=== PATIENT | male | born 1940 | race Caucasian/White ===

== ENCOUNTER 2019-04-14 08:44 | Outpatient (RCR) | payer MEDICARE, SELFPAY | END 2019-05-07 23:59 | disposition home or self-care (01) | LOC: SPT 08:44 | PROVIDERS: Family Provider Family Medicine; PCP Family Medicine; Referring Provider Neurological Surgery; Visit Provider Neurological Surgery | DX: M43.22 Fusion of spine, cervical region (principal) | CPT/HCPCS: 97110; 97161 ==

== ENCOUNTER 2019-05-08 06:00 | Outpatient (RCR) | payer MEDICARE, SELFPAY | END 2019-06-05 23:59 | disposition home or self-care (01) | LOC: SPT 06:00 | PROVIDERS: Family Provider Family Medicine; PCP Family Medicine; Referring Provider Neurological Surgery; Visit Provider Neurological Surgery | DX: Z47.89 Encounter for other orthopedic aftercare (principal); M43.22 Fusion of spine, cervical region; Z98.1 Arthrodesis status | CPT/HCPCS: 97110; 97140; 97164 ==

== ENCOUNTER 2019-06-06 06:00 | Outpatient (RCR) | payer MEDICARE, SELFPAY | END 2019-07-06 23:59 | disposition home or self-care (01) | LOC: SPT 06:00 | PROVIDERS: Family Provider Family Medicine; PCP Family Medicine; Referring Provider Neurological Surgery; Visit Provider Neurological Surgery | DX: M43.22 Fusion of spine, cervical region (principal) | CPT/HCPCS: 97110; 97140 ==

== ENCOUNTER 2020-10-18 07:05 | Outpatient (CLI) | payer MEDICARE, SELFPAY ==
--- NOTE | 2020-10-18 07:15 | USCV_ITS ---
Magen Boo Age: 80 Gender: M : 1940 Exam Date: 10/18/2020 07:32 Ordering Phys: Arturo Tabares M.D ([email or web address]) Technologist: [place] [facility] [place]: AO BIO PROS BP: 124 / 75 HR: 62 Rhythm: Sinus Technical Quality: Adequate MEASUREMENTS (Male / Female) Normal Values 2D ECHO LV Diastolic Diameter PLAX 3.6 cm 4.2 - 5.9 / 3.9 - 5.3 cm LV Systolic Diameter PLAX 2.5 cm IVS Diastolic Thickness 1.2 cm 0.6 - 1.0 / 0.6 - 0.9 cm IVS Systolic Thickness 1.2 cm LVPW Diastolic Thickness 1.0 cm 0.6 - 1.0 / 0.6 - 0.9 cm LVPW Systolic Thickness 1.3 cm LVOT Diameter 2.0 cm LV Ejection Fraction 2D Teich 62.0 % LV Ejection Fraction MOD 2C 55.6 % LV Ejection Fraction 2C AL 54.5 % LA Diameter 4.0 cm LA Width 4.0 cm LA Height 5.0 cm RA Width 3.5 cm RA Height 4.2 cm Aorta at Sinotubular Diameter 2.3 cm DOPPLER AV Peak Velocity 233.7 cm/s LVOT Peak Velocity 94.0 cm/s AV Area Cont Eq vti 1.4 cm squared AV Area Cont Eq pk 1.3 cm squared MV Area PHT 5.0 cm squared Mitral E to A Ratio 1.0 MV E' Velocity 66.0 cm/s Mitral E to MV E' Ratio 19.9 Mitral E to LV E' Lateral Ratio 15.9 Mitral E to LV E' Septal Ratio 26.7 TR Peak Velocity 173.7 cm/s TR Peak Gradient 12.1 mmHg TV Peak E Velocity 120.0 cm/s Right Atrial Pressure 3.0 mmHg Pulmonary Artery Systolic Pressu 15.1 mmHg FINDINGS Left Ventricle Normal left ventricular size. LV systolic function is normal with EF of 50-55%. No regional wall motion abnormalities. Grade 1 diastolic dysfunction Right Ventricle The right ventricle is normal in size and function. Right Atrium The right atrium is normal in size. Left Atrium The left atrium is normal in size. Mitral Valve Moderate mitral annular calcification. There is mild mitral stenosis. There is trace mitral regurgitation. Aortic Valve Bioprosthetic aortic valve is noted.Mild aortic stenosis noted. There is no aortic regurgitation. Tricuspid Valve Structurally normal tricuspid valve without significant stenosis or regurgitation. Insufficient TR jet to calculate RVSP Pulmonic Valve Structurally normal pulmonic valve without significant stenosis. There is no pulmonic regurgitation. Pericardium Normal pericardium without effusion. Aorta Normal ascending aorta dimension. CONCLUSIONS LV systolic function is nromal with EF of 50-55% Grade 1 diastolic dysfunction Trace mitral regurgitation. Mild mitral stenosis Mild aortic stenosis Compared to prior echocardiogram from 08/22/2017, no signficant changes are noted Arturo Tabares MD (Electronically Signed) Final Date: 22 October 2020 18:39 S
== END 2020-10-18 07:06 | disposition home or self-care (01) ==
LOC: US 07:06
PROVIDERS: PCP Family Medicine; Visit Provider Internal Medicine
DX: R06.02 Shortness of breath (principal); I25.10 Atherosclerotic heart disease of native coronary artery without angina pectoris; I34.0 Nonrheumatic mitral (valve) insufficiency; I35.0 Nonrheumatic aortic (valve) stenosis; Z95.2 Presence of prosthetic heart valve
CPT/HCPCS: 93306

== ENCOUNTER 2021-01-24 15:35 | Inpatient (IN) | payer MEDICARE, SELFPAY ==
[2021-01-24 15:58] VITALS: BMI 27.5
--- NOTE | 2021-01-24 16:40 | XRR_ITS ---
PROCEDURE INFORMATION: Exam: XR Chest Exam date and time: 01/24/2021 4:40 PM Age: 80 years old Clinical indication: Cough and shortness of breath; Prior surgery; Surgery type: Heart; Additional info: Pna TECHNIQUE: Imaging protocol: XR of the chest. Views: 1 view. COMPARISON: CR XR chest 2V* [id number] 01/22/2021 3:25 PM FINDINGS: Lungs: Patchy left lower lobe airspace disease slightly less prominent than prior. Mild reticular changes of pulmonary interstitium stable from prior. Pleural spaces: Unremarkable. No pleural effusion. No pneumothorax. Heart/Mediastinum: Previous CABG. Mild cardiac enlargement. Bones/joints: Unremarkable. XR/XR chest 1V portable [id number] IMPRESSION: Left lower lobe pneumonia is suspected although mild improvement from prior is noted. Radiation Dose CTDIVOL = (mGy): DLP = (mGy-cm)
--- NOTE | 2021-01-24 16:45 | PM.HP ---
Providers/Chief Complaint Admitting Physician: Jose Weinberg MD Primary Care Provider: Kyle Mendoza MD Chief Complaint: pneumonia History of Present Illness Magen Boo is a 80 year old male with past medical history of CAD, CABG, aortic stenosis s/p bioprosthetic aortic valve, dyslipidemia who was sent in to the hospital as direct admit from [facility]. Patient gives history of having difficulty in breathing, cough for last 3 weeks. He states symptoms started after having nausea, vomiting for few days during which he had multiple episodes of aggressive vomiting. He states 2 days after vomiting subsided he started having difficulty in breathing with cough and expectoration. Symptoms are associated with high-grade fever going up to 102 Fahrenheit. He was started on oral Levaquin by his primary care physician with last dose taken on January 21. He started having fevers again going up to 101 Fahrenheit last night so he went to his primary care's office and was sent in for further management. Patient is vaccinated for COVID-19 with last shot in June. He states at baseline he does have difficulty in breathing on walking up to 2 blocks. Denies any PND, orthopnea. Review of Systems General: Reports: 10 or more systems reviewed and unremarkable except in HPI and below Const: Denies: fever(s), chills, body aches, change in appetite, change in weight, malaise, night sweats, diaphoresis, change in sleep pattern, daytime sleepiness or snoring Eyes: Denies: change in vision, blurry vision, photophobia, eye discomfort or eye discharge ENMT: Denies: throat pain, enlarged tonsils, hoarseness, mouth pain, oral sores, dry mouth, tinnitus, nasal congestion or post nasal drip Card: Denies: chest pain, palpitations, irregular heart rhythm, edema, swelling of feet/ankles, lightheadedness, syncope, pre-syncope, dyspnea on exertion, orthopnea, leg pain with exertion or acrocyanosis Resp: Denies: dyspnea, productive cough, non-productive cough, wheezing, stridor, pain on inspiration, change in phlegm color, hemoptysis or chest congestion GI: Denies: abdominal pain, nausea, vomiting, hematemesis, coffee ground emesis, dysphagia, heartburn, diarrhea, constipation, bloating, GI cramping, change in bowel habits, pain on defecation, hematochezia or melena : Denies: flank pain, difficulty urinating, dysuria, urinary frequency, urinary urgency, urinary hesitancy, urinary dribbling, difficulty starting urination, change in urine stream, nocturia or hematuria Musc: Denies: neck pain, back pain, extremity pain, joint pain, joint swelling, joint redness, joint stiffness or limited range of motion Neuro: Denies: headache(s), numbness in extremities, weakness in extremities, sensory changes, lack of coordination, difficulty walking, frequent falls, dizziness, vertigo, confusion, Slurred speech present, difficulty communicating thoughts or seizure-like activity Psych: Denies: anxiety, depression, mood swings, panic attacks, hopelessness or irritability Endo: Denies: polyuria, polydipsia, tired all the time, cold intolerance, excessive sweating, flushing or heat intolerance Favian/Lymph: Denies: easy bruising or easy bleeding All/Imm: Denies: tongue swelling, facial swelling or acute wheezing Medications/Allergies Home Medications Medication Instructions Recorded Confirmed Last Taken Type nitroglycerin 0.4 mg sublingual 0.4 mg SUBLINGUAL Q5M PRN 09/06/19 09/06/20 Unknown History tablet fluoxetine 10 mg tablet 10 mg PO DAILY #90 tab 09/06/20 09/06/20 Unknown Rx ibuprofen 800 mg tablet 800 mg PO TID PRN #60 tab 09/06/20 09/06/20 Unknown Rx simvastatin 40 mg tablet 40 mg PO DAILY #90 tab 09/06/20 09/06/20 Unknown Rx pindolol 5 mg tablet 2.5 mg PO BID 90 Days #90 tab 10/13/20 Unknown Rx Allergies Allergy/AdvReac Type Severity Reaction Status Date / Time No Known Allergies Allergy Verified 09/06/20 14:14 PFSH Acute PFSH: Medical History (Updated 01/24/21 @ 17:35 by Matias Knox MD) ASHD (arteriosclerotic heart disease) Chronic neck pain Chronic shortness of breath Dyslipidemia H/O Caro's palsy Myocardial infarction Surgical History (Updated 01/24/21 @ 17:35 by Matias Knox MD) S/P appendectomy S/P AVR (aortic valve replacement) Bioprosthetic open aortic valve replacement S/P CABG (coronary artery bypass graft) S/P hernia repair S/P PTCA (percutaneous transluminal coronary angioplasty) Family History Father CAD (coronary artery disease) Brother CAD (coronary artery disease) Social History Smoking and tobacco status: never smoked Alcohol intake: never Household members: spouse Marital status: Vitals/I&O/Wt Weight last 48 hrs Weight 97.341 kg Physical Exam Narrative: EXAM NARRATIVE: General: No acute distress, AO x3 HEENT: PERRLA, pupils bilaterally equal and reactive Chest: Normal vesicular breath sounds bilaterally other than left lower zone where he has rhonchi and coarse crackles, soft bilateral fine crackles present, no added sounds, equal good air entry bilaterally CVS: S1-S2 regular, no murmurs, no tachycardia, no gallops, no rubs Abdomen: Soft, nontender, no organomegaly, bowel sounds present Neuro: No focal deficits, no facial deformity, AO x3, power 5/5 in all limbs A&P Assessment and plan (1) Left lower lobe pneumonia: Status: Acute (2) Failure of outpatient treatment: Status: Acute (3) S/P CABG (coronary artery bypass graft): Status: Acute (4) S/P AVR (aortic valve replacement): Status: Acute (5) Dyslipidemia: Status: Acute Additional A&P Information Left lower lobe pneumonia: Failure of outpatient treatment. Check blood culture, CMP, CBC, CPK, D-dimer, lactate with reflex, urine Legionella, bacterial antigen, flu swab, MRSA swab, COVID-19 antigen and PCR, procalcitonin, proBNP. Stat chest x-ray. Oxygen supplementation keeping saturation over 90%. Currently on room air. For now start patient on treatment for community-acquired pneumonia with oral azithromycin and IV ceftriaxone. DuoNeb every 6 hourly, budesonide twice daily. Depending on value of D-dimer and BNP will decide about CTA versus CT chest without contrast. Continue other chronic medication including statin, fluoxetine. Start on Flomax 0.4 mg daily. History of CABG: History of bioprosthetic aortic valve: Start patient on aspirin 81 mg daily, continue with statin. Check HbA1c, lipid panel, TSH, iron panel. We will change treatment as per the results and clinical picture going forward. CODE STATUS: Full code. Cardiac diet. Heparin 5000 every 8 for DVT prophylaxis. Famotidine for PUD prophylaxis Attestations Medical Necessity Statement*: Admission for more than 2 midnights due to left lower lobe pneumonia with failure of outpatient treatment Time Spent in Patient Care: Greater than 35 minutes (>than 50% of time spent in counselling and/or direct pt care on unit). Coding Level of Care Code Acute Core Inspector for Chg Fwd Diagnoses Left lower lobe pneumonia J18.9 Failure of outpatient treatment Z78.9 S/P CABG (coronary artery bypass graft) Z95.1 S/P AVR (aortic valve replacement) Z95.2 Dyslipidemia E78.5
[2021-01-24 17:38] VITALS: BP 132/74; PULSE 76; RESP 17; TEMP 37.3; O2SAT 93
[2021-01-24] MEDS: FUROsemide 10 mg/mL SDV 4mL 40 MG IVP (17:53)
[2021-01-24] MEDS: cefTRIAXone 1,000 MG in sodium chloride 0.9% (plus) 50 ML 100 MG IV (17:53)
[2021-01-24] MEDS: ferrous gluconate 324 mg Tablet PO (17:53)
[2021-01-24] MEDS: azithromycin 250 mg Tablet 500 MG PO (17:53)
[2021-01-24 18:05] LABS: Basophils % 0.3 %; Eosinophils # 0.3 10^3/uL (0.0-0.8); Eosinophils % 2.4 %; Hematocrit 36.2 % (42.0-52.0); Hemoglobin 11.5 g/dL (11.7-16.6); Lymphocytes # 0.8 10^3/uL (0.8-4.8); Lymphocytes % 6.7 %; Mean Corpuscular HGB Conc 31.8 g/dL (30.0-36.0); Mean Corpuscular Hemoglobin 29.4 pg (28.0-34.0); Mean Corpuscular Volume 92.6 fl (80-94); Mean Platelet Volume 10.9 fL (7.4-10.4); Monocytes # 1.2 10^3/uL (0.2-0.9); Monocytes % 10.1 %; Neutrophils # 9.36 10^3/uL (1.8-7.7); Neutrophils % 79.8 %; Nucleated Red Blood Cells % 0 %; Platelet Count 319 10^3/cmm (130-400); Red Blood Count 3.91 10^6/uL (4.1-5.3); Red Cell Distribution Width 13.3 % (12.1-15.1); White Blood Count 11.7 10^3/uL (4.0-10.0)
[2021-01-24 18:12] VITALS: O2SAT 92
[2021-01-24 18:16] LABS: D Dimer 2.44 ug/mIFEU (0-0.59)
[2021-01-24 18:18] LABS: Lactic Sepsis W/Reflex 1.2 mmol/L (0.5-2.2)
[2021-01-24 18:44] LABS: NT Pro B Type Natriuretic Pept 613 pg/mL (0-450); Procalcitonin 0.09 ng/mL (0-0.5); Thyroid Stimulating Hormone 2.24 uIU/mL (0.27-4.20)
[2021-01-24 18:56] LABS: Alanine Aminotransferase 26 U/L (0-41); Alkaline Phosphatase 100 IU/L (40-130); Anion Gap 14.8 (5-19); Aspartate Amino Transferase 14 U/L (0-40); Blood Urea Nitrogen 14 mg/dL (8-23); Calcium 8.2 mg/dL (8.5-10.5); Carbon Dioxide 22 mmol/L (22-29); Chloride 99 mmol/L (98-107); Creatine Phosphokinase 23 U/L (39-308); Globulin 3.1 g/dL (1.3-4.6); Glucose 146 mg/dL (65-115); Iron 22 ug/dL (59-158); Magnesium 2.1 mg/dL (1.7-2.3); Osmolality Calculated 277 mOsm/kg (285-295); Percent Saturation 11.1 % (20-50); Phosphorus 2.9 mg/dL (2.5-4.5); Potassium 3.8 mmol/L (3.5-5.1); Sodium 132 mmol/L (136-145); Total Bilirubin 0.4 mg/dL (0.15-1.2); Total Iron Binding Capacity 198 mcg/dl; Total Protein 6.1 g/dL (6.6-8.7); Unsaturated Iron Binding 176 ug/dL (112-347)
[2021-01-24 19:23] LABS: Influenza A by IFA Negative (Negative); Influenza B by IFA Negative (Negative)
[2021-01-24] MEDS: heparin 5,000 unit/mL INJ 1 mL 5000 UNIT SUBCUT (19:37)
[2021-01-24 19:56] LABS: Potassium, Radom Urine 37 mmol/L; Urine Random Chloride 100 mmol/L; Urine Random Sodium 98 mmol/L
[2021-01-24 20:00] VITALS: BP 134/72; PULSE 79; RESP 14; TEMP 36.8; O2SAT 92
[2021-01-24] MEDS: ipratropium-albuterol 3 mL Neb INHALATION (20:20)
[2021-01-24] MEDS: budesonide 0.5 mg/2 mL Neb INHALATION (20:20)
[2021-01-24 20:23] VITALS: PULSE 73; O2SAT 94
[2021-01-24] MEDS: famotidine 20 mg/2 mL INJ IVP (21:12)
[2021-01-24] MEDS: benzonatate 100 mg Capsule PO (21:12)
[2021-01-24] MEDS: atorvastatin 40 mg Tablet 20 MG PO (21:12)
[2021-01-25] VITALS (12 sets, daily range): BP systolic 124–154; BP diastolic 51–73; PULSE 68–87; RESP 14–18; TEMP 36.8–37.4; O2SAT 92–94
--- NOTE | 2021-01-25 01:56 | PC.NURSE ---
This nurse went into pt's room at appro
--- NOTE | 2021-01-25 01:57 | PC.NURSE ---
This nurse went into pt's room at approx 2115 to give his HS medication, the pt asked if there was anything to help him sleep in that cup, this nurse told him there was not, and he did not have an order for anything to help him sleep, this nurse then asked what he took at home and he stated tylenol PM . this nurse offered to contact the systems consultant and see if we could get him something but I didn't think it would be tylenol PM, pt stated don't worry about it, I don't want you contacting anyone , this nurse told pt we would see how he does tonight and I would let day shift know and if he needs it we can maybe get an order for something starting tomorrow night. pt voiced an understanding.
[2021-01-25] MEDS: heparin 5,000 unit/mL INJ 1 mL 5000 UNIT SUBCUT ×3 (02:11→18:33)
[2021-01-25 05:52] LABS: Basophils # 0.1 10^3/uL (0.0-0.1); Basophils % 0.5 %; Eosinophils # 0.2 10^3/uL (0.0-0.8); Eosinophils % 2.1 %; Hematocrit 36.8 % (42.0-52.0); Hemoglobin 11.7 g/dL (11.7-16.6); Lymphocytes # 0.9 10^3/uL (0.8-4.8); Mean Corpuscular HGB Conc 31.8 g/dL (30.0-36.0); Mean Corpuscular Hemoglobin 29.3 pg (28.0-34.0); Mean Platelet Volume 10.6 fL (7.4-10.4); Monocytes # 1.1 10^3/uL (0.2-0.9); Monocytes % 10.5 %; Neutrophils # 8.33 10^3/uL (1.8-7.7); Neutrophils % 78.1 %; Nucleated Red Blood Cells % 0 %; Platelet Count 366 10^3/cmm (130-400); Red Cell Distribution Width 13.2 % (12.1-15.1); White Blood Count 10.7 10^3/uL (4.0-10.0)
[2021-01-25 06:28] LABS: Alanine Aminotransferase 24 U/L (0-41); Alkaline Phosphatase 105 IU/L (40-130); Anion Gap 11.9 (5-19); Aspartate Amino Transferase 16 U/L (0-40); Blood Urea Nitrogen 13 mg/dL (8-23); Calcium 8.3 mg/dL (8.5-10.5); Carbon Dioxide 26 mmol/L (22-29); Chloride 99 mmol/L (98-107); Globulin 3.3 g/dL (1.3-4.6); Glucose 109 mg/dL (65-115); Magnesium 1.9 mg/dL (1.7-2.3); Osmolality Calculated 277 mOsm/kg (285-295); Phosphorus 3.1 mg/dL (2.5-4.5); Potassium 3.9 mmol/L (3.5-5.1); Sodium 133 mmol/L (136-145); Total Bilirubin 0.4 mg/dL (0.15-1.2); Total Protein 6.3 g/dL (6.6-8.7)
[2021-01-25 06:36] LABS: Estmated Average Glucose 126
[2021-01-25] MEDS: budesonide 0.5 mg/2 mL Neb INHALATION ×2 (07:58→20:37)
[2021-01-25] MEDS: ipratropium-albuterol 3 mL Neb INHALATION ×3 (08:02→20:37)
--- NOTE | 2021-01-25 08:38 | PC.PHAR ---
Pt unable to verify medications-called and left message with french [phone]-MEDICATIONS ENTERED ARE WHAT THE PHARMACY HAS FILLED RECENTLY-NOTES ARE MADE IN THE PHARMACY COMMENTS-EXT MED HISTORY SHOWS PREDNISONE 20MG BID FILLED ON 01/15/21 5D/S AND LEVAQUIN 750MG DAILY FILLED ON 01/15/21 7D/S
[2021-01-25] MEDS: benzonatate 100 mg Capsule PO ×3 (08:44→19:59)
[2021-01-25] MEDS: azithromycin 250 mg Tablet 500 MG PO (08:44)
[2021-01-25] MEDS: famotidine 20 mg/2 mL INJ IVP ×2 (08:44→19:59)
[2021-01-25] MEDS: ferrous gluconate 324 mg Tablet PO ×2 (08:45→18:33)
[2021-01-25] MEDS: fluoxetine 10 mg Capsule PO (08:45)
[2021-01-25] MEDS: aspirin 81 mg EC Tablet PO (08:45)
[2021-01-25] MEDS: iohexol 350 mg/mL 100 mL Btl IV (10:53)
--- NOTE | 2021-01-25 12:07 | PC.CHAP ---
Pastoral Care Encounter/Spiritual Assessment Type of Contact [] Declined instructor warper visit [] Patient/Family/Request visit [] Outpatient visit [] Follow-up visit [] Physician referral [] Code/Alert [] Routine visit [] Staff referral [] Actively dying [] Patient sleeping [] Family support [] [] Out of room [] Palliative care [] [] Receiving care in room [] Pre-surgical visit [] Trauma [] Long length of stay [] ICU visit [x] Other: Isolation Relational/Emotional Strength [] Patient feels connected with others/family/visitors/staff [] Distress [] Loneliness/isolation [] Abandonment Spirituality of Patient [] Person of Luz [] Attends Jewish of their Luz [] Believes in Prayer [] Reads Bible or Holiness materials [] There are Spiritual issues to be addressed Mine Engineering Supervisor Interventions [] Prayer [] Active listening [] Non-anxious presence [] Spiritual/emotional support [] Crisis/trauma care [] Spiritual counseling [] Bereavement support [] Provided bereavement packet [] Provided Bible/devotional materials [] Provided toy/stuffed animal, coloring book to patient or family member [] Provided Communion [] Anointing/[place] [] Salvation [] Completed spiritual assessment [] Other: Impact on Illness or Injury [] Angry [] Fearful [] Anxious [] Often cries [] Exhaustion [] Unable to work [] Unable to attend adventism [] Unable to walk/stand [] Unable to read [] Unable to drive [] Unable to eat/drink [] Unable to sleep [] Unable to be with family [] Patient intubated [] Other: Summary Isolation Time spent with patient 5 mins
--- NOTE | 2021-01-25 12:44 | P.PN_ITS ---
Subjective Subjective: Interval history: No acute events overnight. Patient has remained hemodynamically stable and afebrile. T-max 99.3 Fahrenheit. States could not sleep last night as he did not get his sleeping pill. States cough is the same and is not able to bring up the phlegm. Vitals/I&O/Wt Last Vital Signs Temp 99.3 F 01/25/21 11:36 Pulse 86 01/25/21 11:36 Resp 17 01/25/21 11:36 BP 133/67 01/25/21 11:36 Pulse Ox 94 01/25/21 11:36 01/24/21 01/25/21 01/25/21 22:59 06:59 14:59 Intake Total 330 / 330 240 / 570 360 / 360 Output Total 200 / 200 Balance 130 / 130 240 / 370 360 / 360 Weight last 48 hrs Weight 94.376 kg Weight 97.341 kg Physical Exam Narrative: EXAM NARRATIVE: General: No acute distress, AO x3 HEENT: PERRLA, pupils bilaterally equal and reactive Chest: Normal vesicular breath sounds bilaterally other than left lower zone where he has rhonchi and coarse crackles, soft bilateral fine crackles present, no added sounds, equal good air entry bilaterally CVS: S1-S2 regular, no murmurs, no tachycardia, no gallops, no rubs Abdomen: Soft, nontender, no organomegaly, bowel sounds present Neuro: No focal deficits, no facial deformity, AO x3, power 5/5 in all limbs Data : 01/25/21 05:24 01/25/21 05:24 Micro: Microbiology 01/24/21 17:20 MRSA Culture - Final Nose 01/24/21 18:25 Bacterial Antigens - Final Urine Kidney 01/24/21 18:25 Legionella Urinary Antigen - Final Unknown Source 01/24/21 17:40 Blood Culture - Preliminary Blood SPECIMEN COLLECTED 01/24/21 17:50 Blood Culture - Preliminary Blood SPECIMEN COLLECTED A&P Assessment and plan (1) Left lower lobe pneumonia: Status: Acute (2) Failure of outpatient treatment: Status: Acute (3) S/P CABG (coronary artery bypass graft): Status: Acute (4) S/P AVR (aortic valve replacement): Status: Acute (5) Dyslipidemia: Status: Acute Additional A&P Information Left lower lobe pneumonia: Failure of outpatient treatment. Oxygen supplementation keeping saturation over 90%. Currently on room air. Blood cultures so far negative, urine Legionella, bacterial antigen, MRSA negative. Sputum culture still awaited. CT results appreciated. Concerns of possible aspiration pneumonia from vomiting few weeks ago versus community-acquired pneumonia. Continue with ceftriaxone 1 mg daily. Stop azithromycin. For now start patient on treatment for community-acquired pneumonia with oral azithromycin and IV ceftriaxone. DuoNeb every 6 hourly, budesonide twice daily. Pulmonary toilet with I-S and Acapella. COVID-19 PCR pending. Continue with isolation cautions. Oxygen supplementation keeping saturation over 90%. Continue other chronic medication including statin, fluoxetine. BPH: Flomax 0.4 mg daily. History of CABG: History of bioprosthetic aortic valve: Start patient on aspirin 81 mg daily, continue with statin. Recent echocardiogram done in October shows an EF 55 to 60%, grade 1 diastolic dysfunction, mild aortic stenosis. CODE STATUS: Full code. Cardiac diet. Heparin 5000 every 8 for DVT prophylaxis. Famotidine for PUD prophylaxis Attestations Medical Necessity Statement*: Requires further hospitalization for management of left lower lobe pneumonia, failure of outpatient treatment Time Spent in Patient Care: Greater than 35 minutes (>than 50% of time spent in counselling and/or direct pt care on unit) . Coding Level of Care Code Acute Bow Machine Operator for [facility] Fwd Diagnoses Left lower lobe pneumonia J18.9 Failure of outpatient treatment Z78.9 S/P CABG (coronary artery bypass graft) Z95.1 S/P AVR (aortic valve replacement) Z95.2 Dyslipidemia E78.5
[2021-01-25 13:04] LABS: Add Urine Microscopic? NO; Charge for UA Resulting for Rev
[2021-01-25 13:10] LABS: Bilirubin Urine Neg (Negative); Blood Urine Neg (Negative); Glucose Urine UA Norm (Normal); Ketones Urine Negative (Negative); Leukocyte Esterase Urine Negative (Negative); Nitrate Urine Negative (Negative); Protein Urine Neg (Negative); Urine Appearance Clear (CLEAR); Urine Color Yellow (Yellow); Urobilinogen Urine Norm (Negative); pH Urine 5 (5-7)
[2021-01-25 13:33] LABS: Coronavirus Test Green County Not Detected
[2021-01-25] MEDS: acetaminophen 325 mg Tablet 650 MG PO (14:37)
[2021-01-25 17:29] LABS: Cholesterol 121 mg/dL (0-200); HDL Cholesterol 31 mg/dL (60-100); LDL Cholesterol Calculated 74 mg/dL (50-129); Triglycerides 78 mg/dL (0-150); VLDL Cholestrol Calculation 16 mg/dL (0-30)
[2021-01-25] MEDS: cefTRIAXone 1,000 MG in sodium chloride 0.9% (plus) 50 ML 100 MG IV (18:32)
[2021-01-25] MEDS: atorvastatin 40 mg Tablet 20 MG PO (19:59)
--- NOTE | 2021-01-25 20:15 | CT_ITS ---
WS: [id number] CTA OF THE CHEST WITH PULMONARY EMBOLISM PROTOCOL TECHNIQUE: High-resolution contrast enhanced CTA of the chest with coronal and sagittal reformatted i mages with pulmonary embolism protocol. MIP images are also reviewed. CLINICAL INFORMATION: pna, elevated dimer COMPARISON: CTA 11 13,018 DLP: 576.[address] scans at [facility] use at least one of these dose optimization techniques: automated e xposure control; mA and/or kV adjustment per patient size (includes targeted exams where dose is matc hed to clinical indication); or iterative reconstruction. FINDINGS: Proximal main pulmonary arteries are normal. Segmental and subsegmental pulmonary arteries are normal in appearance. No evidence of pulmonary embolus. Cardiomegaly. Normal caliber thoracic aorta. Aortic calcification. Coronary calcification. Sternotomy with CABG. Moderate chronic emphysematous changes. Left lower lobe infiltrate lobe with pa rtial consolidation and small left pleural effusion consistent with pneumonia. Trace right pleural fluid with subsegmental atelectasis/subpleural opacity right lower lobe medially. This is similar in appearance to 2018. Mild thoracic curve. Hypertrophic changes thoracic spine. Adrenal glands are normal. Small esophageal hiatal hernia. CT/CT angio chest PE protcl [id number] IMPRESSION: 1. Proximal main pulmonary arteries are normal. No evidence of pulmonary embol us. 2. Normal caliber thoracic aorta. 3. Left lower lobe infiltrate with partial consolidation consistent with pneum onia. Small left greater than right pleural effusions. 4. Focal subsegmental atelectasis/opacity right lower lobe medially is stable since 2018. 5. Small esophageal hiatal hernia. 6. Cardiomegaly.
[2021-01-25] MEDS: acetaminophen-codeine 300-30mg Tablet 1 TAB PO (20:18)
[2021-01-26] VITALS (9 sets, daily range): BP systolic 131–155; BP diastolic 60–79; PULSE 66–82; RESP 16–18; TEMP 36.6–36.8; O2SAT 90–96
[2021-01-26] MEDS: heparin 5,000 unit/mL INJ 1 mL 5000 UNIT SUBCUT ×2 (02:40→08:28)
[2021-01-26] MEDS: ipratropium-albuterol 3 mL Neb INHALATION ×2 (03:07→09:05)
[2021-01-26 05:35] LABS: Alanine Aminotransferase 20 U/L (0-41); Albumin Level 2.8 g/dL (3.5-5.2); Alkaline Phosphatase 112 IU/L (40-130); Aspartate Amino Transferase 14 U/L (0-40); Blood Urea Nitrogen 14 mg/dL (8-23); Calcium 8.5 mg/dL (8.5-10.5); Carbon Dioxide 25 mmol/L (22-29); Chloride 101 mmol/L (98-107); Globulin 3.3 g/dL (1.3-4.6); Glucose 112 mg/dL (65-115); Osmolality Calculated 279 mOsm/kg (285-295); Sodium 134 mmol/L (136-145); Total Bilirubin 0.4 mg/dL (0.15-1.2); Total Protein 6.1 g/dL (6.6-8.7)
[2021-01-26 06:03] LABS: Basophils # 0.1 10^3/uL (0.0-0.1); Basophils % 0.8 %; Eosinophils # 0.3 10^3/uL (0.0-0.8); Eosinophils % 3.3 %; Hematocrit 36.5 % (42.0-52.0); Hemoglobin 11.5 g/dL (11.7-16.6); Lymphocytes # 0.8 10^3/uL (0.8-4.8); Lymphocytes % 10.7 %; Mean Corpuscular HGB Conc 31.5 g/dL (30.0-36.0); Mean Corpuscular Hemoglobin 28.9 pg (28.0-34.0); Mean Corpuscular Volume 91.7 fl (80-94); Mean Platelet Volume 10.9 fL (7.4-10.4); Monocytes % 13.3 %; Neutrophils # 5.46 10^3/uL (1.8-7.7); Neutrophils % 71.2 %; Nucleated Red Blood Cells % 0 %; Platelet Count 370 10^3/cmm (130-400); Red Blood Count 3.98 10^6/uL (4.1-5.3); Red Cell Distribution Width 12.9 % (12.1-15.1); White Blood Count 7.7 10^3/uL (4.0-10.0)
[2021-01-26] MEDS: fluoxetine 10 mg Capsule PO (08:27)
[2021-01-26] MEDS: aspirin 81 mg EC Tablet PO (08:27)
[2021-01-26] MEDS: famotidine 20 mg/2 mL INJ IVP (08:28)
[2021-01-26] MEDS: ferrous gluconate 324 mg Tablet PO (08:28)
[2021-01-26] MEDS: azithromycin 250 mg Tablet 500 MG PO (08:28)
[2021-01-26] MEDS: tamsulosin 0.4 mg Capsule PO (08:28)
[2021-01-26] MEDS: benzonatate 100 mg Capsule PO (08:28)
[2021-01-26] MEDS: budesonide 0.5 mg/2 mL Neb INHALATION (09:04)
--- NOTE | 2021-01-26 11:40 | P.DS_ITS ---
Discharge Providers Date of Admission: 01/24/21 15:35 Date of Discharge: January 26, 2021 Attending Provider at Admission: Jose Weinberg MD Attending Provider at Discharge: Matias Knox MD Primary Care Provider: Kyle Mendoza MD Diagnoses at Discharge Discharge Diagnosis (1) Left lower lobe pneumonia: Status: Acute (2) Failure of outpatient treatment: Status: Acute (3) S/P CABG (coronary artery bypass graft): Status: Acute (4) S/P AVR (aortic valve replacement): Status: Acute Permanent problem details: Bioprosthetic open aortic valve replacement (5) Dyslipidemia: Status: Acute (6) BPH (benign prostatic hyperplasia): Status: Acute (7) Mild aortic valve stenosis: Status: Acute Reason for Visit Reason for Visit: pneumonia Hospital Course Hospital Course Magen Boo is a 80 year old male with past medical history of CAD, CABG, aortic stenosis s/p bioprosthetic aortic valve, dyslipidemia who was sent in to the hospital as direct admit from [facility]. Patient gives history of having difficulty in breathing, cough for last 3 weeks. He states symptoms started after having nausea, vomiting for few days during which he had multiple episodes of aggressive vomiting. He states 2 days after vomiting subsided he started having difficulty in breathing with cough and expectoration. Symptoms are associated with high-grade fever going up to 102 Fahrenheit. He was started on oral Levaquin by his primary care physician with last dose taken on Friday, January 21. He started having fevers again going up to 101 Fahrenheit last night so he went to his primary care's office and was sent in for further management. Patient is vaccinated for COVID-19 with last shot in June. He states at baseline he does have difficulty in breathing on walking up to 2 blocks. Denies any PND, orthopnea. Patient was admitted to hospital for further management of left lower lobe pneumonia with outpatient oral antibiotic failure. During hospitalization COVID-19 was ruled out. Patient was started on broad-spectrum antibiotics. His blood cultures, MRSA swab remain negative. He remained afebrile. CTA was done which ruled out pulmonary embolism but was consistent with early COPD. On review of recent echocardiogram showed mild aortic stenosis. It is believed patient's pneumonia is most likely secondary to aspiration of vomitus which happened 4 to 5 days prior to his symptoms starting 2 weeks ago. He has been discharged in hemodynamically stable condition on oral antibiotics for next 1 week. He has been advised to continue doing incentive spirometry and flutter valve for next 1 month. He is also advised to continue taking inhalers going forward for next 10 days and after that on as-needed basis. Physical Exam Narrative: EXAM NARRATIVE: General: No acute distress, AO x3 HEENT: PERRLA, pupils bilaterally equal and reactive Chest: Normal vesicular breath sounds, rhonchi, occasional coarse crackles present in left lower zone, equal good air entry bilaterally CVS: S1-S2 regular, soft ejection systolic murmur present at aortic area, no tachycardia, no gallops, no rubs Abdomen: Soft, nontender, no organomegaly, bowel sounds present Neuro: No focal deficits, no facial deformity, AO x3, power 5/5 in all limbs Discharge Data Data Completed and Pending: Completed Studies During Hospitalization Category Date Time Status CT angio chest PE protcl 59911 Rout ine Cat Scan 01/25/21 20:15 Completed XR chest 1V rajeev ble 40033 Stat Exams 01/24/21 16:40 Completed Pending at discharge Category Date Time Status Blood Culture Sta t Lab 01/24/21 17:40 Results Sputum Culture an d Gram Stain Stat Lab 01/24/21 16:40 Uncollected Microbiology 01/24/21 17:50 Blood Blood Culture - Preliminary NEGATIVE TO DATE 01/24/21 17:40 Blood Blood Culture - Preliminary NEGATIVE TO DATE 01/24/21 17:20 Nose MRSA Culture - Final 01/24/21 18:25 Urine Kidney Bacterial Antigens - Final 01/24/21 18:25 Unknown Source Legionella Urinary Antigen - Final Addt'l Data from Hospital Stay: Laboratory Results WBC 7.7 10^3/uL (4.0- 10.0) 01/26/21 04:33 RBC 3.98 10^6/uL (4.1 -5.3) L 01/26/21 04:33 Hgb 11.5 g/dL (11.7-1 6.6) L 01/26/21 04:33 Hct 36.5 % (42.0-52.0 ) L 01/26/21 04:33 MCV 91.7 fl (80-94) 01/26/21 04:33 MCH 28.9 pg (28.0-34. 0) 01/26/21 04:33 MCHC 31.5 g/dL (30.0-3 6.0) 01/26/21 04:33 RDW 12.9 % (12.1-15.1 ) 01/26/21 04:33 Plt Count 370 10^3/cmm (130 -400) 01/26/21 04:33 MPV 10.9 fL (7.4-10.4 ) H 01/26/21 04:33 Neut % (Auto) 71.2 % 01/26/21 04:33 Lymph % (Auto) 10.7 % 01/26/21 04:33 [place]ley % (Auto) 13.3 % 01/26/21 04:33 Eos % (Auto) 3.3 % 01/26/21 04:33 Baso % (Auto) 0.8 % 01/26/21 04:33 Neut # (Auto) 5.46 10^3/uL (1.8 -7.7) 01/26/21 04:33 Lymph # (Auto) 0.8 10^3/uL (0.8- 4.8) 01/26/21 04:33 Greeley # (Auto) 1.0 10^3/uL (0.2- 0.9) H 01/26/21 04:33 Eos # (Auto) 0.3 10^3/uL (0.0- 0.8) 01/26/21 04:33 Baso # (Auto) 0.1 10^3/uL (0.0- 0.1) 01/26/21 04:33 Nucleated RBC % (a uto) 0 % 01/26/21 04:33 Nucleated RBCs # 0.0 /100WBC 01/26/21 04:33 D-Dimer 2.44 ug/mIFEU (0- 0.59) H 01/24/21 17:40 Sodium 134 mmol/L (136-1 45) L 01/26/21 04:33 Potassium 4.0 mmol/L (3.5-5 .1) 01/26/21 04:33 Chloride 101 mmol/L (98-10 7) 01/26/21 04:33 Carbon Dioxide 25 mmol/L (22-29) 01/26/21 04:33 Anion Gap 12.0 (5-19) 01/26/21 04:33 BUN 14 mg/dL (8-23) 01/26/21 04:33 Creatinine 0.6 mg/dL (0.7-1. 2) L 01/26/21 04:33 GFR Calculation Not Reportable 01/26/21 04:33 Glucose 112 mg/dL (65-115 ) 01/26/21 04:33 Estimat Average Gl ucose 126 01/25/21 05:24 Hemoglobin A1c 6.0 % (4.0-6.0) 01/25/21 05:24 Calculated Osmolal ity 279 mOsm/kg (285- 295) L 01/26/21 04:33 Lactic Acid 1.2 mmol/L (0.5-2 .2) 01/24/21 17:40 Calcium 8.5 mg/dL (8.5-10 .5) 01/26/21 04:33 Phosphorus 3.1 mg/dL (2.5-4. 5) 01/25/21 05:24 Magnesium 1.9 mg/dL (1.7-2. 3) 01/25/21 05:24 Iron 22 ug/dL (59-158) L 01/24/21 17:40 TIBC 198 mcg/dl 01/24/21 17:40 % Saturation 11.1 % (20-50) L 01/24/21 17:40 Unsat Iron Binding 176 ug/dL (112-34 7) 01/24/21 17:40 Total Bilirubin 0.4 mg/dL (0.15-1 .2) 01/26/21 04:33 AST 14 U/L (0-40) 01/26/21 04:33 ALT 20 U/L (0-41) 01/26/21 04:33 Alkaline Phosphata se 112 IU/L (40-130) 01/26/21 04:33 Creatine Kinase 23 U/L (39-308) L 01/24/21 17:40 Creatine Kinase Cancelled 01/24/21 17:40 NT-Pro-B Natriuret Pep 613 pg/mL (0-450) H 01/24/21 17:40 Total Protein 6.1 g/dL (6.6-8.7 ) L 01/26/21 04:33 Albumin 2.8 g/dL (3.5-5.2 ) L 01/26/21 04:33 Globulin 3.3 g/dL (1.3-4.6 ) 01/26/21 04:33 Triglycerides 78 mg/dL (0-150) 01/25/21 05:24 Cholesterol 121 mg/dL (0-200) 01/25/21 05:24 LDL Cholesterol, C alc 74 mg/dL (50-129) 01/25/21 05:24 Total VLDL Cholest medardo 16 mg/dL (0-30) 01/25/21 05:24 HDL Cholesterol 31 mg/dL (60-100) L 01/25/21 05:24 Cholesterol/HDL Ra kwabena 3.90 mg/dL (1.0-5 .00) 01/25/21 05:24 Procalcitonin 0.09 ng/mL (0-0.5 ) 01/24/21 17:40 TSH 2.24 uIU/mL (0.27 -4.20) 01/24/21 17:40 TSH Cancelled 01/24/21 17:40 Urine Color Yellow (Yellow) 01/24/21 18:25 Urine Appearance Clear (CLEAR) 01/24/21 18:25 Urine pH 5 (5-7) 01/24/21 18:25 Ur Specific Gravit y 1.020 (1.005-1.0 30) 01/24/21 18:25 Urine Protein Neg (Negative) 01/24/21 18:25 Urine Glucose (UA) Norm (Normal) 01/24/21 18:25 Urine Ketones Negative (Negati ve) 01/24/21 18:25 Urine Blood Neg (Negative) 01/24/21 18:25 Urine Nitrate Negative (Negati ve) 01/24/21 18:25 Urine Bilirubin Neg (Negative) 01/24/21 18:25 Urine Urobilinogen Norm mg/dL (Negat tim) 01/24/21 18:25 Ur Leukocyte Maryjane ase Negative (Negati ve) 01/24/21 18:25 Ur Random Sodium 98 mmol/L 01/24/21 18:25 Ur Random Potassiu m 37 mmol/L 01/24/21 18:25 Ur Random Chloride 100 mmol/L 01/24/21 18:25 Nasal/Oral COVID-1 9 PCR Not detected 01/24/21 17:29 Influenza Type A A g Negative (Negati ve) 01/24/21 17:20 Influenza Type B A g Negative (Negati ve) 01/24/21 17:20 Impressions Chest X-Ray 01/24/21 16:40 IMPRESSION: Left lower lobe pneumonia is suspected although mild improvement from prior is noted. Radiation Dose CTDIVOL = (mGy): DLP = (mGy-cm) Chest CTA 01/25/21 20:15 IMPRESSION: 1. Proximal main pulmonary arteries are normal. No evidence of pulmonary embolus. 2. Normal caliber thoracic aorta. 3. Left lower lobe infiltrate with partial consolidation consistent with pneumonia. Small left greater than right pleural effusions. 4. Focal subsegmental atelectasis/opacity right lower lobe medially is stable since 2018. 5. Small esophageal hiatal hernia. 6. Cardiomegaly. Vitals: Last Vital Signs Temp 98.3 F 01/26/21 08:00 Pulse 67 01/26/21 09:11 Resp 16 01/26/21 09:11 BP 131/60 01/26/21 08:00 Pulse Ox 94 01/26/21 09:11 Discharge Plan Discharge Patient Disposition: Home Condition: Stable Prescriptions: New aspirin 81 mg Tablet,Delayed Release (Dr/Ec) 81 mg PO DAILY Qty: 30 RF: 0 ferrous gluconate 324 mg (37.5 mg iron) Tablet 324 mg PO BIDWM Qty: 60 RF: 0 tamsulosin 0.4 mg Capsule 0.4 mg PO DAILY 30 Days Qty: 30 RF: 0 Augmentin 500-125 mg tablet 1 tab PO Q12H 7 Days Qty: 14 RF: 0 levofloxacin 500 mg tablet 500 mg PO Q24H 5 Days Qty: 5 RF: 0 Advair Diskus 100-50 mcg/dose blister with device 1 inh inhalation DAILY Qty: 60 RF: 0 Spiriva with HandiHaler 18 mcg capsule, w/inhalation device 1 cap inhalation DAILY Qty: 30 RF: 0 Continued nitroglycerin [Nitrostat] 0.4 mg tablet, sublingual 0.4 mg SUBLINGUAL Q5M PRN (Reason: Chest Pain) RF: 0 fluoxetine 10 mg tablet 10 mg PO DAILY Qty: 90 RF: 1 ibuprofen 800 mg tablet 800 mg PO TID PRN (Reason: pain) Qty: 60 RF: 1 simvastatin 40 mg tablet 40 mg PO DAILY Qty: 90 RF: 3 ondansetron 4 mg tablet,disintegrating 4 mg PO TID PRN (Reason: Nausea And Vomiting) RF: 0 pindolol 5 mg tablet 2.5 mg PO BID RF: 0 Discharge Orders: Discharge Order (Routine); Ordered 01/26/21 Ordered By: Matias Knox Referrals: Kyle Mendoza MD [Primary Care Provider] - 2 weeks Discharge Diet: Cardiac and Low Salt Discharge Activity: Resume usual activity Patient Instructions: Opioid Safety Activity Restrictions/Additional Instructions: Augmentin and Levaquin in the antibiotics which he supposed to take as directed. Take Flomax once daily for BPH. You should continue taking aspirin once daily for history of aortic valve replacement. Please take inhalation treatment with Advair and Spiriva for next 10 days as directed and after that on as-needed basis. Please follow-up with your primary care provider within next 2 weeks. Discharge Attestations Time Spent in Discharge Care*: greater than 30 min Specific Discharge Activities: educating patient, educating and/or supporting family/caregiver, discussing with pcp/other providers, discussing with case resolution specialist/social workers/dc planners, documenting/other paperwork and evaluating patient/reviewing data Status at Discharge: Cognitive status at discharge: cognitively intact , Behavioral status at discharge: cooperative , Functional status at discharge: independent ambulation Overall status at discharge: patient is back to baseline Quality Metrics Clinical Quality Measures During this hospital stay, did patient experience: None Coding Level of Care Code Acute g FW DC note Diagnoses Left lower lobe pneumonia J18.9 Failure of outpatient treatment Z78.9 S/P CABG (coronary artery bypass graft) Z95.1 S/P AVR (aortic valve replacement) Z95.2 Dyslipidemia E78.5 BPH (benign prostatic hyperplasia) N40.0 Mild aortic valve stenosis I35.0
[2021-01-26] MEDS: acetaminophen 325 mg Tablet 650 MG PO (12:23)
--- NOTE | 2021-01-26 13:03 | PC.NURSE ---
Discharge instructions provided to patient and spouse at bedside, denies further questions or concerns, belongings sent with patient on discharge.
== END 2021-01-26 12:50 | disposition home or self-care (01) | DRG 179 ==
PROVIDERS: Admitting Provider Internal Medicine; PCP Family Medicine; Visit Provider Student in an Organized Health Care Education/Training Program
DX: J69.0 Pneumonitis due to inhalation of food and vomit (principal); J44.9 Chronic obstructive pulmonary disease, unspecified; I25.10 Atherosclerotic heart disease of native coronary artery without angina pectoris; Z95.1 Presence of aortocoronary bypass graft; Z95.5 Presence of coronary angioplasty implant and graft; I35.0 Nonrheumatic aortic (valve) stenosis; Z95.3 Presence of xenogenic heart valve; E78.5 Hyperlipidemia, unspecified; G89.29 Other chronic pain; M54.2 Cervicalgia; I25.2 Old myocardial infarction; N40.0 Benign prostatic hyperplasia without lower urinary tract symptoms
CPT/HCPCS: 36415; 71045; 71275; 80053; 80061; 81003; 82436; 82550; 83036; 83540; 83550; 83605; 83735; 83880; 84100; 84133; 84145; 84300; 84443; 85025; 85378; 86403; 87040; 87449; 87635; 87641; 87804; 94640; 94664; 96372; J0696; J1644; J1940; J3490; J7626; Q0144; Q9967

== ENCOUNTER 2021-09-04 10:17 | Outpatient (CLI) | payer MEDICARE, SELFPAY ==
--- NOTE | 2021-09-04 | US_ITS ---
WS: [id number] Bladder ultrasound, 09/04/2021 Clinical Data: URINARY HESITANCY Comparison: None. Findings: The bladder filled to 80.9 mL. The post void residual was 2.7 mL. US/US pelvic limited [id number] Impression: Post void residual 2.7 mL.
== END 2021-09-04 10:18 | disposition home or self-care (01) ==
LOC: RADOUTREAD 09-05 10:19
PROVIDERS: PCP Family Medicine; Visit Provider Family Medicine
DX: R39.11 Hesitancy of micturition (principal)
CPT/HCPCS: 76857

== ENCOUNTER → 2021-09-06 13:56 | Outpatient (BNVA) | payer MEDICARE, SELFPAY | PROVIDERS: PCP Family Medicine; Visit Provider Internal Medicine | DX: I25.10 Atherosclerotic heart disease of native coronary artery without angina pectoris (principal); R06.02 Shortness of breath; Z95.1 Presence of aortocoronary bypass graft; Z95.2 Presence of prosthetic heart valve; E78.5 Hyperlipidemia, unspecified; Z98.61 Coronary angioplasty status; Z87.891 Personal history of nicotine dependence; I25.2 Old myocardial infarction | CPT/HCPCS: 99213 ==

== ENCOUNTER → 2021-11-02 10:54 | Outpatient (BNVA) | payer MEDICARE, SELFPAY | PROVIDERS: PCP Family Medicine; Visit Provider Internal Medicine Cardiovascular Disease | DX: Z53.9 Procedure and treatment not carried out, unspecified reason (principal) ==

== ENCOUNTER 2021-11-14 08:56 | Outpatient (CLI) | payer MEDICARE, SELFPAY ==
--- NOTE | 2021-11-14 | ECG_ITS ---
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 Interpretive Statements NAME OF STUDY: LEXISCAN SESTAMIBI STRESS TEST INDICATION: Congestive heart failure PROCEDURE: At the baseline, the blood pressure was 160/100 mmHg, oxygen saturation 90% with a heart rate of 103 bpm. The electrocardiogram showed sinus rhythm with frequent PACs, normal axis. Nonspecific ST with T wave changes in inferolateral leads. The Lexiscan was infused over a period of 20 seconds. A total of 0.4 milligrams of Lexiscan was infused. The stress phase was continued for a total of 5 minutes. Heart rate at the end of the stress phase was 100 bpm, oxygen saturation 94% with a blood pressure of 147/86 mmHg. The EKG at the peak infusion revealed sinus rhythm with no significant ST-T wave changes. The study was terminated due to protocol completion. Sestamibi was injected 20 seconds after the Lexiscan infusion. Blood pressure at the end of the recovery phase was 145/91 mmHg, oxygen saturation 91% with a heart rate of 102 beats per minute. CONCLUSION: 1. No significant EKG changes with the LexiScan infusion. 2. No LexiScan induced chest pain or cardiac arrhythmia. 3. Normal blood pressure and heart rate response. 4. Sestamibi/sestamibi perfusion scan pending; see separate report. Electronically Signed On 11-21-2021 17:09:01 CDT by Krystin Herrera M.D. [id number]
[2021-11-14 09:47] VITALS: BMI 25.7
--- NOTE | 2021-11-14 09:48 | NMCV_ITS ---
NM fausto perf SPECT r/s* [id number] Magen Boo Age: 81 Gender: M : 1940 Exam Date: 11/14/2021 10:45 Ordering Phys: Kyle Mendoza MD Technologist: MUNDO Cross Exam Location: [facility] Indications: CHF STRESS TEST [facility] IMAGE PROTOCOL Rest/Stress 1 Lexiscan Day Radiopharmaceutical Dose (mCi) Administration Site Administered by Rest: Tc-99m 10.7 IV MUNDO Ash Sestamibi Stress:Tc-99m 32.2 IV MUNDO Ash Sestamibi Rest: 14-Nov-2021 60 Discovery 630 Stress: 14-Nov-2021 30 Discovery 630 0.4mg Lexiscan. Supine position only as patient was unable to lay prone. SPECT RESULTS Technical Quality: Excellent Raw Data Analysis: Normal Image Corrections: No attenuation or motion correction applied Summed Stress Score: 0 Summed Rest Score: 0 Summed Difference Score: 0 PERFUSION FINDINGS Very small sized perfusion abnormality of mild severity of mid anteroseptal wall on supine stress images. In absence of regional wall motion abnormality in prone imaging, this likely represents attenuation artifact. FUNCTIONAL RESULTS (calculated via Gated SPECT) Stress Image LV EF (%): 60 Stress EDV (mL):121 TID: 1.15 Stress ESV (mL):49 FUNCTIONAL FINDINGS: The left ventricle is normal in size. Transient Ischemia Dilatation of 1.1. There is normal left ventricular systolic function. The left ventricular ejection fraction is normal with a value of 60%. There is normal left ventricular wall thickening. IMPRESSIONS 1. Myocardial perfusion imaging is normal. Attenuation artifact in mid anteroseptal wall. 2. Overall left ventricular systolic function is normal without regional wall motion abnormalities, LVEF=60%. 3. No EKG changes with Lexiscan infusion. Refer to separate report for details. Krystin Herrera MD (Electronically Signed) Final Date: 21 November 2021 17:13 S
[2021-11-14] MEDS: regadenoson 0.4 Mg/5 ml Syringe IVP (11:39)
[2021-11-14 12:03] VITALS: BP 145/91; PULSE 98
== END 2021-11-14 08:57 | disposition home or self-care (01) ==
LOC: CDL 09:01
PROVIDERS: PCP Family Medicine; Visit Provider Family Medicine
DX: I50.9 Heart failure, unspecified (principal)
CPT/HCPCS: 78452; 93017; A9500; J2785

== ENCOUNTER 2021-11-15 13:29 | Outpatient (CLI) | payer MEDICARE, SELFPAY ==
--- NOTE | 2021-11-15 13:41 | USCV_ITS ---
Ema Flagler Age: 81 Gender: M : 1940 Exam Date: 11/15/2021 13:59 Ordering Phys: Kyle Mendoza MD Technologist: DAY Exam Location: [facility] [place] Indication: ACUTE HEART FAILURE BP: 138 / 72 HR: 102 Rhythm: Atrial fibrillation Technical Quality: Adequate MEASUREMENTS (Male / Female) Normal Values 2D ECHO LV Diastolic Diameter PLAX 3.9 cm 4.2 - 5.9 / 3.9 - 5.3 cm LV Systolic Diameter PLAX 2.9 cm IVS Diastolic Thickness 1.7 cm 0.6 - 1.0 / 0.6 - 0.9 cm IVS Systolic Thickness 1.9 cm LVPW Diastolic Thickness 1.3 cm 0.6 - 1.0 / 0.6 - 0.9 cm LVPW Systolic Thickness 1.4 cm LVOT Diameter 2.0 cm LV Ejection Fraction 2D Teich 49.0 % LV Ejection Fraction MOD 2C 48.7 % LV Ejection Fraction 2C AL 48.0 % LA Diameter 4.5 cm RA Width 4.6 cm RA Height 5.7 cm Aorta at Sinotubular Diameter 2.4 cm M-MODE MV E Point Septal Separation 0.6 cm DOPPLER AV Peak Velocity 214.0 cm/s LVOT Peak Velocity 71.0 cm/s AV Area Cont Eq vti 1.1 cm squared AV Area Cont Eq pk 1.1 cm squared MV Peak Velocity 183.0 cm/s MV Area PHT 5.0 cm squared MV E' Velocity 97.4 cm/s Mitral E to MV E' Ratio 14.2 Mitral E to LV E' Lateral Ratio 15.8 Mitral E to LV E' Septal Ratio 12.9 TR Peak Velocity 263.7 cm/s TR Peak Gradient 27.8 mmHg Right Atrial Pressure 15.0 mmHg Pulmonary Artery Systolic Pressu 42.8 mmHg PV Peak Velocity 89.0 cm/s FINDINGS Left Ventricle Normal LV size with diminished ejection fraction of 49%. Mild diffuse hypokinesia of the left ventricle Right Ventricle Normal RV size and ejection fraction Right Atrium Moderately increased right atrial size. Left Atrium Moderately increased left atrial size. Mitral Valve Thickened mitral valve. Moderate mitral annular calcification. The peak velocity across the mitral valve was 1.83 m/s. The valve appears to be mildly stenotic Aortic Valve Thickened aortic valve. Appears to have restricted mobility Tricuspid Valve Moderate tricuspid valve regurgitation. Estimated pulmonary artery peak systolic pressure of 43 mmHg Pulmonic Valve Pulmonic valve not well visualized. Pericardium No pericardial effusion. Aorta Normal aortic annulus size. IVC Dilated IVC with decreased respiratory variation. CONCLUSIONS Normal LV size with diminished ejection fraction of 49%. Mild diffuse hypokinesia of the left ventricle. Moderate biatrial enlargement Features of aortic valve sclerosis Thickened and somewhat stenotic mitral valve with moderate mitral annular calcification Moderate tricuspid valve regurgitation. Estimated pulmonary artery peak systolic pressure of 43 mmHg. The mitral valve Doppler studies need to be repeated Comparison with the previous study is difficult because of the difference in the technical quality. Dr Israel King MD [facility] (Electronically Signed) Final Date: 07 December 2021 18:16 S
== END 2021-11-15 13:30 | disposition home or self-care (01) ==
PROVIDERS: PCP Family Medicine; Visit Provider Family Medicine
DX: I50.9 Heart failure, unspecified (principal); I48.91 Unspecified atrial fibrillation; I08.3 Combined rheumatic disorders of mitral, aortic and tricuspid valves
CPT/HCPCS: 93306

== ENCOUNTER → 2021-11-28 11:06 | Outpatient (BNVA) | payer MEDICARE, SELFPAY | PROVIDERS: PCP Family Medicine; Visit Provider Internal Medicine Cardiovascular Disease | DX: R00.2 Palpitations (principal); I35.0 Nonrheumatic aortic (valve) stenosis; R06.02 Shortness of breath; Z95.2 Presence of prosthetic heart valve; Z95.1 Presence of aortocoronary bypass graft; Z98.61 Coronary angioplasty status; I25.10 Atherosclerotic heart disease of native coronary artery without angina pectoris; I48.91 Unspecified atrial fibrillation; Z79.01 Long term (current) use of anticoagulants | CPT/HCPCS: 99214 ==

== ENCOUNTER → 2022-03-13 11:15 | Outpatient (BNVA) | payer MEDICARE, SELFPAY | PROVIDERS: PCP Family Medicine; Visit Provider Internal Medicine Cardiovascular Disease | DX: I48.91 Unspecified atrial fibrillation (principal); Z79.01 Long term (current) use of anticoagulants; I25.10 Atherosclerotic heart disease of native coronary artery without angina pectoris; Z98.61 Coronary angioplasty status; Z95.1 Presence of aortocoronary bypass graft; Z95.2 Presence of prosthetic heart valve; R06.02 Shortness of breath | CPT/HCPCS: 99213 ==

== ENCOUNTER → 2022-09-12 13:44 | Outpatient (BNVA) | payer MEDICARE, SELFPAY | PROVIDERS: PCP Family Medicine; Visit Provider Internal Medicine | DX: I25.10 Atherosclerotic heart disease of native coronary artery without angina pectoris (principal); R06.02 Shortness of breath; Z95.1 Presence of aortocoronary bypass graft; E78.5 Hyperlipidemia, unspecified; Z98.61 Coronary angioplasty status; Z95.2 Presence of prosthetic heart valve; I25.2 Old myocardial infarction | CPT/HCPCS: 99213 ==

== ENCOUNTER → 2023-03-20 14:59 | Outpatient (BNVA) | payer MEDICARE, SELFPAY | PROVIDERS: PCP Family Medicine; Visit Provider Internal Medicine | DX: I25.10 Atherosclerotic heart disease of native coronary artery without angina pectoris (principal); R06.02 Shortness of breath; Z95.1 Presence of aortocoronary bypass graft; E78.5 Hyperlipidemia, unspecified; Z98.61 Coronary angioplasty status; Z95.2 Presence of prosthetic heart valve; Z79.01 Long term (current) use of anticoagulants | CPT/HCPCS: 99214 ==

== ENCOUNTER → 2023-05-22 12:18 | Outpatient (BNVA) | payer MEDICARE, SELFPAY | PROVIDERS: PCP Family Medicine; Visit Provider Internal Medicine | DX: I25.10 Atherosclerotic heart disease of native coronary artery without angina pectoris (principal); R06.02 Shortness of breath; Z95.1 Presence of aortocoronary bypass graft; E78.5 Hyperlipidemia, unspecified; Z98.61 Coronary angioplasty status; Z95.2 Presence of prosthetic heart valve; Z79.01 Long term (current) use of anticoagulants | CPT/HCPCS: 99214 ==

== ENCOUNTER → 2023-06-27 08:49 | Outpatient (BNVA) | payer MEDICARE, SELFPAY | PROVIDERS: PCP Family Medicine; Visit Provider Podiatrist Foot & Ankle Surgery | DX: L60.3 Nail dystrophy (principal); I73.9 Peripheral vascular disease, unspecified; M20.41 Other hammer toe(s) (acquired), right foot; M20.42 Other hammer toe(s) (acquired), left foot | CPT/HCPCS: 11721; 99203 ==

== ENCOUNTER → 2023-07-17 13:53 | Outpatient (BNVA) | payer MEDICARE, SELFPAY | PROVIDERS: PCP Family Medicine; Visit Provider Podiatrist Foot & Ankle Surgery | DX: Z51.89 Encounter for other specified aftercare (principal); L60.3 Nail dystrophy; I73.9 Peripheral vascular disease, unspecified; M20.41 Other hammer toe(s) (acquired), right foot; M20.42 Other hammer toe(s) (acquired), left foot; L84 Corns and callosities | CPT/HCPCS: 11055; 99213 ==

== ENCOUNTER → 2023-08-20 15:28 | Outpatient (BNVA) | payer MEDICARE, SELFPAY | PROVIDERS: PCP Family Medicine; Visit Provider Podiatrist Foot & Ankle Surgery | DX: L84 Corns and callosities (principal); Z51.89 Encounter for other specified aftercare; L60.3 Nail dystrophy; I73.9 Peripheral vascular disease, unspecified; M20.41 Other hammer toe(s) (acquired), right foot; M20.42 Other hammer toe(s) (acquired), left foot | CPT/HCPCS: 99213 ==

== ENCOUNTER → 2023-09-02 08:56 | Outpatient (BNVA) | payer MEDICARE, SELFPAY | PROVIDERS: PCP Family Medicine; Visit Provider Podiatrist Foot & Ankle Surgery | DX: L84 Corns and callosities (principal); Z51.89 Encounter for other specified aftercare; L60.3 Nail dystrophy; I73.9 Peripheral vascular disease, unspecified; M20.41 Other hammer toe(s) (acquired), right foot; M20.42 Other hammer toe(s) (acquired), left foot | CPT/HCPCS: 99213 ==

== ENCOUNTER → 2023-10-07 09:00 | Outpatient (BNVA) | payer MEDICARE, SELFPAY | PROVIDERS: PCP Family Medicine; Visit Provider Podiatrist Foot & Ankle Surgery | DX: L84 Corns and callosities (principal); Z51.89 Encounter for other specified aftercare; L60.3 Nail dystrophy; I73.9 Peripheral vascular disease, unspecified; M20.41 Other hammer toe(s) (acquired), right foot; M20.42 Other hammer toe(s) (acquired), left foot | CPT/HCPCS: 11055; 99213 ==

== ENCOUNTER → 2023-10-28 09:50 | Outpatient (BNVA) | payer MEDICARE, SELFPAY | PROVIDERS: PCP Family Medicine; Visit Provider Podiatrist Foot & Ankle Surgery | DX: L84 Corns and callosities (principal); Z51.89 Encounter for other specified aftercare; L60.3 Nail dystrophy; I73.9 Peripheral vascular disease, unspecified; M20.41 Other hammer toe(s) (acquired), right foot; M20.42 Other hammer toe(s) (acquired), left foot | CPT/HCPCS: 99213 ==

== ENCOUNTER → 2023-11-20 11:47 | Outpatient (BNVA) | payer MEDICARE, SELFPAY | PROVIDERS: PCP Family Medicine; Visit Provider Internal Medicine | DX: I25.10 Atherosclerotic heart disease of native coronary artery without angina pectoris (principal); R06.02 Shortness of breath; I48.91 Unspecified atrial fibrillation; Z95.1 Presence of aortocoronary bypass graft; E78.5 Hyperlipidemia, unspecified; Z98.61 Coronary angioplasty status; Z95.2 Presence of prosthetic heart valve; Z72.0 Tobacco use; R19.7 Diarrhea, unspecified; I25.2 Old myocardial infarction | CPT/HCPCS: 36415; 80053; 85025; 99214 ==

== ENCOUNTER 2023-12-18 08:32 | Outpatient (CLI) | payer MEDICARE, SELFPAY ==
--- NOTE | 2023-12-18 08:45 | USCV_ITS ---
Magen Boo Age: 83 Gender: M : 1940 Exam Date: 12/18/2023 09:16 Ordering Phys: Arturo Tabares M.D ([email or web address]) Technologist: BRAYAN [place] [facility] [place]: SOB BP: / HR: 69 Rhythm: Atrial fibrillation Technical Quality: Adequate MEASUREMENTS (Male / Female) Normal Values 2D ECHO LV Diastolic Diameter PLAX 4.6 cm 4.2 - 5.9 / 3.9 - 5.3 cm IVS Diastolic Thickness 1.0 cm 0.6 - 1.0 / 0.6 - 0.9 cm IVS Systolic Thickness 1.3 cm LVPW Diastolic Thickness 1.4 cm 0.6 - 1.0 / 0.6 - 0.9 cm LVPW Systolic Thickness 1.5 cm LVOT Diameter 2.1 cm LV Ejection Fraction 2D Teich 72.0 % LV Ejection Fraction MOD 4C 61.6 % LV Ejection Fraction MOD 2C 51.8 % LV Ejection Fraction 2C AL 48.0 % LA Diameter 4.9 cm RA Systolic Volume 4C AL 50.3 ml RA Systolic Volume 4C MOD 48.7 ml Aorta at Sinotubular Diameter 2.8 cm IVC Diameter 1.9 cm M-MODE LA Ao Ratio MM 1.8 AV Cusp Separation MM 1.7 cm DOPPLER AV Peak Velocity 186.0 cm/s LVOT Peak Velocity 66.0 cm/s AV Area Cont Eq vti 1.2 cm squared AV Area Cont Eq pk 1.3 cm squared MV Area PHT 1.7 cm squared Mitral E to A Ratio 87.0 TV Peak Velocity 102.0 cm/s TR Peak Velocity 52.5 cm/s TR Peak Gradient 1.1 mmHg TR Mean Velocity 72.0 cm/s TR Mean Gradient 2.4 mmHg TR Velocity Time Integral 31.4 cm TV Peak E Velocity 69.0 cm/s Right Atrial Pressure 3.0 mmHg Pulmonary Artery Systolic Pressu 4.1 mmHg FINDINGS Left Ventricle Moderately increased left ventricular cavity size. Severely decreased left ventricular systolic function. Left ventricular ejection fraction is estimated at 35 %. Severely decreased left ventricular systolic function. Global left ventricular hypokinesis. Grade II/IV diastolic dysfunction, moderately elevated filling pressures. Right Ventricle The right ventricle is normal in size and function. Right Atrium Moderately increased right atrial size. Left Atrium Severely increased left atrial size. Mitral Valve Severely thickened mitral valve. Moderate mitral annular calcification. Moderate mitral valve regurgitation. Aortic Valve Mild aortic valve calcification. No aortic valve stenosis. Trace aortic valve regurgitation. Possible bioprosthetic aortic valve. Tricuspid Valve Structurally normal tricuspid valve without significant stenosis or regurgitation. Pulmonary artery systolic pressure is normal. Pulmonic Valve Mild pulmonary valve regurgitation. Pericardium Normal pericardium without effusion. Aorta Normal ascending aorta dimension. IVC The inferior vena cava appears normal. CONCLUSIONS Moderately increased left ventricular cavity size. Severely decreased left ventricular systolic function. Left ventricular ejection fraction is estimated at 35 %. Severely decreased left ventricular systolic function. Global left ventricular hypokinesis. Grade II/IV diastolic dysfunction, moderately elevated filling pressures. Severely increased left atrial size. Severely thickened mitral valve. Moderate mitral annular calcification. Moderate mitral valve regurgitation. Mild aortic valve calcification. No aortic valve stenosis. Trace aortic valve regurgitation. Possible bioprosthetic aortic valve. There is no pericardial effusion. Right atrial pressure is around 15 mm of mercury. Zhen Irving MD (Electronically Signed) Final Date: 18 December 2023 11:05 S
== END 2023-12-18 08:33 | disposition home or self-care (01) ==
LOC: RAD 08:33
PROVIDERS: PCP Family Medicine; Visit Provider Internal Medicine
DX: I50.20 Unspecified systolic (congestive) heart failure (principal); I50.30 Unspecified diastolic (congestive) heart failure; I34.81 Nonrheumatic mitral (valve) annulus calcification; I34.0 Nonrheumatic mitral (valve) insufficiency; I50.1 Left ventricular failure, unspecified
CPT/HCPCS: 93306

== ENCOUNTER → 2023-12-30 12:31 | Outpatient (BNVA) | payer MEDICARE, SELFPAY | PROVIDERS: PCP Family Medicine; Visit Provider Internal Medicine | DX: I25.10 Atherosclerotic heart disease of native coronary artery without angina pectoris (principal); R06.02 Shortness of breath; Z95.1 Presence of aortocoronary bypass graft; E78.5 Hyperlipidemia, unspecified; Z98.61 Coronary angioplasty status; Z95.2 Presence of prosthetic heart valve | CPT/HCPCS: 99214 ==

== ENCOUNTER → 2024-01-06 10:15 | Outpatient (BNVA) | payer MEDICARE, SELFPAY | PROVIDERS: PCP Family Medicine; Visit Provider Podiatrist Foot & Ankle Surgery | DX: L60.3 Nail dystrophy (principal); L84 Corns and callosities; I73.9 Peripheral vascular disease, unspecified; M20.41 Other hammer toe(s) (acquired), right foot; M20.42 Other hammer toe(s) (acquired), left foot | CPT/HCPCS: 11721 ==

== ENCOUNTER 2024-01-26 07:23 | Outpatient (CLI) | payer MEDICARE, SELFPAY ==
--- NOTE | 2024-01-26 | ECG_ITS ---
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 The perfusion scan will be documented separately. DATA: Baseline heart rate was 74 beats per minute. Baseline blood pressure was 131/85 millimeters of mercury. Target heart rate was 135. Maximum heart rate achieved was 102. which was 75% of the predicted target heart rate. Maximum blood pressure was 155/85 millimeters of mercury. The reason for ending the test was completion of the protocol. The patient did not experience any symptoms. ELECTROCARDIOGRAM: BASELINE: Atrial fibrillation. Normal axis. Nonspecific inferolateral ST-T changes, interventricular conduction delay, possible left ventricular hypertrophy, no arrhythmia noted. EXERCISE: After Lexiscan injection, no ST-T changes suggestive of ischemic noted. No arrhythmia noted. CONCLUSION: Please note due to baseline abnormality of the EKG specificity and sensitivity of the EKG portion of LexiScan MIBI stress test will be low 1. EKG not suggestive of ischemia 2. Lexiscan injection unremarkable. 3. Perfusion scan will be documented separately. Electronically Signed On 02-01-2024 15:01:23 CDT by JON SALGUERO [id number]
[2024-01-26 08:14] VITALS: BMI 25.1
--- NOTE | 2024-01-26 08:15 | NMCV_ITS ---
NM fausto perf SPECT r/s* [id number] Magen Boo Age: 83 Gender: M : 1940 Exam Date: 01/26/2024 08:30 Ordering Phys: Arturo Tabares M.D ([email or web address]) Technologist: MUNDO Cardoso Exam Location: [facility] Indications: cp STRESS TEST Please see separate stress test report in [facility] for full findings IMAGE PROTOCOL Rest/Stress 1 Lexiscan Day Radiopharmaceutical Dose (mCi) Administration Site Administered by Rest: Tc-99m 8.1 IV MUNDO Cardoso Sestamibi Stress:Tc-99m 28 IV Shayna Ramos, [employer] SUPERVISOR Sestamibi Rest: 26-Jan-2024 60 Discovery 630 Stress: 26-Jan-2024 30 Discovery 630 0.4mg Lexiscan. Images obtained in supine and prone position. SPECT RESULTS Technical Quality: Good Raw Data Analysis: Normal Image Corrections: No attenuation or motion correction applied Summed Stress Score: 0 Summed Rest Score: 0 Summed Difference Score: 0 PERFUSION FINDINGS Medium sized area of persistently decreased tracer uptake was noted in the mid anterior anteroseptal wall of the left ventricle which on stress images showed moderate reversibility suggestive of old myocardial infarction surrounded by medium sized area of moderate rebecca-infarct ischemia. FUNCTIONAL RESULTS (calculated via Gated SPECT) Stress Image LV EF (%): 61 Stress EDV (mL):115 TID: 0.95 Stress ESV (mL):45 FUNCTIONAL FINDINGS: Moderately depressed left ventricular ejection fraction and global hypokinesis 45% IMPRESSIONS Medium sized area of old myocardial infarction surrounded by medium sized area of moderate rebecca-infarct ischemia noted in mid anterior and anteroseptal wall, it is suspicious for stenosis in LAD area. There is a global hypokinesis of the left ventricle with moderately depressed ejection fraction 45%. EKG segment will be documented separately Zhen Irving MD (Electronically Signed) Final Date: 26 January 2024 14:52 S
[2024-01-26] MEDS: regadenoson 0.4 Mg/5 ml Syringe IVP (09:14)
[2024-01-26 09:20] VITALS: BP 108/79; PULSE 92
== END 2024-01-26 07:24 | disposition home or self-care (01) ==
PROVIDERS: PCP Family Medicine; Visit Provider Internal Medicine
DX: R07.9 Chest pain, unspecified (principal); R94.39 Abnormal result of other cardiovascular function study; R06.02 Shortness of breath
CPT/HCPCS: 36415; 78452; 93017; 96374; A9500; J2785

== ENCOUNTER → 2024-03-15 12:10 | Outpatient (BNVA) | payer MEDICARE, SELFPAY | PROVIDERS: PCP Family Medicine; Visit Provider Internal Medicine | DX: I25.10 Atherosclerotic heart disease of native coronary artery without angina pectoris (principal); R06.02 Shortness of breath; Z95.1 Presence of aortocoronary bypass graft; E78.5 Hyperlipidemia, unspecified; Z98.61 Coronary angioplasty status; Z95.2 Presence of prosthetic heart valve; Z79.01 Long term (current) use of anticoagulants | CPT/HCPCS: 99214 ==

== ENCOUNTER 2024-06-02 11:08 | Outpatient (CLI) | payer MEDICARE, SELFPAY ==
--- NOTE | 2024-06-02 11:15 | USCV_ITS ---
Magen Boo Age: 83 Gender: M : 1940 Exam Date: 06/02/2024 11:40 Ordering Phys: Arturo Tabares M.D ([email or web address]) Technologist: [place] [facility] [place]: chf BP: 120 / 70 HR: Rhythm: Sinus Technical Quality: Adequate MEASUREMENTS (Male / Female) Normal Values 2D ECHO LV Diastolic Diameter PLAX 3.9 cm 4.2 - 5.9 / 3.9 - 5.3 cm IVS Diastolic Thickness 2.0 cm 0.6 - 1.0 / 0.6 - 0.9 cm IVS Systolic Thickness 1.9 cm LVPW Diastolic Thickness 1.4 cm 0.6 - 1.0 / 0.6 - 0.9 cm LVPW Systolic Thickness 1.8 cm LVOT Diameter 2.0 cm LV Ejection Fraction 2D Teich 54.8 % LV Ejection Fraction MOD 4C 64.6 % LV Ejection Fraction MOD 2C 61.4 % LV Ejection Fraction 2C AL 59.3 % LA Diameter 4.2 cm RA Systolic Volume 4C AL 55.2 ml RA Systolic Volume 4C MOD 53.0 ml Aorta at Sinotubular Diameter 2.6 cm IVC Diameter 1.8 cm FINDINGS Left Ventricle Right Ventricle Right Atrium Left Atrium Mitral Valve Aortic Valve Tricuspid Valve Pulmonic Valve Pericardium Aorta IVC CONCLUSIONS Limited echocardiogram performed to assess LV systolic function. LV systolic function is mildly reduced with EF of 45 to 50%. Mild global hypokinesis. Arturo Tabares MD (Electronically Signed) Final Date: 12 June 2024 13:00 S
== END 2024-06-02 11:09 | disposition home or self-care (01) ==
PROVIDERS: PCP Family Medicine; Visit Provider Internal Medicine
DX: I50.9 Heart failure, unspecified (principal); R93.1 Abnormal findings on diagnostic imaging of heart and coronary circulation; I51.89 Other ill-defined heart diseases
CPT/HCPCS: 93308

== ENCOUNTER → 2024-07-29 10:02 | Outpatient (BNVA) | payer MEDICARE, SELFPAY | PROVIDERS: PCP Family Medicine; Visit Provider Internal Medicine | DX: I25.10 Atherosclerotic heart disease of native coronary artery without angina pectoris (principal); R06.02 Shortness of breath; Z95.1 Presence of aortocoronary bypass graft; E78.5 Hyperlipidemia, unspecified; Z98.61 Coronary angioplasty status; Z95.2 Presence of prosthetic heart valve | CPT/HCPCS: 99214 ==

== ENCOUNTER → 2024-10-28 13:52 | Outpatient (BNVA) | payer MEDICARE, SELFPAY | PROVIDERS: PCP Family Medicine; Visit Provider Podiatrist Foot & Ankle Surgery | DX: I73.9 Peripheral vascular disease, unspecified (principal); L60.3 Nail dystrophy; L84 Corns and callosities; M20.41 Other hammer toe(s) (acquired), right foot; M20.42 Other hammer toe(s) (acquired), left foot; L60.1 Onycholysis; L97.512 Non-pressure chronic ulcer of other part of right foot with fat layer exposed; L03.90 Cellulitis, unspecified | CPT/HCPCS: 11721; 11730; 99214 ==

== ENCOUNTER → 2024-11-04 14:29 | Outpatient (BNVA) | payer MEDICARE, SELFPAY | PROVIDERS: PCP Family Medicine; Visit Provider Podiatrist Foot & Ankle Surgery | DX: L60.3 Nail dystrophy (principal); L84 Corns and callosities; I73.9 Peripheral vascular disease, unspecified; M20.41 Other hammer toe(s) (acquired), right foot; M20.42 Other hammer toe(s) (acquired), left foot; L60.1 Onycholysis; L97.512 Non-pressure chronic ulcer of other part of right foot with fat layer exposed; L03.90 Cellulitis, unspecified | CPT/HCPCS: 99213 ==

== ENCOUNTER → 2024-12-02 10:36 | Outpatient (BNVA) | payer MEDICARE, SELFPAY | PROVIDERS: PCP Family Medicine; Visit Provider Podiatrist Foot & Ankle Surgery | DX: I73.9 Peripheral vascular disease, unspecified (principal); L97.512 Non-pressure chronic ulcer of other part of right foot with fat layer exposed; L60.3 Nail dystrophy; L84 Corns and callosities; M20.41 Other hammer toe(s) (acquired), right foot; M20.42 Other hammer toe(s) (acquired), left foot; L60.1 Onycholysis; L03.90 Cellulitis, unspecified | CPT/HCPCS: 99214 ==

== ENCOUNTER 2024-12-17 16:02 | Outpatient (CLI) | payer MEDICARE, SELFPAY ==
--- NOTE | 2024-12-17 16:15 | USR_ITS ---
PROCEDURE INFORMATION: Exam: US Duplex Right Lower Extremity Arteries Or Arterial Bypass Grafts Exam date and time: 12/17/2024 4:30 PM Age: 84 years old Clinical indication: Other: RT foot ulcer; Additional info: Ulcer of right foot TECHNIQUE: Imaging protocol: Right Real-time duplex scan of the arteries or arterial bypass grafts of the right lower extremity with 2-D khan scale, color Doppler flow and spectral waveform analysis. Images documented and saved. COMPARISON: US pelvic limited [id number] 09/04/2021 4:20 PM FINDINGS: The ankle-brachial indices could not be calculated due to reduced pedal pulses. Right common iliac: 55 cm/s, triphasic waveform. Right common femoral artery: 74 cm/s, triphasic waveform. Superficial femoral artery: 72 cm/s, triphasic waveform. Diffuse mural calcification without stenosis. Popliteal artery: 46 cm/s, triphasic waveform. Diffuse mural calcification without stenosis. Posterior tibial artery: 5 cm/s, monophasic waveform. Dorsalis pedis artery: 39 cm/s, monophasic waveform . Soft tissues: No hematoma or collection. US/[place] [id number] IMPRESSION: Marked reduction in calf artery velocity with limited pulsatility. 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 No stenosis identified proximal to the popliteal artery.
== END 2024-12-17 16:03 | disposition home or self-care (01) ==
LOC: RAD 16:06
PROVIDERS: PCP Family Medicine; Visit Provider Podiatrist Foot & Ankle Surgery
DX: I73.9 Peripheral vascular disease, unspecified (principal); L97.512 Non-pressure chronic ulcer of other part of right foot with fat layer exposed
CPT/HCPCS: 93926

== ENCOUNTER 2025-01-04 13:46 | Outpatient (CLI) | payer MEDICARE, SELFPAY ==
--- NOTE | 2025-01-04 14:11 | USR_ITS ---
PROCEDURE INFORMATION: Exam: US Abdomen, Limited; Right Upper Quadrant Exam date and time: 01/04/2025 9:03 AM Age: 84 years old Clinical indication: Other: Decreased appetitie TECHNIQUE: Imaging protocol: Real time ultrasound of the abdomen with image documentation. Limited exam focused on the right upper quadrant. COMPARISON: US pelvic limited [id number] 09/04/2021 4:20 PM FINDINGS: Liver: Liver echotexture and size appear within normal limits. No focal hepatic lesions identified sonographically. Gallbladder: Probable small dependent gallstones. Additional non dependent 4 mm echogenic focus along the gallbladder wall, which may reflect an adherent stone or small polyp. No gallbladder wall thickening or pericholecystic fluid demonstrated. Biliary ducts: No dilation. No visualized stones. Pancreas: Visualized portions of the pancreas appear unremarkable. Portions of the pancreas not well seen due to bowel gas. Right kidney: No contour deforming masses, visible stones, or hydronephrosis Aorta: Visualized abdominal aorta is nonaneurysmal, measuring up to 2.2 cm. Inferior vena cava: Visualized IVC appears unremarkable. US/US abdomen limited [id number] IMPRESSION: 1. Cholelithiasis with additional 4 mm adherent stone versus small polyp. If this does represent a polyp, no further imaging follow up is recommended by consensus guidelines. No biliary ductal dilatation or specific sonographic findings to suggest acute cholecystitis at this time. 2. Remainder of the exam appears unremarkable.
== END 2025-01-04 13:47 | disposition home or self-care (01) ==
LOC: RADOUTREAD 01-06 13:50
PROVIDERS: PCP Family Medicine; Visit Provider Family Medicine
DX: I73.9 Peripheral vascular disease, unspecified (principal); L97.512 Non-pressure chronic ulcer of other part of right foot with fat layer exposed; L84 Corns and callosities
CPT/HCPCS: 99213

== ENCOUNTER 2025-02-15 07:07 | Outpatient (CLI) | payer MEDICARE, SELFPAY ==
--- NOTE | 2025-02-15 07:14 | US_ITS ---
WS: [id number] RIGHT UPPER QUADRANT ULTRASOUND HISTORY: ELEVATED ALKALINE PHOSPHATASE LEVEL COMPARISON: 01/04/2025 Liver: 17.7 cm in length. Liver slightly enlarged. Changes of mild hepatic steatosis. Surface of the liver is also very slightly nodular suggesting changes of cirrhosis. No mass. Portal Vein: Normal hepatopetal flow with monophasic waveform. Gallbladder: Normally distended gallbladder. No areas of shadowing or evidence for cholelithiasis. There is focal area of bowel wall thickening which may be a polyp. This was also noted on the prior study. This could be tumefactive sludge adherent to the wall. CBD: 0.4 cm Pancreas: Normal size and echogenicity. Right kidney: 12.5 cm in length. Normal size and echogenicity. No hydronephrosis or mass. Aorta and IVC: Unremarkable abdominal aorta and IVC. No ascites. US/US liver [id number] IMPRESSION: 1. Normal common bile duct. 2. No cholelithiasis identified. There is a small area of wall thickening whic h may be a polyp or adherent sludge. Similar to the study of 01/04/2025. 3. Mildly enlarged liver with changes of suspected cirrhosis.
== END 2025-02-15 07:08 | disposition home or self-care (01) ==
PROVIDERS: PCP Family Medicine; Visit Provider Family Medicine
DX: R74.8 Abnormal levels of other serum enzymes (principal); K76.0 Fatty (change of) liver, not elsewhere classified; K80.20 Calculus of gallbladder without cholecystitis without obstruction; R16.0 Hepatomegaly, not elsewhere classified
CPT/HCPCS: 76705

== ENCOUNTER → 2025-03-08 14:09 | Outpatient (BNVA) | payer MEDICARE, SELFPAY | PROVIDERS: PCP Family Medicine; Visit Provider Podiatrist Foot & Ankle Surgery | DX: L97.512 Non-pressure chronic ulcer of other part of right foot with fat layer exposed (principal); L84 Corns and callosities; I73.9 Peripheral vascular disease, unspecified | CPT/HCPCS: 99214 ==

== ENCOUNTER → 2025-03-09 09:37 | Outpatient (BNVA) | payer MEDICARE, SELFPAY | PROVIDERS: PCP Family Medicine; Visit Provider Nurse Practitioner Family | DX: I25.10 Atherosclerotic heart disease of native coronary artery without angina pectoris (principal); Z95.2 Presence of prosthetic heart valve; I48.91 Unspecified atrial fibrillation; Z79.01 Long term (current) use of anticoagulants; I73.9 Peripheral vascular disease, unspecified; R79.89 Other specified abnormal findings of blood chemistry; D69.6 Thrombocytopenia, unspecified; R74.8 Abnormal levels of other serum enzymes; Z95.1 Presence of aortocoronary bypass graft; I50.9 Heart failure, unspecified; S91.109A Unspecified open wound of unspecified toe(s) without damage to nail, initial encounter; X58.XXXA Exposure to other specified factors, initial encounter | CPT/HCPCS: 36415; 80053; 80503; 82306; 82728; 82977; 83540; 83550; 84260; 85025; 99214 ==

== ENCOUNTER 2025-03-12 19:39 | Inpatient (IN) | payer MEDICARE, SELFPAY ==
[2025-03-12] VITALS (17 sets, daily range): BP systolic 120–162; BP diastolic 59–95; PULSE 82–156; RESP 18–35; TEMP 37.2; O2SAT 86–96
--- OUTSIDE RECORDS SUMMARY | 2025-03-12 19:45 | XMS_ITS | Continuity of Care Document ---
Author Organization NOEL Garcia [facility] Abran Barker, [facility] ([facility]) Address [address] [place] [address] Assessment No assessment recorded. Plan of Treatment Reminders Order Date Submit Date Provider Last Modified By Organization Details Last Modified Time Details Appointments LAB 2024 07:00A M LAB Not available Not available Not available RECHECK 15 2025 08:30A M Kyle Mendoza MD Not available Not available Not available Lab None recorded . Referral None recorded . Procedures None recorded . Surgeries None recorded . Imaging None recorded . Medication Orders None recorded . Patient TargetsNo targets recorded. Patient InstructionsNo instructions recorded. Reason for Referral None Reported. Results Created Date Observation Date Name Description Value Unit Range Abnormal Flag Note LastModifiedBy Organization Detail LastModifiedTime 01/07/20 25 01/04/2025 US, abdom en, limit ed No observ ation record ed. [facility] [address] [place], [address], 01/07/2025 09:27:39 02/11/20 25 02/10/2025 XR, chest , 2 view No observ ation record ed. [facility] ([facility]) [address] [place], [address], 02/10/2025 14:04:54 02/13/20 25 02/10/2025 XR, chest , 2 view No observ ation record ed. [facility] ([facility]) [address] [place], [address], 02/14/2025 08:15:52 02/16/20 25 02/15/2025 US, abdom en, limit ed No observ ation record ed. [facility] [address] [place], [address], 02/15/2025 09:43:49 Result Notes None recorded. 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 It is almost impercept ible. I will send over some erythromy ezekiel ointment and have him follow up with Dr Mendoza as needed for persisten t pain or irritatio n. He verbalize s understan ding.; Recorded 3 8:19AM by Erin Sanabria LPN, Office Visit; Promoted; acuity set as *; Not Available [facility] 3 03:07:56 Anxiety disorder 731989239 Active 2022 ERIN garcia, [facility] 4 09:21:19 Depressiv e disorder 71681468 Active 2022 ERIN garcia, [facility] 5 09:02:08 Diverticu litis of colon 706209365 Active 2022 Diverticu litis Of Colon; 3 8:19AM by Erin Sanabria LPN, Office Visit; Promoted; acuity set as *; Not Available [facility] 3 03:07:57 Conductio n disorder of the heart 41546265 Active 2022 Cardiac Dysrhythm ia ERIN garcia, [facility] 4 09:23:30 Cervical radiculop athy 80649337 Active 2022 CERVICAL RADICULOP ATHY; Recorded 3 8:19AM by Erin Sanabria LPN, Office Visit; Promoted; acuity set as *; Not Available [facility] 3 03:07:57 Private referral to cardiolog ist Active [address] Louisa SANABRIA null, [facility] 4 09:22:13 Coronary atheroscl erosis 388586614 Active 2023 ERIN SANABRIA null, [facility] 4 09:22:43 Myocardia l infarctio n 50318948 Active 2023 non-ST elevation CA ERIN garcia, [facility] 4 09:23:12 Atrial fibrillat ion 16613535 Active 2023 JULIANNE TALAMANTES null, [facility] 4 14:10:30 Thrombocy topenic disorder 359550456 Active 2023 Kyle Mendoza MD [address] [place] [address], [address] , [facility] 5 10:15:01 Hyperlipi demia 63220421 Active 2023 Carol Davis [facility], [facility] 4 13:51:27 Muscle weakness 67582835 Active 2024 Carol Davis null, [facility] 5 11:54:44 Loss of appetite 39723100 Active 2024 Carol garcia, [facility] 5 15:58:15 Alkaline phosphata se above reference range 457819759 Active 2024 ERIN garcia, [facility] 5 16:04:03 Decrease in appetite 85179640 Active 2024 Carol Susan garcia, [facility] 5 10:47:27 Nicotine dependenc e 17156345 Active 2024 ERIN garcia, [facility] 5 09:01:55 Platelet morpholog y - finding 036208997 Active 2024 Kyle Mendoza MD [address] [place] [address], [address] [place] [address] , [facility] 5 10:15:11 Chronic neck pain 68834949333 07 Active 2024 Kyle Mendoza MD [address] [place] [address], [address] [place] [address] , [facility] 5 10:23:31 Right pleural effusion Active 2024 Kyle Mendoza MD [address] [place] [address], [address] [place] [address] , [facility] 5 13:53:32 Liver function test above reference range 104856526 Active 2024 Carol garcia, [facility] 5 08:39:42 D-dimer above reference range 478755633 Active 2024 ERIN garcia, [facility] 5 10:01:09 Acute on chronic systolic heart failure 619232306 Active 2024 Kyle Mendoza MD [address] [place] [address], [address] [place] [address] , [facility] 5 12:47:16 Acute right-masha ed heart failure 524178616 Active 2024 Kyle Mendoza MD [address] [place] [address], [address] , [facility], [facility]an 5 12:47:17 Problem Notes None recorded. Procedures Surgical History Date Name Laterality Status Provider Name and Address Organization Details Recorded Time 10/22/19 17 replacement of aortic valve completed ERIN SANABRIA [facility], [place] 03/11/2024 09:28:37 Cabg vein five completed [facility], Abr[place] 03/11/2024 09:27:35 cardiovascular stress testing completed JULIANNE TALAMANTES [facility] 03/11/2024 14:11:05 Imaging Results None recorded. Procedure Notes None recorded. Medical Equipment None Reported. Allergies Allergen ID Allergen Name Allergen Category Reaction Reaction Severity Criticality Documentation Date Start Date Code Code System Note Provider Name and Address Organization Details Recorded Time 46699 Cymbalta medicatio n other Not available Not available 11/02/2022 42214 4 RxNorm React ion: time corre latio n to onset and disco ntinu ation of lymph ocyti c colit is.; Comme nt: Recor ded 06/06 8:19A M by Yadira Mendoza on, [employer] SPECIALIST, 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 ; Promo alex; Signi fican ce: *; ; Not Available [facility] 3 02:28:27 17376 Lexapro medicatio n other Not available Not available 11/02/2022 02160 1 RxNorm React ion: has been assoc iated with lymph ocyti c colit is; Comme nt: Recor ded 06/06 8:19A M by Yadira Mendoza on, WE[employer] ANALYT[employer] SPECIALIST, 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 ; Promo alex; Signi fican ce: *; ; Not Available [facility] 3 02:28:27 Medications Name Sig Start Date Stop Date Status Note LastModified by Organization Details LastModified Time pindolol 10 mg tablet TAKE 2 TABLETS BY MOUTH EVERY MORNING and ONE EVERY EVENING 03/11 completed Not Available Not Available Not Available furosemid e 40 mg tablet TAKE 1 TABLET BY MOUTH EVERY DAY active Not Available Not Available No t Available carvedilo l 6.25 mg tablet TAKE 1 TABLET BY MOUTH TWICE DAILY MUST ADMINIST ER WITH A MEAL/AVELINO D active Not Available Not Available No t Available doxycycli ne hyclate 100 mg capsule take 1 capsule BY MOUTH TWICE DAILY for 7 days 12/01 completed Not Available Not Available Not Available atorvasta tin 20 mg tablet TAKE 1 TABLET BY MOUTH EVERY DAY 12/01 completed Not Available Not Available Not Available tizanidin e 2 mg tablet TAKE 1 TO 2 TABLETS BY MOUTH EVERY 8 HOURS NEEDED FOR neck SPASMS. watch FOR sedation and increase d risk of falling/ accident s 02/10 completed Not Available Not Available Not Available fluoroura cil 5 % topical cream apply thin layer TO bilatera l ears and behind ears, cheeks and nose TWICE DAILY FOR TWO weeks active Not Available Not Available No t Available fluoxetin e 10 mg tablet TAKE 1 TABLET BY MOUTH EVERY DAY 2024 active Not Available Not Available Not Avai lable tramadol 50 mg tablet every 4 hours as needed for moderate to severe pain 03/11 completed Recorded 06/07/19 23 8:19AM by Erin Sanabria LPN, Office Visit; Refill Quantity : 0; Not Available Not Available Not Available spironola ctone 25 mg tablet TAKE 1 TABLET BY MOUTH EVERY DAY active Not Available Not Available No t Available carvedilo l 3.125 mg tablet TAKE 1 TABLET BY MOUTH TWICE DAILY with meal/avelino d 04/22 completed Not Available Not Available Not Available tamsulosi n 0.4 mg capsule at bedtime 03/11 completed Recorded 09/27/19 22 8:55AM by Erin Sanabria LPN, Office Visit; Refill Quantity : 30; Capsule; Not Available Not Available Not Available pantopraz ole 40 mg tablet,de layed release TAKE 1 TABLET BY MOUTH EVERY DAY active Not Available Not Available No t Available lidocaine 5 % topical patch APPLY ONE PATCH TO SKIN ONCE DAILY. MAY WEAR UP TO 12 HOURS THEN REMOVE FOR 12 HOURS BEFORE APPLYING NEW PATCH 02/10 completed Not Available Not Available Not Available Tylenol 325 mg tablet Take 2 tablets every 6 hours by oral route. active Not Available Not Available No t Available lisinopri l 5 mg tablet TAKE 1 TABLET BY MOUTH EVERY DAY active Not Available Not Available No t Available mupirocin 2 % topical ointment three times daily 03/11 completed Recorded 06/07/19 8:38AM by Kyle Mendoza MD, Office Visit; Refill Quantity : 0; Not Available Not Available Not Available furosemid e 20 mg tablet TAKE 1 TABLET BY MOUTH EVERY DAY active Not Available Not Available No t Available pindolol 5 mg tablet TAKE 3 TABLETS BY MOUTH TWICE DAILY need TO see doctor 03/11 completed Not Available Not Available Not Available fluoxetin e daily 03/11 completed 0; Recorded 06/07/19 8:19AM by Erin Sanabria LPN, Office Visit; Not Available Not Available Not Available furosemid e daily 03/11 completed 436; Recorded 04/08/19 1:26PM by Erin Sanabria LPN (Authori zed through Kyle Mendoza MD), Refill Request; Refill Quantity : 30; Tablet; Not Available Not Available Not Available pindolol two times daily 07/13 completed 436; Recorded 04/29/19 23 10:57AM by Erin Sanabria LPN (Authori zed through Kyle Mendoza MD), Refill Request; Refill Quantity : 540; Tablet; Not Available Not Available Not Available Eliquis 5 mg tablet TAKE 1 TABLET BY MOUTH TWICE DAILY active Not Available Not Available No t Available Eliquis two times daily 03/11 completed 436; Recorded 11/06/19 9:35AM by Carol Glez RN (Authori zed through Kyle Mendoza MD), Office Visit; Refill Quantity : 0; Not Available Not Available Not Available Entresto 24 mg-26 mg tablet TAKE 1 TABLET BY MOUTH TWICE DAILY 03/11 completed Not Available Not Available Not Available Vitals None Recorded Social History Question Answer Notes LastModified by Organizat ion Details LastModified Time Tobacco Smoking Status Never Smoker Chews JULIANNE TALAMANTES [facility] 03/11/2024 14:09:15 What Is Your Level Of Caffeine Consumption? Moderate [email or web address] Information not available 12/01/2024 What Was The Date Of Your Most Recent Tobacco Screening? 12/20/2024 [email or web address] Information not available 12/20/2024 Sex: Unknown Functional Status Question Answer Note LastModified by Organizat ion Details LastModified Time Do you use any illicit or recreational drugs? No [email or web address] Information not available 12/01/2024 Do you or have you ever used any other forms of tobacco or nicotine? Yes [email or web address] Information not available 12/20/2024 What is your level of alcohol consumption? None [email or web address] Information not available 12/01/2024 Do you or have you ever used smokeless tobacco? Currently chews tobacco [email or web address] Information not available 12/20/2024 Mental Status None recorded. Family History Relationship Description Onset Age of this Age Resolved Age Notes LastModified by Organization Details LastModified Time Brother Coronary atherosclero sis [email or web address] Not available 03/11 09:25:54 Daughter Coronary atherosclero sis Not available 03/11 09:25:54 Daughter Diabetes mellitus [email or web address] Not available 03/11 09:26:17 Sister Coronary atherosclero sis [email or web address] Not available 03/11 09:25:54 Paternal Grandmother Diabetes mellitus [email or web address] Not available 03/11 09:26:29 Medical History No medical history recorded. Immunizations Vaccine Type Date Status Note Provider Nam e and Address Organization Details Recorded Time Influenza, split virus, trivalent, preservative 0 completed Not Available [facility] 11/02/2022 02:51:54 pneumococcal polysaccharide PPV23 0 completed Not Available [facility] 11/02/2022 02:51:54 COVID-19, mRNA, LNP-S, PF, 100 mcg/0.5mL dose or 50 mcg/0.25mL dose 1 completed ERIN garcia [facility] 02/10/2025 12:39:38 COVID-19, mRNA, LNP-S, PF, 100 mcg/0.5mL dose or 50 mcg/0.25mL dose 1 completed ERIN SANABRIA [facility] [place] [facility] 02/10/2025 12:39:39 pneumococcal, unspecified formulation 0 completed Not Available [facility] 02/17/2025 11:20:55 Past Encounters Encounter ID Performer Location Encounter Start Date Encounter Closed Date Diagnosis/Indication Diagnosis SNOMED-CT Code Diagnosis ICD10 Code Diagnosis IMO Codes Diagnosis Note [id number] Kyle Mendoza MD [facility] ([facility]) [address] [place] [phone] 12/20/2024 09:46:38 12/20/2024 13:39:21 Nicotine dependence 67418816 F17.953 9841409 Depressive disorder 3548 9007 F32.A 06797 Thrombocyt openic disorder 068777277 D69.6 47078 peripheral smear showed large and/or giant cells. this is mild and will need to be followed. it is in the setting of recent poor nutrition. electropho resis is neg. cbc is otherwise normal as are b-12 and folic acid. normal globulin. normal alk phos isoenzymes . Platelet m orphology - finding 446693759 D69.1 57734950 Gamma-glut amyl transferase above reference range 774371030 R74.8 03792650 Chronic neck pain 830496 3589 107 M54.2 G89.29 411313 [id number] Kyle Mendoza MD [facility] ([facility]) [address] [place] [phone] 01/04/2025 09:33:34 01/05/2025 16:41:22 Health Concerns Section Related Observation LastModified by Organization Detai ls LastModified Time None Recorded Concern Status LastModified by Organization Details LastModified Time None Recorded Payers Encounter Date Sequence Insurance Name Policy Number Policy Montes De Oca Covered Member ID Montes De Oca Member ID Guarantor Name 01/04/2025 1 [place]IC[place] Magen W Ema [id number] Magen Ema
--- OUTSIDE RECORDS SUMMARY | 2025-03-12 19:45 | XMS_ITS | Encounter Summary ---
Author Organization [facility] Address [address] [place] [address] Care Team Providers Care Contact Lens Edge Buffer Name Role Phone Fernando Gaines MD Primary Care Provider [phone] Encounter Details Date Type Department Care Team (Latest Contact Info) Description 09/20/2004 Outpatient Historical [facility] Cardiology- [place] [address] [place] [address] Codey Jasso MD NO ADDRESS ON FILE CORON ATHEROSCL TANANA CORON VESSEL (Primary Dx); Pure hypercholesterolem Social History Tobacco Use Types Packs/Day Years Used Date Smoking Tobacco: Never Assessed Sex and Gender Information Value Date Recorded Sex Assigned at Not on file Legal Sex Male 6:37 AM FIRE E[employer] Gender Identity Not on file Sexual Orientation Not on file documented as of this encounter Plan of Treatment Not on file documented as of this encounter Visit Diagnoses Diagnosis Coronary atherosclerosis of [place] coronary artery- Primary Pure hypercholesterolem Pure hypercholesterolemia documented in this encounter Care Teams Contact Lens Edge Buffer Relationship Specialty Start Date End Date Fernando Gaines MD [address] [place] [id number] PCP - General Family Practice 08/02/13 09/16/19 documented as of this encounter
--- OUTSIDE RECORDS SUMMARY | 2025-03-12 19:45 | XMS_ITS | Encounter Summary ---
Author Organization [facility] Address [address] [place] [address] Care Team Providers Care Environmental Services Supervisor Name Role Phone Fernando Gaines MD Primary Care Provider [phone] Encounter Details Date Type Department Care Team (Latest Contact Info) Description 07/04/2004 Outpatient [facility] Cardio Pulmonary Rehab [address] [place] [address] Codey Jasso MD NO ADDRESS ON FILE CORON ATHEROSCL [place] CORON VESSEL (Primary Dx) Social History Tobacco Use Types Packs/Day Years Used Date Smoking Tobacco: Never Assessed Sex and Gender Information Value Date Recorded Sex Assigned at Not on file Legal Sex Male 6:37 AM CLINICAL PHARMACY COORDINATOR Gender Identity Not on file Sexual Orientation Not on file documented as of this encounter Plan of Treatment Not on file documented as of this encounter Procedures Procedure Name Priority Date/Time Associated Diagnosis Comments CBC WITHOUT DIFFERENTIAL Routine 07/04/2004 9:44 AM CLINICAL PHARMACY COORDINATOR BASIC METABOLIC PANEL Routine 07/04/2004 9:44 AM CLINICAL PHARMACY COORDINATOR PT AND APTT Routine 07/04/2004 9:43 AM CLINICAL PHARMACY COORDINATOR documented in this encounter Results * (ABNORMAL) CBC WITHOUT DIFFERENTIAL (07/04/2004 9:44 AM CLINICAL PHARMACY COORDINATOR) WBC 6.4 4.8 - 10.8 K/ul INTERFACE SYSTEM RBC 5.54 4.60 - 6.20 Mil/ul INTERFACE SYSTEM HEMOGLOBIN 16.1 14.0 - 18.0 g/dL INTERFACE SYSTEM HEMATOCRIT 48.1 41.0 - 53.0 % INTERFACE SYSTEM MCV 86.8 84.0 - 103.0 Fl INTERFACE SYSTEM MCH 29.1 27.0 - 34.0 pg INTERFACE SYSTEM MCHC 33.5 30.0 - 35.0 g/dL INTERFACE SYSTEM RDW 13.0 11.0 - 14.5 percent(in active) INTERFACE SYSTEM PLATELETS 204 140 - 440 K/ul INTERFACE SYSTEM MPV 10.4 8.9 - 12.8 Fl INTERFACE SYSTEM NEUTROPHILS 55.9 42.2 - 75.2 percent(in active) INTERFACE SYSTEM LYMPHOCYTES 29.0 24.0 - 44.0 percent(in active) INTERFACE SYSTEM MONOCYTES 10.1(H) 2.0 - 10.0 percent(in active) INTERFACE SYSTEM EOSINOPHILS 4.5 0.0 - 7.0 % INTERFACE SYSTEM BASOPHILS 0.5 0.0 - 1.0 percent(in active) INTERFACE SYSTEM NEUTROPHIL ABSOLUTE 3.6 2.0 - 8.0 K/uL INTERFACE SYSTEM LYMPHOCYTE ABSOLUTE 1.9 1.2 - 4.0 K/ul INTERFACE SYSTEM MONOCYTE ABSOLUTE 0.7(H) 0.1 - 0.6 K/ul INTERFACE SYSTEM EOSINOPHIL ABSOLUTE 0.3 0.0 - 0.7 K/ul INTERFACE SYSTEM BASOPHILS ABSOLUTE 0.0 0.0 - 0.2 K/ul INTERFACE SYSTEM 07/04/2004 9:44 AM CLINICAL PHARMACY COORDINATOR us Codey Jasso MD HEMATOLOGY ORDERABLES Final Re sult INTERFACE SYSTEM Refer to clinic/hospital department * BASIC METABOLIC PANEL (07/04/2004 9:44 AM CLINICAL PHARMACY COORDINATOR) GLUCOSE 100 70 - 110 mg/dL INTERFACE SYSTEM BUN 14 9 - 20 mg/dL INTERFACE SYSTEM CREATININE 1.2 0.7 - 1.5 mg/dL (inactive) INTERFACE SYSTEM SODIUM 138 136 - 145 mEq/L INTERFACE SYSTEM POTASSIUM 4.1 3.5 - 5.0 mEq/L INTERFACE SYSTEM CHLORIDE 105 95 - 110 mEq/L INTERFACE SYSTEM CO2 27 22 - 32 mmol/l INTERFACE SYSTEM ANION GAP 10 9 - 20 mEq/L INTERFACE SYSTEM OSMOLALITY, CALCULATED 285 275 - 295 mOsm/Kg INTERFACE SYSTEM CALCIUM 9.3 8.4 - 10.5 mg/dL INTERFACE SYSTEM 07/04/2004 9:44 AM CLINICAL PHARMACY COORDINATOR Codey Jasso MD CHEMISTRY ORDERABLES Final Res ult Performing Organization Address [facility] Phone Number INTERFACE SYSTEM Refer to clinic/hospital department * PT AND APTT (07/04/2004 9:43 AM CLINICAL PHARMACY COORDINATOR) PROTIME 14.2 12.4 - 14.9 Secs INTERFACE SYSTEM Comment: As of 03 note change in normal range. INR 1.0 INTERFACE SYSTEM Comment: Expected Values for INR: DVT/PE Goal INR 2.5; range 2.0 - 3.0 Valve Replacement Tissue Goal INR 2.5; range 2.0 - 3.0 Mechanical Goal INR 3.0; range 2.5 - 3.5 POST-IL Goal INR 2.5; range 2.0 - 3.0 or Goal 3.0; range 2.5 - 3.5 Atrial Fibrillation Goal INR 2.5; range 2.0 - 3.0 Ischemic Stroke Goal INR 2.5; range 2.0 - 3.0 For additional information see Guidelines for Anticoagulation available from the pharmacy [facility] PTT 31.0 24.3 - 37.5 Secs INTERFACE SYSTEM Comment:Therapeutic Range: 07/04/2004 9:43 AM CLINICAL PHARMACY COORDINATOR Codey Jasso MD HEMATOLOGY ORDERABLES Final Re sult Performing Organization Address [facility] Phone Number INTERFACE SYSTEM Refer to clinic/hospital department documented in this encounter Visit Diagnoses Diagnosis Coronary atherosclerosis of [place] coronary artery- Primary documented in this encounter Care Teams Environmental Services Supervisor Relationship Specialty Start Date End Date Fernando Gaines MD [address] [address] PCP - General Family Practice 08/02/13 09/16/19 documented as of this encounter
--- OUTSIDE RECORDS SUMMARY | 2025-03-12 19:45 | XMS_ITS | Encounter Summary ---
Author Organization [facility] Address [address] [place] [address] Care Team Providers Care Rn Psych Name Role Phone Fernando Gaines MD Primary Care Provider [phone] Encounter Details Date Type Department Care Team (Latest Contact Info) Description 05/28/2000 Outpatient [facility] [address] [place] [address] Estrada Mas MD NO ADDRESS ON FILE Routine medical exam (Primary Dx) Social History Tobacco Use Types Packs/Day Years Used Date Smoking Tobacco: Never Assessed Sex and Gender Information Value Date Recorded Sex Assigned at Not on file Legal Sex Male 6:37 AM 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
--- OUTSIDE RECORDS SUMMARY | 2025-03-12 19:45 | XMS_ITS | Encounter Summary ---
Author Organization [facility] Address [address] [place] [address] Care Team Providers Care Geopolitics Teacher Name Role Phone Fernando Gaines MD Primary Care Provider [phone] Encounter Details Date Type Department Care Team (Latest Contact Info) Description 02/08/2002 Outpatient Historical [facility] [address] [place] [address] Estrada Mas MD NO ADDRESS ON FILE COUGH (Primary Dx) Social History Tobacco Use Types Packs/Day Years Used Date Smoking Tobacco: Never Assessed Sex and Gender Information Value Date Recorded Sex Assigned at Not on file Legal Sex Male 6:37 AM FOUNTAIN SERVER Gender Identity Not on file Sexual Orientation Not on file documented as of this encounter Plan of Treatment Not on file documented as of this encounter Visit Diagnoses Diagnosis Cough- Primary documented in this encounter Care Teams Geopolitics Teacher Relationship Specialty Start Date End Date Fernando Gaines MD [address] [place] [address] PCP - General Family Practice 08/02/13 09/16/19 documented as of this encounter
--- OUTSIDE RECORDS SUMMARY | 2025-03-12 19:45 | XMS_ITS | Encounter Summary ---
Author Organization [facility] Address [address] [place] [address] Care Team Providers Care Quotation Clerk Name Role Phone Fernando Gaines MD Primary Care Provider [phone] Encounter Details Date Type Department Care Team (Latest Contact Info) Description 08/23/2004 Outpatient Historical [facility] Cardiac Thoracic Vascular Surg [place] [address] [place] [address] Codey Britt MD NO ADDRESS ON FILE CORON ATHEROSCL [place] CORON VESSEL (Primary Dx) Social History Tobacco Use Types Packs/Day Years Used Date Smoking Tobacco: Never Assessed Sex and Gender Information Value Date Recorded Sex Assigned at Not on file 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
--- OUTSIDE RECORDS SUMMARY | 2025-03-12 19:45 | XMS_ITS | Encounter Summary ---
Author Organization [facility] Address [address] [place] [address] Care Team Providers Care Platen Grinder Name Role Phone Fernando Gaines MD Primary Care Provider [phone] Encounter Details Date Type Department Care Team (Latest Contact Info) Description 02/08/2002 Outpatient [facility] [address] [place] [address] Estrada Mas MD NO ADDRESS ON FILE COUGH (Primary Dx) Social History Tobacco Use Types Packs/Day Years Used Date Smoking Tobacco: Never Assessed Sex and Gender Information Value Date Recorded Sex Assigned at Not on file Legal Sex Male 6:37 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
--- OUTSIDE RECORDS SUMMARY | 2025-03-12 19:45 | XMS_ITS | Encounter Summary ---
Author Organization [facility] Address [address] [place] [address] Care Team Providers Care Labor Utilization Superintendent Name Role Phone Fernando Gaines MD Primary Care Provider Encounter Details Date Type Department Care Team (Latest Contact Info) Description 02/08/2004 Outpatient [facility] [address] [place] [address] Estrada Mas MD NO ADDRESS ON FILE HYPERLIPIDEMIA NEC/NOS (Primary Dx); Vaccine for influenza Social History Tobacco Use Types Packs/Day Years Used Date Smoking Tobacco: Never Assessed Sex and Gender Information Value Date Recorded Sex Assigned at Not on file Legal Sex Male 6:37 AM ASIAN STUDIES PROGRAM CHAIR Gender Identity Not on file Sexual Orientation Not on file documented as of this encounter Plan of Treatment Not on file documented as of this encounter Visit Diagnoses Diagnosis Other and unspecified hyperlipidemia- Primary Vaccine for influenza Need for prophylactic vaccination and inoculation against influenza documented in this encounter Care Teams Labor Utilization Superintendent Relationship Specialty Start Date End Date Fernando Gaines MD [address] [place] [address] PCP - General Family Practice 08/02/13 09/16/19 documented as of this encounter
--- OUTSIDE RECORDS SUMMARY | 2025-03-12 19:45 | XMS_ITS | Encounter Summary ---
Author Organization [facility] Address [address] [place] [address] Care Team Providers Care Rubber Turner Name Role Phone Fernando Gaines MD Primary Care Provider [phone] Encounter Details Date Type Department Care Team (Latest Contact Info) Description 06/22/2003 Outpatient [facility] [address] [place] [id number] Estrada Mas MD NO ADDRESS ON FILE Lateral epicondylitis (Primary Dx) Social History Tobacco Use Types Packs/Day Years Used Date Smoking Tobacco: Never Assessed Sex and Gender Information Value Date Recorded Sex Assigned at Not on file Legal Sex Male 6:37 AM CHEMICALS DISTILLER Gender Identity Not on file Sexual Orientation Not on file documented as of this encounter Plan of Treatment Not on file documented as of this encounter Visit Diagnoses Diagnosis Lateral epicondylitis- Primary Lateral epicondylitis of elbow documented in this encounter Care Teams Rubber Turner Relationship Specialty Start Date End Date Fernando Gaines MD [address] [place] [address] PCP - General Family Practice 08/02/13 09/16/19 documented as of this encounter
--- OUTSIDE RECORDS SUMMARY | 2025-03-12 19:45 | XMS_ITS | Encounter Summary ---
Author Organization [facility] Address [address] [place] [address] Care Team Providers Care Reading Recovery Teacher Name Role Phone Fernando Gaines MD Primary Care Provider [phone] Encounter Details Date Type Department Care Team (Latest Contact Info) Description 08/09/2005 Outpatient [facility] [address] [place] [address] Estrada Mas MD NO ADDRESS ON FILE Cor Athrscl-Uns Vessel (Primary Dx); Other and Unspecified Hyperlipidemia; Unspecified Disorders of Bursae and Tendons in Shoulder Region; Unspecified Disorder of Skin and Subcutaneous Tissue Social History Tobacco Use Types Packs/Day Years Used Date Smoking Tobacco: Never Assessed Sex and Gender Information Value Date Recorded Sex Assigned at Not on file Legal Sex Male 6:37 AM CLOTH COVERER Gender Identity Not on file Sexual Orientation Not on file documented as of this encounter Plan of Treatment Not on file documented as of this encounter Visit Diagnoses Diagnosis Coronary atherosclerosis of unspecified type of vessel, fond du lac or graft- Primary Other and unspecified hyperlipidemia Disorders of bursae and tendons in shoulder region, unspecified Unspecified disorder of skin and subcutaneous tissue documented in this encounter Care Teams Reading Recovery Teacher Relationship Specialty Start Date End Date Fernando Gaines MD [address] [place] [address] PCP - General Family Practice 08/02/13 09/16/19 documented as of this encounter
--- OUTSIDE RECORDS SUMMARY | 2025-03-12 19:45 | XMS_ITS | Encounter Summary ---
Author Organization [facility] Address [address] [place] [address] Care Team Providers Care Head Gauge Unit Operator Name Role Phone Fernando Gaines MD Primary Care Provider [phone] Encounter Details Date Type Department Care Team (Latest Contact Info) Description 11/16/2001 Outpatient [facility] [place] [address] [facility] [address] [place] [address] Aureliano Petesr, DPM NO ADDRESS ON FILE DERMATOPHYTOSIS OF FOOT (Primary Dx); ACHILLES TENDINITIS; OTHER HAMMER TOE; Pain in limb Social History Tobacco Use Types Packs/Day Years Used Date Smoking Tobacco: Never Assessed Sex and Gender Information Value Date Recorded Sex Assigned at Not on file Legal Sex Male 6:37 AM CAR SCRUBBER Gender Identity Not on file Sexual Orientation Not on file documented as of this encounter Plan of Treatment Not on file documented as of this encounter Visit Diagnoses Diagnosis Dermatophytosis of foot- Primary Achilles bursitis or tendinitis Other hammer toe (acquired) Pain in limb Pain in soft tissues of limb documented in this encounter Care Teams Head Gauge Unit Operator Relationship Specialty Start Date End Date Fernando Gaines MD [address] [place] [address] PCP - General Family Practice 08/02/13 09/16/19 documented as of this encounter
--- OUTSIDE RECORDS SUMMARY | 2025-03-12 19:45 | XMS_ITS | Encounter Summary ---
Author Organization [facility] Address [address] [place] [address] Care Team Providers Care Manager Medicaid Name Role Phone Fernando Gaines MD Primary Care Provider [phone] Encounter Details Date Type Department Care Team (Latest Contact Info) Description 08/07/1999 Outpatient [facility] [address] [place] [address] Estrada Mas MD NO ADDRESS ON FILE Other specified diseases due to viruses (Primary Dx) Social History Tobacco Use Types Packs/Day Years Used Date Smoking Tobacco: Never Assessed Sex and Gender Information Value Date Recorded Sex Assigned at Not on file Legal Sex Male 6:37 AM 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
--- OUTSIDE RECORDS SUMMARY | 2025-03-12 19:45 | XMS_ITS | Encounter Summary ---
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
--- OUTSIDE RECORDS SUMMARY | 2025-03-12 19:45 | XMS_ITS | Encounter Summary ---
Author Organization [facility] Address [address] [place] [address] Care Team Providers Care Child Daycare Worker Name Role Phone Fernando Gaines MD Primary Care Provider [phone] Encounter Details Date Type Department Care Team (Latest Contact Info) Description 01/28/2006 Outpatient [facility] [address] [place] [address] Estrada Mas MD NO ADDRESS ON FILE Dysthymic Disorder (Primary Dx) Social History Tobacco Use Types Packs/Day Years Used Date Smoking Tobacco: Never Assessed Sex and Gender Information Value Date Recorded Sex Assigned at Not on file Legal Sex Male 6:37 AM STORAGE 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
--- OUTSIDE RECORDS SUMMARY | 2025-03-12 19:45 | XMS_ITS | Encounter Summary ---
Author Organization [facility] Address [address] [place] [address] Care Team Providers Care Husbandry Technician Name Role Phone Fernando Gaines MD Primary Care Provider [phone] Encounter Details Date Type Department Care Team (Latest Contact Info) Description 06/20/2004 Outpatient Historical [facility] Cardiology- [place] [address] [place] [address] Codey Jasso MD NO ADDRESS ON FILE Aortic valve disorder (Primary Dx); RESPIRATORY ABNORM NEC; UNDIAGNOSED CARDIAC MURMURS Social History Tobacco Use Types Packs/Day Years Used Date Smoking Tobacco: Never Assessed Sex and Gender Information Value Date Recorded Sex Assigned at Not on file Legal Sex Male 6:37 AM 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
--- OUTSIDE RECORDS SUMMARY | 2025-03-12 19:45 | XMS_ITS | Encounter Summary ---
Author Organization [facility] Address [address] [place] [address] Care Team Providers Care School Business Manager Name Role Phone Fernando Gaines MD Primary Care Provider [phone] Encounter Details Date Type Department Care Team (Latest Contact Info) Description 07/18/2004 Outpatient Historical [facility] PreAdmission [address] [place] [address] Codey Britt MD NO ADDRESS ON FILE PREOP CARDIOVASC EXAM (Primary Dx) Social History Tobacco Use Types Packs/Day Years Used Date Smoking Tobacco: Never Assessed Sex and Gender Information Value Date Recorded Sex Assigned at Not on file Legal Sex Male 6:37 AM DONOR SUPPORT TECHNICIAN Gender Identity Not on file Sexual Orientation Not on file documented as of this encounter Plan of Treatment Not on file documented as of this encounter Procedures Procedure Name Priority Date/Time Associated Diagnosis Comments CBC WITHOUT DIFFERENTIAL Routine 07/18/2004 4:05 PM CDT BASIC METABOLIC PANEL Routine 07/18/2004 4:05 PM CDT documented in this encounter Results * CBC WITHOUT DIFFERENTIAL (07/18/2004 4:05 PM CDT) WBC 6.0 4.8 - 10.8 K/ul INTERFACE SYSTEM RBC 5.11 4.60 - 6.20 Mil/ul INTERFACE SYSTEM HEMOGLOBIN 14.6 14.0 - 18.0 g/dL INTERFACE SYSTEM HEMATOCRIT 43.7 41.0 - 53.0 % INTERFACE SYSTEM MCV 85.5 84.0 - 103.0 Fl INTERFACE SYSTEM MCH 28.6 27.0 - 34.0 pg INTERFACE SYSTEM MCHC 33.4 30.0 - 35.0 g/dL INTERFACE SYSTEM RDW 13.0 11.0 - 14.5 percent(in active) INTERFACE SYSTEM PLATELETS 218 140 - 440 K/ul INTERFACE SYSTEM MPV 10.3 8.9 - 12.8 Fl INTERFACE SYSTEM NEUTROPHILS 50.3 42.2 - 75.2 percent(in active) INTERFACE SYSTEM LYMPHOCYTES 33.5 24.0 - 44.0 percent(in active) INTERFACE SYSTEM MONOCYTES 8.5 2.0 - 10.0 percent(in active) INTERFACE SYSTEM EOSINOPHILS 7.0 0.0 - 7.0 % INTERFACE SYSTEM BASOPHILS 0.7 0.0 - 1.0 percent(in active) INTERFACE SYSTEM NEUTROPHIL ABSOLUTE 3.0 2.0 - 8.0 K/uL INTERFACE SYSTEM LYMPHOCYTE ABSOLUTE 2.0 1.2 - 4.0 K/ul INTERFACE SYSTEM MONOCYTE ABSOLUTE 0.5 0.1 - 0.6 K/ul INTERFACE SYSTEM EOSINOPHIL ABSOLUTE 0.4 0.0 - 0.7 K/ul INTERFACE SYSTEM BASOPHILS ABSOLUTE 0.0 0.0 - 0.2 K/ul INTERFACE SYSTEM 07/18/2004 4:05 PM CDT Codey Britt MD HEMATOLOGY ORDERABLES Final Resu lt INTERFACE SYSTEM Refer to clinic/hospital department * (ABNORMAL) BASIC METABOLIC PANEL (07/18/2004 4:05 PM CDT) GLUCOSE 116(H) 70 - 110 mg/dL INTERFACE SYSTEM BUN 14 9 - 20 mg/dL INTERFACE SYSTEM CREATININE 1.1 0.7 - 1.5 mg/dL (inactive) INTERFACE SYSTEM SODIUM 138 136 - 145 mEq/L INTERFACE SYSTEM POTASSIUM 4.0 3.5 - 5.0 mEq/L INTERFACE SYSTEM CHLORIDE 108 95 - 110 mEq/L INTERFACE SYSTEM CO2 23 22 - 32 mmol/l INTERFACE SYSTEM ANION GAP 11 9 - 20 mEq/L INTERFACE SYSTEM OSMOLALITY, CALCULATED 286 275 - 295 mOsm/Kg INTERFACE SYSTEM CALCIUM 9.0 8.4 - 10.5 mg/dL INTERFACE SYSTEM 07/18/2004 4:05 PM CDT us Codey Britt MD CHEMISTRY ORDERABLES Final Resul t INTERFACE SYSTEM Refer to clinic/hospital department documented in this encounter Visit Diagnoses Diagnosis Pre-operative cardiovascular examination- Primary documented in this encounter Care Teams School Business Manager Relationship Specialty Start Date End Date Fernando Gaines MD [address] [phone] PCP - General Family Practice 08/02/13 09/16/19 documented as of this encounter
--- OUTSIDE RECORDS SUMMARY | 2025-03-12 19:45 | XMS_ITS | Continuity of Care Document ---
Author Organization NOEL Garcia [facility], L.LDuran, [facility] ([facility]) Address [address] [facility] [place] [address] Assessment Encounter Date Assessment Date Assessment LastModified by Organization Details LastModified Time 02/17/2025 02/17/2025 f/u with cardiology as scheduled we discussed risk of not doing CTA chest low sodium diet monitor bp weight and HR daily call if any variations as discussed. they continue to decline the cta knowing risks of not doing the cta. they ask for a repeat d-dimer on 03/21 Not available 02/17/2025 12:50:58 Plan of Treatment Reminders Order Date Submit Date Provider Last Modified By Organization Details Last Modified Time Details Appointments LAB 2024 07:00A M LAB Not available Not available Not available RECHECK 15 2025 08:30A M Kyle Mendoza MD Not available Not available Not available Lab None recorded. Referral None recorded. Procedures None recorded. Surgeries None recorded. Imaging None recorded. Medication Orders spironola ctone 25 mg tablet 2024 025 [facility], [place], operated by [facility] [place], [address] [place] [address], [address], 02/17/2025 14:44:59 furosemid e 20 mg tablet 2024 025 [facility], [facility], [address], 02/17/2025 14:44:58 Patient TargetsNo targets recorded. Patient InstructionsNo instructions recorded. Reason for Referral None Reported. Results Created Date Observation Date Name Description Value Unit Range Abnormal Flag Note LastModifiedBy Organization Detail LastModifiedTime 02/11/2002/10/2025 CBC WBC 3.8 x10 4.5-10 .5 low Not Available [facility] [address], [place], [address], 02/10/2025 14:12:53 02/11/2002/10/2025 CBC RBC 4.74 x10 4.30-5 .90 Not Available [facility] [address], [place], [address], 02/10/2025 14:12:53 02/11/2002/10/2025 CBC HGB 13.3 g/dL 13.5-1 8.0 low Not Available [facility] [address] [facility] [facility], [place], [address], 02/10/2025 14:12:53 02/11/20 25 02/10/2025 CBC HCT 42.0 % 35.0-6 0.0 Not Available [facility] [address] [facility] 1, [place], [address], 02/10/2025 14:12:53 02/11/20 25 02/10/2025 CBC MCV 88.6 fL 80.0-9 9.9 Not Available [facility] [address] [facility], [place], [address], 02/10/2025 14:12:53 02/11/2002/10/2025 CBC MCH 28.0 pg 27.0-3 2.0 Not Available [facility] [address], [place], [address], 02/10/2025 14:12:53 02/11/20 25 02/10/2025 CBC MCHC 31.6 g/dL 32.0-3 6.0 low Not Available [facility] [address] [facility], [place], [address], 02/10/2025 14:12:53 02/11/2002/10/2025 CBC RDW 14.9 % 11.5-1 4.5 high Not Available [facility] [address] [place] [address] [facility] 1, [place], [address], 02/10/2025 14:12:53 02/11/2002/10/2025 CBC plt 92.5 x10 150.0- 451.0 low Not Available [facility] [address] [place] [address] [facility] 1, [place], [address], 02/10/2025 14:12:53 02/11/2002/10/2025 CBC lymphocytes % 27.6 % 20.0-5 0.0 Not Available [facility] [address] [place] [address] [facility] 1, [place], [address], 02/10/2025 14:12:53 02/11/20 25 02/10/2025 CBC granulcytes % 51.6 % 30.0-7 0.0 Not Available [facility] [address] [place] [address] [facility] 1, [place], [address], 02/10/2025 14:12:53 02/11/2002/10/2025 CBC monocytes % 17.4 % 2.0-16 .0 high Not Available [facility] [address] [place] [address] [facility] 1, [place], [address], 02/10/2025 14:12:53 02/11/2002/10/2025 CBC granulcytes# 1.9 x10 Not Radha ilable [facility] [address] [facility], [place], [address], 02/10/2025 14:12:53 02/11/20 25 02/10/2025 CBC lymphocytes # 1.0 x10 Not Available [facility] [address] [facility], [place], [address], 02/10/2025 14:12:53 02/11/20 25 02/10/2025 CBC monocytes # 0.7 x10 Not Avai lable [facility] [address] [place] [address] [facility] 1, [place], [address], 02/10/2025 14:12:53 02/11/20 25 02/10/2025 TSH TSH 2.56 uIU/m L 0.49-3 .82 Not Available [facility] [address] [facility], [place], [address], 02/10/2025 14:48:01 02/11/20 25 02/10/2025 URINA LYSIS WITH MICRO color YELLOW Not Available [facility] [address] [place] [address] [facility] 1, [place], [address], 02/10/2025 14:50:23 02/11/20 25 02/10/2025 URINA LYSIS WITH MICRO clarity CLEAR Not Available [facility] [address] [place] [address] [facility] 1, [place], [address], 02/10/2025 14:50:23 02/11/20 25 02/10/2025 URINA LYSIS WITH MICRO glu NEGATI VE Not Available [facility] [address] [facility], [place], [address], 02/10/2025 14:50:23 02/11/20 25 02/10/2025 URINA LYSIS WITH MICRO bili 1+ high Not Available [facility] [address] [facility], [place], [address], 02/10/2025 14:50:23 02/11/20 25 02/10/2025 URINA LYSIS WITH MICRO ket NEGATI VE Not Available [facility] [address] [facility], [place], [address], 02/10/2025 14:50:23 02/11/20 25 02/10/2025 URINA LYSIS WITH MICRO S.g 1.020 1.005- 1.025 Not Available [facility] [address] [facility], [place], [address], 02/10/2025 14:50:23 02/11/20 25 02/10/2025 URINA LYSIS WITH MICRO pH 6.0 5.0-7. 0 Not Available [facility] [address] [facility], [place], [address], 02/10/2025 14:50:23 02/11/20 25 02/10/2025 URINA LYSIS WITH MICRO pro 1+ high Not Available [facility] [address] [facility] [address], [place], [address], 02/10/2025 14:50:23 02/11/20 25 02/10/2025 URINA LYSIS WITH MICRO uro 1.0 E.U./D L Not Available [facility] [address] [facility] [address], [place], [address], 02/10/2025 14:50:23 02/11/20 25 02/10/2025 URINA LYSIS WITH MICRO nit NEGATI VE Not Available [facility] [address] [facility] [address], [place], [address], 02/10/2025 14:50:23 02/11/20 25 02/10/2025 URINA LYSIS WITH MICRO blo NEGATI VE Not Available [facility] [address] [facility] [address], [place], [address], 02/10/2025 14:50:23 02/11/20 25 02/10/2025 URINA LYSIS WITH MICRO rodolfo NEGATI VE Not Available [facility] [address] [facility], [place], [address], 02/10/2025 14:50:23 02/11/20 25 02/10/2025 URINA LYSIS WITH MICRO WBC 2-3 Not Available [facility] [address] [place] [address] [facility] 1, [place], [address], 02/10/2025 14:50:23 02/11/20 25 02/10/2025 URINA LYSIS WITH MICRO RBC NEGATI VE Not Available [facility] [address] [place] [address] [facility] 1, [place], [address], 02/10/2025 14:50:23 02/11/20 25 02/10/2025 URINA LYSIS WITH MICRO epi cells 1-2 Not Available [facility]ana [facility] [address] [place] [facility], [place], [address], 02/10/2025 14:50:23 02/11/20 25 02/10/2025 URINA LYSIS WITH MICRO bacteria NEGATI VE Not Available [facility] [address] [place] [address] [facility] 1, [place], [address], 02/10/2025 14:50:23 02/11/20 25 02/10/2025 URINA LYSIS WITH MICRO other NG Not Available [facility] [address] [place] [address] [facility] 1, [place], [address], 02/10/2025 14:50:23 02/11/20 25 02/10/2025 CMP (MALE ) glucose 108.0 mg/dL 60.0-9 9.0 high Not Available [facility] [address] [place] [address] [facility] 1, [place], [address], 02/10/2025 15:08:59 02/11/20 25 02/10/2025 CMP (MALE ) BUN (blood urea nitrogen) 19.0 mg/dL 10.0-2 6.0 Not Available [facility] [address] [facility] 1, [place], [address], 02/10/2025 15:08:59 02/11/20 25 02/10/2025 CMP (MALE ) creatinine (serum) 0.8 mg/dL 0.4-1. 5 Not Available [facility] [address] [facility], [place], [address], 02/10/2025 15:08:59 02/11/20 25 02/10/2025 CMP (MALE ) BUN/creatini ne ratio 23.75 ratio Not Available [facility] [address] [facility], [place], [address], 02/10/2025 15:08:59 02/11/20 25 02/10/2025 CMP (MALE ) eGFR calculated 97.4 Not Available [facility] [address] [facility], [place], [address], 02/10/2025 15:08:59 02/11/20 25 02/10/2025 CMP (MALE ) total protein 7.5 g/dL 6.0-8. 5 Not Available [facility] [address] [facility], [place], [address], 02/10/2025 15:08:59 02/11/20 25 02/10/2025 CMP (MALE ) total bilirubin 1.2 mg/dL 0.2-1. 3 Not Available [facility] [address] [facility], [place], [address], 02/10/2025 15:08:59 02/11/20 25 02/10/2025 CMP (MALE ) albumin 3.5 g/dL 3.5-5. 5 Not Available [facility] [address] [facility], [place], [address], 02/10/2025 15:08:59 02/11/20 25 02/10/2025 CMP (MALE ) globulin 4.0 calc Not Available [facility] [address] [address], [place], [address], 02/10/2025 15:08:59 02/11/20 25 02/10/2025 CMP (MALE ) AST (SGOT) 64.0 U/L 0.0-46 .0 high Not Available [facility] [address] [address], [place], [address], 02/10/2025 15:08:59 02/11/20 25 02/10/2025 CMP (MALE ) altv (SGPT) 48.0 U/L 13.0-6 9.0 normal Not Available [facility] [address] [address], [place], [address], 02/10/2025 15:08:59 02/11/20 25 02/10/2025 CMP (MALE ) A/G ratio 0.9 ratio Not Available [facility] C [facility]ek [facility] [address] [address], [place], [address], 02/10/2025 15:08:59 02/11/20 25 02/10/2025 CMP (MALE ) ALP phos 316.0 U/L 30.0-1 40.0 abnormal Not Available [facility] [address] [address], [place], [address], 02/10/2025 15:08:59 02/11/20 25 02/10/2025 CMP (MALE ) calcium 9.0 mg/dL 8.4-10 .5 Not Available [facility] [address] [address], [place], [address], 02/10/2025 15:08:59 02/11/20 25 02/10/2025 CMP (MALE ) sodium 137.0 mmol/ L 136.0- 145.0 Not Available [facility] [address] [place] [facility], [place], [address], 02/10/2025 15:08:59 02/11/20 25 02/10/2025 CMP (MALE ) potassium 4.3 mmol/ L 3.5-5. 1 Not Available [facility] [address] [facility] 1, [place], [address], 02/10/2025 15:08:59 02/11/20 25 02/10/2025 CMP (MALE ) chloride 103.0 mmol/ L 98.0-1 10.0 normal Not Available [facility] [address] [facility], [place], [address], 02/10/2025 15:08:59 02/11/20 25 02/10/2025 CMP (MALE ) C02 26.0 mmol/ L 22.0-3 1.0 Not Available [facility] [address] [facility], [place], [address], 02/10/2025 15:08:59 02/11/20 25 02/10/2025 CMP (MALE ) anion gap 8.0 calc Not Available [facility] mathews [facility] [address] [facility], [place], [address], 02/10/2025 15:08:59 02/11/20 25 02/10/2025 CMP (MALE ) osmolality 285.7 calc Not Available [facility] [address] [facility], [place], [address], 02/10/2025 15:08:59 02/11/20 25 02/11/2025 MAGNE SIUM magnesium 2.0 mg/dL 1.5-2. 5 normal Not Available [facility] [address], [place], [address], 02/11/2025 21:08:48 02/11/20 25 02/11/2025 D-DIM ER, QUANT ITATI VE D-dimer, quantitative 1.20 mcg/m L_feu <0.50 high Estelline alex D-dim er level s are assoc iated with DIC, malig moises es, infla mmati on, sepsi s, surge ry, traum a, and pregn ayaan. A D-dim er resul t less than 0.5 mcg/m L FEU, in conju nctio n with a non-h igh clini geoffrey pre-t est proba bilit y asses sment model , exclu theron deep vein throm bosis and pulmo nary embol ism. Howev er, since D-dim er value s incre ase with age, the [employer] ge of Physi cians recom mends an age-a djust ed cut-o ff value in patie nts older than 50. The calcu latio n for an age adjus alex cut-o ff value is age (year s) x 0.01 mcg/m L FEU. For examp le, the cut-o ff for a 70-ye ar-ol d patie nt would be 68 x 0.01 mcg/m L FEU. For addit ional infor onesimo clements e refer to http: //[facility] jian suarez.Andres stDia gnost ics.c om/fa q/FAQ 149 (This link is being provi ded for infor parvez nal/e ducat ional purpo ses only. ) Not Available [facility] [address] [place], [address], 02/11/2025 21:08:48 02/11/20 25 02/11/2025 B TYPE NATRI URETI C PEPTI DE (BNP) B type natriuretic peptide (BNP) 311 pg/mL <100 high BNP level s incre ase with age in the gener al popul ation with the highe st value s seen in indiv idual s great er than 75 years of age. Refer ence: J. Am. Richy. Cardi ol. 2002; 40:97 6-982 . Not Available [facility] [address] [place], [address], 02/11/2025 21:08:48 02/11/20 25 02/11/2025 CULTU RE, URINE , ROUTI NE culture, urine, routine SEE NOTE CULTU RE, URINE , ROUTI NE Micro Numbe r: [id number] Test Statu s: Final Speci men Sourc e: Urine Speci men Quali ty: Adequ ate Resul t: Less than 10,00 0 CFU/m L of singl e Gram negat tim organ ism isola alex. No furth er testi ng will be perfo rmed. If clini doc indic ated, recol lecti on using a metho d to minim ize conta minat ion, with promp t trans kevin to Urine Cultu re Trans port Tube, is recom loan d. Not Available [facility] [address] [place], [address], 02/11/2025 21:08:49 02/11/20 25 02/16/2025 GGT GGT 238 U/L 3-70 high Not Available [facility] [address] [place], [address], 02/16/2025 02:20:34 02/11/20 25 02/10/2025 XR, chest , 2 view No observ ation record ed. [facility] ([facility]) [address] [place], [address], 02/10/2025 14:04:54 02/13/20 25 02/10/2025 XR, chest , 2 view No observ ation record ed. [facility] ([facility]) [address] [place], [address], 02/14/2025 08:15:52 02/16/20 25 02/15/2025 US, abdom en, limit ed No observ ation record ed. [facility], [place], operated [facility] [address] [place], [address], 02/15/2025 09:43:49 Result Notes None recorded. 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 It is almost impercept ible. I will send over some erythromy ezekiel ointment and have him follow up with Dr Mendoza as needed for persisten t pain or irritatio n. He verbalize s sanjuana logan.; Recorded 3 8:19AM by Erin Sanabria LPN, Office Visit; Promoted; acuity set as *; Not Available [facility] 3 03:07:56 Anxiety disorder 006971217 Active 2022 ERIN garcia, [facility] 4 09:21:19 Depressiv e disorder 79563716 Active 2022 ERIN garcia, [facility] 5 09:02:08 Diverticu litis of colon 847343441 Active 2022 Diverticu litis Of Colon; 3 8:19AM by Erin Sanabria LPN, Office Visit; Promoted; acuity set as *; Not Available [facility] 3 03:07:57 Conductio n disorder of the heart 67302080 Active 2022 Cardiac Dysrhythm ia ERIN garcia, [facility] 4 09:23:30 Cervical radiculop athy 48426905 Active 2022 CERVICAL RADICULOP ATHY; Recorded 3 8:19AM by Erin Sanabria LPN, Office Visit; Promoted; acuity set as *; Not Available [facility] 3 03:07:57 Private referral to cardiolog ist Active [address] Louisa garcia, [facility] 4 09:22:13 Coronary atheroscl erosis 497340128 Active 2023 ERIN SANABRIA null, [facility] 4 09:22:43 Myocardia l infarctio n 53857613 Active 2023 non-ST elevation HI ERIN SANABRIA null, [facility] 4 09:23:12 Atrial fibrillat ion 57335810 Active 2023 JULIANNE AISSATOU TALAMANTES null, [facility] 4 14:10:30 Thrombocy topenic disorder 416227226 Active 2023 Kyle Mendoza MD [address] [place] [address], [phone] , [facility] 5 10:15:01 Hyperlipi demia 52159235 Active 2023 Carol Davis null, [facility] 4 13:51:27 Muscle weakness 85811225 Active 2024 Carol Davis null, [facility] 5 11:54:44 Loss of appetite 44955305 Active 2024 Carol Davis [facility], [facility] 5 15:58:15 Alkaline phosphata se above reference range 159458070 Active 2024 ERIN SANABRIA null, [facility] 5 16:04:03 Decrease in appetite 94428257 Active 2024 Carol Davis null, [facility] 5 10:47:27 Nicotine dependenc e 28437042 Active 2024 ERIN SANABRIA null, [facility] 5 09:01:55 Platelet morpholog y - finding 464245105 Active 2024 Kyle Mendoza MD [address] [place] [address], [phone] , [facility] 5 10:15:11 Chronic neck pain 95516508061 07 Active 2024 Kyle Mendoza MD [address] [place] [address], [phone] , [facility] 5 10:23:31 Right pleural effusion Active 2024 Kyle Mendoza MD [address] [place] [address], [phone] , [facility] 5 13:53:32 Liver function test above reference range 104716012 Active 2024 Carol garcia [facility] 5 08:39:42 D-dimer above reference range 655809510 Active 2024 ERIN garcia [facility] 5 10:01:09 Acute on chronic systolic heart failure 152459393 Active 2024 Kyle Mendoza MD [address] [place] [address], [phone] , [facility] 5 12:47:16 Acute right-masha ed heart failure 774641172 Active 2024 Kyle Mendoza MD [address] [place] [address], [phone] , [facility] 5 12:47:17 Problem Notes None recorded. Procedures Surgical History Date Name Laterality Status Provider Name and Address Organization Details Recorded Time 10/22/19 17 replacement of aortic valve completed ERIN SANABRIA [facility] 03/11/2024 09:28:37 Cabg vein five completed ERIN SANABRIA [facility] [place] 03/11/2024 09:27:35 cardiovascular stress testing completed JULIANNE MOOREH ALBIN [facility] [place] 03/11/2024 14:11:05 Imaging Results None recorded. Procedure Notes None recorded. Medical Equipment None Reported. 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, 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 ; Promo alex; Signi fican ce: *; ; Not Available [facility] 3 02:28:27 45227 Lexapro medicatio n other Not available Not available 11/02/2022 75047 1 RxNorm React ion: has been assoc iated with lymph ocyti c colit is; Comme nt: Recor ded 06/06 8:19A M 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, 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, 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 ; Promo alex; Signi fican ce: *; ; Not Available [facility] 3 02:28:27 Medications Name Sig Start Date [...] three times daily 03/11 completed Recorded 06/07/19 23 8:38AM by Kyle Mendoza MD, Office Visit; [...] times daily 07/13 completed 436; Recorded 04/29/19 10:57AM by Erin Sanabria LPN (Authori zed through Kyle Mendoza MD), Refill Request; Refill Quantity : 540; Tablet; Not Available Not Available Not Available Eliquis 5 mg tablet TAKE 1 TABLET BY MOUTH TWICE DAILY active Not Available Not Available No t Available Eliquis two times daily 03/11 completed 436; Recorded 11/06/19 9:35AM by Carol Glez RN (Authori pedrod through Kyle Mendoza MD), Office Visit; Refill Quantity : 0; Not Available Not Available Not Available Entresto 24 mg-26 mg tablet TAKE 1 TABLET BY MOUTH TWICE DAILY 03/11 completed Not Available Not Available Not Available Vitals Date Recorded Body height Body mass index (BMI) Body weight Body temperature Oxygen saturation Heart rate Systolic And Diastolic Provider Name and Address Organization Details Last Updated DateTime 5 180.34 cm 24.1 kg/m2 51584.4 8 g 97.6 [degF] 96 % 89 /min 124/62 mm[Hg] ERIN SANABRIA [facility] 5 12:00:48 Social History Question Answer Notes LastModified by Organizat ion Details LastModified Time Tobacco Smoking Status Never Smoker Chews JULIANNE garcia [facility] 03/11/2024 14:09:15 What Is Your Level Of Caffeine Consumption? Moderate [email or web address] Information not available 12/01/2024 What Was The Date Of Your Most Recent Tobacco Screening? 12/20/2024 [email or web address] Information not available 12/20/2024 Sex: Unknown Functional Status Question Answer Note LastModified by Organizat ion Details LastModified Time Do you use any illicit or recreational drugs? No [email or web address] Information not available 12/01/2024 Do you or have you ever used any other forms of tobacco or nicotine? Yes [email or web address] Information not available 12/20/2024 What is your level of alcohol consumption? None [email or web address] Information not available 12/01/2024 Do you or have you ever used smokeless tobacco? Currently chews tobacco [email or web address] Information not available 12/20/2024 Mental Status None recorded. Family History Relationship Description Onset Age of this Age Resolved Age Notes LastModified by Organization Details LastModified Time Brother Coronary atherosclero sis [email or web address] Not available 03/11 09:25:54 Daughter Coronary atherosclero sis [email or web address] Not available 03/11 09:25:54 Daughter Diabetes mellitus [email or web address] Not available 03/11 09:26:17 Sister Coronary atherosclero sis [email or web address] Not available 03/11 09:25:54 Paternal Grandmother Diabetes mellitus [email or web address] Not available 03/11 09:26:29 Medical History No medical history recorded. Immunizations Vaccine Type Date Status Note Provider Nam e and Address Organization Details Recorded Time Influenza, split virus, trivalent, preservative 0 completed Not Available [facility] 11/02/2022 02:51:54 pneumococcal polysaccharide PPV23 0 completed Not Available [facility] 11/02/2022 02:51:54 COVID-19, mRNA, LNP-S, PF, 100 mcg/0.5mL dose or 50 mcg/0.25mL dose 1 completed NOEL Jang [facility] 02/10/2025 12:39:38 COVID-19, mRNA, LNP-S, PF, 100 mcg/0.5mL dose or 50 mcg/0.25mL dose 1 completed ERIN SANABRIA [facility], [place] 02/10/2025 12:39:39 pneumococcal, unspecified formulation 0 completed Not Available [facility] 02/17/2025 11:20:55 Past Encounters Encounter ID Performer Location Encounter Start Date Encounter Closed Date Diagnosis/Indication Diagnosis SNOMED-CT Code Diagnosis ICD10 Code Diagnosis IMO Codes Diagnosis Note [id number] Kyle Mendoza MD [facility] ([facility]) [address] [place] [phone] 02/10/2025 12:29:45 02/11/2025 10:34:27 Dyspnea on exertion 34402525 R06.09 062761 Fever 735245217 R50.9 [id number] Chronic at rial fibrillation [id number] I48.20 [id number] Atrial fib rillation with rapid ventricular response [id number] I48.91 [id number] please go directly to the ER if chest pain, breathing worsens, heart rate increases at all or feeling worse in any way. the wish to not right now and we will try a diuiretec but if worwening they agree to go. Right pleu ral effusion [id number] J90 [id number] Acute on c hronic systolic heart failure [id number] I50.23 [id number] Kyle Mendoza MD [facility] ([facility]) [address] [place] [phone] 02/17/2025 11:20:33 02/21/2025 14:52:20 Acute right-sided heart failure [id number] I50.813 [id number] 6 lb diuresis. his daughter would very much like him to be on 20 mg of lasix will attempt hat dose and ask them to monitor closely for increased water weight. Acute on c hronic systolic heart failure [id number] I50.23 [id number] Right pleu ral effusion [id number] J90 [id number] Health Concerns Section Related Observation LastModified by Organization Detai ls LastModified Time None Recorded Concern Status LastModified by Organization Details LastModified Time None Recorded Payers Encounter Date Sequence Insurance Name Policy Number Policy Montes De Oca Covered Member ID Montes De Oca Member ID Guarantor Name 02/17/2025 1 [place] W Ema [id number] [place] E[place] Notes Date Note Type Note Provider Name and Address Organization Details Recorded Time 02/17/2025 text/html Care Management - Congestive Heart Failure (CHF)Reported by PatientHPIFor self care, patient reportsusing a diuretic. For severity, patient reportssymptoms are improving. For associated symptoms, patient reportsno chest pain,no chest tightness, andno limb swelling.ROS as noted in the HPI appetite loss: Pt reports that he just doesn't have an appetite. He will at times get nauseated. Pt denies any diarrhea. Recent lab work indicated elevated liver enzymes. He has completed his u/s of the liver and is here to discuss results. Kyle Mendoza MD [address] [place] [address], [phone], [facility] 02/17/2025 12:54:13
--- OUTSIDE RECORDS SUMMARY | 2025-03-12 19:45 | XMS_ITS | Encounter Summary ---
Author Organization [facility] Address [address] [place] [address] Care Team Providers Care Lye Boiler Name Role Phone Fernando Gaines MD Primary Care Provider [phone] Encounter Details Date Type Department Care Team (Latest Contact Info) Description 12/12/2005 Outpatient Historical [facility] Cardiology- [place] [address] [place] [phone] Codey Jasso MD NO ADDRESS ON FILE Paroxysmal Supraventricular Tachycardia (Primary Dx) Social History Tobacco Use Types Packs/Day Years Used Date Smoking Tobacco: Never Assessed Sex and Gender Information Value Date Recorded Sex Assigned at Not on file 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
--- OUTSIDE RECORDS SUMMARY | 2025-03-12 19:45 | XMS_ITS | Encounter Summary ---
Author Organization [facility] Address [address] [place] [address] Care Team Providers Care Lead Principal Technical Architect Name Role Phone Fernando Gaines MD Primary Care Provider [phone] Reason for Referral * Radiology Services (Routine) - Closed Specialty Diagnoses / Procedures Referred By Contac t Referred To Contact Diagnoses Pleural effusion, right Procedures US CHEST US ASPIRATION PLEURA RIGHT Chuy Ron MD Referral ID Status Reason Start Date Expiration Date Visits Re quested Visits Authorized [id number] Closed 04/02/2018 05/03/2019 1 1 ANALYST Encounter Details Date Type Department Care Team (Latest Contact Info) Description 04/02/2018 Ancillary Orders [facility] Pulmonology [address] [address] [place] [address] Chuy Ron MD NO ADDRESS ON FILE Pleural effusion, right Social History Tobacco Use Types Packs/Day Years Used Date Smoking Tobacco: Former Cigarettes 7 0 04/07/1962 - 04/07/1969 Cigars Smokeless Tobacco: Current Chew Alcohol Use Standard Drinks/Week Comments No 0 (1 standard drink = 0.6 oz pur e alcohol) Sex and Gender Information Value Date Recorded Sex Assigned at Not on file Legal Sex Male 6:37 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 Narrative 04/02/2018 2:57 PM QC ANALYST US CHEST Reason For Exam: See Diagnosis. Diagnosis: Pleural effusion, right. COMPARISON: None FINDINGS: due to lack of pl fluid us rt thora changed to us chest Procedure Note Jesús Jensen MD - 04/02/2018 US CHEST Reason For Exam: See Diagnosis. Diagnosis: Pleural effusion, right. COMPARISON: None FINDINGS: due to lack of pl fluid us rt thora changed to us chest IMPRESSION: No significant pleural fluid. us Chuy Ron MD US ORDERABLES Final Result documented in this encounter Visit Diagnoses Diagnosis Pleural effusion, right Unspecified pleural effusion Pleural effusion, right Unspecified pleural effusion documented in this encounter Care Teams Lead Principal Technical Architect Relationship Specialty Start Date End Date Fernando Gaines MD [address] [phone] PCP - General Family Practice 08/02/13 09/16/19 documented as of this encounter
--- OUTSIDE RECORDS SUMMARY | 2025-03-12 19:45 | XMS_ITS | Encounter Summary ---
Author Organization [facility] Address [address] [place] [address] Care Team Providers Care Technical Aide Name Role Phone Fernando Gaines MD Primary Care Provider [phone] Encounter Details Date Type Department Care Team (Latest Contact Info) Description 10/19/1997 Outpatient [facility] [place] [address] [place] [address] Estrada Mas MD NO ADDRESS ON FILE Synovitis and tenosynovitis, unspecified (Primary Dx) Social History Tobacco Use Types Packs/Day Years Used Date Smoking Tobacco: Never Assessed Sex and Gender Information Value Date Recorded Sex Assigned at Not on file 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
--- OUTSIDE RECORDS SUMMARY | 2025-03-12 19:45 | XMS_ITS | Encounter Summary ---
Author Organization [facility] Address [address] [place] [address] Care Team Providers Care Channel Layer Name Role Phone Fernando Gaines MD Primary Care Provider [phone] Encounter Details Date Type Department Care Team (Latest Contact Info) Description 07/12/2004 Outpatient Historical [facility] Cardiac Thoracic Vascular [place] [address] [place] [address] Deshawn Head MD NO ADDRESS ON FILE CORON ATHEROSCL ANGOON CORON VESSEL (Primary Dx) Social History Tobacco Use Types Packs/Day Years Used Date Smoking Tobacco: Never Assessed Sex and Gender Information Value Date Recorded Sex Assigned at Not on file 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
--- OUTSIDE RECORDS SUMMARY | 2025-03-12 19:45 | XMS_ITS | Encounter Summary ---
Author Organization [facility] Address [address] [place] [address] Care Team Providers Care Brand Mgr Name Role Phone Fernando Gaines MD Primary Care Provider [phone] Encounter Details Date Type Department Care Team (Latest Contact Info) Description 12/28/2001 Outpatient Historical [facility] Podiat[facility] [address] [place] [address] Aureliano Peters, DPM NO ADDRESS ON FILE OTHER HAMMER TOE (Primary Dx); ENTHESOPATHY, SITE NOS Social History Tobacco Use Types Packs/Day Years Used Date Smoking Tobacco: Never Assessed Sex and Gender Information Value Date Recorded Sex Assigned at Not on file 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
--- OUTSIDE RECORDS SUMMARY | 2025-03-12 19:45 | XMS_ITS | Encounter Summary ---
Author Organization [facility] Address [address] [place] [address] Care Team Providers Care Spindle Carver Name Role Phone Fernando Gaines MD Primary Care Provider [phone] Encounter Details Date Type Department Care Team (Late st Contact Info) Description 07/19/2004 Inpatient Historical HIS IN BED Codey Britt MD NO ADDRESS ON FILE CORON ATHEROSCL [place] CORON VESSEL (Primary Dx) Social History Tobacco Use Types Packs/Day Years Used Date Smoking Tobacco: Never Assessed Sex and Gender Information Value Date Recorded Sex Assigned at Not on file Legal Sex Male 6:37 AM [employer]AND [employer]NA[employer] Gender Identity Not on file Sexual Orientation Not on file documented as of this encounter Plan of Treatment Not on file documented as of this encounter Procedures Procedure Name Priority Date/Time Associated Diagnosis Comments POC GLUCOSE Routine 07/24/2004 10:38 AM CDT BASIC METABOLIC PANEL Routine 07/24/2004 5:21 AM CDT HEMOGLOBIN A1C Routine 07/23/2004 4:39 PM CDT POC GLUCOSE Routine 07/23/2004 5:37 AM CDT BASIC METABOLIC PANEL Routine 07/23/2004 5:07 AM CDT POC GLUCOSE Routine 07/22/2004 8:45 PM CDT POC GLUCOSE Routine 07/22/2004 5:30 PM CDT POC GLUCOSE Routine 07/22/2004 12:43 PM CDT POC GLUCOSE Routine 07/22/2004 5:41 AM CDT POC GLUCOSE Routine 07/22/2004 5:34 AM CDT BASIC METABOLIC PANEL Routine 07/22/2004 5:30 AM CDT POC GLUCOSE Routine 07/21/2004 9:04 PM CDT POC GLUCOSE Routine 07/21/2004 4:41 PM CDT POC GLUCOSE Routine 07/21/2004 12:30 PM CDT POC GLUCOSE Routine 07/21/2004 5:43 AM CDT CBC WITH DIFFERENTIAL Routine 07/21/2004 5:13 AM CDT BASIC METABOLIC PANEL Routine 07/21/2004 5:13 AM CDT POC GLUCOSE Routine 07/20/2004 9:46 PM CDT POC GLUCOSE Routine 07/20/2004 6:11 PM CDT POC GLUCOSE Routine 07/20/2004 12:13 PM CDT POC GLUCOSE Routine 07/20/2004 6:26 AM CDT POC GLUCOSE Routine 07/20/2004 4:10 AM CDT CBC WITHOUT DIFFERENTIAL Routine 07/20/2004 3:13 AM CDT BASIC METABOLIC PANEL Routine 07/20/2004 3:13 AM CDT POC GLUCOSE Routine 07/20/2004 3:05 AM CDT POC GLUCOSE Routine 07/20/2004 2:02 AM CDT POC GLUCOSE Routine 07/20/2004 12:58 AM CDT POC GLUCOSE Routine 07/20/2004 12:13 AM CDT POC GLUCOSE Routine 07/19/2004 11:03 PM CDT POC GLUCOSE Routine 07/19/2004 10:11 PM CDT POC GLUCOSE Routine 07/19/2004 9:17 PM CDT POC GLUCOSE Routine 07/19/2004 7:58 PM CDT POC GLUCOSE Routine 07/19/2004 6:50 PM CDT POC GLUCOSE Routine 07/19/2004 6:35 PM CDT POC GLUCOSE Routine 07/19/2004 4:58 PM CDT POC GLUCOSE Routine 07/19/2004 4:05 PM CDT POC GLUCOSE Routine 07/19/2004 2:53 PM CDT POC BLOOD GAS, LYTES AND H+H Routine 07/19/2004 2:40 PM CDT PT AND APTT Routine 07/19/2004 1:47 PM CDT CBC WITH DIFFERENTIAL Routine 07/19/2004 1:47 PM CDT POC BLOOD GAS, LYTES AND H+H Routine 07/19/2004 1:04 PM CDT POC GLUCOSE Routine 07/19/2004 1:03 PM CDT documented in this encounter Results * (ABNORMAL) POC GLUCOSE (07/24/2004 10:38 AM CDT) [facility] Signature GLUCOSE POC 183(H) 60 - 100 mg/dL INTERFACE SYSTEM 07/24/2004 10:3 8 AM CDT us Codey Britt MD POINT OF CARE TESTING Final Resu lt Performing Organization Address [facility] de Phone Number INTERFACE SYSTEM Refer to clinic/hospital department * (ABNORMAL) BASIC METABOLIC PANEL (07/24/2004 5:21 AM CDT) GLUCOSE 115(H) 70 - 110 mg/dL INTERFACE SYSTEM BUN 19 9 - 20 mg/dL INTERFACE SYSTEM CREATININE 1.0 0.7 - 1.5 mg/dL (inactive) INTERFACE SYSTEM SODIUM 137 136 - 145 mEq/L INTERFACE SYSTEM POTASSIUM 3.4(L) 3.5 - 5.0 mEq/L INTERFACE SYSTEM CHLORIDE 99 95 - 110 mEq/L INTERFACE SYSTEM CO2 30 22 - 32 mmol/l INTERFACE SYSTEM ANION GAP 11 9 - 20 mEq/L INTERFACE SYSTEM OSMOLALITY, CALCULATED 284 275 - 295 mOsm/Kg INTERFACE SYSTEM CALCIUM 8.8 8.4 - 10.5 mg/dL INTERFACE SYSTEM 07/24/2004 5:21 AM CDT us Codey Britt MD CHEMISTRY ORDERABLES Final Resul t Performing Organization Address [facility] Phone Number INTERFACE SYSTEM Refer to clinic/hospital department * HEMOGLOBIN A1C (07/23/2004 4:39 PM CDT) HEMOGLOBIN A1C 5.8 4.0 - 6.0 %A1C INTERFACE SYSTEM 07/23/2004 4:39 PM CDT us Codey Britt MD CHEMISTRY ORDERABLES Final Resul t Performing Organization Address [facility] de Phone Number INTERFACE SYSTEM Refer to clinic/hospital department * (ABNORMAL) POC GLUCOSE (07/23/2004 5:37 AM CDT) GLUCOSE POC 119(H) 60 - 100 mg/dL INTERFACE SYSTEM 07/23/2004 5:37 AM CDT us Codey Britt MD POINT OF CARE TESTING Final Resu lt Performing Organization Address [facility]/ZIP Co de Phone Number INTERFACE SYSTEM Refer to clinic/hospital department * (ABNORMAL) BASIC METABOLIC PANEL (07/23/2004 5:07 AM CDT) GLUCOSE 112(H) 70 - 110 mg/dL INTERFACE SYSTEM BUN 19 9 - 20 mg/dL INTERFACE SYSTEM CREATININE 1.0 0.7 - 1.5 mg/dL (inactive) INTERFACE SYSTEM SODIUM 137 136 - 145 mEq/L INTERFACE SYSTEM POTASSIUM 3.5 3.5 - 5.0 mEq/L INTERFACE SYSTEM CHLORIDE 97 95 - 110 mEq/L INTERFACE SYSTEM CO2 32 22 - 32 mmol/l INTERFACE SYSTEM ANION GAP 12 9 - 20 mEq/L INTERFACE SYSTEM OSMOLALITY, CALCULATED 284 275 - 295 mOsm/Kg INTERFACE SYSTEM CALCIUM 8.7 8.4 - 10.5 mg/dL INTERFACE SYSTEM 07/23/2004 5:07 AM CDT us Codey Britt MD CHEMISTRY ORDERABLES Final Resul t Performing Organization Address [facility] Phone Number INTERFACE SYSTEM Refer to clinic/hospital department * (ABNORMAL) POC GLUCOSE (07/22/2004 8:45 PM CDT) GLUCOSE POC 183(H) 60 - 100 mg/dL INTERFACE SYSTEM 07/22/2004 8:45 PM CDT us Codey Britt MD POINT OF CARE TESTING Final Resu lt Performing Organization Address [facility] Phone Number INTERFACE SYSTEM Refer to clinic/hospital department * (ABNORMAL) POC GLUCOSE (07/22/2004 5:30 PM CDT) GLUCOSE POC 170(H) 60 - 100 mg/dL INTERFACE SYSTEM 07/22/2004 5:30 PM CDT us Codey Britt MD POINT OF CARE TESTING Final Resu lt Performing Organization Address [facility] Phone Number INTERFACE SYSTEM Refer to clinic/hospital department * (ABNORMAL) POC GLUCOSE (07/22/2004 12:43 PM CDT) GLUCOSE POC 143(H) 60 - 100 mg/dL INTERFACE SYSTEM 07/22/2004 12:4 3 PM CDT us Codey Britt MD POINT OF CARE TESTING Final Resu Performing Organization Address [facility] Phone Number INTERFACE SYSTEM Refer to clinic/hospital department * (ABNORMAL) POC GLUCOSE (07/22/2004 5:41 AM CDT) GLUCOSE POC 259(H) 60 - 100 mg/dL INTERFACE SYSTEM 07/22/2004 5:41 AM CDT us Codey Britt MD POINT OF CARE TESTING Final Resu Performing Organization Address [facility] Phone Number INTERFACE SYSTEM Refer to clinic/hospital department * (ABNORMAL) POC GLUCOSE (07/22/2004 5:34 AM CDT) GLUCOSE POC 123(H) 60 - 100 mg/dL INTERFACE SYSTEM 07/22/2004 5:34 AM CDT us Codey Britt MD POINT OF CARE TESTING Final Resu Performing Organization Address [facility] Phone Number INTERFACE SYSTEM Refer to clinic/hospital department * (ABNORMAL) BASIC METABOLIC PANEL (07/22/2004 5:30 AM CDT) GLUCOSE 120(H) 70 - 110 mg/dL INTERFACE SYSTEM BUN 24(H) 9 - 20 mg/dL INTERFACE SYSTEM CREATININE 0.9 0.7 - 1.5 mg/dL (inactive) INTERFACE SYSTEM SODIUM 138 136 - 145 mEq/L INTERFACE SYSTEM POTASSIUM 4.2 3.5 - 5.0 mEq/L INTERFACE SYSTEM CHLORIDE 104 95 - 110 mEq/L INTERFACE SYSTEM CO2 31 22 - 32 mmol/l INTERFACE SYSTEM ANION GAP 7(L) 9 - 20 mEq/L INTERFACE SYSTEM OSMOLALITY, CALCULATED 290 275 - 295 mOsm/Kg INTERFACE SYSTEM CALCIUM 8.5 8.4 - 10.5 mg/dL INTERFACE SYSTEM 07/22/2004 5:30 AM CDT us Codey Britt MD CHEMISTRY ORDERABLES Final Resul t Performing Organization Address [facility] de Phone Number INTERFACE SYSTEM Refer to clinic/hospital department * (ABNORMAL) POC GLUCOSE (07/21/2004 9:04 PM CDT) GLUCOSE POC 181(H) 60 - 100 mg/dL INTERFACE SYSTEM 07/21/2004 9:04 PM CDT us Codey Britt MD POINT OF CARE TESTING Final Resu lt Performing Organization Address [facility] de Phone Number INTERFACE SYSTEM Refer to clinic/hospital department * (ABNORMAL) POC GLUCOSE (07/21/2004 4:41 PM CDT) GLUCOSE POC 158(H) 60 - 100 mg/dL INTERFACE SYSTEM 07/21/2004 4:41 PM CDT us Codey Britt MD POINT OF CARE TESTING Final Resu lt Performing Organization Address [facility] Phone Number INTERFACE SYSTEM Refer to clinic/hospital department * (ABNORMAL) POC GLUCOSE (07/21/2004 12:30 PM CDT) GLUCOSE POC 184(H) 60 - 100 mg/dL INTERFACE SYSTEM 07/21/2004 12:3 0 PM CDT us Codey Britt MD POINT OF CARE TESTING Final Resu lt Performing Organization Address [facility] de Phone Number INTERFACE SYSTEM Refer to clinic/hospital department * (ABNORMAL) POC GLUCOSE (07/21/2004 5:43 AM CDT) GLUCOSE POC 184(H) 60 - 100 mg/dL INTERFACE SYSTEM 07/21/2004 5:43 AM CDT us Codey Britt MD POINT OF CARE TESTING Final Resu lt Performing Organization Address [facility] de Phone Number INTERFACE SYSTEM Refer to clinic/hospital department * (ABNORMAL) CBC WITH DIFFERENTIAL (07/21/2004 5:13 AM CDT) WBC 11.3(H) 4.8 - 10.8 K/ul INTERFACE SYSTEM RBC 3.06(L) 4.60 - 6.20 Mil/ul INTERFACE SYSTEM HEMOGLOBIN 8.7(L) 14.0 - 18.0 g/dL INTERFACE SYSTEM HEMATOCRIT 27.3(L) 41.0 - 53.0 % INTERFACE SYSTEM MCV 89.2 84.0 - 103.0 Fl INTERFACE SYSTEM MCH 28.4 27.0 - 34.0 pg INTERFACE SYSTEM MCHC 31.9 30.0 - 35.0 g/dL INTERFACE SYSTEM RDW 13.6 11.0 - 14.5 percent(i nactive) INTERFACE SYSTEM PLATELETS 136(L) 140 - 440 K/ul INTERFACE SYSTEM MPV 10.2 8.9 - 12.8 Fl INTERFACE SYSTEM NEUTROPHILS 79.7(H) 42.2 - 75.2 percent(i nactive) INTERFACE SYSTEM LYMPHOCYTES 9.0(L) 24.0 - 44.0 percent(i nactive) INTERFACE SYSTEM MONOCYTES 10.1(H) 2.0 - 10.0 percent(i nactive) INTERFACE SYSTEM EOSINOPHILS 1.1 0.0 - 7.0 % INTERFACE SYSTEM BASOPHILS 0.1 0.0 - 1.0 percent(i nactive) INTERFACE SYSTEM NEUTROPHIL ABSOLUTE 9.0(H) 2.0 - 8.0 K/uL INTERFACE SYSTEM LYMPHOCYTE ABSOLUTE 1.0(L) 1.2 - 4.0 K/ul INTERFACE SYSTEM MONOCYTE ABSOLUTE 1.1(H) 0.1 - 0.6 K/ul INTERFACE SYSTEM EOSINOPHIL ABSOLUTE 0.1 0.0 - 0.7 K/ul INTERFACE SYSTEM BASOPHILS ABSOLUTE 0.0 0.0 - 0.2 K/ul INTERFACE SYSTEM PERIPHERAL BLOOD SMEAR REVIEW Automated Diff INTERFACE SYSTEM 07/21/2004 5:13 AM CDT us Codey Britt MD HEMATOLOGY ORDERABLES Final Resu lt INTERFACE SYSTEM Refer to clinic/hospital department * (ABNORMAL) BASIC METABOLIC PANEL (07/21/2004 5:13 AM CDT) GLUCOSE 170(H) 70 - 110 mg/dL INTERFACE SYSTEM BUN 18 9 - 20 mg/dL INTERFACE SYSTEM CREATININE 1.0 0.7 - 1.5 mg/dL (inactive) INTERFACE SYSTEM SODIUM 136 136 - 145 mEq/L INTERFACE SYSTEM POTASSIUM 4.4 3.5 - 5.0 mEq/L INTERFACE SYSTEM CHLORIDE 104 95 - 110 mEq/L INTERFACE SYSTEM CO2 24 22 - 32 mmol/l INTERFACE SYSTEM ANION GAP 12 9 - 20 mEq/L INTERFACE SYSTEM OSMOLALITY, CALCULATED 287 275 - 295 mOsm/Kg INTERFACE SYSTEM CALCIUM 8.4 8.4 - 10.5 mg/dL INTERFACE SYSTEM 07/21/2004 5:13 AM CDT us Codey Britt MD CHEMISTRY ORDERABLES Final Resul t Performing Organization Address [facility] Phone Number INTERFACE SYSTEM Refer to clinic/hospital department * (ABNORMAL) POC GLUCOSE (07/20/2004 9:46 PM CDT) GLUCOSE POC 206(H) 60 - 100 mg/dL INTERFACE SYSTEM 07/20/2004 9:46 PM CDT us Codey Britt MD POINT OF CARE TESTING Final Resu lt Performing Organization Address [facility] Phone Number INTERFACE SYSTEM Refer to clinic/hospital department * (ABNORMAL) POC GLUCOSE (07/20/2004 6:11 PM CDT) GLUCOSE POC 182(H) 60 - 100 mg/dL INTERFACE SYSTEM 07/20/2004 6:11 PM CDT us Codey Britt MD POINT OF CARE TESTING Final Resu lt Performing Organization Address [facility] Phone Number INTERFACE SYSTEM Refer to clinic/hospital department * (ABNORMAL) POC GLUCOSE (07/20/2004 12:13 PM CDT) GLUCOSE POC 160(H) 60 - 100 mg/dL INTERFACE SYSTEM 07/20/2004 12:1 3 PM CDT us Codey Britt MD POINT OF CARE TESTING Final Resu lt Performing Organization Address [facility] de Phone Number INTERFACE SYSTEM Refer to clinic/hospital department * (ABNORMAL) POC GLUCOSE (07/20/2004 6:26 AM CDT) GLUCOSE POC 114(H) 60 - 100 mg/dL INTERFACE SYSTEM 07/20/2004 6:26 AM CDT us Codey Britt MD POINT OF CARE TESTING Final Resu lt Performing Organization Address [facility] Phone Number INTERFACE SYSTEM Refer to clinic/hospital department * POC GLUCOSE (07/20/2004 4:10 AM CDT) GLUCOSE POC 98 60 - 100 mg/dL INTERFACE SYSTEM 07/20/2004 4:10 AM CDT us Codey Britt MD POINT OF CARE TESTING Final Resu lt Performing Organization Address [facility] Phone Number INTERFACE SYSTEM Refer to clinic/hospital department * (ABNORMAL) CBC WITHOUT DIFFERENTIAL (07/20/2004 3:13 AM CDT) WBC 9.3 4.8 - 10.8 K/ul INTERFACE SYSTEM RBC 3.33(L) 4.60 - 6.20 Mil/ul INTERFACE SYSTEM HEMOGLOBIN 9.6(L) 14.0 - 18.0 g/dL INTERFACE SYSTEM HEMATOCRIT 29.1(L) 41.0 - 53.0 % INTERFACE SYSTEM MCV 87.4 84.0 - 103.0 Fl INTERFACE SYSTEM MCH 28.8 27.0 - 34.0 pg INTERFACE SYSTEM MCHC 33.0 30.0 - 35.0 g/dL INTERFACE SYSTEM RDW 13.5 11.0 - 14.5 percent(in active) INTERFACE SYSTEM PLATELETS 156 140 - 440 K/ul INTERFACE SYSTEM MPV 10.3 8.9 - 12.8 Fl INTERFACE SYSTEM NEUTROPHILS 61.5 42.2 - 75.2 percent(in active) INTERFACE SYSTEM LYMPHOCYTES 25.5 24.0 - 44.0 percent(in active) INTERFACE SYSTEM MONOCYTES 11.3(H) 2.0 - 10.0 percent(in active) INTERFACE SYSTEM EOSINOPHILS 1.4 0.0 - 7.0 % INTERFACE SYSTEM BASOPHILS 0.3 0.0 - 1.0 percent(in active) INTERFACE SYSTEM NEUTROPHIL ABSOLUTE 5.7 2.0 - 8.0 K/uL INTERFACE SYSTEM LYMPHOCYTE ABSOLUTE 2.4 1.2 - 4.0 K/ul INTERFACE SYSTEM MONOCYTE ABSOLUTE 1.1(H) 0.1 - 0.6 K/ul INTERFACE SYSTEM EOSINOPHIL ABSOLUTE 0.1 0.0 - 0.7 K/ul INTERFACE SYSTEM BASOPHILS ABSOLUTE 0.0 0.0 - 0.2 K/ul INTERFACE SYSTEM 07/20/2004 3:13 AM CDT us Codey Britt MD HEMATOLOGY ORDERABLES Final Resu lt Performing Organization Address [facility] Phone Number INTERFACE SYSTEM Refer to clinic/hospital department * (ABNORMAL) BASIC METABOLIC PANEL (07/20/2004 3:13 AM CDT) GLUCOSE 82 70 - 110 mg/dL INTERFACE SYSTEM BUN 16 9 - 20 mg/dL INTERFACE SYSTEM CREATININE 0.9 0.7 - 1.5 mg/dL (inactive) INTERFACE SYSTEM SODIUM 139 136 - 145 mEq/L INTERFACE SYSTEM POTASSIUM 3.9 3.5 - 5.0 mEq/L INTERFACE SYSTEM CHLORIDE 109 95 - 110 mEq/L INTERFACE SYSTEM CO2 26 22 - 32 mmol/l INTERFACE SYSTEM ANION GAP 8(L) 9 - 20 mEq/L INTERFACE SYSTEM OSMOLALITY, CALCULATED 286 275 - 295 mOsm/Kg INTERFACE SYSTEM CALCIUM 7.9(L) 8.4 - 10.5 mg/dL INTERFACE SYSTEM 07/20/2004 3:13 AM CDT us Codey Britt MD CHEMISTRY ORDERABLES Final Resul t Performing Organization Address [facility] Phone Number INTERFACE SYSTEM Refer to clinic/hospital department * POC GLUCOSE (07/20/2004 3:05 AM CDT) GLUCOSE POC 91 60 - 100 mg/dL INTERFACE SYSTEM 07/20/2004 3:05 AM CDT us Codey Britt MD POINT OF CARE TESTING Final Resu lt Performing Organization Address [facility]/ZIP Co de Phone Number INTERFACE SYSTEM Refer to clinic/hospital department * POC GLUCOSE (07/20/2004 2:02 AM CDT) GLUCOSE POC 93 60 - 100 mg/dL INTERFACE SYSTEM 07/20/2004 2:02 AM CDT Result Rene Britt MD POINT OF CARE TESTING Final Resu lt Performing Organization Address [facility] Phone Number INTERFACE SYSTEM Refer to clinic/hospital department * POC GLUCOSE (07/20/2004 12:58 AM CDT) GLUCOSE POC 95 60 - 100 mg/dL INTERFACE SYSTEM 07/20/2004 12:5 8 AM CDT Result Rene Britt MD POINT OF CARE TESTING Final Resu lt Performing Organization Address [facility] Phone Number INTERFACE SYSTEM Refer to clinic/hospital department * (ABNORMAL) POC GLUCOSE (07/20/2004 12:13 AM CDT) GLUCOSE POC 103(H) 60 - 100 mg/dL INTERFACE SYSTEM 07/20/2004 12:1 3 AM CDT Result Rene Britt MD POINT OF CARE TESTING Final Resu lt Performing Organization Address [facility] Phone Number INTERFACE SYSTEM Refer to clinic/hospital department * (ABNORMAL) POC GLUCOSE (07/19/2004 11:03 PM CDT) GLUCOSE POC 122(H) 60 - 100 mg/dL INTERFACE SYSTEM 07/19/2004 11:0 3 PM CDT Result Rene Britt MD POINT OF CARE TESTING Final Resu lt Performing Organization Address [facility] Phone Number INTERFACE SYSTEM Refer to clinic/hospital department * (ABNORMAL) POC GLUCOSE (07/19/2004 10:11 PM CDT) GLUCOSE POC 140(H) 60 - 100 mg/dL INTERFACE SYSTEM 07/19/2004 10:1 1 PM CDT us Codey Britt MD POINT OF CARE TESTING Final Resu lt Performing Organization Address [facility] de Phone Number INTERFACE SYSTEM Refer to clinic/hospital department * (ABNORMAL) POC GLUCOSE (07/19/2004 9:17 PM CDT) GLUCOSE POC 160(H) 60 - 100 mg/dL INTERFACE SYSTEM 07/19/2004 9:17 PM CDT us Codey Britt MD POINT OF CARE TESTING Final Resu lt Performing Organization Address [facility] de Phone Number INTERFACE SYSTEM Refer to clinic/hospital department * (ABNORMAL) POC GLUCOSE (07/19/2004 7:58 PM CDT) GLUCOSE POC 128(H) 60 - 100 mg/dL INTERFACE SYSTEM 07/19/2004 7:58 PM CDT us Codey Britt MD POINT OF CARE TESTING Final Resu lt Performing Organization Address [facility] de Phone Number INTERFACE SYSTEM Refer to clinic/hospital department * POC GLUCOSE (07/19/2004 6:50 PM CDT) GLUCOSE POC 91 60 - 100 mg/dL INTERFACE SYSTEM 07/19/2004 6:50 PM CDT us Codey Britt MD POINT OF CARE TESTING Final Resu lt Performing Organization Address [facility] Co de Phone Number INTERFACE SYSTEM Refer to clinic/hospital department * POC GLUCOSE (07/19/2004 6:35 PM CDT) GLUCOSE POC 62 60 - 100 mg/dL INTERFACE SYSTEM 07/19/2004 6:35 PM CDT us Codey Britt MD POINT OF CARE TESTING Final Resu lt Performing Organization Address [facility] Co de Phone Number INTERFACE SYSTEM Refer to clinic/hospital department * (ABNORMAL) POC GLUCOSE (07/19/2004 4:58 PM CDT) GLUCOSE POC 131(H) 60 - 100 mg/dL INTERFACE SYSTEM 07/19/2004 4:58 PM CDT us Codey Britt MD POINT OF CARE TESTING Final Resu lt Performing Organization Address [facility] de Phone Number INTERFACE SYSTEM Refer to clinic/hospital department * (ABNORMAL) POC GLUCOSE (07/19/2004 4:05 PM CDT) GLUCOSE POC 143(H) 60 - 100 mg/dL INTERFACE SYSTEM 07/19/2004 4:05 PM CDT us Codey Britt MD POINT OF CARE TESTING Final Resu lt Performing Organization Address [facility] Phone Number INTERFACE SYSTEM Refer to clinic/hospital department * (ABNORMAL) POC GLUCOSE (07/19/2004 2:53 PM CDT) GLUCOSE POC 160(H) 60 - 100 mg/dL INTERFACE SYSTEM 07/19/2004 2:53 PM CDT us Codey Britt MD POINT OF CARE TESTING Final Resu lt Performing Organization Address [facility] de Phone Number INTERFACE SYSTEM Refer to clinic/hospital department * (ABNORMAL) POC ISTAT EG 7+ (07/19/2004 2:40 PM CDT) SPECIMEN TYPE Arterial INTERF ASHER SYSTEM Comment: PEEP: 04 Rate: 12 Pressure Support: 06 Pulse OX: 100 FIO2 40 INTERFACE SYSTEM TEMPERATURE 100.7 DegC INTERFAC E SYSTEM PH 7.34(L) 7.35 - 7.45 Unit INTERFACE SYSTEM PH TEMP CORRECT 7.33(L) 7.35 - 7.45 Unit INTERFACE SYSTEM PCO2 POC 43 35 - 45 mmHg INTERFACE SYSTEM PCO2 TEMP CORRECT 45 35 - 45 mmHg INTERFACE SYSTEM PO2 111(H) 80 - 105 mmHg INTERFACE SYSTEM PO2 TEMP CORRECT 118(H) 80 - 105 mmHg INTERFACE SYSTEM HCO3 (CALC) POC 23.1 22.0 - 26.0 mmol/l INTERFACE SYSTEM BASE EXCESS -3(L) -2 - 3 mmol/l INTERFACE SYSTEM HEMOGLOBIN POC 10.5(L) 13.5 - 18.0 g/dL INTERFACE SYSTEM HEMATOCRIT ABG 31(L) 38 - 51 % INTER FACE SYSTEM O2 SATURATION 98 95 - 98 % INTERF ASHER SYSTEM TCO2 (CALC) POC 24 23 - 27 mmol/l INTERFACE SYSTEM SODIUM 139 138 - 146 mEq/L INTERFACE SYSTEM POTASSIUM 4.0 3.5 - 4.9 mEq/L INTERFACE SYSTEM CALCIUM IONIZED 1.17 1.12 - 1.32 mmol/l INTERFACE SYSTEM 07/19/2004 2:40 PM CDT us Codey Britt MD POINT OF CARE TESTING COM Final Result Performing Organization Address [facility] de Phone Number INTERFACE SYSTEM Refer to clinic/hospital department * (ABNORMAL) PT AND APTT (07/19/2004 1:47 PM CDT) PROTIME 17.3(H) 12.4 - 14.9 Secs INTERFACE SYSTEM Comment: As of 03 note change in normal range. INR 1.4 INTERFACE SYSTEM Comment: Expected Values for INR: DVT/PE Goal INR 2.5; range 2.0 - 3.0 Valve Replacement Tissue Goal INR 2.5; range 2.0 - 3.0 Mechanical Goal INR 3.0; range 2.5 - 3.5 POST-MN Goal INR 2.5; range 2.0 - 3.0 or Goal 3.0; range 2.5 - 3.5 Atrial Fibrillation Goal INR 2.5; range 2.0 - 3.0 Ischemic Stroke Goal INR 2.5; range 2.0 - 3.0 For additional information see Guidelines for Anticoagulation available from the pharmacy [facility]. PTT 31.5 24.3 - 37.5 Secs INTERFACE SYSTEM Comment:Therapeutic Range: 07/19/2004 1:47 PM CDT us Codey Britt MD HEMATOLOGY ORDERABLES Final Resu lt Performing Organization Address [facility]/State/ZIP Co de Phone Number INTERFACE SYSTEM Refer to clinic/hospital department * (ABNORMAL) CBC WITH DIFFERENTIAL (07/19/2004 1:47 PM CDT) WBC 10.5 4.8 - 10.8 K/ul INTERFACE SYSTEM RBC 3.82(L) 4.60 - 6.20 Mil/ul INTERFACE SYSTEM HEMOGLOBIN 10.8(L) 14.0 - 18.0 g/dL INTERFACE SYSTEM HEMATOCRIT 33.0(L) 41.0 - 53.0 % INTERFACE SYSTEM MCV 86.4 84.0 - 103.0 Fl INTERFACE SYSTEM MCH 28.3 27.0 - 34.0 pg INTERFACE SYSTEM MCHC 32.7 30.0 - 35.0 g/dL INTERFACE SYSTEM RDW 13.3 11.0 - 14.5 percent(i nactive) INTERFACE SYSTEM PLATELETS 153 140 - 440 K/ul INTERFACE SYSTEM MPV 10.2 8.9 - 12.8 Fl INTERFACE SYSTEM NEUTROPHILS 75.2 42.2 - 75.2 percent(i nactive) INTERFACE SYSTEM LYMPHOCYTES 16.9(L) 24.0 - 44.0 percent(i nactive) INTERFACE SYSTEM MONOCYTES 5.7 2.0 - 10.0 percent(i nactive) INTERFACE SYSTEM EOSINOPHILS 2.0 0.0 - 7.0 % INTERFACE SYSTEM BASOPHILS 0.2 0.0 - 1.0 percent(i nactive) INTERFACE SYSTEM NEUTROPHIL ABSOLUTE 7.9 2.0 - 8.0 K/uL INTERFACE SYSTEM LYMPHOCYTE ABSOLUTE 1.8 1.2 - 4.0 K/ul INTERFACE SYSTEM MONOCYTE ABSOLUTE 0.6 0.1 - 0.6 K/ul INTERFACE SYSTEM EOSINOPHIL ABSOLUTE 0.2 0.0 - 0.7 K/ul INTERFACE SYSTEM BASOPHILS ABSOLUTE 0.0 0.0 - 0.2 K/ul INTERFACE SYSTEM PERIPHERAL BLOOD SMEAR REVIEW Automated Diff INTERFACE SYSTEM 07/19/2004 1:47 PM CDT us Codey Britt MD HEMATOLOGY ORDERABLES Final Resu lt INTERFACE SYSTEM Refer to clinic/hospital department * (ABNORMAL) POC ISTAT EG 7+ (07/19/2004 1:04 PM CDT) SPECIMEN TYPE Arterial INTERF ASHER SYSTEM Comment: Tidal volume: 700 PEEP: 08 Rate: 12 FIO2 50 INTERFACE SYSTEM TEMPERATURE 97.8 DegC INTERFAC E SYSTEM PH 7.41 7.35 - 7.45 Unit INTERFACE SYSTEM PH TEMP CORRECT 7.41 7.35 - 7.45 Unit INTERFACE SYSTEM PCO2 POC 36 35 - 45 mmHg INTERFACE SYSTEM PCO2 TEMP CORRECT 35 35 - 45 mmHg INTERFACE SYSTEM PO2 177(H) 80 - 105 mmHg INTERFACE SYSTEM PO2 TEMP CORRECT 174(H) 80 - 105 mmHg INTERFACE SYSTEM HCO3 (CALC) POC 22.7 22.0 - 26.0 mmol/l INTERFACE SYSTEM BASE EXCESS -2 -2 - 3 mmol/l INTERFACE SYSTEM HEMOGLOBIN POC 10.5(L) 13.5 - 18.0 g/dL INTERFACE SYSTEM HEMATOCRIT ABG 31(L) 38 - 51 % INTER FACE SYSTEM O2 SATURATION 100(H) 95 - 98 % INTERF ASHER SYSTEM TCO2 (CALC) POC 24 23 - 27 mmol/l INTERFACE SYSTEM SODIUM 139 138 - 146 mEq/L INTERFACE SYSTEM POTASSIUM 4.0 3.5 - 4.9 mEq/L INTERFACE SYSTEM CALCIUM IONIZED 1.17 1.12 - 1.32 mmol/l INTERFACE SYSTEM 07/19/2004 1:04 PM CDT Codey Britt MD POINT OF CARE TESTING COM Final Result Performing Organization Address [facility] Co de Phone Number INTERFACE SYSTEM Refer to clinic/hospital department * (ABNORMAL) POC GLUCOSE (07/19/2004 1:03 PM CDT) GLUCOSE POC 127(H) 60 - 100 mg/dL INTERFACE SYSTEM 07/19/2004 1:03 PM CDT us Codey Britt MD POINT OF CARE TESTING Final Resu lt INTERFACE SYSTEM Refer to clinic/hospital department documented in this encounter Visit Diagnoses Diagnosis 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
--- OUTSIDE RECORDS SUMMARY | 2025-03-12 19:45 | XMS_ITS | Data Portability ---
Author Organization NOEL Garcia [facility], Zachariah.LDuran, [facility] Address [address] [address] Assessment Encounter Date Assessment Date Assessment LastModified by Organization Details LastModified Time 12/01/2024 12/01/2024 they will go to 2 protein milkshakes per day [email or web address] Not available 12/01/2024 10:13:23 12/20/2024 12/20/2024 we discussed all normal and abnormal blood tests and what they do and don't mean. please d/c ibuprofen as it will increase your risk of bleeding very much as well as risk of causing kidney failure. he is willing to accept the risk of falling of a muscle relaxer in order. he and his daughter are well aware of the risk of falls lethargy etc with muscle relaxers but insist that he needs to try it in order to help alleviate his chronic neck pain. [email or web address] Not available 12/20/2024 10:27:10 02/17/2025 02/17/2025 f/u with cardiology as scheduled we discussed risk of not doing CTA chest low sodium diet monitor bp weight and HR daily call if any variations as discussed. they continue to decline the cta knowing risks of not doing the cta. they ask for a repeat d-dimer on 03/21 [email or web address] Not available 02/17/2025 12:50:58 Plan of Treatment Reminders Order Date Submit Date Provider Last Modified By Organization Details Last Modified Time Details Appointments LAB 2024 07:00A M LAB Not available Not available Not available RECHECK 15 2025 08:30A M Kyle Mendoza MD Not available Not available Not available Lab thyrotr opin, QN, serum or plasma 2024 025 [facility], [address], [address], [place], [address], 02/10/2025 14:48:02 urinaly sis, complet e 2024 025 [facility], [address], [place], [address], 02/10/2025 14:50:23 culture , urine 2024 025 [facility][1], [address] [place] [address], [facility] [address], [place], [address], 02/11/2025 21:08:49 magnesi um, serum or plasma 2024 025 [facility][1], [address] [place], [address], 02/11/2025 21:08:48 pro BNP (pro B-type natriur etic peptide ), serum or plasma 2024 025 [facility][1], [address] [place] [address], [address], [place], [address], 02/11/2025 21:08:48 D-dimer , quant, plasma 2024 025 [facility][1], [address] [place] [address], [address], [place], [address], 02/11/2025 21:08:48 CBC 2024 025 [facility], [address], [place], [address], 02/10/2025 14:12:53 CMP, serum or plasma 2024 025 [facility], [address], [place], [address], 02/10/2025 15:08:59 vitamin B12, serum 2024 025 [facility][1], [address] [facility], [place], [address], 12/09/2024 13:35:43 folate, serum 2024 025 [facility] [facility][1], [address] [place] [address], [address], [place], [address], 12/09/2024 13:35:42 mma (methyl malonic acid), serum 2024 025 [facility][1], [address] [place] [address], [address], [place], [address], 12/09/2024 13:35:42 CBC 2024 025 [facility] [facility] [facility], [address], [address], [place], [address], 12/01/2024 11:10:42 CMP, serum or plasma 2024 025 [facility] [facility][1], [address] [place] [address], [address], [place], [address], 12/01/2024 11:49:23 protein electro phoresi s panel, serum or plasma 2024 025 [facility], [address] [place] [address], [address], [place], [address], 12/09/2024 13:35:40 MISSY + rf (antinu clear antibod ies + rheumat oid factor) , quantit ative, serum [address], [address] [place] [address], [address], [place], [address], 12/15/2024 08:08:14 C-react jennifer protein , quantit ative, serum or plasma 2024 [facility] [facility][1], [address] [place] [address], [address], [place], [address], 12/09/2024 13:35:42 ESR (erythr ocyte sedimen tation rate), blood 2024 [facility] ([facility]), [address] [place], [address], 12/01/2024 12:10:47 unliste d lab - periphe ral blood smear review 2024 [facility] [facility] [facility][1], [address] [place] [address], [address], [place], [address], 12/02/2024 16:38:26 TSH + free T4, serum 2024 [facility] [facility][1], [address] [place] [address], [address], [place], [address], 12/09/2024 13:35:43 Referral None recorde d. Procedures None recorde d. Surgeries None recorde d. Imaging XR, chest, 2 view [address] ([facility]), [address] [place], [address], 02/11/2025 10:34:27 Medication Orders spirono lactone 25 mg tablet 2024 [facility] [place], [address] [place] [address], [address], 02/17/2025 14:44:59 furosem paul 20 mg tablet 2024 [facility] [place], [address] [place] [address], [address], 02/17/2025 14:44:58 furosem paul 40 mg tablet 2024 025 [facility], [address] [place] [address], [address], 02/10/2025 14:22:23 tizanid ine 2 mg tablet 2024 025 [facility], [address] [place] [address], [address], 02/10/2025 13:17:02 Patient TargetsNo targets recorded. Patient InstructionsNo instructions recorded. Reason for Referral None Reported. Results Created Date Observation Date Name Description Value Unit Range Abnormal Flag Note LastModifiedBy Organization Detail LastModifiedTime 12/02/1912/01/2024 CBC WBC 4.7 x10 4.5-10 .5 Not Available [facility] [address], [address], 12/01/2024 11:10:42 12/02/1912/01/2024 CBC RBC 4.86 x10 4.30-5 .90 Not Available [facility] [address], [address], 12/01/2024 11:10:42 12/02/1912/01/2024 CBC HGB 14.1 g/dL 13.5-1 8.0 Not Available [facility] [address], [address], 12/01/2024 11:10:42 12/02/1912/01/2024 CBC HCT 44.4 % 35.0-6 0.0 Not Available [facility] [address]05 [facility] 1, [place], [address], 12/01/2024 11:10:42 12/02/19 25 12/01/2024 CBC MCV 91.3 fL 80.0-9 9.9 Not Available [facility] [address] [facility] 1, [place], [address], 12/01/2024 11:10:42 12/02/19 25 12/01/2024 CBC MCH 29.1 pg 27.0-3 2.0 Not Available [facility] [address] [facility] 1, [place], [address], 12/01/2024 11:10:42 12/02/19 25 12/01/2024 CBC MCHC 31.8 g/dL 32.0-3 6.0 low Not Available [facility] [address] [facility] 1, [place], [address], 12/01/2024 11:10:42 12/02/19 25 12/01/2024 CBC RDW 14.9 % 11.5-1 4.5 high Not Available [facility] [address] [place] [facility], [place], [address], 12/01/2024 11:10:42 12/02/19 25 12/01/2024 CBC plt 127.2 x10 150.0- 451.0 low Not Available [facility] [address] [place] [facility], [place], [address], 12/01/2024 11:10:42 12/02/1912/01/2024 CBC lymphocytes % 18.8 % 20.0-5 0.0 low Not Available [facility] [address] [place] [facility] 1, [place], [address], 12/01/2024 11:10:42 12/02/19 25 12/01/2024 CBC granulcytes % 60.3 % 30.0-7 0.0 Not Available [facility] [address] [facility] Ana [facility] 1, [place], [address], 12/01/2024 11:10:42 12/02/19 25 12/01/2024 CBC monocytes % 14.2 % 2.0-16 .0 Not Available [facility] [address] [address], [place], [address], 12/01/2024 11:10:42 12/02/19 25 12/01/2024 CBC granulcytes# 2.8 x10 Not Rad[facility] [address] [address], [place], [address], 12/01/2024 11:10:42 12/02/1912/01/2024 CBC lymphocytes # 0.9 x10 Not Available [facility] [address] [address], [place], [address], 12/01/2024 11:10:42 12/02/19 25 12/01/2024 CBC monocytes # 0.7 x10 Not Avai lable [facility] [address] [address], [place], [address], 12/01/2024 11:10:42 12/02/1912/01/2024 CMP (MALE ) glucose 125.0 mg/dL 60.0-9 9.0 high Not Available [facility] [address] [address], [place], [address], 12/01/2024 11:49:23 12/02/19 25 12/01/2024 CMP (MALE ) BUN (blood urea nitrogen) 22.0 mg/dL 10.0-2 6.0 Not Available [facility] [address] [address], [place], [address], 12/01/2024 11:49:23 12/02/19 25 12/01/2024 CMP (MALE ) creatinine (serum) 0.8 mg/dL 0.4-1. 5 Not Available [facility] [address] [address], [place], [address], 12/01/2024 11:49:23 12/02/19 25 12/01/2024 CMP (MALE ) BUN/creatini ne ratio 27.50 ratio Not Available [facility] [address] [facility], [place], [address], 12/01/2024 11:49:23 12/02/19 25 12/01/2024 CMP (MALE ) eGFR calculated 97.4 Not Available [facility] [address] [place] [facility], [place], [address], 12/01/2024 11:49:23 12/02/19 25 12/01/2024 CMP (MALE ) total protein 7.5 g/dL 6.0-8. 5 Not Available [facility] [address] [address], [place], [address], 12/01/2024 11:49:23 12/02/19 25 12/01/2024 CMP (MALE ) total bilirubin 0.8 mg/dL 0.2-1. 3 Not Available [facility] [address] [facility], [place], [address], 12/01/2024 11:49:23 12/02/19 25 12/01/2024 CMP (MALE ) albumin 4.0 g/dL 3.5-5. 5 Not Available [facility] [address] [facility], [place], [address], 12/01/2024 11:49:23 12/02/19 25 12/01/2024 CMP (MALE ) globulin 3.5 calc Not Available [facility] [address] [facility], [place], [address], 12/01/2024 11:49:23 12/02/19 25 12/01/2024 CMP (MALE ) AST (SGOT) 35.0 U/L 0.0-46 .0 Not Available [facility] [address] [facility] 1, [place], [address], 12/01/2024 11:49:23 12/02/19 25 12/01/2024 CMP (MALE ) altv (SGPT) 22.0 U/L 13.0-6 9.0 normal Not Available [facility] [address] [facility] 1, [place], [address], 12/01/2024 11:49:23 12/02/19 25 12/01/2024 CMP (MALE ) A/G ratio 1.1 ratio Not Available [facility] [address] [place] [facility], [place], [address], 12/01/2024 11:49:23 12/02/19 25 12/01/2024 CMP (MALE ) ALP phos 151.0 U/L 30.0-1 40.0 abnormal Not Available [facility] [address] [place] [facility] 1, [place], [address], 12/01/2024 11:49:23 12/02/19 25 12/01/2024 CMP (MALE ) calcium 9.2 mg/dL 8.4-10 .5 Not Available [facility] [address] [place] [facility], [place], [address], 12/01/2024 11:49:23 12/02/19 25 12/01/2024 CMP (MALE ) sodium 139.0 mmol/ L 136.0- 145.0 Not Available [facility] [address] [place] [address] [facility] 1, [place], [address], 12/01/2024 11:49:23 12/02/19 25 12/01/2024 CMP (MALE ) potassium 4.2 mmol/ L 3.5-5. 1 Not Available [facility] [address] [place] [address] [facility] 1, [place], [address], 12/01/2024 11:49:23 12/02/19 25 12/01/2024 CMP (MALE ) chloride 106.0 mmol/ L 98.0-1 10.0 normal Not Available [facility] [address] [facility] [address], [place], [address], 12/01/2024 11:49:23 12/02/19 25 12/01/2024 CMP (MALE ) C02 26.0 mmol/ L 22.0-3 1.0 Not Available [facility] [address] [facility] 1, [place], [address], 12/01/2024 11:49:23 12/02/19 25 12/01/2024 CMP (MALE ) anion gap 7.0 calc Not Available [facility] [address] [facility] 1, [place], [address], 12/01/2024 11:49:23 12/02/19 25 12/01/2024 CMP (MALE ) osmolality 291.6 calc Not Available [facility] [address] [facility] 1, [place], [address], 12/01/2024 11:49:23 12/02/19 25 12/02/2024 PERIP HERAL BLOOD SMEAR REVIE W peripheral blood smear review Revie w of perip heral smear confi jeane autom ated resul ts. Revie w of the perip heral smear revea ls decre ased numbe rs of plate lets. LARGE AND/O R GIANT PLATE LETS Ovalo cytes 1 + Not Available [facility] [address], [place], [address], 12/02/2024 16:38:26 12/02/19 25 12/09/2024 MISSY,I FA, [place] AND RHEUM ATOID ARTHR ITIS PANEL 2, WITH REFLE XES MISSY screen, ifa POSITI VE negati ve abnormal MISSY IFA is a first line scree n for detec ting the prese nce of up to appro ximat aroldo 150 autoa ntibo dies in vario us autoi mmune disea ses. A posit jennifer MISSY IFA resul t is sugge stive of autoi mmune disea se and refle xes to rebecca , bertha aviles and the 3 tiere d Multi plex 11 Antib roberta [place]. Testi ng in the [place] stops at the first posit jennifer resul t, and does not precl ude addit ional posit jennifer resul ts. Fur er labor atory testi ng may be consi dered if clini doc indic ated. For addit ional infor onesimo clements e refer to http: //[facility] jian [employer] gnost ics.c om/fa q/FAQ 177 (This link is being provi ded for infor parvez oneill/ educa clemente l purpo ses only. ) Not Available [facility] [address] [address] [place], [address], 12/09/2024 13:35:38 12/02/19 25 12/09/2024 MISSY,I FA, CASCA DE AND RHEUM ATOID ARTHR ITIS PANEL 2, WITH REFLE XES rheumatoid factor <10 IU/mL <14 normal Not Available [facility] [address] [address] [place], [address], 12/09/2024 13:35:38 12/02/1912/09/2024 MISSY,I FA, CASCA DE AND RHEUM ATOID ARTHR ITIS PANEL 2, WITH REFLE XES cyclic citrullinate d peptide (ccp) Ab (IgG) <16 units normal Refer ence Range Negat jennifer: <20 Weak Posit jennifer: 20-39 Moder ate Posit jennifer: 40-59 Stron g Posit jennifer: >59 Not Available [facility] [address] [address] [place], [address], 12/09/2024 13:35:38 12/02/19 25 12/09/2024 MISSY,I FA, CASCA DE AND RHEUM ATOID ARTHR ITIS PANEL 2, WITH REFLE XES mutated citrullinate d vimentin (MCV) Ab <20 U/mL <20 Anti- mutat ed citru llina alex vimen tin antib roberta may be used as a secon d-aristides e marke r of rheum atoid arthr itis, in addit ion to rheum atoid facto r and anti- cycli c citru llina alex pepti de (CCP) . Not Available [address] [address] [place], [address], 12/09/2024 13:35:38 12/02/19 25 12/09/2024 ANTIN UCLEA R ANTIB ODIES TITER AND PATTE RN MISSY titer 1:320 titer high Refer ence Range <1:40 Negat jennifer 1:40- 1:80 Low Antib roberta Level >1:80 [place] alex Antib roberta Level Not Available [address] [address] [place], [address], 12/09/2024 13:35:39 12/02/19 25 12/09/2024 ANTIN UCLEA R ANTIB ODIES TITER AND PATTE RN MISSY pattern NUCLEA R, HOMOGE NEOUS abnormal Homog eneou s patte rn is assoc iated with syste theo lupus eryth emato zoraida (SLE) , drug- induc ed lupus and carlos ile idiop athic arthr itis. AC-1: Homog eneou s Inter natio nal Conse nsus on MISSY Patte rns (http s://d oi.or g/10. 1515/ [facility]- 2017- 0052) Not Available [address] [address] [place], [address], 12/09/2024 13:35:39 12/02/19 25 12/09/2024 TIER 1 DNA (ds) antibody 1 IU/mL normal IU/mL Inter preta tion < or = 4 Negat jennifer 5-9 Indet ermin ate > or = 10 Posit jennifer Not Available [address] [address] [place], [address], 12/09/2024 13:35:39 12/02/1912/09/2024 TIER 1 sm antibody <1.0 NEG ai <1.0 neg normal Not Available [address], [address], 12/09/2024 13:35:39 12/02/1912/09/2024 TIER 1 sm/patient support tech antibody <1.0 NEG ai <1.0 neg normal Not Available [address], [address], 12/09/2024 13:35:39 12/02/1912/09/2024 TIER 1 patient support tech antibody <1.0 NEG ai <1.0 neg normal Not Available [address], [address], 12/09/2024 13:35:39 12/02/1912/09/2024 TIER 1 chromatin (nucleosomal ) antibody <1.0 NEG ai <1.0 neg normal Not Available [address], [address], 12/09/2024 13:35:39 12/02/1912/09/2024 TIER 2 sjogren's antibody (ss-A) <1.0 NEG ai <1.0 neg normal Not Available [address], [address], 12/09/2024 13:35:39 12/02/1912/09/2024 TIER 2 sjogren's antibody (ss-B) <1.0 NEG ai <1.0 neg normal Not Available [address], [address], 12/09/2024 13:35:39 12/02/1912/09/2024 TIER 2 scl-70 antibody <1.0 NEG ai <1.0 neg normal Not Available [address], [address], 12/09/2024 13:35:39 12/02/19 25 12/09/2024 TIER 2 chinyere-1 antibody <1.0 NEG ai <1.0 neg normal Not Available [facility] [address] [address] [place], [address], 12/09/2024 13:35:39 12/02/19 25 12/09/2024 TIER 3 centromere B antibody <1.0 NEG ai <1.0 neg normal Not Available [facility] [address], [address], 12/09/2024 13:35:40 12/02/19 25 12/09/2024 TIER 3 ribosomal P antibody <1.0 NEG ai <1.0 neg normal The [place] does not rule out autoi mmune disea se usman cteri zed by other autoa ntibo dy speci ficit ies such as rheum atoid arthr itis, autoi mmune hepat itis, prima ry bilia ry cirrh osis, autoi mmune thyro iditi s, Margret on's disea se, perni cious anemi a, autoi mmune neuro pathi es, vascu litis , akua c disea se and bullo us disea se. Pleas e conta ct your local [facility] at[facility] if you are inter ested in addit ional testi ng. Not Available [address], [address], 12/09/2024 13:35:40 12/02/19 25 12/09/2024 INTER PRETA TION interpretati on All three negat jennifer tiers indic ate the absen ce of detec table antib odies to compo nent kumar tony consi sting of doubl e stran ded DNA (dsDN A), chrom atin, ribon ucleo prote in (FEATHER EDGER) , Zacarias /FEATHER EDGER (Sm/R SAMPLE CARD MAKER), Zacarias (Sm), SS-A, SS-B, Chinyere-1, Scl-7 0, centr omere B and ribos omal P. A negat jennifer resul t shoul d be inter prete d in the [place] xt of the clini geoffrey and labor atory findi ngs. Not Available [address], [address], 12/09/2024 13:35:40 12/02/1912/09/2024 PROTE IN, TOTAL AND PROTE IN ELECT ROPHO RESIS W/ REFL SHAUNA protein, total 7.1 g/dL 6.1-8. 1 normal Not Available [address], [address], 12/09/2024 13:35:40 12/02/1912/09/2024 PROTE IN, TOTAL AND PROTE IN ELECT ROPHO RESIS W/ REFL SHAUNA albumin 3.8 g/dL 3.8-4. 8 normal Not Available [address], [address], 12/09/2024 13:35:40 12/02/1912/09/2024 PROTE IN, TOTAL AND PROTE IN ELECT ROPHO RESIS W/ REFL SHAUNA alpha 1 globulin 0.3 g/dL 0.2-0. 3 normal Not Available [address], [address], 12/09/2024 13:35:40 12/02/1912/09/2024 PROTE IN, TOTAL AND PROTE IN ELECT ROPHO RESIS W/ REFL SHAUNA alpha 2 globulin 0.7 g/dL 0.5-0. 9 normal Not Available [facility] [address] [address] [place], [address], 12/09/2024 13:35:40 12/02/1912/09/2024 PROTE IN, TOTAL AND PROTE IN ELECT ROPHO RESIS W/ REFL SHAUNA beta 1 globulin 0.4 g/dL 0.4-0. 6 normal Not Available [facility] [address], [address], 12/09/2024 13:35:40 12/02/19 25 12/09/2024 PROTE IN, TOTAL AND PROTE IN ELECT ROPHO RESIS W/ REFL SHAUNA beta 2 globulin 0.4 g/dL 0.2-0. 5 normal Not Available [address], [address], 12/09/2024 13:35:40 12/02/1912/09/2024 PROTE IN, TOTAL AND PROTE IN ELECT ROPHO RESIS W/ REFL SHAUNA gamma globulin 1.5 g/dL 0.8-1. 7 normal Not Available [address], [address], 12/09/2024 13:35:40 12/02/19 25 12/09/2024 PROTE IN, TOTAL AND PROTE IN ELECT ROPHO RESIS W/ REFL SHAUNA interpretati on No restr icted band (M-sp lynn) seen. Not Available [address], [place], [address], 12/09/2024 13:35:40 12/02/1912/09/2024 ALKAL INE PHOSP HATAS E ISOEN ZYMES alkaline phosphatase 143 U/L 35-144 Not Available [address] [address] [place], [address], 12/09/2024 13:35:41 12/02/1912/09/2024 ALKAL INE PHOSP HATAS E ISOEN ZYMES intestinal isoenzymes 11 % 1-24 Not Available [address], [address], 12/09/2024 13:35:41 12/02/1912/09/2024 ALKAL INE PHOSP HATAS E ISOEN ZYMES bone isoenzymes 32 % 28-66 Not Available [address] [address] [place], [address], 12/09/2024 13:35:41 12/02/19 25 12/09/2024 ALKAL INE PHOSP HATAS E ISOEN ZYMES liver isoenzymes 57 % 25-69 Incre ased intes tinal alkal ine phosp hatas e can be seen in blood group O and B secre tors and after fatty meals . Not Available [address], [address], 12/09/2024 13:35:41 12/02/1912/09/2024 ALKAL INE PHOSP HATAS E ISOEN ZYMES placental isoenzymes 0 % 0 Not Available [address], [address], 12/09/2024 13:35:41 12/02/1912/09/2024 GGT GGT 205 U/L 3-70 high Not Available [address], [address], 12/09/2024 13:35:41 12/02/1912/09/2024 COMPR EHENS JENNIFER METAB OLIC PANEL glucose 116 mg/dL 65-99 high Fasti ng refer ence inter forrest For someo ne witho ut known diabe tony, a gluco se value betwe en 100 and 125 mg/dL is consi stent with predi abete s and shoul d be confi rmed with a follo w-up test. Not Available [address], [address], 12/09/2024 13:35:41 12/02/1912/09/2024 COMPR EHENS JENNIFER METAB OLIC PANEL urea nitrogen (BUN) 21 mg/dL 7-25 normal Not Available [address], [address], 12/09/2024 13:35:41 12/02/1912/09/2024 COMPR EHENS JENNIFER METAB OLIC PANEL creatinine 0.93 mg/dL 0.70-1 .22 normal Not Available [address], [address], 12/09/2024 13:35:41 12/02/19 25 12/09/2024 COMPR EHENS JENNIFER METAB OLIC PANEL eGFR 80 mL/mi n/1.7 3m2 > or = 60 normal Not Available [address], [address], 12/09/2024 13:35:41 12/02/1912/09/2024 COMPR EHENS JENNIFER METAB OLIC PANEL BUN/creatini ne ratio SEE NOTE: (calc ) 6-22 Not Repor alex: BUN and Creat inine are withi n refer ence range . Not Available [address], [address], 12/09/2024 13:35:41 12/02/19 25 12/09/2024 COMPR EHENS JENNIFER METAB OLIC PANEL sodium 136 mmol/ L 135-14 6 normal Not Available [address], [address], 12/09/2024 13:35:41 12/02/19 25 12/09/2024 COMPR EHENS JENNIFER METAB OLIC PANEL potassium 4.2 mmol/ L 3.5-5. 3 normal Not Available [address], [address], 12/09/2024 13:35:41 12/02/19 25 12/09/2024 COMPR EHENS JENNIFER METAB OLIC PANEL chloride 103 mmol/ L 98-110 normal Not Available [address], [address], 12/09/2024 13:35:41 12/02/19 25 12/09/2024 COMPR EHENS JENNIFER METAB OLIC PANEL carbon dioxide 27 mmol/ L 20-32 normal Not Available [address], [address], 12/09/2024 13:35:41 12/02/19 25 12/09/2024 COMPR EHENS JENNIFER METAB OLIC PANEL calcium 9.2 mg/dL 8.6-10 .3 normal Not Available [address], [address], 12/09/2024 13:35:41 12/02/19 25 12/09/2024 COMPR EHENS JENNIFER METAB OLIC PANEL protein, total 7.1 g/dL 6.1-8. 1 normal Not Available [address], [address], 12/09/2024 13:35:41 12/02/1912/09/2024 COMPR EHENS JENNIFER METAB OLIC PANEL albumin 3.9 g/dL 3.6-5. 1 normal Not Available [address], [address], 12/09/2024 13:35:41 12/02/19 25 12/09/2024 COMPR EHENS JENNIFER METAB OLIC PANEL globulin 3.2 g/dL_ (calc ) 1.9-3. 7 normal Not Available [address], [address], 12/09/2024 13:35:41 12/02/19 25 12/09/2024 COMPR EHENS JENNIFER METAB OLIC PANEL albumin/glob ulin ratio 1.2 (calc ) 1.0-2. 5 normal Not Available [address], [address], 12/09/2024 13:35:41 12/02/19 25 12/09/2024 COMPR EHENS JENNIFER METAB OLIC PANEL bilirubin, total 0.6 mg/dL 0.2-1. 2 normal Not Available [address], [address], 12/09/2024 13:35:41 12/02/19 25 12/09/2024 COMPR EHENS JENNIFER METAB OLIC PANEL alkaline phosphatase 140 U/L 35-144 normal Not Available [facility] [employer] [facility] [id number] Administratio n, [place], [address], 12/09/2024 13:35:41 12/02/19 25 12/09/2024 COMPR EHENS JENNIFER METAB OLIC PANEL AST 20 U/L 10-35 normal Not Available [facility] [address] [address], [place], [address], 12/09/2024 13:35:41 12/02/19 25 12/09/2024 COMPR EHENS JENNIFER METAB OLIC PANEL ALT 17 U/L 9-46 normal Not Available [facility] [address] [address], [place], [address], 12/09/2024 13:35:41 12/02/19 25 12/09/2024 METHY LMALO EVENS ACID AND HOMOC YSTEI NE methylmaloni c acid 207 nmol/ L 85-423 Serum methy lmalo evens acid (MMA) level s are used to diagn ose and monit or sever al rare inbor n error s of metab olism , inclu ding methy lmalo evens acidu gregg. The enzym atic conve rsion of MMA to succi evens acid requi res vitam in B12 (rebeka osyl- cobal sarmiento) as a cofac tor. Serum MMA level s are also used for asses sing funct ional vitam in B12 defic iency . Vitam in B12 is essen tial for neuro devel opmen t, parti cular ly early in pregn ayaan. Undia gnose d mater nal vitam in B12 defic iency may be assoc iated with adver se /neon atal outco mes, such as neura l tube defec ts and intra uteri ne growt h restr ictio n. [facility] ut[facility] Multi -Moda l Decom posit ion (MMD) kumar sis to estab maurizio first and secon d trime ster- speci fic MMA refer ence inter vals in pregn ayaan, as given below : MMA, First trime ster (<13 wks gesta tion) : 58-16 7 nmol/ L MMA, Secon d trime ster (13-2 3 wks gesta tion) : 63-24 1 nmol/ L This test was devel oped and its kumar tical perfo rmanc e usman cteri stics have been deter mined by [facility]. It has not been clear ed or appro sharee by the FDA. This assay has been valid ated pursu ant to the CLIA regul ation s and is used for clini geoffrey purpo ses. Not Available [facility] [address] [place], [address], 12/09/2024 13:35:42 12/02/1912/09/2024 METHY LMALO EVENS ACID AND HOMOC YSTEI NE homocysteine 11.4 umol/ L <=15.2 Homoc ystei ne is incre ased by funct ional defic iency of folat e or vitam in B12. Testi ng for methy lmalo evens acid diffe renti ates betwe en these defic ienci es. Other cause s of incre ased homoc ystei ne inclu de renal failu re, folat e antag onist s such as metho trexa te and pheny toin, and expos ure to nitro us oxide . Aurelio pérez J, et al. Thao Inter n Med. 1999; 131(5 ):331 -9. Not Available [facility] [address] [address] [place], [address], 12/09/2024 13:35:42 12/02/1912/09/2024 C-GRIFFIN CTIVE PROTE IN C-reactive protein 6.4 mg/L <8.0 normal Not Available [facility] [address] [address] [place], [address], 12/09/2024 13:35:42 12/02/1912/09/2024 FOLAT E, SERUM folate, serum 13.6 NG/mL normal Refer ence Range Low: <3.4 Borde rline : 3.4-5 .4 Apurva l: >5.4 Not Available [facility] [address] [address] [place], [address], 12/09/2024 13:35:42 12/02/19 25 12/09/2024 VITAM IN B12 vitamin B12 1123 pg/mL 200-11 00 high Not Available [facility] [address] [place] [address], [address], 12/09/2024 13:35:43 12/02/19 25 12/09/2024 TSH+F REE T4 TSH 2.99 mIU/L 0.40-4 .50 normal Not Available [facility] [address] [place], [address], 12/09/2024 13:35:43 12/02/19 25 12/09/2024 TSH+F REE T4 T4, free 1.0 NG/dL 0.8-1. 8 normal Not Available [address], [address], 12/09/2024 13:35:43 12/02/19 25 12/01/2024 ESR (eryt hrocy te sedim entat ion rate) , blood ESR 20 Not Available [facility] [address] [place] [address], [address], 12/01/2024 12:10:26 02/11/20 25 02/10/2025 CBC WBC 3.8 x10 4.5-10 .5 low Not Available [facility] [address] [place] [address], [address], 02/10/2025 14:12:53 02/11/20 25 02/10/2025 CBC RBC 4.74 x10 4.30-5 .90 Not Available [facility] [address], [address], 02/10/2025 14:12:53 02/11/20 25 02/10/2025 CBC HGB 13.3 g/dL 13.5-1 8.0 low Not Available [facility] [address] [facility], [place], [address], 02/10/2025 14:12:53 02/11/2002/10/2025 CBC HCT 42.0 % 35.0-6 0.0 Not Available [facility] [address] [facility], [place], [address], 02/10/2025 14:12:53 02/11/2002/10/2025 CBC MCV 88.6 fL 80.0-9 9.9 Not Available [facility] [address] [facility] 1, [place], [address], 02/10/2025 14:12:53 02/11/2002/10/2025 CBC MCH 28.0 pg 27.0-3 2.0 Not Available [facility] [address] [facility] 1, [place], [address], 02/10/2025 14:12:53 02/11/20 25 02/10/2025 CBC MCHC 31.6 g/dL 32.0-3 6.0 low Not Available [facility] [address] [facility] 1, [place], [address], 02/10/2025 14:12:53 02/11/2002/10/2025 CBC RDW 14.9 % 11.5-1 4.5 high Not Available [facility] [address] [facility] 1, [place], [address], 02/10/2025 14:12:53 02/11/2002/10/2025 CBC plt 92.5 x10 150.0- 451.0 low Not Available [facility] [address] [facility] 1, [place], [address], 02/10/2025 14:12:53 02/11/20 25 02/10/2025 CBC lymphocytes % 27.6 % 20.0-5 0.0 Not Available [facility] [address] [facility], [place], [address], 02/10/2025 14:12:53 02/11/20 25 02/10/2025 CBC granulcytes % 51.6 % 30.0-7 0.0 Not Available [facility] [address] [address], [place], [address], 02/10/2025 14:12:53 02/11/20 25 02/10/2025 CBC monocytes % 17.4 % 2.0-16 .0 high Not Available [facility] [address] [facility], [place], [address], 02/10/2025 14:12:53 02/11/20 25 02/10/2025 CBC granulcytes# 1.9 x10 Not Radha ilable [facility] [address] [address], [place], [address], 02/10/2025 14:12:53 02/11/20 25 02/10/2025 CBC lymphocytes # 1.0 x10 Not Available [facility] [address] [address], [place], [address], 02/10/2025 14:12:53 02/11/20 25 02/10/2025 CBC monocytes # 0.7 x10 Not Avai lable [facility] [address] [address], [place], [address], 02/10/2025 14:12:53 02/11/20 25 02/10/2025 TSH TSH 2.56 uIU/m L 0.49-3 .82 Not Available [facility] [address] [address], [place], [address], 02/10/2025 14:48:01 02/11/20 25 02/10/2025 URINA LYSIS WITH MICRO color YELLOW Not Available [facility] [address], [place], [address], 02/10/2025 14:50:23 02/11/20 25 02/10/2025 URINA LYSIS WITH MICRO clarity CLEAR Not Available [facility] [address], [place], [address], 02/10/2025 14:50:23 02/11/20 25 02/10/2025 URINA LYSIS WITH MICRO glu NEGATI VE Not Available [facility] [address], [place], [address], 02/10/2025 14:50:23 02/11/20 25 02/10/2025 URINA LYSIS WITH MICRO bili 1+ high Not Available [facility] [address], [place], [address], 02/10/2025 14:50:23 02/11/20 25 02/10/2025 URINA LYSIS WITH MICRO ket NEGATI VE Not Available [facility] [address], [place], [address], 02/10/2025 14:50:23 02/11/20 25 02/10/2025 URINA LYSIS WITH MICRO S.g 1.020 1.005- 1.025 Not Available [facility] [address], [place], [address], 02/10/2025 14:50:23 02/11/20 25 02/10/2025 URINA LYSIS WITH MICRO pH 6.0 5.0-7. 0 Not Available [facility] [address], [place], [address], 02/10/2025 14:50:23 02/11/20 25 02/10/2025 URINA LYSIS WITH MICRO pro 1+ high Not Available [facility] [address], [place], [address], 02/10/2025 14:50:23 02/11/20 25 02/10/2025 URINA LYSIS WITH MICRO uro 1.0 E.U./D L Not Available [facility] [address] [facility] 1, [place], [address], 02/10/2025 14:50:23 02/11/20 25 02/10/2025 URINA LYSIS WITH MICRO nit NEGATI VE Not Available [facility] [address] [facility] 1, [place], [address], 02/10/2025 14:50:23 02/11/20 25 02/10/2025 URINA LYSIS WITH MICRO blo NEGATI VE Not Available [facility] [address] [facility], [place], [address], 02/10/2025 14:50:23 02/11/20 25 02/10/2025 URINA LYSIS WITH MICRO rodolfo NEGATI VE Not Available [facility] [address] [facility] [address] [facility], [place], [address], 02/10/2025 14:50:23 02/11/20 25 02/10/2025 URINA LYSIS WITH MICRO WBC 2-3 Not Available [facility] [address] [facility] 1, [place], [address], 02/10/2025 14:50:23 02/11/20 25 02/10/2025 URINA LYSIS WITH MICRO RBC NEGATI VE Not Available [facility] [address], [place], [address], 02/10/2025 14:50:23 02/11/20 25 02/10/2025 URINA LYSIS WITH MICRO epi cells 1-2 Not Available [facility] [address] [facility], [place], [address], 02/10/2025 14:50:23 02/11/20 25 02/10/2025 URINA LYSIS WITH MICRO bacteria NEGATI VE Not Available [facility] [address] [facility] 1, [place], [address], 02/10/2025 14:50:23 02/11/20 25 02/10/2025 URINA LYSIS WITH MICRO other NG Not Available [facility] [address] [facility], [place], [address], 02/10/2025 14:50:23 02/11/20 25 02/10/2025 CMP (MALE ) glucose 108.0 mg/dL 60.0-9 9.0 high Not Available [facility] [address] [facility], [place], [address], 02/10/2025 15:08:59 02/11/20 25 02/10/2025 CMP (MALE ) BUN (blood urea nitrogen) 19.0 mg/dL 10.0-2 6.0 Not Available [facility] [address] [facility], [place], [address], 02/10/2025 15:08:59 02/11/20 25 02/10/2025 CMP (MALE ) creatinine (serum) 0.8 mg/dL 0.4-1. 5 Not Available [facility] [address] [facility] 1, [place], [address], 02/10/2025 15:08:59 02/11/20 25 02/10/2025 CMP (MALE ) BUN/creatini ne ratio 23.75 ratio Not Available [facility] [address] [facility] 1, [place], [address], 02/10/2025 15:08:59 02/11/20 25 02/10/2025 CMP (MALE ) eGFR calculated 97.4 Not Available [facility] [address] [facility], [place], [address], 02/10/2025 15:08:59 02/11/20 25 02/10/2025 CMP (MALE ) total protein 7.5 g/dL 6.0-8. 5 Not Available [facility] [address] [facility], [place], [address], 02/10/2025 15:08:59 02/11/20 25 02/10/2025 CMP (MALE ) total bilirubin 1.2 mg/dL 0.2-1. 3 Not Available [facility] [address] [facility], [place], [address], 02/10/2025 15:08:59 02/11/20 25 02/10/2025 CMP (MALE ) albumin 3.5 g/dL 3.5-5. 5 Not Available [facility] [address] [facility], [place], [address], 02/10/2025 15:08:59 02/11/20 25 02/10/2025 CMP (MALE ) globulin 4.0 calc Not Available [facility] [address] [address], [place], [address], 02/10/2025 15:08:59 02/11/20 25 02/10/2025 CMP (MALE ) AST (SGOT) 64.0 U/L 0.0-46 .0 high Not Available [facility] [address] [facility], [place], [address], 02/10/2025 15:08:59 02/11/20 25 02/10/2025 CMP (MALE ) altv (SGPT) 48.0 U/L 13.0-6 9.0 normal Not Available [facility] [address], [place], [address], 02/10/2025 15:08:59 02/11/20 25 02/10/2025 CMP (MALE ) A/G ratio 0.9 ratio Not Available [facility] [address] [facility], [place], [address], 02/10/2025 15:08:59 02/11/20 25 02/10/2025 CMP (MALE ) ALP phos 316.0 U/L 30.0-1 40.0 abnormal Not Available [facility] [address] [facility] 1, [place], [address], 02/10/2025 15:08:59 02/11/20 25 02/10/2025 CMP (MALE ) calcium 9.0 mg/dL 8.4-10 .5 Not Available [facility] [address] [facility] 1, [place], [address], 02/10/2025 15:08:59 02/11/20 25 02/10/2025 CMP (MALE ) sodium 137.0 mmol/ L 136.0- 145.0 Not Available [facility] [address] [facility] 1, [place], [address], 02/10/2025 15:08:59 02/11/20 25 02/10/2025 CMP (MALE ) potassium 4.3 mmol/ L 3.5-5. 1 Not Available [facility] [address] [facility] 1, [place], [address], 02/10/2025 15:08:59 02/11/20 25 02/10/2025 CMP (MALE ) chloride 103.0 mmol/ L 98.0-1 10.0 normal Not Available [facility] [address] [facility] 1, [place], [address], 02/10/2025 15:08:59 02/11/20 25 02/10/2025 CMP (MALE ) C02 26.0 mmol/ L 22.0-3 1.0 Not Available [facility] [address] [facility] 1, [place], [address], 02/10/2025 15:08:59 02/11/20 25 02/10/2025 CMP (MALE ) anion gap 8.0 calc Not Available [facility] [address] [facility] 1, [place], [address], 02/10/2025 15:08:59 02/11/20 25 02/10/2025 CMP (MALE ) osmolality 285.7 calc Not Available [facility] [address] [facility] 1, [place], [address], 02/10/2025 15:08:59 02/11/20 25 02/11/2025 MAGNE SIUM magnesium 2.0 mg/dL 1.5-2. 5 normal Not Available [facility] [address] [place], [address], 02/11/2025 21:08:48 02/11/2002/11/2025 D-DIM ER, QUANT ITATI VE D-dimer, quantitative 1.20 mcg/m L_feu <0.50 high [place] alex D-dim er level s are assoc [...] value s incre ase with age, the Endereri can Colle ge [employer] Physi cians recom mends an [...] infor onesimo clements e refer to http: //[facility] jian suarez.Que stDia gnost ics.c om/fa q/FAQ 149 (This link is being provi ded for infor parvez nal/e ducat ional purpo ses only. ) Not Available [facility] [address] [address] [address], [place], [address], 02/11/2025 21:08:48 02/11/20 25 02/11/2025 B TYPE [...] ol. 2002; 40:97 6-982 . Not Available [facility] [address] [address] [address], [place], [address], 02/11/2025 21:08:48 02/11/2002/11/2025 CULTU RE, URINE , ROUTI NE culture, urine, routine SEE NOTE CULTU RE, URINE , ROUTI NE Micro Numbe r: [id number] Test Statu s: Final Speci men Sourc e: Urine Speci men Quali ty: Adequ ate Resul t: Less than 10,00 0 CFU/m L of singl e Gram negat jennifer organ ism isola alex. No furth er testi ng will be perfo rmed. If clini doc indic ated, recol lecti on using a metho d to minim ize conta minat ion, with promp t trans kevin to Urine Cultu re Trans port Tube, is recom loan d. Not Available [facility] [address] [place], [address], 02/11/2025 21:08:49 02/11/20 25 02/16/2025 GGT GGT 238 U/L 3-70 high Not Available [facility] [address] [place], [address], 02/16/2025 02:20:34 01/07/20 25 01/04/2025 US, abdom en, limit ed No observ ation record ed. [facility] [address] [place], [address], 01/07/2025 09:27:39 02/11/20 25 02/10/2025 XR, chest , 2 view No observ ation record ed. [facility] ([facility]) [address] [place] [address], [address], 02/10/2025 14:04:54 02/13/20 25 02/10/2025 XR, chest , 2 view No observ ation record ed. [facility] ([facility]) [address] [place], [address], 02/14/2025 08:15:52 02/16/2002/15/2025 US, abdom en, limit ed No observ ation record ed. [facility] [address] [place], [address], 02/15/2025 09:43:49 Result Notes None recorded. Problems Name Problem SNOMED Code Status Onset Date Resolution Date Notes Provider Name and Address Organization Details Recorded Time Disorder of cornea 11771271 Active 2022 CORNEAL IRRITATIO N, LEFT; Impressio [...] Promoted; acuity set as *; Not Available [facility] 3 03:07:56 Anxiety disorder 305086271 Active 2022 ERIN SANABRIA null, [facility] 4 09:21:19 Depressiv e disorder 74295617 Active 2022 ERIN SANABRIA null, [facility] 5 09:02:08 Diverticu litis of colon 885791164 Active 2022 Diverticu litis Of Colon; 3 8:19AM by Erin Sanabria LPN, Office Visit; Promoted; acuity set as *; Not Available [facility] 3 03:07:57 Conductio n disorder of the heart 29156527 Active 2022 Cardiac Dysrhythm ia ERIN garcia, [facility] 4 09:23:30 Cervical radiculop athy 32036294 Active 2022 CERVICAL RADICULOP ATHY; Recorded 3 8:19AM by Erin Sanabria LPN, Office Visit; Promoted; acuity set as *; Not Available [facility] 3 03:07:57 Private referral to cardiolog ist Active [address] Louisa SANARBIA null, [facility] 4 09:22:13 Coronary atheroscl erosis 579311532 Active 2023 ERIN garcia, [facility] 4 09:22:43 Myocardia l infarctio n 42238870 Active 2023 non-ST elevation SD ERIN SANABRIA null, [facility] 4 09:23:12 Atrial fibrillat ion 99467334 Active 2023 CHINYERE TALAMANTES null, [facility] 4 14:10:30 Thrombocy topenic disorder 737091313 Active 2023 Kyle Mendoza MD [address] [place], [address] , [facility] 5 10:15:01 Hyperlipi demia 33436974 Active 2023 Carol Davis null, [facility] 4 13:51:27 Muscle weakness 09778546 Active 2024 Carol Davis null, [facility] 5 11:54:44 Loss of appetite 62992184 Active 2024 Carol Davis [facility], [facility] 5 15:58:15 Alkaline phosphata se above reference range 118554615 Active 2024 ERIN SANABRIA [facility], [facility] 5 16:04:03 Decrease in appetite 27905571 Active 2024 Carol Davis [facility], [facility] 5 10:47:27 Nicotine dependenc e 18402348 Active 2024 ERIN SANABRIA [facility], [facility] 5 09:01:55 Platelet morpholog y - finding 992237756 Active 2024 Kyle Mendoza MD [address] [place], [address] , [facility] 5 10:15:11 Chronic neck pain 86113139268 07 Active 2024 Kyle Mendoza MD [address] [place] [address], [address] , [facility] 10:23:31 Right pleural effusion Active 2024 Kyle Mendoza MD [address] [place] [address], [address] , [facility] 13:53:32 Liver function test above reference range 309105899 Active 2024 Carol Susan garcia [facility] 5 08:39:42 D-dimer above reference range 160836584 Active 2024 ERIN garcia [facility] 5 10:01:09 Acute on chronic systolic heart failure 682078323 Active 2024 Kyle Mendoza MD [address] [place] [address], [phone] , [facility] 12:47:16 Acute right-masha ed heart failure 128650537 Active 2024 Kyle Mendoza MD [address] [place] [address], [phone] , [facility] 12:47:17 Problem Notes None recorded. Procedures Surgical History Date Name Laterality Status Provider Name and Address Organization Details Recorded Time 10/22/19 17 replacement of aortic valve completed ERIN SANABRIA [facility] 03/11/2024 09:28:37 Cabg vein five completed ERIN SANABRIA [facility] 03/11/2024 09:27:35 cardiovascular stress testing completed CHINYERE TALAMANTES [facility] 03/11/2024 14:11:05 Imaging Results None recorded. Procedure Notes None recorded. Medical Equipment None Reported. Allergies Allergen ID Allergen Name Allergen Category Reaction Reaction Severity Criticality Documentation Date Start Date Code Code System Note Provider Name and Address Organization Details Recorded Time 31419 Cymbalta medicatio n other Not available Not available 11/02/2022 57165 4 RxNorm React ion: time corre latio n to onset and disco ntinu ation of lymph ocyti c colit is.; Comme nt: Recor ded 06/06 8:19A M by Yadira Mendoza on, [employer], 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 ; Promo alex; Signi fican ce: *; ; Not Available [facility] 3 02:28:27 62092 Lexapro medicatio n other Not available Not available 11/02/2022 32736 1 RxNorm React ion: has been assoc iated with lymph ocyti c colit is; Comme nt: Recor ded 06/06 8:19A M by Yadira Mendoza on, [employer], 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 ; Promo alex; Signi ficmiky ce: *; ; Not Available [facility] 3 02:28:27 Medications Name Sig Start Date [...] to severe pain 03/11 completed Recorded 06/07/19 8:19AM by Erin Sanabria LPN, [...] capsule at bedtime 03/11 completed Recorded 09/27/19 8:55AM by Erin Sanabria LPN, Office Visit; [...] 04/29/19 10:57AM by Erin Sanabria LPN (Authori juan through Kyle Mendoza MD), Refill Request; Refill Quantity : 540; Tablet; Not Available Not Available Not Available Eliquis 5 mg tablet TAKE 1 TABLET BY MOUTH TWICE DAILY active Not Available Not Available No t Available Eliquis two times daily 03/11 completed 436; Recorded 11/06/19 9:35AM by Carol Glez RN (Authori juan through Kyel Mendoza MD), Office Visit; Refill Quantity : 0; Not Available Not Available Not Available Entresto 24 mg-26 mg tablet TAKE 1 TABLET BY MOUTH TWICE DAILY 03/11 completed Not Available Not Available Not Available Vitals Date Recorded Body height Body mass index (BMI) Body weight Oxygen saturation Heart rate Respiratory rate Body temperature Systolic And Diastolic Provider Name and Address Organization Details Last Updated DateTime 5 180.34 cm 24.7 kg/m2 30334.8 5 g 97 % 84 /min 16 /min 97.3 [degF] 94/64 mm[Hg] Mikala Hernandez [facility] 5 09:32:38 Date Recorded Body height Body mass index (BMI) Body weight Body temperature Heart rate Oxygen saturation Systolic And Diastolic Provider Name and Address Organization Details Last Updated DateTime 5 180.34 cm 25.1 kg/m2 23235.6 3 g 97.6 [degF] 60 /min 96 % 116/68 mm[Hg] Carol Davis [facility] 5 10:01:25 Date Recorded Body height Body mass index (BMI) Body weight Body temperature Heart rate Oxygen saturation Systolic And Diastolic Provider Name and Address Organization Details Last Updated DateTime 5 180.34 cm 25 kg/m2 50618.0 3 g 97.6 [degF] 122 /min 98 % 152/68 mm[Hg] ERIN ELLY [facility] 5 12:39:26 Date Recorded Body height Body mass index (BMI) Body weight Body temperature Oxygen saturation Heart rate Systolic And Diastolic Provider Name and Address Organization Details Last Updated DateTime 5 180.34 cm 24.1 kg/m2 75780.4 8 g 97.6 [degF] 96 % 89 /min 124/62 mm[Hg] ERIN ELLY [facility] 5 12:00:48 Social History Question Answer Notes LastModified by Donutsizat ion Details LastModified Time Tobacco Smoking Status Never Smoker Chews CHINYERE AISSATOU garcia [facility] 03/11/2024 14:09:15 What Is Your Level Of Caffeine Consumption? Moderate [email or web address] Information not available 12/01/2024 What Was The Date Of Your Most Recent Tobacco Screening? 12/20/2024 [email or web address] Information not available 12/20/2024 Sex: Unknown Functional Status Question Answer Note LastModified by Organizat ion Details LastModified Time Do you use any illicit or recreational drugs? No [email or web address] Information not available 12/01/2024 Do you or have you ever used any other forms of tobacco or nicotine? Yes [email or web address] Information not available 12/20/2024 What is your level of alcohol consumption? None [email or web address] Information not available 12/01/2024 Do you or have you ever used smokeless tobacco? Currently chews tobacco [email or web address] Information not available 12/20/2024 Mental Status None recorded. Family History Relationship Description Onset Age of this Age Resolved Age Notes LastModified by Organization Details LastModified Time Brother Coronary atherosclero sis [email or web address] Not available 03/11 09:25:54 Daughter Coronary atherosclero sis [email or web address] Not available 03/11 09:25:54 Daughter Diabetes mellitus [email or web address] Not available 03/11 09:26:17 Sister Coronary atherosclero sis [email or web address] Not available 03/11 09:25:54 Paternal Grandmother Diabetes mellitus [email or web address] Not available 03/11 09:26:29 Medical History No medical history recorded. Immunizations Vaccine Type Date Status Note Provider Nam e and Address Organization Details Recorded Time Influenza, split virus, trivalent, preservative 0 completed Not Available [facility] 11/02/2022 02:51:54 pneumococcal polysaccharide PPV23 0 completed Not Available [facility] 11/02/2022 02:51:54 COVID-19, mRNA, LNP-S, PF, 100 mcg/0.5mL dose or 50 mcg/0.25mL dose 1 completed ERIN garcia [facility] 02/10/2025 12:39:38 COVID-19, mRNA, LNP-S, PF, 100 mcg/0.5mL dose or 50 mcg/0.25mL dose 1 completed ERIN garcia [facility] 02/10/2025 12:39:39 pneumococcal, unspecified formulation 0 completed Not Available [facility] 02/17/2025 11:20:55 Past Encounters Encounter ID Performer Location Encounter Start Date Encounter Closed Date Diagnosis/Indication Diagnosis SNOMED-CT Code Diagnosis ICD10 Code Diagnosis IMO Codes Diagnosis Note [id number] Kyle Mendoza MD [facility] ([facility]) [address] [place] [address] [id number] 5 03/11/2024 13:57:10 03/12/2024 10:06:10 Active or passive immunization 195163157 Z23 Adult [facility] th examination 672811683 Z00.00 Depressive disorder 3548 9007 F32.A Nicotine dependence 5629 4008 F17.200 Atrial fibrillation 4943 6004 I48.91 Cardiovasc ular stress test abnormal 744210132 R94.39 i will call his cardiologi st and discuss the findings. he was waiting to see his cardiologi st and is not scheduled for 3 more weeks. Coronary atherosclerosis 868860602 I25.119 Abnormal weight loss 267 355289 R63.4 [id number] Kyle Mendoza MD [facility] ([facility]) [address] [place] [address] [id number] 5 04/22/2024 11:10:28 04/22/2024 13:24:48 Chronic neck pain 0722345734 107 M54.2 Muscle weakness 88089515 M62.81 COVID-19 953555853 U07.1 [id number] Kyle Mendoza MD [facility] ([facility]) [address] [place] [address] [id number] 5 12/01/2024 09:23:42 12/01/2024 11:21:11 Coronary atherosclerosis 392528617 I25.119 Atrial fibrillation 4943 6004 I48.91 Thrombocyt openic disorder 931764006 D69.6 Polyneuropathy 96992640 G62.89 73111836 Abnormal weight loss 267 888785 R63.4 943483 check bp at home if staying under 100 hold lisinopril Decrease in appetite 643 51275 R63.0 681658 [id number] Kyle Mendoza MD [facility] ([facility]) [address] [place] [address] [phone] 5 12/20/2024 09:46:38 12/20/2024 13:39:21 Nicotine dependence 37099395 F17.098 6677096 Depressive disorder 3548 9007 F32.A 99674 Thrombocyt openic disorder 456311435 D69.6 30717 peripheral smear showed large and/or giant cells. this is mild and will need to be followed. it is in the setting of recent poor nutrition. electropho resis is neg. cbc is otherwise normal as are b-12 and folic acid. normal globulin. normal alk phos isoenzymes . Platelet m orphology - finding 658418561 D69.1 31919150 Gamma-glut amyl transferase above reference range 745205139 R74.8 98159555 Chronic neck pain 664232 5957 107 M54.2 G89.29 275849 [id number] Kyle Mendoza MD [facility] ([facility]) [address] [place] [address] [phone] 5 01/04/2025 09:33:34 01/05/2025 16:41:22 [id number] Kyle Mendoza MD [facility] ([facility]) [address] [place] [address] [id number] 5 02/10/2025 12:29:45 02/11/2025 10:34:27 Dyspnea on exertion 77997499 R06.09 316940 Fever 050829925 R50.9 619691 Chronic at rial fibrillation 337840601 I48.20 310239 Atrial fib rillation with rapid ventricular response 6752089781 57738 I48.91 [id number] please go directly to the ER if chest pain, breathing worsens, heart rate increases at all or feeling worse in any way. the wish to not right now and we will try a diuiretec but if worwening they agree to go. Right pleu ral effusion 7741944768 J90 692601 Acute on c hronic systolic heart failure 232035719 I50.23 530435 [id number] Kyle Mendoza MD [facility] ([facility]) [address] [place] [address] [id number] 5 02/17/2025 11:20:33 02/21/2025 14:52:20 Acute right-sided heart failure 229519653 I50.813 7746708194 6 lb diuresis. his daughter would very much like him to be on 20 mg of lasix will attempt hat dose and ask them to monitor closely for increased water weight. Acute on c hronic systolic heart failure 958586475 I50.23 695223 Right pleu ral effusion 5022704201 J90 9953864 Health Concerns Section Related Observation LastModified by Organization Detai ls LastModified Time None Recorded Concern Status LastModified by Organization Details LastModified Time None Recorded Advance Directives Directive None Recorded Payers Insurance Date Sequence Insurance Name Policy Number Policy Montes De Oca Covered Member ID Montes De Oca Member ID Guarantor Name 01/07/2025 2 [employer] (MEDICARE SUPPLEMENT) Magen Ema [id number] [place] E[place] 02/10/2025 1 [place] Magen W Ema [id number] Magen Ema 02/10/2025 [place] - [facility] (MEDICARE) Magen Ema [id number] [place] E[place] 03/03/2025 2 [employer] (MEDICARE SUPPLEMENT) Magen Ema [id number] Magen Ema Notes Date Note Type Note Provider Name and Address Organization Details Recorded Time 5 text/html Fall UCReported by PatientHPIFor location of injury, patient reportsback(hit back on toilet last night). For context, patient reportsfell from standing position. For aggravating factors, patient reportsmovement. For associated symptoms, patient reportsno loss of consciousness.he was lifting his tshirt over his head and fell backwardshe did not hit his head. he has no injuries from the fall. patient not eating very well and has been fallinghis statin has been discontinuedI dont eat or drink enough.breakfast is boost milkshake with ice cream and banana but sometimes 2 eggs and toast. non it is 1/2 to 1 sandwich. evening another 1/2 to 1 sandwich. He drinks milk regularly (whole) 32 ounce/day; sometimes some gatorade but often just the milk. He had a few vitamin infusions at the chiropractor. Moderately depressed left ventricular ejection fraction and global wjcsiikvexh24%IMPRESSIONSMe dium sized area of old myocardial infarction surrounded by medium sized areaof moderate rebecca-infarct ischemia noted in mid anterior and anteroseptal wall,it is suspicious for stenosis in LAD area. There is a global hypokinesis ofthe left ventricle with moderately depressed ejection fraction 45%. EKGsegment will be documented separatelyZhen Irving MD(Electronically Signed)Final Date: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
--- OUTSIDE RECORDS SUMMARY | 2025-03-12 19:46 | XMS_ITS | Clinical Summary ---
Author Organization [facility] Address [address] [place] [address] Care Team Providers Care Coil Maker Name Role Phone Unavailable Primary Care Provider Unavailabl e Allergies No known active allergies Medications gabapentin (NEURONTIN) 100 mg capsule TAKE ONE CAPSULE BY MOUTH TWICE DAILY 60 Capsule 5 12/09/2017 Active simvastatin (ZOCOR) 40 mg tablet Take 40 mg by mouth every other day. 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 Active FLUoxetine (PROzac) 10 mg capsuleIndicati ons:Recurrent major depressive disorder, in full remission TAKE 1 CAPSULE BY MOUTH ONCE DAILY * NEEDS APPT FOR MORE REFILLS* 15 Capsule 06/04/2018 Active ondansetron (ZOFRAN ODT) 4 mg Tablet, Rapid Dissolve Dissolve 1 tablet every 6 hours as needed for nausea 20 Tablet 01/12/2019 10:38 AM CDT 01/12/2019 Active traMADol (ULTRAM) 50 mg tabletIndicatio ns:Cervical stenosis of spinal canal Take 2 Tablets (100 mg) by mouth every 6 hours as needed for Pain. 30 Tablet 01/22/2019 Active HYDROcodone-rob taminophen (NORCO) 10-325 mg TabletIndicatio ns:Cervical stenosis of spinal canal Take 1 Tablet by mouth every 4 hours as needed for Pain, Moderate. Max Daily Amount: 6 Tablets 42 Tablet 01/27/2019 Active ibuprofen (MOTRIN) 800 mg tablet Take 1 Tablet (800 mg) by mouth every 6 hours as needed for Pain, Mild. 30 Tablet 02/26/2019 Active Active Problems Problem Noted Date Diagnosed Date DAWSON (dyspnea on exertion) 04/02/2018 Restrictive lung disease 04/02/2018 Pleural effusion, right 04/02/2018 Fusion of spine, cervical region 02/17/2017 Anemia 01/21/2017 Major depression 01/02/2017 Preoperative general physical examination 2016 Dyslipidemia 07/29/2016 Cervical stenosis of spinal canal 08/27/2013 Facet arthropathy, cervical 08/10/2013 Foraminal stenosis of cervical region 08/10/2013 Hx of [place] spotted fever 12/14/2010 Arthritis of right knee 12/14/2010 Depression 12/14/2010 Anxiety 12/14/2010 Ulcerative colitis 10/08/2010 Arteriosclerotic heart disease (ASHD) 08/30/2008 SVT (supraventricular tachycardia) 08/30/2008 Immunizations Immunization Administration Dates Next Due (PNEUMOVAX 23)(50 YRS UP) PN EUMOCOCCAL POLYSACCHARIDE (PPV23) 0.5 ML, IM 03/04/2006 Influenza Seasonal Unspecified Formulation IM ,02/08/2004 Family History Medical History Relation Name Comments Heart Disease Brother 1 Cali Hypertension Brother 1 Cali Heart Disease Brother 2 Amado Unknown Brother 3 Patrick Thyroid Disease Daughter 1 Adelina Unknown Daughter 1 Adelina Diabetes Daughter 2 Jaimie Heart Disease Daughter 2 Jaimie Heart Disease Father Hypertension Father Heart Disease Mother Diabetes Paternal Grandmother Hypertension Paternal Grandmother Unknown Sister 1 Connie Liver Disease Sister 2 Soraya alcoholic Heart Disease Sister 3 Erinn Heart Disease Sister 4 Moni Colon Cancer Neg Hx Stroke Neg Hx Relation Name Status Comments Brother 1 Cali (Age 46) Brother 2 Amado (Age 46) Brother 3 Patrick Alive Daughter 1 Adelina Alive Daughter 2 Jaimie (Age 50) Father (Age 63) Mother (Age 89) Paternal Grandmother Sister 1 Connie (Age 82) Sister 2 Soraya (Age 55) Sister 3 Erinn (Age 70) Sister 4 Moni (Age 74) Social History Tobacco Use Types Packs/Day Years Used Date Smoking Tobacco: Former Cigarettes 0 Q uit: 04/07/1962 Cigars Smokeless Tobacco: Current Chew Comments:Smoked 3 or 4 cigar s daily Alcohol Use Standard Drinks/Week Comments No 0 (1 standard drink = 0.6 oz pur e alcohol) Sex and Gender Information Value Date Recorded Sex Assigned at Not on file 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 Not on file Not on file Not on file Last Filed Vital Signs Vital Sign Reading Time Taken Comments Blood Pressure 148/74 02/26/2019 10:27 AM BLENDER HELPER Pulse 59 02/26/2019 10:27 AM BLENDER HELPER Temperature 36.9 C (98.5 F) 01/12/2019 8:01 AM CDT Respiratory Rate 16 01/12/2019 8:01 AM CDT Oxygen Saturation 95% 01/12/2019 8:01 AM CDT Inhaled Oxygen Concentration - - Weight 86.2 kg (190 lb) 02/26/2019 10:27 AM BLENDER HELPER Height 188 cm (6' 2 ) 02/26/2019 10:27 AM BLENDER HELPER Body Mass Index 24.39 02/26/2019 10:27 AM BLENDER HELPER Plan of Treatment Health Maintenance Due Date Last Done Comments DTAP/TDAP/TD VACCINES (1 - Tdap) 1957 ZOSTER VACCINE (1 of 2) 1988 PNEUMOCOCCAL VACCINE 50+ YEA RS (2 of 2 - PCV) 03/04/2007 03/04/2006 RSV VACCINE (60+ or ) (1 - 1-dose 75+ series) 2013 INFLUENZA VACCINE (#1) 2024 03/04/2006, 2003 Medical Devices Implanted Type Area Terrazzo Supervisor Device Identifier Shelf Expiration Date Model / Serial / Lot Cage [place]-C [id number] - [id number] Implanted:Qty: 1 on 02/03/2017 by Jagdeep Peña MD at [facility] Cage N/A: Neck ARNOL- SPINE 02/03/2018 [id number] / / LOAD # [id number] Description:PER INVOICE Hemostatic Surgifoam 1gm 1977 [id number] Implanted:10/2018 by Jagdeep Peña MD at [facility] (Quantity not on file) Hemostatic N/A: Neck J&J- ETHICON INC 10/01/20201977 / / [id number] Hemostatic Surgifoam Sz12-7 1971 [id number] Implanted:10/2018 by Jagdeep Peña MD at [facility] (Quantity not on file) Hemostatic N/A: Neck J&J- ETHICON ENDO-SURGERY INC 11/17/20221971 / / [id number] Putty Bio Dbm 1ml [id number] - [id number] Implanted:Qty: 1 on 02/03/2017 by Jagdeep Peña MD at [facility] Putty N/A: Neck ARNOL- HOWMEDICA INT INC 05/29/2017 [id number] / / [id number] Screw Avs Sd 3.5x10mm [id number] - [id number] Implanted:Qty: 1 on 02/03/2017 by Jagdeep Peña MD at [facility] Screw N/A: Neck ARNOL- SPINE [id number] / / LOAD # [id number] Description:PER INVOICE Screw Avs Sd 3.5x10mm [id number] - [id number] Implanted:Qty: 1 on 02/03/2017 by Jagdeep Peña MD at [facility] Screw N/A: Neck ARNOL- SPINE [id number] / / LOAD # [id number] Description:PER INVOICE Screw Spn Multi Fernando 3.5x14mm [id number] - [id number] Implanted:Qty: 1 on 01/11/2019 by Jagdeep Peña MD at [facility] Screw N/A: Neck MEDTRONIC- SOFAMOR DANEK 02/05/2020 [id number] / / LOAD [id number] Screw Spn Multi Fernando 3.5x14mm [id number] - [id number] Implanted:Qty: 1 on 01/11/2019 by Jagdeep Peña MD at [facility] Screw N/A: Neck [employer]- SOFAMOR DANEK 02/05/2020 [id number] / / LOAD [id number] Screw Set Std Psn [id number] - [id number] Implanted:Qty: 1 on 01/11/2019 by Jagdeep Peña MD at [facility] Screw N/A: Neck [employer]- SOFAMOR DANEK 02/05/2020 [id number] / / LOAD [id number] Screw Set Std Psn [id number] - [id number] Implanted:Qty: 1 on 01/11/2019 by Jagdeep Peña MD at [facility] Screw N/A: Neck [employer]- SOFAMOR DANEK 02/05/2020 [id number] / / LOAD [id number] Screw Set Std Psn 1171612 - [id number] Implanted:Qty: 1 on 01/11/2019 by Jagdeep Peña MD at [facility] Screw N/A: Neck [employer]- SOFAMOR DANEK 02/05/2020 [id number] / / LOAD [id number] Screw Set Std Psn 6391599 - [id number] Implanted:Qty: 1 on 01/11/2019 by Jagdeep Peña MD at [facility] Screw N/A: Neck [employer]- SOFAMOR DANEK 02/05/2020 [id number] / / LOAD [id number] Screw Spn Multi Fernando 3.5x14mm [id number] - [id number] Implanted:Qty: 1 on 01/11/2019 by Jagdeep Peña MD at [facility] Screw N/A: Neck [employer]- SOFAMOR DANEK 02/05/2020 [id number] / / LOAD [id number] Screw Spn Multi Fernando 3.5x14mm [id number] - [id number] Implanted:Qty: 1 on 01/11/2019 by Jagdeep Peña MD at [facility] Screw N/A: Neck [employer]- SOFAMOR DANEK 02/05/2020 [id number] / / LOAD [id number] Screw Spn Multi Fernando 3.5x14mm [id number] - [id number] Implanted:Qty: 1 on 01/11/2019 by Jagdeep Peña MD at [facility] Screw N/A: Neck [employer]- SOFAMOR DANEK 02/05/2020 [id number] / / LOAD [id number] Screw Spn Multi Fernando 3.5x14mm [id number] - [id number] Implanted:Qty: 1 on 01/11/2019 by Jagdeep Peña MD at [facility] Screw N/A: Neck [employer]- SOFAMOR DANEK 02/05/2020 [id number] / / LOAD [id number] Screw Spn Multi Fernando 3.5x14mm [id number] - [id number] Implanted:Qty: 1 on 01/11/2019 by Jagdeep Peña MD at [facility] Screw N/A: Neck [employer]- SOFAMOR DANEK 02/05/2020 [id number] / / LOAD [id number] Screw Spn Multi Fernando 3.5x14mm [id number] - [id number] Implanted:Qty: 1 on 01/11/2019 by Jagdeep Peña MD at [facility] Screw N/A: Neck [employer]- SOFAMOR DANEK 02/05/2020 [id number] / / LOAD [id number] Derrek Spn Precut 3.5x25mm Implanted:Qty: 1 on 01/11/2019 by Jagdeep Peña MD at [facility] N/A: Neck [employer]- SOFAMOR DANEK 02/05/2020 [id number] / / LOAD [id number] Derrek Spn Precut 3.5x25mm Implanted:Qty: 1 on 01/11/2019 by Jagdeep Peña MD at [facility] N/A: Neck [employer]- SOFAMOR DANEK 02/05/2020 [id number] / / LOAD [id number] Grft Bone Paste 5cc Implanted:Qty: 1 on 01/11/2019 by Jagdeep Peña MD at [facility] N/A: Neck [employer]- SOFAMOR DANEK 08/25/2020 [id number] / / [id number] Insurance [address] [place] [id number] MEDICARE PART A AND B [facility] [address] [place] [address] RX [employer] RX Member Subscriber Plan / Payer (Ef fective 2006-Present) Name:Magen Boo Relation to Subscriber:Self Name:Magen Boo Payer ID:Not on file Group ID:[id number] Type:RX Medicare Part D Address: [address] Advance Directives For more information, please contact: [phone] * Full Code (Latest Code Status on File) Date Activated Date Inactivated Comments 01/11/2019 3:31 PM 01/12/2019 5:33 PM * Full Code Date Activated Date Inactivated Comments 01/11/2019 9:54 AM 01/11/2019 3:30 PM * Full Code Date Activated Date Inactivated Comments 02/03/2017 4:02 PM 02/04/2017 12:36 PM
--- OUTSIDE RECORDS SUMMARY | 2025-03-12 19:46 | XMS_ITS | Encounter Summary ---
Author Organization [facility] Address [address] [place] [address] Care Team Providers Care Quality Review Specialist Name Role Phone Fernando Gaines MD Primary Care Provider [phone] Encounter Details Date Type Department Care Team (Latest Contact Info) Description 07/15/2006 Outpatient [facility] [address] [place] [address] Estrada Mas MD NO ADDRESS ON FILE Dysthymic Disorder (Primary Dx); Other and Unspecified Hyperlipidemia; Unspecified Essential Hypertension; Paroxysmal Supraventricular Tachycardia Social History Tobacco Use Types Packs/Day Years Used Date Smoking Tobacco: Never Assessed Sex and Gender Information Value Date Recorded Sex Assigned at Not on file 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
--- OUTSIDE RECORDS SUMMARY | 2025-03-12 19:46 | XMS_ITS | Encounter Summary ---
Author Organization [facility] Address [address] [place] [address] Care Team Providers Care Shot Core Drill Operator Name Role Phone Fernando Gaines MD Primary Care Provider [phone] Encounter Details Date Type Department Care Team (Latest Contact Info) Description 11/18/2006 Outpatient Historical [facility] [place] [address] [facility] [address] [place] [address] Joel Colvin MD NO ADDRESS ON FILE Abdominal Pain, Other Specified Site (Primary Dx) Social History Tobacco Use Types Packs/Day Years Used Date Smoking Tobacco: Never Assessed Sex and Gender Information Value Date Recorded Sex Assigned at Not on file 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
--- OUTSIDE RECORDS SUMMARY | 2025-03-12 19:46 | XMS_ITS | Clinical Summary ---
Author Organization [facility] Address [address] [facility] Attn: [place] [address] Care Team Providers Care Patternmaker Metal Name Role Phone Unavailable Primary Care Provider Unavailabl e Allergies No known active allergies Medications FLUoxetine (PROzac) 10 mg capsuleIndicati ons:Recurrent major depressive disorder, in full remission TAKE 1 CAPSULE BY MOUTH ONCE DAILY * NEEDS APPT FOR MORE REFILLS* 15 Capsule 0 06/04/2018 Active simvastatin (ZOCOR) 40 mg tablet Take 40 mg by mouth every other day. 04/02/2018 Active gabapentin (NEURONTIN) 100 mg capsule TAKE ONE CAPSULE BY MOUTH TWICE DAILY 60 Capsule 5 12/09/2017 Active pindoloL (VISKEN) 5 mg tablet Take 5 mg by mouth daily sk[place] man. 04/02/2018 Active traMADoL (ULTRAM) 50 mg tabletIndicatio ns:Cervical stenosis of spinal canal Take 2 Tablets (100 mg) by mouth every 6 hours as needed for Pain. 30 Tablet 0 01/22/2019 Active ibuprofen (MOTRIN) 800 mg tablet Take 1 Tablet (800 mg) by mouth every 6 hours as needed for Pain, Mild. 30 Tablet 0 02/26/2019 Active HYDROcodone-rob taminophen (NORCO) 10-325 mg TabletIndicatio ns:Cervical stenosis of spinal canal Take 1 Tablet by mouth every 4 hours as needed for Pain, Moderate. Max Daily Amount: 6 Tablets 42 Tablet 0 01/27/2019 Active Active Problems Problem Noted Date Diagnosed Date DAWSON (dyspnea on exertion) 04/02/2018 Restrictive lung disease 04/02/2018 Pleural effusion, right 04/02/2018 Fusion of spine, cervical region 02/17/2017 Anemia 01/21/2017 Major depression 01/02/2017 Dyslipidemia 07/29/2016 Preoperative general physical examination 2016 Cervical stenosis of spinal canal 08/27/2013 Foraminal stenosis of cervical region 08/10/2013 Facet arthropathy, cervical 08/10/2013 Hx of [place] spotted fever 12/14/2010 Anxiety 12/14/2010 Arthritis of right knee 12/14/2010 Depression 12/14/2010 Ulcerative colitis 10/08/2010 Arteriosclerotic heart disease (ASHD) 08/30/2008 SVT (supraventricular tachycardia) 08/30/2008 Immunizations Immunization Administration Dates Next Due (PNEUMOVAX 23)(50 YRS UP) PN EUMOCOCCAL POLYSACCHARIDE (PPV23) 0.5 ML, IM 03/04/2006 Influenza Seasonal Unspecified Formulation IM ,02/08/2004 Family History Medical History Relation Name Comments Unknown Brother 1 Patrick Heart Disease Brother 2 Amado Heart Disease Brother 3 Cali Hypertension Brother 3 Cali Diabetes Daughter 1 Jaimie Heart Disease Daughter 1 Jaimie Thyroid Disease Daughter 2 Adelina Unknown Daughter 2 Adelina Heart Disease Father Hypertension Father Heart Disease Mother Diabetes Paternal Grandmother Hypertension Paternal Grandmother Heart Disease Sister 1 Moni Heart Disease Sister 2 Erinn Liver Disease Sister 3 Soraya alcoholic Unknown Sister 4 Connie Colon Cancer Neg Hx Stroke Neg Hx Relation Name Status Comments Brother 1 Patrick Alive Brother 2 Amado (Age 46) Brother 3 Cali (Age 46) Daughter 1 Jaimie (Age 50) Daughter 2 Adelina Alive Father (Age 63) Mother (Age 89) Paternal Grandmother Sister 1 Moni (Age 74) Sister 2 Erinn (Age 70) Sister 3 Soraya (Age 55) Sister 4 Connie (Age 82) Social History Tobacco Use Types Packs/Day Years Used Date Smoking Tobacco: Former Cigarettes 0 Q uit: 04/07/1969 Smokeless Tobacco: Current Comments:Quit smoking: Smoke d 3 or 4 cigars daily Alcohol Use Standard Drinks/Week Comments No 0 (1 standard drink = 0.6 oz pur e alcohol) Sex and Gender Information Value Date Recorded Sex Assigned at Not on file Legal Sex Male 8:11 AM COMPLIANCE PROJECT MANAGER Gender Identity Not on file Sexual Orientation Not on file Last Filed Vital Signs Vital Sign Reading Time Taken Comments Blood Pressure 148/74 02/26/2019 10:27 AM COMPLIANCE PROJECT MANAGER Pulse 59 02/26/2019 10:27 AM COMPLIANCE PROJECT MANAGER Temperature 36.9 C (98.5 F) 01/12/2019 8:01 AM CDT Respiratory Rate 16 01/12/2019 8:01 AM CDT Oxygen Saturation - - Inhaled Oxygen Concentration - - Weight 86.2 kg (190 lb) 02/26/2019 10:27 AM COMPLIANCE PROJECT MANAGER Height 188 cm (6' 2 ) 02/26/2019 10:27 AM COMPLIANCE PROJECT MANAGER Body Mass Index 24.39 02/26/2019 10:27 AM COMPLIANCE PROJECT MANAGER Plan of Treatment Health Maintenance Due Date Last Done Comments DTAP/TDAP/TD VACCINES (1 - Tdap) 1957 ZOSTER VACCINE (1 of 2) 1988 PNEUMOCOCCAL VACCINE 50+ YEA RS (2 of 2 - PCV) 03/04/2007 03/04/2006 RSV VACCINE (60+ or ) (1 - 1-dose 75+ series) 2013 INFLUENZA VACCINE (#1) 2024 03/04/2006, 2003 Medical Devices Implanted Type Area Forensic Chemist Device Identifier Shelf Expiration Date Model / Serial / Lot Cage Galloway-C [id number] - [id number] Implanted:Qty: 1 on 02/03/2017 by Jagdeep Peña MD Cage N/A: Neck ARNOL- SPINE 02/03/2018 [id number] / / LOAD # [id number] Description:PER INVOICE Hemostatic Surgifoam 1gm [id number] Implanted:10/2018 by Jagdeep ePña MD (Quantity not on file) Hemostatic N/A: Neck J&J- ETHICON INC 10/01/20201977 / [id number] Hemostatic Surgifoam Sz12-7 1971 [id number] Implanted:10/2018 by Jagdeep Peña MD (Quantity not on file) Hemostatic N/A: Neck J&J- ETHICON ENDO-SURGERY INC 11/17/20221971 / [id number] Putty Bio Dbm 1ml [id number] - [id number] Implanted:Qty: 1 on 02/03/2017 by Jagdeep Peña MD Putty N/A: Neck ARNOL- HOWMEDICA INT INC 05/29/2017 [id number] / / [id number] Screw Avs Sd 3.5x10mm [id number] - [id number] Implanted:Qty: 1 on 02/03/2017 by Jagdeep Peña MD Screw N/A: Neck ARNOL- SPINE [id number] / / LOAD # [id number] Description:PER INVOICE Screw Avs Sd 3.5x10mm [id number] - [id number] Implanted:Qty: 1 on 02/03/2017 by Jagdeep Peña MD Screw N/A: Neck ARNOL- SPINE [id number] / / LOAD # [id number] Description:PER INVOICE Screw Spn Multi Fernando 3.5x14mm [id number] - [id number] Implanted:Qty: 1 on 01/11/2019 by Jagdeep Peña MD Screw N/A: Neck MEDTRONIC- SOFAMOR DANEK 02/05/2020 [id number] / / LOAD [id number] Screw Spn Multi Fernando 3.5x14mm [id number] - [id number] Implanted:Qty: 1 on 01/11/2019 by Jagdeep Peña MD Screw N/A: Neck [employer]- SOFAMOR DANEK 02/05/2020 [id number] / / LOAD [id number] Screw Spn Multi Fernando 3.5x14mm [id number] - [id number] Implanted:Qty: 1 on 01/11/2019 by Jagdeep Peña MD Screw N/A: Neck [employer]TR[employer]- SOFAMOR DANEK 02/05/2020 [id number] / / LOAD [id number] Screw Spn Multi Fernando 3.5x14mm [id number] - [id number] Implanted:Qty: 1 on 01/11/2019 by Jagdeep Peña MD Screw N/A: Neck [employer]TR[employer]- SOFAMOR DANEK 02/05/2020 [id number] / / LOAD [id number] Screw Spn Multi Fernando 3.5x14mm [id number] - [id number] Implanted:Qty: 1 on 01/11/2019 by Jagdeep Peña MD Screw N/A: Neck [employer]TR[employer]- SOFAMOR DANEK 02/05/2020 [id number] / / LOAD [id number] Screw Spn Multi Fernando 3.5x14mm [id number] - [id number] Implanted:Qty: 1 on 01/11/2019 by Jagdeep Peña MD Screw N/A: Neck [employer]TR[employer]- SOFAMOR DANEK 02/05/2020 [id number] / / LOAD [id number] Screw Spn Multi Fernando 3.5x14mm [id number] - [id number] Implanted:Qty: 1 on 01/11/2019 by Jagdeep Peña MD Screw N/A: Neck MEDTRON[employer]- SOFAMOR DANEK 02/05/2020 [id number] / / LOAD [id number] Screw Set Std Psn 2478987 - [id number] Implanted:Qty: 1 on 01/11/2019 by Jagdeep Peña MD Screw N/A: Neck MEDTRON[employer]- SOFAMOR DANEK 02/05/2020 [id number] / / LOAD [id number] Screw Set Std Psn 3229025 - [id number] Implanted:Qty: 1 on 01/11/2019 by Jagdeep Peña MD Screw N/A: Neck MEDTRON[employer]- SOFAMOR DANEK 02/05/2020 [id number] / / LOAD [id number] Screw Set Std Psn 3768726 - [id number] Implanted:Qty: 1 on 01/11/2019 by Jagdeep Peña MD Screw N/A: Neck MEDTRONIC- SOFAMOR DANEK 02/05/2020 [id number] / / LOAD [id number] Screw Set Std Psn 6079651 - [id number] Implanted:Qty: 1 on 01/11/2019 by Jagdeep Peña MD Screw N/A: Neck MEDTRONIC- SOFAMOR DANEK 02/05/2020 [id number] / / LOAD [id number] Screw Spn Multi Fernando 3.5x14mm [id number] - [id number] Implanted:Qty: 1 on 01/11/2019 by Jagdeep Peña MD Screw N/A: Neck MEDTRONIC- SOFAMOR DANEK 02/05/2020 [id number] / / LOAD [id number] Grft Bone Paste 5cc Implanted:Qty: 1 on 01/11/2019 by Jagdeep Peña MD N/A: Neck MEDTRONIC- SOFAMOR DANEK 08/25/2020 [id number] / / [id number] Derrek Spn Precut 3.5x25mm Implanted:Qty: 1 on 01/11/2019 by Jagdeep Peña MD N/A: Neck [employer]TR[employer]- SOFAMOR DANEK 02/05/2020 [id number] / / LOAD [id number] Derrek Spn Precut 3.5x25mm Implanted:Qty: 1 on 01/11/2019 by Jagdeep Peña MD N/A: Neck [employer]- SOFAMOR DANEK 02/05/2020 [id number] / / LOAD [id number] Insurance * Guarantor: ANTHONY BOO Account Type Relation to Patient Date of Phone Billing Address Personal/Family [address] [place] [address] RX [employer] RX Member Subscriber Plan / Payer (Ef fective 2006-Present) Name:Anthony Boo Relation to Subscriber:Self Name:Anthony Boo Payer ID:Not on file Group ID:[id number] Type:RX Medicare Part D Address: [place]
--- OUTSIDE RECORDS SUMMARY | 2025-03-12 19:46 | XMS_ITS | Encounter Summary ---
Author Organization [facility] Address [address] [place] [address] Care Team Providers Care Rider Ticket Worker Name Role Phone Fernando Gaines MD Primary Care Provider [phone] Encounter Details Date Type Department Care Team (Latest Contact Info) Description 10/14/2005 Outpatient Historical [facility] [address] [place] [address] Codey Jasso MD NO ADDRESS ON FILE Other Specified Cardiac Dysrhythmias (Primary Dx) Social History Tobacco Use Types Packs/Day Years Used Date Smoking Tobacco: Never Assessed Sex and Gender Information Value Date Recorded Sex Assigned at Not on file Legal Sex Male 6:37 AM AUDIO EXPERIENCE EXPERT Gender Identity Not on file Sexual Orientation Not on file documented as of this encounter Plan of Treatment Not on file documented as of this encounter Visit Diagnoses Diagnosis Other specified cardiac dysrhythmias(427.89)- Primary Other specified cardiac dysrhythmias documented in this encounter Care Teams Rider Ticket Worker Relationship Specialty Start Date End Date Fernando Gaines MD [address] [phone] PCP - General Family Practice 08/02/13 09/16/19 documented as of this encounter
--- OUTSIDE RECORDS SUMMARY | 2025-03-12 19:46 | XMS_ITS | Encounter Summary ---
Author Organization [facility] Address [address] [place] [address] Care Team Providers Care Education Analyst Name Role Phone Fernando Gaines MD Primary Care Provider [phone] Encounter Details Date Type Department Care Team (Latest Contact Info) Description 10/14/2005 Outpatient Historical [facility] [place] [address] [place] [address] Codey Jasso MD NO ADDRESS ON FILE Unspecified Chest Pain (Primary Dx); Palpitations; Cor Athrscl-Uns Vessel; Pure Hypercholesterolem Social History Tobacco Use Types Packs/Day Years Used Date Smoking Tobacco: Never Assessed Sex and Gender Information Value Date Recorded Sex Assigned at Not on file Legal Sex Male 6:37 AM SAP BOBJ DEVELOPER Gender Identity Not on file Sexual Orientation Not on file documented as of this encounter Plan of Treatment Not on file documented as of this encounter Visit Diagnoses Diagnosis Chest pain, unspecified- Primary Palpitations Coronary atherosclerosis of unspecified type of vessel, andreafski or graft Pure hypercholesterolem Pure hypercholesterolemia documented in this encounter Care Teams Education Analyst Relationship Specialty Start Date End Date Fernando Gaines MD [address] [place] [address] PCP - General Family Practice 08/02/13 09/16/19 documented as of this encounter
--- OUTSIDE RECORDS SUMMARY | 2025-03-12 19:46 | XMS_ITS | Encounter Summary ---
Author Organization [facility] Address [address] [place] [address] Care Team Providers Care Skiver Sock Linings Name Role Phone Fernando Gaines MD Primary Care Provider [phone] Encounter Details Date Type Department Care Team (Latest Contact Info) Description 03/04/2006 Outpatient [facility] [address] [place] [address] Estrada Mas MD NO ADDRESS ON FILE Dysthymic Disorder (Primary Dx); Vaccin Strep Pneumoniae; Vaccine for influenza Social History Tobacco Use Types Packs/Day Years Used Date Smoking Tobacco: Never Assessed Sex and Gender Information Value Date Recorded Sex Assigned at Not on file Legal Sex Male 6:37 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 Gender Identity Not on file Sexual Orientation Not on file documented as of this encounter Plan of Treatment Not on file documented as of this encounter Visit Diagnoses Diagnosis Dysthymic disorder- Primary Need for prophylactic vaccination against Streptococcus pneumoniae (pneumococcus) Need for prophylactic vaccination against streptococcus pneumoniae (pneumococcus) Vaccine for influenza Need for prophylactic vaccination and inoculation against influenza documented in this encounter Care Teams Skiver Sock Linings Relationship Specialty Start Date End Date Fenrando Gaines MD [address] [place] [phone] PCP - General Family Practice 08/02/13 09/16/19 documented as of this encounter
--- OUTSIDE RECORDS SUMMARY | 2025-03-12 19:46 | XMS_ITS | Patient Health Record ---
Author Organization [facility] Address [address] [place] [address] Care Team Providers Care Arts And Crafts Teacher Name Role Phone Kyle Mendoza MD Primary Care Provider Jayna Maki [phone] Allergies No Known Allergies Reason For Referral No Information Medications Medication SIG (Take, Route, Frequency, Duration) Notes Start Date End Date Status Furosemide 20 MG Tablet 1 tablet Orally Once a day Active Pindolol 10 MG Tablet 1 tablet in the mo rning Orally Once a day Active Eliquis 5 MG Tablet 1 tablet Orally Twic e a day Active FLUoxetine HCl 10 MG Capsule 1 capsule Orally Once a day Active Social History Tobacco Use: Social History Observation Description Date Details (start date - stop date) Former Smoker NA - NA Social History Tobacco Use: Social Info Question Answer Notes xTobacco Use/Smoking Are you a former smoker How long has it been since you last smoked? > 10 years Additional Findings: Tobacco User Cigar smoker Additional Findings: Tobacco Non-User Ex-cigar s moker Problems Problem Type SNOMED Code ICD Code Onset Dates Problem Status W/U Status Risk Notes Problem COPD - Chronic obstructive pulmonary disease (96279096) COPD (chronic obstructive pulmonary disease) (J44.9) Active confirmed Problem Urinary hesitancy (0590701) Urinary hesitancy (R39.11) Active confirmed Problem Tomography - chest abnormal (192483771) Abnormal CT of the chest (R93.89) Active confirmed Plan Of Treatment Pending Test Test Name Order Date CT Chest w/o Contrast diagnostic-[id number] 1 05/05/2021 Insurance Providers Payer Name Payer Address Payer Phone Subscriber Number Group Number Insured Name Patient Relationship to Insured Coverage Start Date Coverage End Date [place] [address] [place] [phone] [id number] Magen Boo Self - patient is the insured [facility] Medicare Supplement [address] [place] [phone] [id number] Magen Boo Self - patient is the insured Medical (General) History Medical History History ICD Code Pneumonia Heart disease Arthritis Hernia High blood pressure Low blood pressure Anicoagulation therapy A- FIB Surgical History Surgery Date(Month/Year) open heart. aorta replaced open heart 5 way bypass appendectomy Hernia repair Hospitalization History Reason Date(Month/Year) Pneumonia, right lung 2020 denies recent
--- OUTSIDE RECORDS SUMMARY | 2025-03-12 19:46 | XMS_ITS | Continuity of Care Document ---
Author Organization NOEL Patrick [facility], LCoraLDuran, [facility] ([facility]) Address [address] [facility] [place] [address] Assessment No assessment recorded. Plan of Treatment Reminders Order Date Submit Date Provider Last Modified By Organization Details Last Modified Time Details Appointments LAB 2024 07:00A M LAB Not available Not available Not available RECHECK 15 2025 08:30A M Kyle Mendoza MD Not available Not available Not available Lab thyrotr opin, QN, serum or plasma 2024 025 [facility], [address] [facility], [place], [address], 02/10/2025 14:48:02 urinaly sis, complet e 2024 025 [facility], [address] [facility], [address], [place], [address], 02/10/2025 14:50:23 culture , urine 2024 025 [facility], [address] [facility] [address], [address], [place], [address], 02/11/2025 21:08:49 magnesi um, serum or plasma 2024 025 [facility], [address] , [place], [address], 02/11/2025 21:08:48 pro BNP (pro B-type natriur etic peptide ), serum or plasma 2024 025 [facility], [address] [place] [address], [address], [place], [address], 02/11/2025 21:08:48 D-dimer , quant, plasma 2024 025 [facility], [address] [place] [address] 248, [address], [place], [address], 02/11/2025 21:08:48 CBC 2024 025 [facility], [address], [address], 02/10/2025 14:12:53 CMP, serum or plasma 2024 025 [facility], [address], [address], 02/10/2025 15:08:59 Referral None recorde d. Procedures None recorde d. Surgeries None recorde d. Imaging XR, chest, 2 view [address] ([facility]), [address] [place], [address], 02/11/2025 10:34:27 Medication Orders furosem paul 40 mg tablet 2024 025 [facility] [place], [address] [place], [address], 02/10/2025 14:22:23 Patient TargetsNo targets recorded. Patient InstructionsNo instructions recorded. Reason for Referral None Reported. Results Created Date Observation Date Name Description Value Unit Range Abnormal Flag Note LastModifiedBy Organization Detail LastModifiedTime 02/11/20 25 02/10/2025 CBC WBC 3.8 x10 4.5-10 .5 low Not Available [facility] [address] [facility] 1, [place], [address], 02/10/2025 14:12:53 02/11/2002/10/2025 CBC RBC 4.74 x10 4.30-5 .90 Not Available [facility] [address] [facility] 1, [place], [address], 02/10/2025 14:12:53 02/11/2002/10/2025 CBC HGB 13.3 g/dL 13.5-1 8.0 low Not Available [facility] [address] [facility] 1, [place], [address], 02/10/2025 14:12:53 02/11/2002/10/2025 CBC HCT 42.0 % 35.0-6 0.0 Not Available [facility] [address] [facility] 1, [place], [address], 02/10/2025 14:12:53 02/11/2002/10/2025 CBC MCV 88.6 fL 80.0-9 9.9 Not Available [facility] [address] [facility] 1, [place], [address], 02/10/2025 14:12:53 02/11/2002/10/2025 CBC MCH 28.0 pg 27.0-3 2.0 Not Available [facility] [address] [facility] 1, [place], [address], 02/10/2025 14:12:53 02/11/2002/10/2025 CBC MCHC 31.6 g/dL 32.0-3 6.0 low Not Available [facility] [address] [facility] 1, [place], [address], 02/10/2025 14:12:53 02/11/2002/10/2025 CBC RDW 14.9 % 11.5-1 4.5 high Not Available [facility] [address] [facility] 1, [place], [address], 02/10/2025 14:12:53 02/11/20 25 02/10/2025 CBC plt 92.5 x10 150.0- 451.0 low Not Available [facility] [address] [facility] 1, [place], [address], 02/10/2025 14:12:53 02/11/20 25 02/10/2025 CBC lymphocytes % 27.6 % 20.0-5 0.0 Not Available [facility] [address] [place] [facility], [place], [address], 02/10/2025 14:12:53 02/11/20 25 02/10/2025 CBC granulcytes % 51.6 % 30.0-7 0.0 Not Available [facility] [address] [place] [facility], [place], [address], 02/10/2025 14:12:53 02/11/2002/10/2025 CBC monocytes % 17.4 % 2.0-16 .0 high Not Available [facility] [address] [address], [place], [address], 02/10/2025 14:12:53 02/11/20 25 02/10/2025 CBC granulcytes# 1.9 x10 Not Radha ilable [facility] [address] [address], [place], [address], 02/10/2025 14:12:53 02/11/20 25 02/10/2025 CBC lymphocytes # 1.0 x10 Not Available [facility] [address] [place] [address] [address], [place], [address], 02/10/2025 14:12:53 02/11/2002/10/2025 CBC monocytes # 0.7 x10 Not Avai lable [facility] [address] [place] [address] [facility] 1, [place], [address], 02/10/2025 14:12:53 02/11/2002/10/2025 TSH TSH 2.56 uIU/m L 0.49-3 .82 Not Available [facility] [address] [place] [address] [facility] 1, [place], [address], 02/10/2025 14:48:01 02/11/2002/10/2025 URINA LYSIS WITH MICRO color YELLOW Not Available [facility] [address] [place] [address] [facility] 1, [place], [address], 02/10/2025 14:50:23 02/11/20 25 02/10/2025 URINA LYSIS WITH MICRO clarity CLEAR Not Available [facility] [address] [place] [address] [facility] 1, [place], [address], 02/10/2025 14:50:23 02/11/20 25 02/10/2025 URINA LYSIS WITH MICRO glu NEGATI VE Not Available [facility] [address] [place] [address] [facility] 1, [place], [address], 02/10/2025 14:50:23 02/11/20 25 02/10/2025 URINA LYSIS WITH MICRO bili 1+ high Not Available [facility] [address] [place] [address] [facility] 1, [place], [address], 02/10/2025 14:50:23 02/11/20 25 02/10/2025 URINA LYSIS WITH MICRO ket NEGATI VE Not Available [facility] [address] [place] [address] [facility] 1, [place], [address], 02/10/2025 14:50:23 02/11/20 25 02/10/2025 URINA LYSIS WITH MICRO S.g 1.020 1.005- 1.025 Not Available [facility] [address] [place] [address], [place], [address], 02/10/2025 14:50:23 02/11/20 25 02/10/2025 URINA LYSIS WITH MICRO pH 6.0 5.0-7. 0 Not Available [facility] [address] [facility] 1, [place], [address], 02/10/2025 14:50:23 02/11/20 25 02/10/2025 URINA LYSIS WITH MICRO pro 1+ high Not Available [facility] [address] [facility] 1, [place], [address], 02/10/2025 14:50:23 02/11/20 25 02/10/2025 URINA LYSIS WITH MICRO uro 1.0 E.U./D L Not Available [facility] [address] [facility] 1, [place], [address], 02/10/2025 14:50:23 02/11/20 25 02/10/2025 URINA LYSIS WITH MICRO nit NEGATI VE Not Available [facility] [address] [facility] 1, [place], [address], 02/10/2025 14:50:23 02/11/20 25 02/10/2025 URINA LYSIS WITH MICRO blo NEGATI VE Not Available [facility] [address] [place] [address], [place], [address], 02/10/2025 14:50:23 02/11/20 25 02/10/2025 URINA LYSIS WITH MICRO rodolfo NEGATI VE Not Available [facility] [address] [place] [address], [place], [address], 02/10/2025 14:50:23 02/11/20 25 02/10/2025 URINA LYSIS WITH MICRO WBC 2-3 Not Available [facility] [address] [facility] 1, [place], [address], 02/10/2025 14:50:23 02/11/20 25 02/10/2025 URINA LYSIS WITH MICRO RBC NEGATI VE Not Available [facility] [address] [facility] 1, [place], [address], 02/10/2025 14:50:23 02/11/20 25 02/10/2025 URINA LYSIS WITH MICRO epi cells 1-2 Not Available [facility] [address] [place] [facility], [place], [address], 02/10/2025 14:50:23 02/11/20 25 02/10/2025 URINA LYSIS WITH MICRO bacteria NEGATI VE Not Available [facility] [address] [place] [facility], [place], [address], 02/10/2025 14:50:23 02/11/20 25 02/10/2025 URINA LYSIS WITH MICRO other NG Not Available [facility] [address] [place] [facility], [place], [address], 02/10/2025 14:50:23 02/11/20 25 02/10/2025 CMP (MALE ) glucose 108.0 mg/dL 60.0-9 9.0 high Not Available [facility] [address] [place] [facility], [place], [address], 02/10/2025 15:08:59 02/11/20 25 02/10/2025 CMP (MALE ) BUN (blood urea nitrogen) 19.0 mg/dL 10.0-2 6.0 Not Available [facility] [address] [place] [address] [facility] 1, [place], [address], 02/10/2025 15:08:59 02/11/20 25 02/10/2025 CMP (MALE ) creatinine (serum) 0.8 mg/dL 0.4-1. 5 Not Available [facility] [address] [facility] 1, [place], [address], 02/10/2025 15:08:59 02/11/20 25 02/10/2025 CMP (MALE ) BUN/creatini ne ratio 23.75 ratio Not Available [facility] [address] [facility] 1, [place], [address], 02/10/2025 15:08:59 02/11/20 25 02/10/2025 CMP (MALE ) eGFR calculated 97.4 Not Available [facility] [address] [facility] 1, [place], [address], 02/10/2025 15:08:59 02/11/20 25 02/10/2025 CMP (MALE ) total protein 7.5 g/dL 6.0-8. 5 Not Available [facility] [address] [facility] 1, [place], [address], 02/10/2025 15:08:59 02/11/20 25 02/10/2025 CMP (MALE ) total bilirubin 1.2 mg/dL 0.2-1. 3 Not Available [facility] [address] [place] [address] [facility] 1, [place], [address], 02/10/2025 15:08:59 02/11/20 25 02/10/2025 CMP (MALE ) albumin 3.5 g/dL 3.5-5. 5 Not Available [facility] [address] [facility] 1, [place], [address], 02/10/2025 15:08:59 02/11/20 25 02/10/2025 CMP (MALE ) globulin 4.0 calc Not Available [facility] [address] [facility] 1, [place], [address], 02/10/2025 15:08:59 02/11/20 25 02/10/2025 CMP (MALE ) AST (SGOT) 64.0 U/L 0.0-46 .0 high Not Available [facility] [address] [facility] 1, [place], [address], 02/10/2025 15:08:59 02/11/20 25 02/10/2025 CMP (MALE ) altv (SGPT) 48.0 U/L 13.0-6 9.0 normal Not Available [facility] [address] [facility] 1, [place], [address], 02/10/2025 15:08:59 02/11/20 25 02/10/2025 CMP (MALE ) A/G ratio 0.9 ratio Not Available [facility] [address] [address], [place], [address], 02/10/2025 15:08:59 02/11/20 25 02/10/2025 CMP (MALE ) ALP phos 316.0 U/L 30.0-1 40.0 abnormal Not Available [facility] [address] [address], [place], [address], 02/10/2025 15:08:59 02/11/20 25 02/10/2025 CMP (MALE ) calcium 9.0 mg/dL 8.4-10 .5 Not Available [facility] [address] [address], [place], [address], 02/10/2025 15:08:59 02/11/20 25 02/10/2025 CMP (MALE ) sodium 137.0 mmol/ L 136.0- 145.0 Not Available [facility] [address] [address], [place], [address], 02/10/2025 15:08:59 02/11/20 25 02/10/2025 CMP (MALE ) potassium 4.3 mmol/ L 3.5-5. 1 Not Available [facility] [address] [facility] 1, [place], [address], 02/10/2025 15:08:59 02/11/20 25 02/10/2025 CMP (MALE ) chloride 103.0 mmol/ L 98.0-1 10.0 normal Not Available [facility] [address] [facility] 1, [place], [address], 02/10/2025 15:08:59 02/11/20 25 02/10/2025 CMP (MALE ) C02 26.0 mmol/ L 22.0-3 1.0 Not Available [facility] [address] [facility] 1, [place], [address], 02/10/2025 15:08:59 02/11/20 25 02/10/2025 CMP (MALE ) anion gap 8.0 calc Not Available [facility] [address] [facility] 1, [place], [address], 02/10/2025 15:08:59 02/11/20 25 02/10/2025 CMP (MALE ) osmolality 285.7 calc Not Available [facility] [address] [address], [place], [address], 02/10/2025 15:08:59 02/11/20 25 02/11/2025 MAGNE SIUM magnesium 2.0 mg/dL 1.5-2. 5 normal Not Available [facility] [address] [place], [address], 02/11/2025 21:08:48 02/11/2002/11/2025 D-DIM ER, QUANT ITATI VE D-dimer, quantitative 1.20 mcg/m L_feu <0.50 high [place] alex D-dim er level s are assoc [...] infor onesimo clements e refer to http: //[facility] jian suarez.Que stDia gnost ics.c om/fa q/FAQ 149 (This link is being provi ded for infor parvez nal/e ducat ional purpo ses only. ) Not Available [facility] [address] [place], [address], 02/11/2025 21:08:48 02/11/20 25 02/11/2025 B TYPE [...] ol. 2002; 40:97 6-982 . Not Available [facility] [address] [place], [address], 02/11/2025 21:08:48 02/11/20 25 02/11/2025 CULTU RE, URINE , ROUTI NE culture, urine, routine SEE NOTE CULTU RE, URINE , ROUTI NE Micro Numbe r: [id number] Test Statu s: Final Speci men [...] Tube, is recom loan d. Not Available [facility] [address] [place], [address], 02/11/2025 21:08:49 02/11/2002/16/2025 GGT GGT 238 U/L 3-70 high Not Available [facility] [address] [place], [address], 02/16/2025 02:20:34 02/11/20 25 02/10/2025 XR, chest , 2 view No observ ation record ed. [facility] ([facility]) [address] [place], [address], 02/10/2025 14:04:54 02/13/20 25 02/10/2025 XR, chest , 2 view No observ ation record ed. [facility] ([facility]) [address] [place], [address], 02/14/2025 08:15:52 02/16/20 25 02/15/2025 US, abdom en, limit ed No observ ation record ed. [facility] [address] [place], [address], 02/15/2025 09:43:49 Result Notes None recorded. 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 It is almost impercept ible. I will send over some erythromy ezekiel ointment and have him follow up with Dr Mendoza as needed for persisten t pain or irritatio n. He verbalize radha resendizmiky logan.; Recorded 3 8:19AM by Erin Sanabria LPN, Office Visit; Promoted; acuity set as *; Not Available [facility] 3 03:07:56 Anxiety disorder 161988879 Active 2022 ERIN garcia, [facility] 4 09:21:19 Depressiv e disorder 69571938 Active 2022 ERIN garcia, [facility] 5 09:02:08 Diverticu litis of colon 670508299 Active 2022 Diverticu litis Of Colon; 3 8:19AM by Erin Sanabria LPN, Office Visit; Promoted; acuity set as *; Not Available [facility] 3 03:07:57 Conductio n disorder of the heart 53354838 Active 2022 Cardiac Dysrhythm ia ERIN garcia, [facility] 4 09:23:30 Cervical radiculop athy 80133378 Active 2022 CERVICAL RADICULOP ATHY; Recorded 3 8:19AM by Erin Sanabria LPN, Office Visit; Promoted; acuity set as *; Not Available [facility] 3 03:07:57 Private referral to cardiolog ist Active [address] Louisa garcia, [facility] 4 09:22:13 Coronary atheroscl erosis 815673405 Active 2023 ERIN garcia, [facility] 4 09:22:43 Myocardia l infarctio n 28137212 Active 2023 non-ST elevation [place] ERIN SANABRIA null, [facility] 4 09:23:12 Atrial fibrillat ion 37092249 Active 2023 JULIANNE TALAMANTES null, [facility] 4 14:10:30 Thrombocy topenic disorder 067906982 Active 2023 Kyle Mendoza MD [address] [place] [address], [address] , [facility] 5 10:15:01 Hyperlipi demia 43804718 Active 2023 Carol Davis null, [facility] 4 13:51:27 Muscle weakness 79827932 Active 2024 Carol Davis null, [facility] 5 11:54:44 Loss of appetite 85289401 Active 2024 Carol Davis null, [facility] 5 15:58:15 Alkaline phosphata se above reference range 867999081 Active 2024 ERIN garcia, [facility] 5 16:04:03 Decrease in appetite 02261545 Active 2024 Carol Davis null, [facility] 5 10:47:27 Nicotine dependenc e 91526594 Active 2024 ERIN SANABRIA null, [facility] 5 09:01:55 Platelet morpholog y - finding 692155334 Active 2024 Kyle Mendoza MD [address] [place] [address], [phone] , [facility] 10:15:11 Chronic neck pain 34952429397 07 Active 2024 Kyle Mendoza MD [address] [place] [address], [address] , [facility] 10:23:31 Right pleural effusion Active 2024 Kyle Mendoza MD [address] [place] [address], [phone] , [facility] 13:53:32 Liver function test above reference range 820239093 Active [address] [facility] 08:39:42 D-dimer above reference range 076757862 Active [address] [facility] 10:01:09 Acute on chronic systolic heart failure 073558532 Active 2024 Kyle Mendoza MD [address] [place] [address], [address] , [facility] 12:47:16 Acute right-masha ed heart failure 404182296 Active 2024 Kyle Mendoza MD [address] [place] [address], [phone] , [facility] 12:47:17 Problem Notes None recorded. Procedures Surgical History Date Name Laterality Status Provider Name and Address Organization Details Recorded Time 10/22/19 17 replacement of aortic valve completed ERIN SANABRIA [facility] 03/11/2024 09:28:37 Cabg vein five completed ERIN SANABRIA [facility] 03/11/2024 09:27:35 cardiovascular stress testing [facility]2024 14:11:05 Imaging Results None recorded. Procedure Notes None recorded. Medical Equipment None Reported. Allergies Allergen ID Allergen Name Allergen Category Reaction Reaction Severity Criticality Documentation Date Start Date Code Code System Note Provider Name and Address Organization Details Recorded Time 05619 Cymbalta medicatio n other Not available Not available 11/02/2022 86041 4 RxNorm React ion: time corre latio n to onset and disco ntinu ation of lymph ocyti c colit is.; Comme nt: Recor ded 06/06 8:19A M by Yadira Mendoza on, VESSEL SLAGMAN, 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 ; Promo alex; Signi fican ce: *; ; Not Available [facility] 3 02:28:27 06229 Lexapro medicatio n other Not available Not available 11/02/2022 07035 1 RxNorm React ion: has been assoc iated with lymph ocyti c colit is; Comme nt: Recor ded 06/06 8:19A M by Yadira Mendoza on, VESSEL SLAGMAN, 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 ; Promo alex; Signi fican ce: *; ; Not Available [facility] 3 02:28:27 Medications Name Sig Start Date [...] by Carol Glez RN (Authori juan through Kyle Mendoza MD), Office Visit; Refill [...] and Address Organization Details Last Updated DateTime 180.34 cm 25 kg/m2 48986.0 3 g 97.6 [degF] 122 /min 98 % 152/68 mm[Hg] ERIN SANABRIA [facility] 12:39:26 Social History Question Answer Notes LastModified by Organizat ion Details LastModified Time Tobacco Smoking Status Never Smoker Chews JULIANNE garcia [facility] 03/11/2024 14:09:15 What Is Your Level Of Caffeine Consumption? Moderate Information not available 12/01/2024 What Was The Date Of Your Most Recent Tobacco Screening? 12/20/2024 [email or web address] Information not available 12/20/2024 Sex: Unknown Functional Status Question Answer Note LastModified by Organizat ion Details LastModified Time Do you use any illicit or recreational drugs? No [email or web address] Information not available 12/01/2024 Do you or have you ever used any other forms of tobacco or nicotine? Yes [email or web address] Information not available 12/20/2024 What is your level of alcohol consumption? None [email or web address] Information not available 12/01/2024 Do you or have you ever used smokeless tobacco? Currently chews tobacco [email or web address] Information not available 12/20/2024 Mental Status None recorded. Family History Relationship Description Onset Age of this Age Resolved Age Notes LastModified by Organization Details LastModified Time Brother Coronary atherosclero sis [email or web address] Not available 03/11 09:25:54 Daughter Coronary atherosclero sis [email or web address] Not available 03/11 09:25:54 Daughter Diabetes mellitus [email or web address] Not available 03/11 09:26:17 Sister Coronary atherosclero sis [email or web address] Not available 03/11 09:25:54 Paternal Grandmother Diabetes mellitus [email or web address] Not available 03/11 09:26:29 Medical History No medical history recorded. Immunizations Vaccine Type Date Status Note Provider Nam e and Address Organization Details Recorded Time Influenza, split virus, trivalent, preservative 0 completed Not Available [facility] 11/02/2022 02:51:54 pneumococcal polysaccharide PPV23 0 completed Not Available [facility] 11/02/2022 02:51:54 COVID-19, mRNA, LNP-S, PF, 100 mcg/0.5mL dose or 50 mcg/0.25mL dose [address] [facility] 02/10/2025 12:39:38 COVID-19, mRNA, LNP-S, PF, 100 mcg/0.5mL dose or 50 mcg/0.25mL dose [address] [facility] 02/10/2025 12:39:39 pneumococcal, unspecified formulation 10/12/200 0 completed Not Available [facility] 02/17/2025 11:20:55 Past Encounters Encounter ID Performer Location Encounter Start Date Encounter Closed Date Diagnosis/Indication Diagnosis SNOMED-CT Code Diagnosis ICD10 Code Diagnosis IMO Codes Diagnosis Note [id number] Kyle Mendoza MD [facility] ([facility]) [address] [place] [address] 02/10/2025 12:29:45 02/11/2025 10:34:27 Dyspnea on exertion 52258259 R06.09 516102 Fever 104483123 R50.9 143130 Chronic at rial fibrillation 866706152 I48.20 619489 Atrial fib rillation with rapid ventricular response 3422643457 10966 I48.91 [id number] please go directly to the ER if chest pain, breathing worsens, heart rate increases at all or feeling worse in any way. the wish to not right now and we will try a diuiretec but if worwening they agree to go. Right pleu ral effusion 5351345549 J90 223103 Acute on c hronic systolic heart failure 688386305 I50.23 163934 Health Concerns Section Related Observation LastModified by Organization Detai ls LastModified Time None Recorded Concern Status LastModified by Organization Details LastModified Time None Recorded Payers Encounter Date Sequence Insurance Name Policy Number Policy Montes De Oca Covered Member ID Montes De Oca Member ID Guarantor Name 02/10/2025 1 [place] Lamar W Ema [id number] Lamar Ema Notes Date Note Type Note Provider Name and Address Organization Details Recorded Time 5 text/html DyspneaReported by PatientHPIFor quality, patient [...] orthopnea for 2 nights. Kyle Mendoza MD [address] [place] [address], [phone], [facility], [place] 02/10/2025 14:03:20
--- OUTSIDE RECORDS SUMMARY | 2025-03-12 19:46 | XMS_ITS | Encounter Summary ---
Author Organization [facility] Address [address] [place] [address] Care Team Providers Care Chemical Laboratory Tester Name Role Phone Fernando Gaines MD Primary Care Provider [phone] Encounter Details Date Type Department Care Team (Late st Contact Info) Description 04/30/2007 Outpatient [facility] Gastroenterology[address] [place] [address] Joel Colvin MD NO ADDRESS ON FILE Social History Tobacco Use Types Packs/Day Years Used Date Smoking Tobacco: Never Assessed Sex and Gender Information Value Date Recorded Sex Assigned at Not on file 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 Pulse: 76. BP: 116/80. HISTORY OF PRESENT ILLNESS: The patient comes in for follow-up of diarrhea. Previous biopsy showed lymphocytic colitis. The patient has responded well to Lomotil two tablets 2-3x daily, Questran 4 gm b.i.d., and Asacol two b.i.d. The patient denies any new problems. He still has some diarrhea, but it is markedly improved. PHYSICAL EXAMINATION: ABDOMEN: soft, minimally tender, with no mass or hepatosplenomegaly. IMPRESSION: Probable lymphocytic colitis. Will recommend continuing his current medications. The patient will follow-up with me in four months. Joel Colvin M.D. Gastroenterology Electronically Signed by Joel Colvin M.D. 05/08/2007 16:42 , A, 223 Job #: Document #: [id number] cc: Estrada Mas M.D. AL CLERK documented in this encounter Plan of Treatment Not on file documented as of this encounter Visit Diagnoses Not on filedocumented in this encounter Care Teams Chemical Laboratory Tester Relationship Specialty Start Date End Date Fernando Gaines MD [address] [phone] PCP - General Family Practice 08/02/13 09/16/19 documented as of this encounter
--- OUTSIDE RECORDS SUMMARY | 2025-03-12 19:46 | XMS_ITS | Encounter Summary ---
Author Organization [facility] Address [address] [place] [address] Care Team Providers Care [employer] Name Role Phone Fernando Gaines MD Primary Care Provider [phone] Encounter Details Date Type Department Care Team (Latest Contact Info) Description 11/05/[address] 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
--- OUTSIDE RECORDS SUMMARY | 2025-03-12 19:46 | XMS_ITS | Encounter Summary ---
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 Gender Identity Not on file Sexual Orientation Not on file documented as of this encounter Plan of Treatment Not on file documented as of this encounter Procedures Procedure Name Priority Date/Time Associated Diagnosis Comments CBC WITH DIFFERENTIAL Routine 10/28/2005 6:20 AM CDT PROTIME-INR Routine 10/28/2005 6:20 AM CDT BASIC METABOLIC PANEL Routine 10/28/2005 6:20 AM CDT PT AND APTT Routine 10/25/2005 8:01 AM CDT CARDIAC ENZYMES Routine 10/25/2005 12:50 AM CDT CBC WITH DIFFERENTIAL Routine 10/25/2005 12:50 AM CDT TSH Routine 10/25/2005 12:50 AM CDT MAGNESIUM LEVEL Routine 10/25/2005 12:50 AM CDT COMPREHENSIVE METABOLIC PANEL Routine 10/25/2005 12:50 AM CDT documented in this encounter Results * PROTIME-INR (10/28/2005 6:20 AM CDT) PROTIME 14.9 12.6 - 14.9 Secs INTERFACE SYSTEM Comment: As of 04 note change in normal range. INR 1.1 INTERFACE SYSTEM Comment: Expected Values for INR: DVT/PE Goal INR 2.5; range 2.0 - 3.0 Valve Replacement Tissue Goal INR 2.5; range 2.0 - 3.0 Mechanical Goal INR 3.0; range 2.5 - 3.5 POST-WI Goal INR 2.5; range 2.0 - 3.0 or Goal 3.0; range 2.5 - 3.5 Atrial Fibrillation Goal INR 2.5; range 2.0 - 3.0 Ischemic Stroke Goal INR 2.5; range 2.0 - 3.0 For additional information see Guidelines for Anticoagulation available from the pharmacy [facility]. 10/28/2005 6:20 AM CDT us Codey Jasso MD HEMATOLOGY ORDERABLES Final Re sult INTERFACE SYSTEM Refer to clinic/hospital department * BASIC METABOLIC PANEL (10/28/2005 6:20 AM CDT) GLUCOSE 105 70 - 110 mg/dL INTERFACE SYSTEM BUN 14 9 - 20 mg/dL INTERFACE SYSTEM CREATININE 0.8 0.7 - 1.5 mg/dL INTERFACE SYSTEM SODIUM 142 136 - 145 mEq/L INTERFACE SYSTEM POTASSIUM 4.0 3.5 - 5.0 mEq/L INTERFACE SYSTEM CHLORIDE 107 95 - 110 mEq/L INTERFACE SYSTEM CO2 28 22 - 32 mmol/l INTERFACE SYSTEM ANION GAP 11 9 - 20 mEq/L INTERFACE SYSTEM OSMOLALITY, CALCULATED 292 275 - 295 mOsm/Kg INTERFACE SYSTEM CALCIUM 9.0 8.4 - 10.5 mg/dL INTERFACE SYSTEM 10/28/2005 6:20 AM CDT Codey Jasso MD CHEMISTRY ORDERABLES Final Res ult INTERFACE SYSTEM Refer to clinic/hospital department * CBC WITH DIFFERENTIAL (10/28/2005 6:20 AM CDT) WBC 6.3 4.8 - 10.8 K/ul INTERFACE SYSTEM RBC 5.06 4.60 - 6.20 Mil/ul INTERFACE SYSTEM HEMOGLOBIN 14.9 14.0 - 18.0 g/dL INTERFACE SYSTEM HEMATOCRIT 44.9 41.0 - 53.0 % INTERFACE SYSTEM MCV 88.7 84.0 - 103.0 Fl INTERFACE SYSTEM MCH 29.4 27.0 - 34.0 pg INTERFACE SYSTEM MCHC 33.2 30.0 - 35.0 g/dL INTERFACE SYSTEM RDW 13.5 11.0 - 14.5 % INTERFACE SYSTEM PLATELETS 176 140 - 440 K/ul INTERFACE SYSTEM MPV 10.8 8.9 - 12.8 Fl INTERFACE SYSTEM NEUTROPHILS 56.4 42.2 - 75.2 % INTERFACE SYSTEM LYMPHOCYTES 28.7 24.0 - 44.0 % INTERFACE SYSTEM MONOCYTES 9.6 2.0 - 10.0 % INTERFACE SYSTEM EOSINOPHILS 4.8 0.0 - 7.0 % INTERFACE SYSTEM BASOPHILS 0.5 0.0 - 1.0 % INTERFACE SYSTEM NEUTROPHIL ABSOLUTE 3.6 2.0 - 8.0 K/uL INTERFACE SYSTEM LYMPHOCYTE ABSOLUTE 1.8 1.2 - 4.0 K/ul INTERFACE SYSTEM MONOCYTE ABSOLUTE 0.6 0.1 - 0.6 K/ul INTERFACE SYSTEM EOSINOPHIL ABSOLUTE 0.3 0.0 - 0.7 K/ul INTERFACE SYSTEM BASOPHILS ABSOLUTE 0.0 0.0 - 0.2 K/ul INTERFACE SYSTEM 10/28/2005 6:20 AM CDT Codey Jasso MD HEMATOLOGY ORDERABLES Final Re sult INTERFACE SYSTEM Refer to clinic/hospital department * PT AND APTT (10/25/2005 8:01 AM CDT) PROTIME 14.7 12.6 - 14.9 Secs INTERFACE SYSTEM Comment: As of 04 note change in normal range. INR 1.1 INTERFACE SYSTEM Comment: Expected Values for INR: DVT/PE Goal INR 2.5; range 2.0 - 3.0 Valve Replacement Tissue Goal INR 2.5; range 2.0 - 3.0 Mechanical Goal INR 3.0; range 2.5 - 3.5 POST-WI Goal INR 2.5; range 2.0 - 3.0 or Goal 3.0; range 2.5 - 3.5 Atrial Fibrillation Goal INR 2.5; range 2.0 - 3.0 Ischemic Stroke Goal INR 2.5; range 2.0 - 3.0 For additional information see Guidelines for Anticoagulation available from the pharmacy [facility] D. PTT 30.7 21.5 - 34.4 Secs INTERFACE SYSTEM Comment: Therapeutic Range: Hi-level PE/DVT heparin protocol 90.1 -110 sec Lo-level PE/DVT heparin protocol 75.1 - 95 sec Cardiac Heparin Protocol 85.1 - 100 sec Neuro Heparin Protocol 70.1 - 85 sec As of 05/01/05 note change in APTT Normal Range. 10/25/2005 8:01 AM CDT Codey Jasso MD HEMATOLOGY ORDERABLES Final Re sult Performing Organization Address [facility] Phone Number INTERFACE SYSTEM Refer to clinic/hospital department * CARDIAC ENZYMES (10/25/2005 12:50 AM CDT) Pathologist [facility] CKMB 1.7 0.0 - 5.0 ng/mL INTERFACE SYSTEM TROPONIN I <0.1 0.0 - 1.5 ng/mL INTERFACE SYSTEM 10/25/2005 12:5 0 AM CDT Codey Jasso MD CHEMISTRY ORDERABLES Final Res ult Performing Organization Address [facility] de Phone Number INTERFACE SYSTEM Refer to clinic/hospital department * TSH (10/25/2005 12:50 AM CDT) Pathologist [facility] TSH 5.175 0.350 - 5.500 uIU/ml INTERFACE SYSTEM Comment: As of 04 at 3:00 p.m. [facility] has changed the methodology for TSH, and with this change the reference range has changed from 0.49-4.67 to 0.35-5.5 uIU/ml. 10/25/2005 12:5 0 AM CDT Codey Jasso MD CHEMISTRY ORDERABLES Final Res ult Performing Organization Address [facility] de Phone Number INTERFACE SYSTEM Refer to clinic/hospital department * MAGNESIUM LEVEL (10/25/2005 12:50 AM CDT) MAGNESIUM 2.2 1.7 - 2.4 mg/dL INTERFACE SYSTEM Comment: As of 05 the [facility] has changed testing methods. The new reference range is 1.7-2.4 The old referance range was 1.6-2.3 10/25/2005 12:5 0 AM CDT Codey Jasso MD CHEMISTRY ORDERABLES Final Res ult Performing Organization Address [facility] de Phone Number INTERFACE SYSTEM Refer to clinic/hospital department * (ABNORMAL) COMPREHENSIVE METABOLIC PANEL (10/25/2005 12:50 AM CDT) GLUCOSE 112(H) 70 - 110 mg/dL INTERFACE SYSTEM BUN 16 9 - 20 mg/dL INTERFACE SYSTEM CREATININE 0.7 0.7 - 1.5 mg/dL INTERFACE SYSTEM SODIUM 141 136 - 145 mEq/L INTERFACE SYSTEM POTASSIUM 4.4 3.5 - 5.0 mEq/L INTERFACE SYSTEM CHLORIDE 108 95 - 110 mEq/L INTERFACE SYSTEM CO2 31 22 - 32 mmol/l INTERFACE SYSTEM ANION GAP 6(L) 9 - 20 mEq/L INTERFACE SYSTEM OSMOLALITY, CALCULATED 292 275 - 295 mOsm/Kg INTERFACE SYSTEM CALCIUM 9.3 8.4 - 10.5 mg/dL INTERFACE SYSTEM TOTAL PROTEIN 7.2 6.3 - 8.2 g/dL INTERFACE SYSTEM ALBUMIN 4.4 3.5 - 5.0 g/dL INTERFACE SYSTEM GLOBULIN (CALC) 2.8 2.4 - 3.9 g/dL INTERFACE SYSTEM ALBUMIN/GLOBULIN RATIO 1.6 1.0 - 2.3 INTERFACE SYSTEM ALKALINE PHOSPHATASE 94 25 - 100 U/L INTERFACE SYSTEM Comment: As of 05 the [facility] has changed testing methods. The new reference range is 25-100 The old referance range was 38-126 AST 27 8 - 33 U/L INTERFACE SYSTEM Comment: As of 05 the [facility] has changed testing methods. The new reference range is 8-33 The old referance range was Males 17-59 Females 14-36 ALT 30 4 - 36 IU/L INTERFACE SYSTEM Comment: As of 05 the [facility] has changed testing methods. The new reference range is 4-36 The old referance range was Males 21-72 Females 9-52 BILIRUBIN TOTAL 0.4 0.3 - 1.2 mg/dL INTERFACE SYSTEM Comment: As of 05 the [facility] has changed testing methods. The new reference range is 0.3-1.2 The old referance range was 0.2-1.4 10/25/2005 12:5 0 AM CDT us Codey Jasso MD CHEMISTRY ORDERABLES Final Res ult INTERFACE SYSTEM Refer to clinic/hospital department * (ABNORMAL) CBC WITH DIFFERENTIAL (10/25/2005 12:50 AM CDT) WBC 8.1 4.8 - 10.8 K/ul INTERFACE SYSTEM RBC 5.07 4.60 - 6.20 Mil/ul INTERFACE SYSTEM HEMOGLOBIN 15.3 14.0 - 18.0 g/dL INTERFACE SYSTEM HEMATOCRIT 45.2 41.0 - 53.0 % INTERFACE SYSTEM MCV 89.2 84.0 - 103.0 Fl INTERFACE SYSTEM MCH 30.2 27.0 - 34.0 pg INTERFACE SYSTEM MCHC 33.8 30.0 - 35.0 g/dL INTERFACE SYSTEM RDW 13.4 11.0 - 14.5 % INTERFACE SYSTEM PLATELETS 200 140 - 440 K/ul INTERFACE SYSTEM MPV 10.7 8.9 - 12.8 Fl INTERFACE SYSTEM NEUTROPHILS 55.2 42.2 - 75.2 % INTERFACE SYSTEM LYMPHOCYTES 29.3 24.0 - 44.0 % INTERFACE SYSTEM MONOCYTES 11.2(H) 2.0 - 10.0 % INTERFA CE SYSTEM EOSINOPHILS 3.8 0.0 - 7.0 % INTERF ASHER SYSTEM BASOPHILS 0.5 0.0 - 1.0 % INTERFAC E SYSTEM NEUTROPHIL ABSOLUTE 4.5 2.0 - 8.0 K/uL INTERFACE SYSTEM LYMPHOCYTE ABSOLUTE 2.4 1.2 - 4.0 K/ul INTERFACE SYSTEM MONOCYTE ABSOLUTE 0.9(H) 0.1 - 0.6 K/ul INTERFACE SYSTEM EOSINOPHIL ABSOLUTE 0.3 0.0 - 0.7 K/ul INTERFACE SYSTEM BASOPHILS ABSOLUTE 0.0 0.0 - 0.2 K/ul INTERFACE SYSTEM PERIPHERAL BLOOD SMEAR REVIEW Automated Diff Automated Diff INTERFACE SYSTEM 10/25/2005 12:5 0 AM CDT Codey Jasso MD HEMATOLOGY ORDERABLES Final Re sult INTERFACE SYSTEM Refer to clinic/hospital department documented in this encounter Visit Diagnoses Diagnosis Paroxysmal supraventricular tachycardia- Primary documented in this encounter Care Teams Corporate Affairs Manager Relationship Specialty Start Date End Date Fernando Gaines MD [address] [phone] PCP - General Family Practice 08/02/13 09/16/19 documented as of this encounter
--- OUTSIDE RECORDS SUMMARY | 2025-03-12 19:46 | XMS_ITS | Continuity of Care Document ---
Author Organization NOEL - Jona Garcia [facility] Lucero, LAnthony, [facility] ([facility]) Address [address] [place] [address] Assessment Encounter Date Assessment Date Assessment LastModified by Organization Details LastModified Time 12/20/2024 12/20/2024 we discussed all normal and [...] to help alleviate his chronic neck pain. Not available 12/20/2024 10:27:10 Plan of Treatment Reminders Order Date Submit Date Provider Last Modified By Organization Details Last Modified Time Details Appointments LAB 2024 07:00A M LAB Not available Not available Not available RECHECK 15 2025 08:30A M Kyle Mendoza MD Not available Not available Not available Lab None recorded. Referral None recorded. Procedures None recorded. Surgeries None recorded. Imaging None recorded. Medication Orders tizanidin e 2 mg tablet 2024 025 [facility] [place], [facility] [place], [address], 02/10/2025 13:17:02 Patient TargetsNo targets recorded. Patient InstructionsNo instructions recorded. Reason for Referral None Reported. Results Created Date Observation Date Name Description Value Unit Range Abnormal Flag Note LastModifiedBy Organization Detail LastModifiedTime 12/02/1912/01/2024 CBC WBC 4.7 x10 4.5-10 .5 Not Available [facility] [address] [facility] 1, [place], [address], 12/01/2024 11:10:42 12/02/1912/01/2024 CBC RBC 4.86 x10 4.30-5 .90 Not Available [facility] [address], [place], [address], 12/01/2024 11:10:42 12/02/1912/01/2024 CBC HGB 14.1 g/dL 13.5-1 8.0 Not Available [facility] [address] [facility] 1, [place], [address], 12/01/2024 11:10:42 12/02/1912/01/2024 CBC HCT 44.4 % 35.0-6 0.0 Not Available [facility] [address] [facility] 1, [place], [address], 12/01/2024 11:10:42 12/02/19 25 12/01/2024 CBC MCV 91.3 fL 80.0-9 9.9 Not Available [facility] [address] [facility] 1, [place], [address], 12/01/2024 11:10:42 12/02/1912/01/2024 CBC MCH 29.1 pg 27.0-3 2.0 Not Available [facility] [address] [facility], [place], [address], 12/01/2024 11:10:42 12/02/1912/01/2024 CBC MCHC 31.8 g/dL 32.0-3 6.0 low Not Available [facility] [address] [facility] 1, [place], [address], 12/01/2024 11:10:42 12/02/19 25 12/01/2024 CBC RDW 14.9 % 11.5-1 4.5 high Not Available [facility] [address] [facility], [place], [address], 12/01/2024 11:10:42 12/02/19 25 12/01/2024 CBC plt 127.2 x10 150.0- 451.0 low Not Available [facility] [address] [facility], [place], [address], 12/01/2024 11:10:42 12/02/19 25 12/01/2024 CBC lymphocytes % 18.8 % 20.0-5 0.0 low Not Available [facility] [address] [address], [place], [address], 12/01/2024 11:10:42 12/02/19 25 12/01/2024 CBC granulcytes % 60.3 % 30.0-7 0.0 Not Available [facility] [address] [place] [address] [address], [place], [address], 12/01/2024 11:10:42 12/02/19 25 12/01/2024 CBC monocytes % 14.2 % 2.0-16 .0 Not Available [facility] [address] [place] [address] [address], [place], [address], 12/01/2024 11:10:42 12/02/19 25 12/01/2024 CBC granulcytes# 2.8 x10 Not Radha ilable [facility] [address] [place] [address] [facility], [place], [address], 12/01/2024 11:10:42 12/02/19 25 12/01/2024 CBC lymphocytes # 0.9 x10 Not Available [facility] [address] [place] [address], [place], [address], 12/01/2024 11:10:42 12/02/19 25 12/01/2024 CBC monocytes # 0.7 x10 Not [facility] [address] [address], [place], [address], 12/01/2024 11:10:42 12/02/19 25 12/01/2024 CMP (MALE ) glucose 125.0 mg/dL 60.0-9 9.0 high Not Available [facility] [address] [address], [place], [address], 12/01/2024 11:49:23 12/02/19 25 12/01/2024 CMP (MALE ) BUN (blood urea nitrogen) 22.0 mg/dL 10.0-2 6.0 Not Available [facility] [address] [address], [place], [address], 12/01/2024 11:49:23 12/02/19 25 12/01/2024 CMP (MALE ) creatinine (serum) 0.8 mg/dL 0.4-1. 5 Not Available [facility] [address] [address], [place], [address], 12/01/2024 11:49:23 12/02/19 25 12/01/2024 CMP (MALE ) BUN/creatini ne ratio 27.50 ratio Not Available [facility] [address] [address], [place], [address], 12/01/2024 11:49:23 12/02/19 25 12/01/2024 CMP (MALE ) eGFR calculated 97.4 Not Available [facility] [address] [address], [place], [address], 12/01/2024 11:49:23 12/02/19 25 12/01/2024 CMP (MALE ) total protein 7.5 g/dL 6.0-8. 5 Not Available [facility] [address] [facility] 1, [place], [address], 12/01/2024 11:49:23 12/02/19 25 12/01/2024 CMP (MALE ) total bilirubin 0.8 mg/dL 0.2-1. 3 Not Available [facility] [address] [facility] 1, [place], [address], 12/01/2024 11:49:23 12/02/19 25 12/01/2024 CMP (MALE ) albumin 4.0 g/dL 3.5-5. 5 Not Available [facility] [address] [address], [place], [address], 12/01/2024 11:49:23 12/02/19 25 12/01/2024 CMP (MALE ) globulin 3.5 calc Not Available [facility] [address] [address], [place], [address], 12/01/2024 11:49:23 12/02/19 25 12/01/2024 CMP (MALE ) AST (SGOT) 35.0 U/L 0.0-46 .0 Not Available [facility] [address] [address], [place], [address], 12/01/2024 11:49:23 12/02/19 25 12/01/2024 CMP (MALE ) altv (SGPT) 22.0 U/L 13.0-6 9.0 normal Not Available [facility] [address] [address], [place], [address], 12/01/2024 11:49:23 12/02/19 25 12/01/2024 CMP (MALE ) A/G ratio 1.1 ratio Not Available [facility] [address] [address], [place], [address], 12/01/2024 11:49:23 12/02/19 25 12/01/2024 CMP (MALE ) ALP phos 151.0 U/L 30.0-1 40.0 abnormal Not Available [facility] [address] [facility] 1, [place], [address], 12/01/2024 11:49:23 12/02/19 25 12/01/2024 CMP (MALE ) calcium 9.2 mg/dL 8.4-10 .5 Not Available [facility] [address] [facility] 1, [place], [address], 12/01/2024 11:49:23 12/02/19 25 12/01/2024 CMP (MALE ) sodium 139.0 mmol/ L 136.0- 145.0 Not Available [facility] [address] [facility] 1, [place], [address], 12/01/2024 11:49:23 12/02/19 25 12/01/2024 CMP (MALE ) potassium 4.2 mmol/ L 3.5-5. 1 Not Available [facility] [address] [facility] 1, [place], [address], 12/01/2024 11:49:23 12/02/19 25 12/01/2024 CMP (MALE ) chloride 106.0 mmol/ L 98.0-1 10.0 normal Not Available [facility] [address] [facility] 1, [place], [address], 12/01/2024 11:49:23 12/02/1912/01/2024 CMP (MALE ) C02 26.0 mmol/ L 22.0-3 1.0 Not Available [facility] [address] [facility] 1, [place], [address], 12/01/2024 11:49:23 12/02/19 25 12/01/2024 CMP (MALE ) anion gap 7.0 calc Not Available [facility] [address], [place], [address], 12/01/2024 11:49:23 12/02/19 25 12/01/2024 CMP (MALE ) osmolality 291.6 calc Not Available [facility] [address], [place], [address], 12/01/2024 11:49:23 12/02/19 25 12/02/2024 PERIP HERAL BLOOD SMEAR REVIE W peripheral blood smear review Revie w of perip heral smear confi jenae autom ated resul ts. Revie w of the perip heral smear revea ls decre ased numbe rs of plate lets. LARGE AND/O R GIANT PLATE LETS Ovalo cytes 1 + Not Available [facility] [address] [address], [place], [address], 12/02/2024 16:38:26 12/02/19 25 12/09/2024 MISSY,I FA, [place] AND RHEUM ATOID ARTHR ITIS PANEL 2, WITH REFLE XES MISSY screen, ifa POSITI VE negati ve abnormal MISSY IFA is a first line scree n for detec ting the prese nce of up to appro ximat aroldo 150 autoa ntibo dies in vario us autoi mmune disea ses. A posit jennfier MISSY IFA resul t is sugge stive of autoi mmune disea se and refle xes to titer , bertha aviles and the 3 tiere d Multi plex 11 Antib roberta [place]. Testi ng in the [place] stops at the first posit jennifer resul t, and does not precl ude addit ional posit jennifer resul ts. Furth er labor atory testi ng may be consi dered if clini doc indic ated. For addit ional infor parvez n, onesimo e refer to http: //[facility] jian n.Que stDia gnost ics.c om/fa q/FAQ 177 (This link is being provi ded for infor parvez oneill/ rudi payne purpo ses only. ) Not Available [address] [address] [place], [address], 12/09/2024 13:35:38 12/02/1912/09/2024 MISSY,I FA, [place] AND RHEUM ATOID ARTHR ITIS PANEL 2, WITH REFLE XES rheumatoid factor <10 IU/mL <14 normal Not Available [address] [address] [place], [address], 12/09/2024 13:35:38 12/02/1912/09/2024 MISSY,I FA, CAS[place] AND RHEUM ATOID ARTHR ITIS PANEL 2, WITH REFLE XES cyclic citrullinate d peptide (ccp) Ab (IgG) <16 units normal Refer ence Range Negat jennifer: <20 Weak Posit jennifer: 20-39 Moder ate Posit jennifer: 40-59 Stron g Posit jennifer: >59 Not Available [address] [address] [place], [address], 12/09/2024 13:35:38 12/02/1912/09/2024 MISSY,I FA, CASCA DE [...] alex pepti de (CCP) . Not Available [address] [address] [place], [address], 12/09/2024 13:35:38 12/02/1912/09/2024 ANTIN UCLEA R ANTIB ODIES TITER AND PATTE RN MISSY titer 1:320 titer high Refer ence Range <1:40 Negat jennifer 1:40- 1:80 Low Antib roberta Level >1:80 [place] alex Antib roberta Level Not Available [address], [address], 12/09/2024 13:35:39 12/02/19 25 12/09/2024 ANTIN UCLEA [...] Patte rns (http [email or web address] [email or web address] [email or web address] 1515/ [facility]- 2017- 0052) Not Available [address], [address], 12/09/2024 13:35:39 12/02/1912/09/2024 TIER 1 DNA (ds) antibody 1 IU/mL normal IU/mL Inter preta tion < or = 4 Negat jennifer 5-9 Indet ermin ate > or = 10 Posit jennifer Not Available [address], [address], 12/09/2024 13:35:39 12/02/1912/09/2024 TIER 1 sm antibody <1.0 NEG ai <1.0 neg normal Not Available [address], [address], 12/09/2024 13:35:39 12/02/19 25 12/09/2024 TIER 1 sm/county court judge antibody <1.0 NEG ai <1.0 neg normal Not Available [address], [address], 12/09/2024 13:35:39 12/02/19 25 12/09/[address] antibody <1.0 NEG ai <1.0 neg normal Not Available [address] [place], [address], 12/09/2024 13:35:39 12/02/1912/09/2024 TIER 1 chromatin (nucleosomal ) antibody <1.0 NEG ai <1.0 neg normal Not Available [address], [address], 12/09/2024 13:35:39 12/02/1912/09/2024 TIER 2 sjogren's antibody (ss-A) <1.0 NEG ai <1.0 neg normal Not Available [address], [address], 12/09/2024 13:35:39 12/02/1912/09/2024 TIER 2 sjogren's antibody (ss-B) <1.0 NEG ai <1.0 neg normal Not Available [address], [address], 12/09/2024 13:35:39 12/02/19 25 12/09/2024 TIER 2 scl-70 antibody <1.0 NEG ai <1.0 neg normal Not Available [address], [address], 12/09/2024 13:35:39 12/02/1912/09/2024 TIER 2 linda-1 antibody <1.0 NEG ai <1.0 neg normal Not Available [address], [address], 12/09/2024 13:35:39 12/02/1912/09/2024 TIER 3 centromere B antibody <1.0 NEG ai <1.0 neg normal Not Available [address], [address], 12/09/2024 13:35:40 12/02/19 25 12/09/2024 TIER 3 ribosomal P antibody <1.0 NEG ai <1.0 neg normal The [place] does not rule out autoi mmune disea se usman cteri zed by other autoa ntibo dy speci ficit ies such as rheum atoid arthr itis, autoi mmune hepat itis, prima ry bilia ry cirrh osis, autoi mmune thyro iditi s, [place] on's disea se, perni cious anemi a, autoi mmune neuro pathi es, vascu litis , akua c disea se and bullo us disea se. Pleas e conta ct your local [facility] labor atory if you are inter ested in addit ional testi ng. Not Available [facility] [address] [address] [place], [address], 12/09/2024 13:35:40 12/02/1912/09/2024 INTER PRETA TION interpretati on All three negat jennifer tiers indic ate the absen ce of detec table antib odies to compo nent kumar tony consi sting of doubl e stran ded DNA (dsDN A), chrom atin, ribon ucleo prote in (WIRE SPLICER) , Zacarias /WIRE SPLICER (Sm/R REGULATORY AFFAIRS STRATEGY SPECIALIST), Zacarias (Sm), SS-A, SS-B, Linda-1, Scl-7 0, centr omere B and ribos omal P. A negat jennifer resul t shoul d be inter prete d in the [place] xt of the clini geoffrey and labor atory findi ngs. Not Available [facility] [address] [address] [address] , [place], [address], 12/09/2024 13:35:40 12/02/1912/09/2024 PROTE IN, TOTAL AND PROTE IN ELECT ROPHO RESIS W/ REFL SHAUNA protein, total 7.1 g/dL 6.1-8. 1 normal Not Available [facility] [address] [address] [place], [address], 12/09/2024 13:35:40 12/02/1912/09/2024 PROTE IN, TOTAL AND PROTE IN ELECT ROPHO RESIS W/ REFL SHAUNA albumin 3.8 g/dL 3.8-4. 8 normal Not Available [facility] [address], [address], 12/09/2024 13:35:40 12/02/1912/09/2024 PROTE IN, TOTAL AND PROTE IN ELECT ROPHO RESIS W/ REFL SHAUNA alpha 1 globulin 0.3 g/dL 0.2-0. 3 normal Not Available [address], [address], 12/09/2024 13:35:40 12/02/1912/09/2024 PROTE IN, TOTAL AND PROTE IN ELECT ROPHO RESIS W/ REFL SHAUNA alpha 2 globulin 0.7 g/dL 0.5-0. 9 normal Not Available [address], [address], 12/09/2024 13:35:40 12/02/19 25 12/09/2024 PROTE IN, TOTAL AND PROTE IN ELECT ROPHO RESIS W/ REFL SHAUNA beta 1 globulin 0.4 g/dL 0.4-0. 6 normal Not Available [address], [address], 12/09/2024 13:35:40 12/02/1912/09/2024 PROTE IN, TOTAL AND PROTE IN ELECT ROPHO RESIS W/ REFL SHAUNA beta 2 globulin 0.4 g/dL 0.2-0. 5 normal Not Available [facility] [address], [address], 12/09/2024 13:35:40 12/02/1912/09/2024 PROTE IN, TOTAL AND PROTE IN ELECT ROPHO RESIS W/ REFL SHAUNA gamma globulin 1.5 g/dL 0.8-1. 7 normal Not Available [facility] [address], [address], 12/09/2024 13:35:40 12/02/19 25 12/09/2024 PROTE IN, TOTAL AND PROTE IN ELECT ROPHO RESIS W/ REFL SHAUNA interpretati on No restr icted band (M-sp lynn) seen. Not Available [address], [address], 12/09/2024 13:35:40 12/02/1912/09/2024 ALKAL INE PHOSP HATAS E ISOEN ZYMES alkaline phosphatase 143 U/L 35-144 Not Available [facility] [address] [address] [place], [address], 12/09/2024 13:35:41 12/02/1912/09/2024 ALKAL INE PHOSP HATAS E ISOEN ZYMES intestinal isoenzymes 11 % 1-24 Not Available [address], [address], 12/09/2024 13:35:41 12/02/1912/09/2024 ALKAL INE PHOSP HATAS E ISOEN ZYMES bone isoenzymes 32 % 28-66 Not Available [facility] [address], [address], 12/09/2024 13:35:41 12/02/1912/09/2024 ALKAL INE PHOSP HATAS E ISOEN ZYMES liver isoenzymes 57 % 25-69 Incre ased intes tinal alkal ine phosp hatas e can be seen in blood group O and B secre tors and after fatty meals . Not Available [facility] [address] [place], [address], 12/09/2024 13:35:41 12/02/1912/09/2024 ALKAL INE PHOSP HATAS E ISOEN ZYMES placental isoenzymes 0 % 0 Not Available [address], [address], 12/09/2024 13:35:41 12/02/1912/09/2024 GGT GGT 205 U/L 3-70 high Not Available [address], [address], 12/09/2024 13:35:41 12/02/1912/09/2024 COMPR EHENS JENNIFER METAB OLIC PANEL glucose 116 mg/dL 65-99 high Fasti ng refer ence inter forrest For someo ne witho ut known diabe tony, a gluco se value betwe en 100 and 125 mg/dL is consi stent with predi abete s and shoul d be confi rmed with a follo w-up test. Not Available [facility] [address], [address], 12/09/2024 13:35:41 12/02/1912/09/2024 COMPR EHENS JENNIFER METAB OLIC PANEL urea nitrogen (BUN) 21 mg/dL 7-25 normal Not Available [facility] [address], [address], 12/09/2024 13:35:41 12/02/1912/09/2024 COMPR EHENS JENNIFER METAB OLIC PANEL creatinine 0.93 mg/dL 0.70-1 .22 normal Not Available [address], [address], 12/09/2024 13:35:41 12/02/1912/09/2024 COMPR EHENS JENNIFER METAB OLIC PANEL eGFR 80 mL/mi n/1.7 3m2 > or = 60 normal Not Available [facility] [address], [address], 12/09/2024 13:35:41 12/02/1912/09/2024 COMPR EHENS JENNIFER METAB OLIC PANEL BUN/creatini ne ratio SEE NOTE: (calc ) 6-22 Not Repor alex: BUN and Creat inine are withi n refer ence range . Not Available [facility] [address], [address], 12/09/2024 13:35:41 12/02/19 25 12/09/2024 COMPR EHENS JENNIFER METAB OLIC PANEL sodium 136 mmol/ L 135-14 6 normal Not Available [address], [address], 12/09/2024 13:35:41 12/02/19 25 12/09/2024 COMPR EHENS JENNIFER METAB OLIC PANEL potassium 4.2 mmol/ L 3.5-5. 3 normal Not Available [address], [address], 12/09/2024 13:35:41 12/02/1912/09/2024 COMPR EHENS JENNIFER METAB OLIC PANEL chloride 103 mmol/ L 98-110 normal Not Available [address], [address], 12/09/2024 13:35:41 12/02/19 25 12/09/2024 COMPR EHENS JENNIFER METAB OLIC PANEL carbon dioxide 27 mmol/ L 20-32 normal Not Available [address], [address], 12/09/2024 13:35:41 12/02/19 25 12/09/2024 COMPR EHENS JENNIFER METAB OLIC PANEL calcium 9.2 mg/dL 8.6-10 .3 normal Not Available [address], [address], 12/09/2024 13:35:41 12/02/19 25 12/09/2024 COMPR EHENS JENNIFER METAB OLIC PANEL protein, total 7.1 g/dL 6.1-8. 1 normal Not Available [address], [address], 12/09/2024 13:35:41 12/02/19 25 12/09/2024 COMPR EHENS JENNIFER METAB OLIC PANEL albumin 3.9 g/dL 3.6-5. 1 normal Not Available [address], [address], 12/09/2024 13:35:41 12/02/1912/09/2024 COMPR EHENS JENNIFER METAB OLIC PANEL globulin 3.2 g/dL_ (calc ) 1.9-3. 7 normal Not Available [address], [address], 12/09/2024 13:35:41 12/02/19 25 12/09/2024 COMPR EHENS JENNIFER METAB OLIC PANEL albumin/glob ulin ratio 1.2 (calc ) 1.0-2. 5 normal Not Available [address], [address], 12/09/2024 13:35:41 12/02/19 25 12/09/2024 COMPR EHENS JENNIFER METAB OLIC PANEL bilirubin, total 0.6 mg/dL 0.2-1. 2 normal Not Available [address], [address], 12/09/2024 13:35:41 12/02/1912/09/2024 COMPR EHENS JENNIFER METAB OLIC PANEL alkaline phosphatase 140 U/L 35-144 normal Not Available [address], [address], 12/09/2024 13:35:41 12/02/19 25 12/09/2024 COMPR EHENS JENNIFER METAB OLIC PANEL AST 20 U/L 10-35 normal Not Available [address], [address], 12/09/2024 13:35:41 12/02/19 25 12/09/2024 COMPR EHENS JENNIFER METAB OLIC PANEL ALT 17 U/L 9-46 normal Not Available [address], [address], 12/09/2024 13:35:41 12/02/19 25 12/09/2024 METHY LMALO [...] cteri stics have been deter mined by [facility]. It has not been clear ed or appro sharee by the FDA. This assay has been valid ated pursu ant to the CLIA regul ation s and is used for clini geoffrey purpo ses. Not Available [facility] [address] [place], [address], 12/09/2024 13:35:42 12/02/19 25 12/09/2024 METHY LMALO EVENS ACID [...] ure to nitro us oxide . Aurelio Hebert, et al. Thao Inter n Med. 1999; 131(5 ):331 -9. Not Available [address] [place], [address], 12/09/2024 13:35:42 12/02/1912/09/2024 C-GRIFFIN CTIVE PROTE IN C-reactive protein 6.4 mg/L <8.0 normal Not Available [address], [address], 12/09/2024 13:35:42 12/02/1912/09/2024 FOLAT E, SERUM folate, serum 13.6 NG/mL normal Refer ence Range Low: <3.4 Borde rline : 3.4-5 .4 Apurva l: >5.4 Not Available [address], [address], 12/09/2024 13:35:42 12/02/1912/09/2024 VITAM IN B12 vitamin B12 1123 pg/mL 200-11 00 high Not Available [address], [address], 12/09/2024 13:35:43 12/02/1912/09/2024 TSH+F REE T4 TSH 2.99 mIU/L 0.40-4 .50 normal Not Available [address], [address], 12/09/2024 13:35:43 12/02/1912/09/2024 TSH+F REE T4 T4, free 1.0 NG/dL 0.8-1. 8 normal Not Available [facility] [address] [place], [address], 12/09/2024 13:35:43 12/02/19 25 12/01/2024 ESR (eryt hrocy te sedim entat ion rate) , blood ESR 20 Not Available [facility] ([facility]) [address] [place], [address], 12/01/2024 12:10:26 01/07/20 25 01/04/2025 US, abdom en, limit ed No observ ation record ed. [facility] [address] [place], [address], 01/07/2025 09:27:39 02/11/20 25 02/10/2025 XR, chest , 2 view No observ ation record ed. [facility] ([facility]) [address] [place], [address], 02/10/2025 14:04:54 02/13/20 25 02/10/2025 XR, chest , 2 view No observ ation record ed. [facility] ([facility]) [address] [place] [address], [address], 02/14/2025 08:15:52 02/16/20 25 02/15/2025 US, abdom en, limit ed No observ ation record ed. [facility] [address] [place], [address], 02/15/2025 09:43:49 Result Notes None recorded. 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 It is almost impercept ible. I will send over some erythromy ezekiel ointment and have him follow up with Dr Mendoza as needed for persisten t pain or irritatio n. He verbalize s martínmiky logan.; Recorded 3 8:19AM by Erin Sanabria LPN, Office Visit; Promoted; acuity set as *; Not Available [facility] 3 03:07:56 Anxiety disorder 580344380 Active 2022 ERIN garcia, [facility] 4 09:21:19 Depressiv e disorder 88797157 Active 2022 ERIN garcia, [facility] 5 09:02:08 Diverticu litis of colon 011895164 Active 2022 Diverticu litis Of Colon; 3 8:19AM by Erin Sanabria LPN, Office Visit; Promoted; acuity set as *; Not Available [facility] 3 03:07:57 Conductio n disorder of the heart 41976209 Active 2022 Cardiac Dysrhythm ia ERIN garcia, [facility] 4 09:23:30 Cervical radiculop athy 05623499 Active 2022 CERVICAL RADICULOP ATHY; Recorded 3 8:19AM by Erin Sanabria LPN, Office Visit; Promoted; acuity set as *; Not Available [facility] 3 03:07:57 Private referral to cardiolog ist Active [address] Louisa garcia, [facility] 4 09:22:13 Coronary atheroscl erosis 262629354 Active 2023 ERIN garcia, [facility] 4 09:22:43 Myocardia l infarctio n 84128551 Active 2023 non-ST elevation RI ERIN SANABRIA null, [facility] 4 09:23:12 Atrial fibrillat ion 15172263 Active 2023 LINDA AISSATOU TALAMANTES null, [facility] 4 14:10:30 Thrombocy topenic disorder 863985316 Active 2023 Kyle Mendoza MD [address] [place] [address], [phone] , [facility] 5 10:15:01 Hyperlipi demia 65687837 Active 2023 Carol Davis null, [facility] 4 13:51:27 Muscle weakness 42952886 Active 2024 Carol Davis null, [facility] 5 11:54:44 Loss of appetite 58374521 Active 2024 Carol Davis null, [facility] 5 15:58:15 Alkaline phosphata se above reference range 790656549 Active 2024 ERIN SANABRIA null, [facility] 5 16:04:03 Decrease in appetite 85730853 Active 2024 Carol Davis null, [facility] 5 10:47:27 Nicotine dependenc e 09819488 Active 2024 ERIN SANABRIA null, [facility] 5 09:01:55 Platelet morpholog y - finding 834333189 Active 2024 Kyle Mendoza MD [address] [place] [address], [id number] , [facility] 5 10:15:11 Chronic neck pain 40853243514 07 Active 2024 Kyle Mendoza MD [address] [place] [address], [id number] , [facility] 10:23:31 Right pleural effusion Active 2024 Kyle Mendoza MD [address] [place] [address], [phone] , [facility] 13:53:32 Liver function test above reference range 319543965 Active [address] [facility] 08:39:42 D-dimer above reference range 778407066 Active [address] [facility] 5 10:01:09 Acute on chronic systolic heart failure 235388158 Active 2024 Kyle Mendoza MD [address] [place] [address], [phone] , [facility] 12:47:16 Acute right-masha ed heart failure 269837743 Active 2024 Kyle Mendoza MD [address] [place] [address], [phone] , [facility] 12:47:17 Problem Notes None recorded. Procedures Surgical History Date Name Laterality Status Provider Name and Address Organization Details Recorded Time 10/22/19 17 replacement of aortic valve completed ERIN SANABRIA [facility] 03/11/2024 09:28:37 Cabg vein five completed ERIN SANABRIA [facility] 03/11/2024 09:27:35 cardiovascular stress testing completed LINDA TALAMANTES [facility] 03/11/2024 14:11:05 Imaging Results None recorded. Procedure Notes None recorded. Medical Equipment None Reported. 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 INSTRUCTOR, 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 ; Promo alex; Signi fican ce: *; ; Not Available [facility] 3 02:28:27 79576 Lexapro medicatio n other Not available Not available 11/02/2022 88145 1 RxNorm React ion: has been assoc iated with lymph ocyti c colit is; Comme nt: Recor ded 06/06 8:19A M by Yadira Mendoza on, RESEARCH INSTRUCTOR, 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 ; Promo alex; Signi fican ce: *; ; Not Available [facility] 3 02:28:27 Medications Name Sig Start Date [...] e daily 03/11 completed 0; Recorded 06/07/19 23 8:19AM by Erin Sanabria [...] Organization Details Last Updated DateTime 180.34 cm 25.1 kg/m2 70781.6 3 g 97.6 [degF] 60 /min 96 % 116/68 mm[Hg] Carol Davis [facility] 10:01:25 Social History Question Answer Notes LastModified by Organizat ion Details LastModified Time Tobacco Smoking Status Never Smoker Chews LINDA TALAMANTES [facility] 03/11/2024 14:09:15 What Is Your Level Of Caffeine Consumption? Moderate [email or web address] Information not available 12/01/2024 What Was The Date Of Your Most Recent Tobacco Screening? 12/20/2024 [email or web address] Information not available 12/20/2024 Sex: Unknown Functional Status Question Answer Note LastModified by Organizat ion Details LastModified Time Do you use any illicit or recreational drugs? No [email or web address] Information not available 12/01/2024 Do you or have you ever used any other forms of tobacco or nicotine? Yes [email or web address] Information not available 12/20/2024 What is your level of alcohol consumption? None Information not available 12/01/2024 Do you or have you ever used smokeless tobacco? Currently chews tobacco [email or web address] Information not available 12/20/2024 Mental Status None recorded. Family History Relationship Description Onset Age of this Age Resolved Age Notes LastModified by Organization Details LastModified Time Brother Coronary atherosclero sis [email or web address] Not available 03/11 09:25:54 Daughter Coronary atherosclero sis [email or web address] Not available 03/11 09:25:54 Daughter Diabetes mellitus [email or web address] Not available 03/11 09:26:17 Sister Coronary atherosclero sis [email or web address] Not available 03/11 09:25:54 Paternal Grandmother Diabetes mellitus [email or web address] Not available 03/11 09:26:29 Medical History No medical history recorded. Immunizations Vaccine Type Date Status Note Provider Nam e and Address Organization Details Recorded Time Influenza, split virus, trivalent, preservative 0 completed Not Available [facility] 11/02/2022 02:51:54 pneumococcal polysaccharide PPV23 0 completed Not Available [facility] 11/02/2022 02:51:54 COVID-19, mRNA, LNP-S, PF, 100 mcg/0.5mL dose or 50 mcg/0.25mL dose 1 [facility]/10[facility] 12:39:38 COVID-19, mRNA, LNP-S, PF, 100 mcg/0.5mL dose or 50 mcg/0.25mL dose [address] [facility] 02/10/2025 12:39:39 pneumococcal, unspecified formulation 0 completed Not Available [facility] 02/17/2025 11:20:55 Past Encounters Encounter ID Performer Location Encounter Start Date Encounter Closed Date Diagnosis/Indication Diagnosis SNOMED-CT Code Diagnosis ICD10 Code Diagnosis IMO Codes Diagnosis Note [id number] Kyle Mendoza MD [facility] ([facility]) [address] [place] [phone] 12/01/2024 09:23:42 12/01/2024 11:21:11 Coronary atherosclerosis 609742361 I25.119 Atrial fibrillation 4943 6004 I48.91 Thrombocyt openic disorder 360853456 D69.6 Polyneuropathy 42718313 G62.89 89614502 Abnormal weight loss 267 534050 R63.4 202687 check bp at home if staying under 100 hold lisinopril Decrease in appetite 643 08858 R63.0 586891 [id number] Kyle Mendoza MD [facility] ([facility]) [address] [place] [address] 12/20/2024 09:46:38 12/20/2024 13:39:21 Nicotine dependence 79646770 F17.220 3014700 Depressive disorder 3548 9007 F32.A 55216 Thrombocyt openic disorder 461562552 D69.6 53398 peripheral smear showed large and/or giant cells. this is mild and will need to be followed. it is in the setting of recent poor nutrition. electropho resis is neg. cbc is otherwise normal as are b-12 and folic acid. normal globulin. normal alk phos isoenzymes . Platelet m orphology - finding 317210372 D69.1 01052376 Gamma-glut amyl transferase above reference range 381427351 R74.8 32251672 Chronic neck pain 872115 9394 107 M54.2 G89.29 947053 Health Concerns Section Related Observation LastModified by Organization Detai ls LastModified Time None Recorded Concern Status LastModified by Organization Details LastModified Time None Recorded Payers Encounter Date Sequence Insurance Name Policy Number Policy Montes De Oca Covered Member ID Montes De Oca Member ID Guarantor Name 12/20/2024 1 [place]ICARE [place] [employer] [id number] [employer] [place] Ema Notes Date Note Type Note Provider Name and Address Organization Details Recorded Time 12/20/2024 text/html Hypertension IM/FMReported by PatientHPIFor quality, patient reportshere for check-up. For associated symptoms, patient reportsno palpitationsandno chest pain. For severity, ([phone]). Kyle Mendoza MD [address] [place] [address], [phone], [facility] 12/20/2024 10:49:41
--- OUTSIDE RECORDS SUMMARY | 2025-03-12 19:46 | XMS_ITS | Encounter Summary ---
Author Organization [facility] Address [address] [place] [address] Care Team Providers Care Muffle Operator Name Role Phone Fernando Gaines MD Primary Care Provider [phone] Reason for Referral * Outpatient Services (Routine) - Closed Specialty Diagnoses / Procedures Referred By Contac t Referred To Contact Diagnoses Brachial neuritis or radiculitis NOS Procedures XR FLUORO NEEDLE GUIDANCE Rohan Thomson MD Phone: tel: fax: Referral ID Status Reason Start Date Expiration Date Visits Re quested Visits Authorized [id number] Closed 04/27/2014 05/28/2015 1 1 ABLE CANTEEN OPERATOR Encounter Details Date Type Department Care Team (Late st Contact Info) Description 04/27/2014 Ancillary Orders [facility] Pain [facility] Procedures [place] [address] [place] [address] [place] [id number] [address] [address] [place] [address] Brachial neuritis or radiculitis NOS (Primary Dx) Social History Tobacco Use Types Packs/Day Years Used Date Smoking Tobacco: Never Smokeless Tobacco: Current Chew Alcohol Use Standard Drinks/Week Comments No 0 (1 standard drink = 0.6 oz pur e alcohol) Sex and Gender Information Value Date Recorded Sex Assigned at Not on file 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 Not on file Not on file Not on file documented as of this encounter Plan of Treatment Not on file documented as of this encounter Results * XR FLUORO NEEDLE GUIDANCE (04/27/2014 1:26 PM PORTABLE CANTEEN OPERATOR) Narrative James Montaño, RT - 04/27/2014 1:26 PM PORTABLE CANTEEN OPERATOR Order information only. Exam was auto-finalized. Rohan Thomson MD DIAGNOSTIC IMAGING ORDERABLES Final Result documented in this encounter Visit Diagnoses Diagnosis Brachial neuritis or radiculitis NOS- Primary Brachial neuritis or radiculitis nos Brachial neuritis or radiculitis NOS Brachial neuritis or radiculitis nos documented in this encounter Care Teams Muffle Operator Relationship Specialty Start Date End Date Fernando Gaines MD [address] [phone] PCP - General Family Practice 08/02/13 09/16/19 documented as of this encounter
--- OUTSIDE RECORDS SUMMARY | 2025-03-12 19:46 | XMS_ITS | Encounter Summary ---
Author Organization [facility] Address [address] [place] [address] Care Team Providers Care Trencher Driver Name Role Phone Fernando Gaines MD Primary Care Provider [phone] Encounter Details Date Type Department Care Team (Latest Contact Info) Description 11/18/2006 Outpatient [facility] Gastroenterology[address] [place] [address] Joel Colvin MD NO ADDRESS ON FILE Diarrhea (Primary Dx); Other Symptoms Involving Digestive System; Abdominal Pain, Unspecified Site Social History Tobacco Use Types Packs/Day Years Used Date Smoking Tobacco: Never Assessed Sex and Gender Information Value Date Recorded Sex Assigned at Not on file 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
--- OUTSIDE RECORDS SUMMARY | 2025-03-12 19:46 | XMS_ITS | Encounter Summary ---
Author Organization [facility] Address [address] [place] [address] Care Team Providers Care Post Adoption Coordinator Name Role Phone Fernando Gaines MD Primary Care Provider [phone] Encounter Details Date Type Department Care Team (Latest Contact Info) Description 12/31/2006 Outpatient [facility] Gastroenterology[address] [place] [address] Joel Colvin MD NO ADDRESS ON FILE Regional Enteritis of Unspecified Site (CMS/HCC) (Primary Dx) Social History Tobacco Use Types Packs/Day Years Used Date Smoking Tobacco: Never Assessed Sex and Gender Information Value Date Recorded Sex Assigned at Not on file Legal 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
--- OUTSIDE RECORDS SUMMARY | 2025-03-12 19:46 | XMS_ITS | Encounter Summary ---
Author Organization [facility] Address [address] [place] [address] Care Team Providers Care Glass Polisher Name Role Phone Fernando Gaines MD Primary Care Provider [phone] Encounter Details Date Type Department Care Team (Latest Contact Info) Description 07/15/2006 Outpatient Historical [facility] Cardiology- [place] [address] [place] [address] Codey Jasso MD NO ADDRESS ON FILE Paroxysmal Supraventricular Tachycardia (Primary Dx); Cor Athrscl-Uns Vessel Social History Tobacco Use Types Packs/Day Years Used Date Smoking Tobacco: Never Assessed Sex and Gender Information Value Date Recorded Sex Assigned at Not on file Legal Sex Male 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
--- OUTSIDE RECORDS SUMMARY | 2025-03-12 19:46 | XMS_ITS | Encounter Summary ---
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); Unspecified Chest Pain; Coronary Atherosclerosis of [place] Coronary Artery Social History Tobacco Use Types Packs/Day Years Used Date Smoking Tobacco: Never Assessed Sex and Gender Information Value Date Recorded Sex Assigned at Not on file 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 Gender Identity Not on file Sexual Orientation Not on file documented as of this encounter Plan of Treatment Not on file documented as of this encounter Procedures Procedure Name Priority Date/Time Associated Diagnosis Comments NM MYOCARD PERF IMAG SPECT MULT Routine 10/18/2005 8:00 AM CDT NM MYOCARD PERF IMAG SPECT MULT Routine 10/18/2005 8:00 AM CDT documented in this encounter Results * NM MYOCARD PERF IMAG SPECT MULT (10/18/2005 8:00 AM CDT) 10/18/2005 8:00 AM CDT Narrative INTERFACE SYSTEM - 10/18/2005 8:00 AM CDT ADENOSINE MYOVIEW STRESS TEST: PROCEDURE: A resting SPECT imaging study was obtained after the patient was injected with 11 mCi Tc-99m (technetium-99m) tetrofosmin. Following this, the patient received 53.1 mg intravenous adenosine accompanied by low-level treadmill exercise. Approximately two minutes into the infusion, the patient was injected with 33 mCi Tc-99m (technetium-99m) tetrofosmin. Repeat SPECT images were then obtained after a brief recovery period. FINDINGS: Lung uptake was within normal limits. There was no significant motion during acquisition. Splanchnic activity was unremarkable. There was no change in heart size following pharmacologic stress. On the immediate post-stress images, there was a moderate decrease in tracer concentration seen at the cardiac apex and a mild decrease in tracer concentration seen along the inferior wall. Tracer was normally distributed throughout the anterior wall, lateral wall, and interventricular septum. On the resting images, essentially identical findings were noted. There were no new perfusion defects noted on the immediate post-stress images compared to the resting images. The gated portion of the study showed good overall left ventricular systolic function with a calculated left ventricular ejection fraction of 54%. Septal hypokinesis was noted. All other kelly contracted vigorously. IMPRESSION: 1. There is no evidence of reversible myocardial ischemia. 2. There are mild to moderate decreases in tracer concentration seen in the inferior wall and cardiac apex. This may reflect previous myocardial scarring in these segments. 3. Normal global left ventricular systolic function with septal hypokinesis. 4. There is no evidence of left ventricular decompensation following pharmacologic stress. [email or web address] cc: Dr. Estrada Mas Dictated By: Codey Jasso M.D. Electronically Signed By: Codey Jasso M.D. Date Signed: 10/21/05 JAW Procedure Note 02/23/2009 ADENOSINE MYOVIEW STRESS TEST: PROCEDURE: A resting SPECT imaging study was obtained after the patient was injectedwith 11 mCi Tc-99m (technetium-99m) tetrofosmin. Following this, the patient received 53.1mg intravenous adenosine accompanied by low-level treadmill exercise. Approximately two minutesinto the infusion, the patient was injected with 33 mCi Tc-99m (technetium-99m) tetrofosmin. RepeatSPECT images were then obtained after a brief recovery period. FINDINGS: Lung uptake was within normal limits. There was no significant motionduring acquisition. Splanchnic activity was unremarkable. There was no change in heart size followingpharmacologic stress. On the immediate post-stress images, there was a moderate decrease in tracerconcentration seen at the cardiac apex and a mild decrease in tracer concentration seen along the inferiorwall. Tracer was normally distributed throughout the anterior wall, lateral wall, andinterventricular septum. On the resting images, essentially identical findings were noted. There were no newperfusion defects noted on the immediate post-stress images compared to the resting images. The gatedportion of the study showed good overall left ventricular systolic function with a calculated leftventricular ejection fraction of 54%. Septal hypokinesis was noted. All other kelly contracted vigorously. IMPRESSION: 1. There is no evidence of reversible myocardial ischemia. 2. There are mild to moderate decreases in tracer concentration seen in theinferior wall and cardiac apex. This may reflect previous myocardial scarring in these segments. 3. Normal global left ventricular systolic function with septal hypokinesis. 4. There is no evidence of left ventricular decompensation followingpharmacologic stress. [email or web address] cc: Dr. Estrada Mas Dictated By: Codey Jasso M.D. Electronically Signed By: Codey Jasso M.D. 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 MEDICATIONS: Zocor, aspirin, nitroglycerin. Resting blood pressure was 132/74 mmHg with a heart rate of 65 beats per minute. Lowest blood pressure was 110/62 mmHg. Peak heart rate achieved was 97 beats per minute. Resting electrocardiogram showed sinus rhythm, T wave inversion in leads I to aVL, V4 to V6. During stress, no new ST-T changes were seen. No significant arrhythmias were noted. 53.1 mg of adenosine were infused intravenously over four minutes at the rate of 140 mcg/kg per minute, along with low-level treadmill exercise. Alpine during the stress, 33 mCi of Tc-99m (technetium-99m) tetrofosmin were injected. The patient reported headache, fullness in chest, flushing in face, and shortness of breath during stress which resolved spontaneously during recovery. IMPRESSION: 1. Satisfactory adenowalk stress in preparation for myocardial perfusion imaging. 2. The patient reported multiple symptoms including headache, fullness in chest, flushing in face, and shortness of breath without associated electrocardiographic changes. 3. Results of myocardial perfusion imaging will be reported separately. [email or web address] Dictated By: Rock De Luna M.D. Electronically Signed By: Rock De Luna M.D. 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 MEDICATIONS: Zocor, aspirin, nitroglycerin. Resting blood pressure was 132/74 mmHg with a heart rate of 65 beats perminute. Lowest blood pressure was 110/62 mmHg. Peak heart rate achieved was 97 beats per minute. Resting electrocardiogram showed sinus rhythm, T wave inversion in leads Vadim aVL, V4 to V6. During stress, no new ST-T changes were seen. No significant arrhythmias werenoted. 53.1 mg of adenosine were infused intravenously over four minutes at therate of 140 mcg/kg per minute, along with low-level treadmill exercise. [place] during the stress, 33 mCiof Tc- 99m (technetium-99m) tetrofosmin were injected. The patient reported headache, fullness in chest, flushing in face, andshortness of breath during stress which resolved spontaneously during recovery. IMPRESSION: 1. Satisfactory adenowalk stress in preparation for myocardial perfusionimaging. 2. The patient reported multiple symptoms including headache, fullness inchest, flushing in face, and shortness of breath without associated electrocardiographic changes. 3. Results of myocardial perfusion imaging will be reported separately. [email or web address] Dictated By: Rock De Luna M.D. Electronically Signed By: Rock De Luna M.D. 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
--- OUTSIDE RECORDS SUMMARY | 2025-03-12 19:46 | XMS_ITS | Encounter Summary ---
Author Organization [facility] Address [address] [place] [address] Care Team Providers Care Cad Draftsman Name Role Phone Fernando Gaines MD Primary Care Provider [phone] Encounter Details Date Type Department Care Team (Latest Contact Info) Description 10/14/2005 Outpatient [facility] [address] [place] [address] Estrada Mas MD NO ADDRESS ON FILE Unspecified Chest Pain (Primary Dx); Other Malaise and Fatigue; Unspecified Hypothyroidism Social History Tobacco Use Types Packs/Day Years Used Date Smoking Tobacco: Never Assessed Sex and Gender Information Value Date Recorded Sex Assigned at Not on file 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
--- NOTE | 2025-03-12 19:47 | ECG_ITS ---
[facility] Test Date: 2025-03-12 Pat Name: Magen Boo Department: Room: 111 Gender: Male Electronic Organ Technician: : 1940 Requested By: Rohan Goldberg Order Number: [id number] Blanca MD: Giuseppe Amaya M.D. Measurements Intervals [place] Rate: 145 P: 0 CA: 0 QRS: 57 QRSD: 90 T: 163 QT: 276 QTc: 430 Interpretive Statements ATRIAL FIBRILLATION WITH RAPID VENTRICULAR RESPONSE WITH ABERRANT CONDUCTION OR VENTRICULAR PREMATURE COMPLEXES ST DEVIATION AND MODERATE T-WAVE ABNORMALITY, CONSIDER LATERAL ISCHEMIA [-0.1+ mV T-WAVE IN I/aVL/V5/V6] ST DEVIATION AND MODERATE T-WAVE ABNORMALITY, CONSIDER INFERIOR ISCHEMIA [-0.1+ mV T-WAVE IN II/aVF] Compared to ECG 03/21/2015 11:30:06 Ventricular premature complex(es) now present ST depression has increased T wave inversions have decreased atrial fibrillation with RVR has replaced normal sinus rhythm Electronically Signed On 03-16-2025 22:18:11 [employer] by Giuseppe Amaya M.D. [id number]
--- NOTE | 2025-03-12 19:58 | XRR_ITS ---
PROCEDURE INFORMATION: Exam: XR Chest Exam date and time: 03/12/2025 8:18 PM Age: 84 years old Clinical indication: Shortness of breath; Chest pressure; Prior surgery; Surgery date: 6+ months; Surgery type: Cabg. Avr; Chest pain with SOB and tachycardia; Additional info: Cp SOB TECHNIQUE: Imaging protocol: Radiologic exam of the chest. Views: 1 view. COMPARISON: CR XR chest 2V* [id number] 02/10/2025 12:29 PM FINDINGS: Lungs: Hazy/patchy airspace opacity in the right lung base, stable to worsened compared to 02/10/2025. Pleural spaces: Probable right pleural effusion. No evidence of pneumothorax. Heart/Mediastinum: Allowing for projection, cardiomediastinal silhouette is midline and stable in size. Bones/joints: Postsurgical changes of prior median sternotomy. XR/XR chest 1V portable [id number] IMPRESSION: 1. Hazy/patchy airspace opacity in the right lung base, stable to worsened compared to 02/10/2025. This may represent atelectasis or infectious infiltrate. 2. Probable right pleural effusion.
[2025-03-12 20:07] LABS: Hematocrit 43.3 % (37-53); Hemoglobin 13.50 g/dL (11.27-16.99); Mean Corpuscular HGB Conc 31.2 g/dL (30-55); Mean Corpuscular Hemoglobin 26.5 pg (27-33); Mean Corpuscular Volume 85.1 fl (82-101); Nucleated Red Blood Cells % 0 %; Platelet Count 68 10^3/cmm (157-399); Red Blood Count 5.09 10^6/uL (3.85-5.65); White Blood Count 6.63 10^3/uL (3.29-11.43)
[2025-03-12] MEDS: FUROsemide 10 mg/mL SDV 4mL 40 MG IVP (20:08)
[2025-03-12] MEDS: dilTIAZem 5 mg/mL SDV 5 mL 20 MG IVP (20:08)
[2025-03-12 20:14] LABS: ABG PCO2 33.2 mmHg (35-45); ABG PH Result 7.43 (7.35-7.45); Arterial Blood Gas Hematocrit 41.5 % (42-52); Blood Gas Allen Test Pos; Blood Gas LPM 4.0 %; Blood Gas Operator Identificat gerca; Blood Gas Sample Site Radial, left; Blood Gas Sample Type Arterial; HCO3 ABG 22.1 mmol/L (22-26); PO2 ABG 60.8 mmHg (80.0-100.0); PO2 FiO2 Ratio Arterial Blood 168
[2025-03-12] MEDS: DILTIAZEM HCL/D5W 125 MG/125 ML BAG IV (20:16)
[2025-03-12 20:23] LABS: INR 1.11 (0.8-1.2); Prothrombin Time 15.10 SECONDS (12.1-14.9)
[2025-03-12 20:24] LABS: Partial Thromboplastin Time 44.4 SECONDS (23.9-36.7)
[2025-03-12 20:31] LABS: Troponin(5th) Baseline 42 ng/L (0-15)
[2025-03-12 20:33] LABS: Glucose Urine UA Negative (Normal); Nitrate Urine Negative (Negative); Specific Gravity, Urine 1.019 (1.005-1.030)
[2025-03-12 20:40] LABS: Alanine Aminotransferase 25 U/L (0-41); Albumin Level 3.4 g/dL (3.5-5.2); Alkaline Phosphatase 408 U/L (40-130); Anion Gap 14.3 (5-19); Aspartate Amino Transferase 50 U/L (0-40); Blood Urea Nitrogen 19 mg/dL (8-23); Calcium 9.0 mg/dL (8.5-10.5); Carbon Dioxide 24 mmol/L (22-29); Chloride 103 mmol/L (98-107); Globulin 3.7 g/dL (1.3-4.6); Glucose 129 mg/dL (65-115); NT Pro B Type Natriuretic Pept 4471 pg/mL (0-450); Osmolality Calculated 288 mOsm/kg (285-295); Potassium 4.3 mmol/L (3.5-5.1); Sodium 137 mmol/L (136-145); Total Protein 7.1 g/dL (6.6-8.7)
[2025-03-12] MEDS: ondansetron 2 mg/ML SDV 2 mL 4 MG IVP (21:32)
[2025-03-12] MEDS: cefTRIAXone 1,000 mg SDV 1000 MG IVP (21:32)
--- NOTE | 2025-03-12 21:42 | W.ED.ARRPALP ---
HPI - Arrhythmia/Palpitations General: Chief Complaint: Arrhythmia/Palpitations Stated Complaint: High HR N/V Chills Can't Catch breath Time Seen by Provider: 03/12/25 19:50 History of Present Illness: Patient is an 84-year-old male who presented with acute tachycardia and respiratory distress that began around 4:30-5:00 PM today. The patient reports he just can't breathe and has been experiencing coughing episodes that lead to gagging and vomiting. Per family member, the patient has not been good for a while. Patient has vomited multiple times today, including after drinking cranberry tea. The patient denies chest pain and fever, though family notes he feels a little flush. There is mention of wet-sounding respirations. The patient's medication regimen was recently modified, with spironolactone being changed and discontinuation of anticoagulation therapy ( apixaban) on Friday due to thrombocytopenia. Related Data Home Medications ?Medication ?Instructions ?Recorded ?Confirmed acetaminophen 650 mg 650 mg PO Q12H 03/20/23 03/09/25 tablet,extended release (Tylenol 8 Hour) fluoxetine 10 mg tablet 10 mg PO DAILY 07/29/24 03/09/25 lidocaine 5 % topical patch 1 patch topical DAILY 07/29/24 03/09/25 pantoprazole 40 mg tablet,delayed 40 mg PO DAILY 07/29/24 03/09/25 release furosemide 20 mg tablet (Lasix) 20 mg PO DAILY 03/09/25 03/09/25 spironolactone 25 mg tablet 12.5 mg PO DAILY 03/09/25 03/09/25 Previous Rx's ?Medication ?Instructions ?Recorded apixaban 2.5 mg tablet 2.5 mg PO BID #180 tabs 03/09/25 Held on 03/09/25. Instructions: thrombocytopenia carvedilol 3.125 mg tablet 3.125 mg PO BID #60 tabs 03/09/25 lisinopril 2.5 mg tablet 2.5 mg PO DAILY #60 tabs 03/09/25 Allergies Allergy/AdvReac Type Severity Reaction Status Date / Time No Known Allergies Allergy Verified 03/12/25 19:52 PFSH ED PFSH: Medical History Anticoagulation adequate Atrial fibrillation Coronary artery disease Palpitations BPH (benign prostatic hyperplasia) Chronic neck pain Chronic shortness of breath ASHD (arteriosclerotic heart disease) Myocardial infarction Dyslipidemia H/O Caro's palsy Surgical History S/P hernia repair S/P appendectomy S/P CABG (coronary artery bypass graft) S/P PTCA (percutaneous transluminal coronary angioplasty) S/P AVR (aortic valve replacement) Bioprosthetic open aortic valve replacement Family History Father CAD (coronary artery disease) Brother CAD (coronary artery disease) Social History (Updated 03/12/25 @ 23:37 by Cameron Quintanilla MD) Smoking and tobacco/nicotine status: never used tobacco/nicotine Alcohol intake: never Substance/Drug Use: never Additional social history: I discussed CODE STATUS with patient and his daughter Litzy eduardo and he requests DNR on 03/12/2025 with Cameron Quintanilla MD Household members: spouse Marital status: Physical Exam Const: GENERAL APPEARANCE: cooperative, ill appearing and frail appearing (mildly) HENMT: COMMON NORMALS: normocephalic, atraumatic and Normal external nose present HEAD & SCALP: normocephalic and atraumatic FACE & SINUS: normal facial exam and face symmetric NOSE: Normal external nose present Eye: COMMON NORMALS: Equal, round and reactive pupils present and EOMs intact bilaterally PUPIL: Yes Equal, round and reactive pupils present Neck/C-Spine: GENERAL: Yes trachea midline Chest: CHEST: Yes Symmetrical chest wall rise Resp: EFFORT & INSPECTION: Yes symmetric chest movement and Yes tachypneic AUSCULTATION: rales and diminished lung sounds Cardio: RATE: tachycardic RHYTHM: abnormal rhythm irregularly irregular GI: COMMON NORMALS: Normal to inspection, nondistended, normoactive bowel sounds present Extremity: NARRATIVE EXTREMITY EXAM: minimal edema Neuro: JENNIFER COMA SCALE: document GCS findings Jennifer coma scale eye opening: Spontaneous Lincoln coma scale verbal response: Orientated Lincoln coma scale motor response: Obey commands Jennifer coma scale total score: 15 SENSORY EXAM: Yes extremities (intact) Course Vital Signs: Vital signs: Vital Signs Temperature 99.0 F 03/12/25 19:40 Pulse Rate 96 03/12/25 23:22 Respiratory Rate 20 H 03/12/25 23:22 Blood Pressure 123/71 03/12/25 23:22 Pulse Oximetry 95 03/12/25 23:22 Oxygen Delivery Me thod Heated High Flow 03/12/25 22:43 Oxygen Flow Rate 40 03/12/25 22:43 Fraction of Inspir ed Oxygen 50 03/12/25 22:43 MDM - Arrhythmia/Palpitations Medical Decision Making 84-year-old male, who is quite spry and functional evidently. He presents with atrial fibrillation, RVR, and profound shortness of breath. He is normally not on oxygen. He is on 4 L to 5 L currently, with sats in the high 80s. Initially, heart rate was in the 140s to 160s. He was given a bolus of diltiazem which helped significantly. Was started at 5. For a while his heart rate was around 90-100. It has since come up. He is on 10 now. Bolusing 20, as he continues to spike high heart rates. His blood pressure is remained stable. He undergoes coughing fits with a couple of episodes of vomiting. He is gotten some Zofran for this. His CBC shows a platelet count of 68 which is ongoing. BMP is normal. His alk phos is 408 which is significant. AST of 50. Total bilirubin 1.3. Urinalysis is negative. BNP is 4400. First troponin is 42. Chest x-ray reveals a right sided infiltrate in the base. He has a probable right sided pleural effusion as well. He is given IV Lasix. He has a history of EF of 35% recently. He has begun to put out some urine. He is struggling to urinate, so Tellez is placed in the ER. He is given antibiotics for the infiltrate. Obviously has not undergone a sepsis bolus, as his BNP is significantly elevated and clinically he is wet. Spoke with the hospitalist. He will go to the [facility] we may end up having to move to BiPAP if he does not begin to oxygenate better. Placed on heated high flow nasal cannula with much better oxygenation. Patient is much more comfortable at this point. Heart rate has improved. Lab Data 03/12/25 19:57 03/12/25 19:57 Radiology Impressions Chest X-Ray 03/12/25 19:58 IMPRESSION: 1. Hazy/patchy airspace opacity in the right lung base, stable to worsened compared to 02/10/2025. This may represent atelectasis or infectious infiltrate. 2. Probable right pleural effusion. Laboratory Results WBC 6.63 10^3/uL (3.29-11.43) 03/12/25 19:57 RBC 5.09 10^6/uL (3.85-5.65) 03/12/25 19:57 Hgb 13.50 g/dL (11.27-16.99) 03/12/25 19:57 Hct 43.3 % (37-53) 03/12/25 19:57 MCV 85.1 fl (82-101) 03/12/25 19:57 MCH 26.5 pg (27-33) L 03/12/25 19:57 MCHC 31.2 g/dL (30-55) 03/12/25 19:57 RDW 15.9 % (12.1-15.1) H 03/12/25 19:57 Plt Count 68 10^3/cmm (157-399) L 03/12/25 19:57 MPV 12.1 fL (7.4-10.4) H 03/12/25 19:57 Neut % (Auto) 67.8 % 03/12/25 19:57 Lymph % (Auto) 21.4 % 03/12/25 19:57 Rooks % (Auto) 9.2 % 03/12/25 19:57 Eos % (Auto) 0.5 % 03/12/25 19:57 Baso % (Auto) 0.8 % 03/12/25 19:57 Neut # (Auto) 4.50 10^3/uL (1.8-7.7) 03/12/25 19:57 Lymph # (Auto) 1.4 10^3/uL (0.8-4.8) 03/12/25 19:57 Rooks # (Auto) 0.6 10^3/uL (0.2-0.9) 03/12/25 19:57 Eos # (Auto) 0.0 10^3/uL (0.0-0.8) 03/12/25 19:57 Baso # (Auto) 0.1 10^3/uL (0.0-0.1) 03/12/25 19:57 Nucleated RBC % (auto) 0 % 03/12/25 19:57 Nucleated RBCs # 0.0 /100WBC 03/12/25 19:57 PT 15.10 SECONDS (12.1-14.9) H 03/12/25 19:57 INR 1.11 (0.8-1.2) 03/12/25 19:57 APTT 44.4 SECONDS (23.9-36.7) H 03/12/25 19:57 Specimen Type Arterial 03/12/25 20:03 Sample Site Radial, left 03/12/25 20:03 ABG pH 7.43 (7.35-7.45) 03/12/25 20:03 ABG pCO2 33.2 mmHg (35-45) L 03/12/25 20:03 ABG pO2 60.8 mmHg (80.0-100.0) L 03/12/25 20:03 ABG PO2/FiO2 Ratio 168 03/12/25 20:03 ABG HCO3 22.1 mmol/L (22-26) 03/12/25 20:03 ABG Base Excess -1.5 mmol/L (-2.0-2.0) 03/12/25 20:03 Robert Test Pos 03/12/25 20:03 Hematocrit 41.5 % (42-52) L 03/12/25 20:03 O2 Delivery Device Nc 03/12/25 20:03 O2 Liters/Min 4.0 % 03/12/25 20:03 FiO2 36.0 % 03/12/25 20:03 Import Customs Clearing Agent ID sohan 03/12/25 20:03 Sodium 137 mmol/L (136-145) 03/12/25 19:57 Potassium 4.3 mmol/L (3.5-5.1) 03/12/25 19:57 Chloride 103 mmol/L (98-107) 03/12/25 19:57 Carbon Dioxide 24 mmol/L (22-29) 03/12/25 19:57 Anion Gap 14.3 (5-19) 03/12/25 19:57 BUN 19 mg/dL (8-23) 03/12/25 19:57 Creatinine 0.9 mg/dL (0.7-1.2) 03/12/25 19:57 GFR Calculation Not Reportable 03/12/25 19:57 Glucose 129 mg/dL (65-115) H 03/12/25 19:57 Calculated Osmolality 288 mOsm/kg (285-295) 03/12/25 19:57 Calcium 9.0 mg/dL (8.5-10.5) 03/12/25 19:57 Phosphorus 3.6 mg/dL (2.5-4.5) 03/12/25 19:57 Magnesium 2.0 mg/dL (1.7-2.3) 03/12/25 19:57 Total Bilirubin 1.3 mg/dL (0.15-1.2) H 03/12/25 19:57 AST 50 U/L (0-40) H 03/12/25 19:57 ALT 25 U/L (0-41) 03/12/25 19:57 Alkaline Phosphatase 408 U/L (40-130) H 03/12/25 19:57 Troponin T Baseline 42 ng/L (0-15) H 03/12/25 19:57 Troponin T 120 Minute 112.4 ng/L (0-15) H 03/12/25 21:47 Delta Troponin T 70.4 ABS# (0-10) H* 03/12/25 21:47 NT-Pro-B Natriuret Pep 4471 pg/mL (0-450) H 03/12/25 19:57 Total Protein 7.1 g/dL (6.6-8.7) 03/12/25 19:57 Albumin 3.4 g/dL (3.5-5.2) L 03/12/25 19:57 Globulin 3.7 g/dL (1.3-4.6) 03/12/25 19:57 TSH 4.90 uIU/mL (0.27-4.20) H 03/12/25 19:57 Urine Color Dark yellow (Yellow) A 03/12/25 20:15 Urine Appearance Clear (CLEAR) 03/12/25 20:15 Urine pH 5.5 (5-7) 03/12/25 20:15 Ur Specific [place] 1.019 (1.005-1.030) 03/12/25 20:15 Urine Protein 1+ (Negative) A 03/12/25 20:15 Urine Glucose (UA) Negative (Normal) 03/12/25 20:15 Urine Ketones Negative (Negative) 03/12/25 20:15 Urine Blood Negative (Negative) 03/12/25 20:15 Urine Nitrate Negative (Negative) 03/12/25 20:15 Urine Bilirubin Negative (Negative) 03/12/25 20:15 Urine Urobilinogen 1.0 mg/dL (Negative) 03/12/25 20:15 Ur Leukocyte Esterase Negative (Negative) 03/12/25 20:15 Urine RBC 0-2 /hpf (0-2) 03/12/25 20:15 Urine WBC 0-5 /hpf (0-5) 03/12/25 20:15 Ur Squamous Epith Cells 0-5 /hpf (0-5) 03/12/25 20:15 Amorphous Sediment Not Reportable 03/12/25 20:15 Urine Bacteria None seen /hpf (NONE) 03/12/25 20:15 Hyaline Casts 4.95 /lpf 03/12/25 20:15 Adenovirus (PCR) Not detected (NOT DETECT) 03/12/25 20:16 C. pneumoniae DNA (PCR) Not detected (NOT DETECT) 03/12/25 20:16 Coronavirus 229E (PCR) Not detected (NOT DETECT) 03/12/25 20:16 Human Metapneumovir PCR Not detected (NOT DETECT) 03/12/25 20:16 Influenza A (H1) PCR Not detected (NOT DETECT) 03/12/25 20:16 Influ A (H1/09) PCR Not detected (NOT DETECT) 03/12/25 20:16 Influenza A (H3) PCR Not detected (NOT DETECT) 03/12/25 20:16 Influenza Type A (PCR) Not detected (NOT DETECT) 03/12/25 20:16 Influenza Type B (PCR) Not detected (NOT DETECT) 03/12/25 20:16 M. pneumoniae (PCR) Not detected (NOT DETECT) 03/12/25 20:16 Parainfluenza 1 (PCR) Not detected (NOT DETECT) 03/12/25 20:16 Parainfluenza 2 (PCR) Not detected (NOT DETECT) 03/12/25 20:16 Parainfluenza 3 (PCR) Not detected (NOT DETECT) 03/12/25 20:16 Parainfluenza 4 (PCR) Not detected (NOT DETECT) 03/12/25 20:16 RSV Type A (PCR) Not detected (NOT DETECT) 03/12/25 20:16 RSV Type B (PCR) Not detected (NOT DETECT) 03/12/25 20:16 Entero/Rhino (PCR) Not detected (NOT DETECT) 03/12/25 20:16 SARS-CoV-2 (PCR) Not detected (NOT DETECT) 03/12/25 20:16 All radiology interpretation(s) finalized by discharge EKG Data EKG 1: Interpretation: EKG time 194 read 1950. Atrial fibrillation with RVR. Rate is 140. QTc 360. [place] remains normal. Significant lateral ST depression in the precordial leads Other EKG comments: Chest X-Ray 03/12/25 19:58 IMPRESSION: 1. Hazy/patchy airspace opacity in the right lung base, stable to worsened compared to 02/10/2025. This may represent atelectasis or infectious infiltrate. 2. Probable right pleural effusion. Critical Care Time Critical Care Time: Critical Care Time: Yes Total Critical Care Time: 40 Attestation: This case had a high probability of a clinically significant, sudden, or life threatening deterioration of this patient's condition which required my full and direct attention, intervention and personal management. Time is independent of any procedures performed Discharge Plan Discharge Patient Disposition: Admitted As Inpatient Admit Provider: Cameron Quintanilla Clinical Impression: Atrial fibrillation with rapid ventricular response, Pneumonia, Acute hypoxemic respiratory failure Condition: Serious Coding Level of Care Code ED [employer] Lathe Operator for Mariza Amanda
--- NOTE | 2025-03-12 21:58 | ECG_ITS ---
[facility]: [facility]25-03-12 Pat Name: Magen Boo Department: Room: 111 Gender: Male Cloth Printer: : 1940 Requested By: Rohan Goldberg Order Number: [id number] Blanca MD: Israel King M.D. Measurements Intervals [place] Rate: 96 P: 0 VA: 0 QRS: 40 QRSD: 114 T: 47 QT: 379 QTc: 481 Interpretive Statements ATRIAL FIBRILLATION WITH ABERRANT CONDUCTION OR VENTRICULAR PREMATURE COMPLEXES MODERATE INTRAVENTRICULAR CONDUCTION DELAY [110+ ms QRS DURATION] NONSPECIFIC T-WAVE ABNORMALITY ABNORMAL RHYTHM ECG Compared to ECG 03/21/2015 11:30:06 Ventricular premature complex(es) now present Aberrant conduction of supraventricular beat(s) now present Intraventricular conduction delay now present T-wave abnormality now present Sinus rhythm no longer present Left ventricular hypertrophy no longer present ST (T wave) deviation no longer present Electronically Signed On 03-17-2025 18:24:45 [employer] B[employer] MIXER by Israel King M.D. [email or web address]
[2025-03-12 22:39] LABS: Magnesium 2.0 mg/dL (1.7-2.3); Thyroid Stimulating Hormone 4.90 uIU/mL (0.27-4.20)
--- NOTE | 2025-03-12 23:24 | PM.HP ---
Providers/Chief Complaint Admitting Physician: Cameron Quintanilla MD Primary Care Provider: Kyle Mendoza MD Chief Complaint: High HR N/V Chills Can't Catch breath History of Present Illness Magen Boo is a 84 year old male with chronic atrial fibrillation previously on apixaban recently stopped due to low platelet. He is and lives with his Emma. He is accompanied currently by his daughter Litzy. 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 Patient has been increasingly weak and dyspneic on exertion for the last 1 year. Since January he has required a lift chair to get him up on his feet. He still gets in his commode and goes to [employer] in the shop but his ambulation is slowed. Patient complains that his breathing is bad or he cannot breathe. He denies chest pain nausea vomiting. Daughter Litzy states that he vomited earlier. Patient sees Dr. Tabares but also saw Dinah Yepez March 09, 2025. LVEF on December 2023 revealed 35% LVEF and patient underwent Lexiscan stress test which showed moderate ischemia in the LAD territory he was treated with medical management due to lack of chest pain patient was treated with Entresto but had diarrhea so that medication was stopped. Lisinopril was started and carvedilol was uptitrated and echo in 2024 showed EF was up to 45 to 50% patient had four-way bypass and up prosthetic pig valve replacement 2016. Recent chest x-ray shows pulmonary vascular congestion in February and this was seen again today on 03/12/2025 with a right pleural effusion small possibly loculated. Patient has peripheral vascular disease in her right foot ulcer followed with Dr. Briggs. Patient is intended to have an angiogram with Dr. Tabares for possible stent. Patient has had 30 pound weight loss, low platelets and meds changed to include carvedilol down to 3.125 mg twice a day from 6.25 and apixaban decreased to 2.5 mg twice a day lisinopril down to 2.5 mg daily from 5 mg. Spironolactone started at 12.5 mg daily Review of Systems Narrative: General No fevers chills Cardiovascular no chest pain positive for palpitations Respiratory positive for shortness of breath some yellow phlegm positive for dyspnea on exertion GI positive for nausea vomiting this morning no dysuria hematuria Neuro no seizures or strokes he has generalized weakness in the legs Medications/Allergies Home Medications ?Medication ?Instructions ?Recorded ?Confirmed ?Last Taken ?Type acetaminophen 650 mg 650 mg PO Q12H 03/20/23 03/09/25 Unknown History tablet,extended release (Tylenol 8 Hour) fluoxetine 10 mg tablet 10 mg PO DAILY 07/29/24 03/09/25 Unknown History lidocaine 5 % topical patch 1 patch topical DAILY 07/29/24 03/09/25 Unknown History pantoprazole 40 mg tablet,delayed 40 mg PO DAILY 07/29/24 03/09/25 Unknown History release apixaban 2.5 mg tablet 2.5 mg PO BID #180 tabs 03/09/25 03/09/25 Unknown Rx Held on 03/09/25. Instructions: thrombocytopenia carvedilol 3.125 mg tablet 3.125 mg PO BID #60 tabs 03/09/25 03/09/25 Unknown Rx furosemide 20 mg tablet (Lasix) 20 mg PO DAILY 03/09/25 03/09/25 Unknown History lisinopril 2.5 mg tablet 2.5 mg PO DAILY #60 tabs 03/09/25 03/09/25 Unknown Rx spironolactone 25 mg tablet 12.5 mg PO DAILY 03/09/25 03/09/25 Unknown History Allergies Allergy/AdvReac Type Severity Reaction Status Date / Time No Known Allergies Allergy Verified 03/12/25 19:52 PFSH Acute PFSH: Medical History (Updated 03/12/25 @ 22:03 by Rohan Florence DO) Anticoagulation adequate Atrial fibrillation Coronary artery disease Palpitations BPH (benign prostatic hyperplasia) Chronic neck pain Chronic shortness of breath ASHD (arteriosclerotic heart disease) Myocardial infarction Dyslipidemia H/O Caro's palsy Surgical History S/P hernia repair S/P appendectomy S/P CABG (coronary artery bypass graft) S/P PTCA (percutaneous transluminal coronary angioplasty) S/P AVR (aortic valve replacement) Bioprosthetic open aortic valve replacement Family History Father CAD (coronary artery disease) Brother CAD (coronary artery disease) Social History (Updated 03/12/25 @ 23:37 by Cameron Quintanilla MD) Smoking and tobacco/nicotine status: never used tobacco/nicotine Alcohol intake: never Substance/Drug Use: never Additional social history: I discussed CODE STATUS with patient and his daughter Litzy today and he requests DNR on 03/12/2025 with Cameron Quintanilla MD Household members: spouse Marital status: Vitals/I&O/Wt Last Vital Signs Temp 99.0 F 03/12/25 19:40 Pulse 96 03/12/25 23:22 Resp 20 H 03/12/25 23:22 BP 123/71 03/12/25 23:22 Pulse Ox 95 03/12/25 23:22 O2 Del Method Heated High Flow 03/12/25 22:43 O2 Flow Rate 40 03/12/25 22:43 FiO2 50 03/12/25 22:43 03/12/25 03/12/25 03/13/25 14:59 22:59 06:59 Intake Total 6.167 / 6.167 Balance 6.167 / 6.167 Weight last 48 hrs Weight 78.426 kg Physical Exam Narrative: General Well-developed tall man no acute cardiopulmonary distress he is lethargic and on high flow oxygen CV irregular rhythm rate is controlled Lungs clear to auscultation with diminished breath sounds in the bases he was unable to sit up for posterior lung exam despite me trying to assist him. Abdomen positive bowel tones soft nontender nondistended no rebound Calves trace ankle edema feet 1+ edema Radial pulses 2+ Urinary Catheter Management: Tellez: Cath Placed During This Visit: yes Urinary Catheter Date of Insertion: 03/12/25 Urinary Catheter Time of Insertion: 21:40 Data 03/12/25 19:57 03/12/25 19:57 Micro: Microbiology 03/12/25 19:57 Blood Culture - Preliminary Blood SPECIMEN COLLECTED 03/12/25 19:57 Blood Culture - Preliminary Blood SPECIMEN COLLECTED CXR: Radiologist's impression: IMPRESSION 03/12/2025: 1. Hazy/patchy airspace opacity in the right lung base, stable to worsened compared to 02/10/2025. This may represent atelectasis or infectious infiltrate. 2. Probable right pleural effusion. A&P Assessment and plan 1. Atrial fibrillation with rapid ventricular response: Rate is controlled with diltiazem drip patient remains hypoxemic. Repeat BMP in the morning and if creatinine less than 1.3 will proceed with CTA of the chest this will look for undiagnosed PE to explain his significant hypoxemia and also possibly pneumonia. 2. Thrombocytopenia: Platelets at 68. Was normal 01/26/2021 at 370 and then low on 11/20/2023 at 148 also had 30 pound weight loss from baseline 90 kg 2021 3. Acute hypoxemic respiratory failure: Chest x-ray shows fluid in the fissure and small pleural effusions bilaterally increased pulmonary vasculature but hypoxemia potentially outside of what it would be expected nevertheless. 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 S/P AVR (aortic valve replacement): Bioprosthetic valve 5. S/P CABG (coronary artery bypass graft): History of bypass surgery and aortic valve replacement 2016 6. Coronary artery disease: As above 7. BPH (benign prostatic hyperplasia): Tellez has been placed and needs put out light yellow urine. Urine was not infected PDMP PDMP Reviewed: Not Reviewed Attestations Medical Necessity Statement*: Patient admitted to the hospital for diuresis and rate control of A-fib and will require greater than 2 midnights Coding Level of Care Code 21406 Diagnoses Atrial fibrillation with rapid ventricular response I48.91 Thrombocytopenia D69.6 Acute hypoxemic respiratory failure J96.01 S/P AVR (aortic valve replacement) Z95.2 S/P CABG (coronary artery bypass graft) Z95.1 Coronary artery disease I25.10 BPH (benign prostatic hyperplasia) N40.0 Time Spent (min) 75
[2025-03-13] VITALS (95 sets, daily range): BP systolic 82–138; BP diastolic 44–84; PULSE 70–119; RESP 13–41; TEMP 37.1–38.4; O2SAT 87–97
[2025-03-13 00:04] LABS: Coronavirus 229E,HKU1,NL63,OC4 Not Detected (NOT DETECT); Parainfluenza Virus Type 1 Not Detected (NOT DETECT); Parainfluenza Virus Type 2 Not Detected (NOT DETECT); Parainfluenza Virus Type 3 Not Detected (NOT DETECT); Parainfluenza Virus Type 4 Not Detected (NOT DETECT); SARS-COV-2 Not Detected (NOT DETECT)
[2025-03-13] MEDS: FUROsemide 10 mg/mL SDV 2mL 20 MG IVP (00:44)
[2025-03-13] MEDS: piperacillin-tazobactam 3.375 GM in sodium chloride 0.9% (plus) 50 ML IV ×3 (01:29→16:27)
[2025-03-13 02:48] LABS: Hematocrit 41.9 % (37-53); Hemoglobin 13.00 g/dL (11.27-16.99); Mean Corpuscular HGB Conc 31.0 g/dL (30-55); Mean Corpuscular Hemoglobin 26.1 pg (27-33); Mean Corpuscular Volume 84.1 fl (82-101); Nucleated Red Blood Cells % 0 %; Red Blood Count 4.98 10^6/uL (3.85-5.65); White Blood Count 13.05 10^3/uL (3.29-11.43)
[2025-03-13 03:03] LABS: Platelet Count 66 10^3/cmm (157-399)
[2025-03-13 03:08] LABS: Anion Gap 16.1 (5-19); Blood Urea Nitrogen 22 mg/dL (8-23); Calcium 8.8 mg/dL (8.5-10.5); Carbon Dioxide 23 mmol/L (22-29); Chloride 103 mmol/L (98-107); Glucose 109 mg/dL (65-115); Osmolality Calculated 290 mOsm/kg (285-295); Potassium 4.1 mmol/L (3.5-5.1); Sodium 138 mmol/L (136-145)
[2025-03-13 03:10] LABS: Troponin 5 6HR 308.2 ng/L (0-15); Troponin 5 6HR Delta 266.2 ng/L (0-12)
--- NOTE | 2025-03-13 05:42 | USCV_ITS ---
Magen Boo Age: 84 Gender: M : 1940 Exam Date: 03/13/2025 09:56 Ordering Phys: Cameron Quintanilla MD Technologist: Daljit Moe [place]am Location[place] [facility] [place] Indication: hypotension and elevated troponin BP: 91 / 51 HR: 87 Rhythm: Atrial fibrillation Technical Quality: Adequate MEASUREMENTS (Male / Female) Normal Values 2D ECHO LV Diastolic Diameter PLAX 4.7 cm 4.2 - 5.9 / 3.9 - 5.3 cm IVS Diastolic Thickness 0.7 cm 0.6 - 1.0 / 0.6 - 0.9 cm IVS Systolic Thickness 1.3 cm LVPW Diastolic Thickness 0.9 cm 0.6 - 1.0 / 0.6 - 0.9 cm LVPW Systolic Thickness 1.3 cm LVOT Diameter 2.0 cm LV Ejection Fraction 2D Teich 40.7 % LV Ejection Fraction MOD 4C 47.1 % LV Ejection Fraction MOD 2C 50.8 % LV Ejection Fraction 2C AL 51.3 % LA Diameter 5.2 cm RA Systolic Volume 4C AL 90.9 ml RA Systolic Volume 4C MOD 91.8 ml LA Sys Volume AL 128.6 cm cubed LA Sys Volume Index AL 63.9 cm cubed/m squared Aorta at Sinotubular Diameter 2.2 cm IVC Diameter 2.7 cm M-MODE LA Ao Ratio MM 1.7 AV Cusp Separation MM 1.6 cm DOPPLER AV Peak Velocity 322.3 cm/s LVOT Peak Velocity 76.0 cm/s AV Area Cont Eq vti 0.8 cm squared AV Area Cont Eq pk 0.7 cm squared MV Peak Velocity 205.0 cm/s MV Area PHT 2.0 cm squared Mitral E to A Ratio 53.2 TV Peak Velocity 317.0 cm/s TR Peak Velocity 317.0 cm/s TR Peak Gradient 40.2 mmHg TR Mean Velocity 242.0 cm/s TR Mean Gradient 26.0 mmHg TR Velocity Time Integral 74.4 cm PV Peak Velocity 86.0 cm/s RV Ejection Time 0.2 s FINDINGS Left Ventricle Mildly reduced to low Normal left ventricular size, systolic function and wall thickness, with no regional wall motion abnormalities. Left ventricular ejection fraction is estimated at 50 %. In the presence of atrial fibrillation diastolic function cannot be assessed accurately. Right Ventricle Normal right ventricular size and systolic function. Right Atrium Normal right atrial size. Left Atrium Moderately increased left atrial size. IA Septum Normal appearance of the interatrial septum. Mitral Valve Severely thickened mitral valve. Mitral valve mean gradient is 7.6 mmHg at a heart rate of 87 bpm. Suggestive of moderate mitral valve stenosis. Aortic Valve There appeared to be bioprosthetic aortic valve sitting in normal position without any valvular or paravalvular leak. There appeared to be mild aortic valve stenosis with gradient across the aortic valve, mean gradient 29.6 mmHg. Tricuspid Valve Normal tricuspid valve structure. No tricuspid valve stenosis or regurgitation. Normal pulmonary pressure. Pulmonic Valve Trace pulmonary valve regurgitation. Pericardium No pericardial effusion. Aorta Normal diameter of the aortic root and ascending thoracic aorta. IVC Normal IVC diameter. CONCLUSIONS Mildly reduced to low Normal left ventricular size, systolic function and wall thickness, with no regional wall motion abnormalities. Left ventricular ejection fraction is estimated at 50 %. In the presence of atrial fibrillation diastolic function cannot be assessed accurately. There appeared to be bioprosthetic aortic valve sitting in normal position without any valvular or paravalvular leak. There appeared to be mild aortic valve stenosis with gradient across the aortic valve, mean gradient 29.6 mmHg. Severely thickened mitral valve. Mitral valve mean gradient is 7.6 mmHg at a heart rate of 87 bpm. Suggestive of moderate mitral valve stenosis. There is no pericardial effusion. Right atrial pressure is around 15 mm of mercury. Zhen Irving MD (Electronically Signed) Final Date: 13 March 2025 16:53 S
--- NOTE | 2025-03-13 05:42 | USR_ITS ---
PROCEDURE INFORMATION: Exam: US Abdomen Complete Exam date and time: 03/13/2025 7:15 AM Age: 84 years old Clinical indication: Abnormal findings; Abnormal lab test; Elevated liver enzymes; Prior surgery; Surgery date: 6+ months; Surgery type: Unsure of dates- appendectomy; Additional info: Elevated liver function tests and hypotension TECHNIQUE: Imaging protocol: Real-time ultrasound of the abdomen with image documentation. Complete exam. COMPARISON: US abdomen limited [id number] 01/04/2025 9:03 AM FINDINGS: Liver: Normal. No mass. Gallbladder: Small gallbladder polyp. No stones. The wall is borderline at 3 mm. Biliary ducts: Normal. No stones. No dilation. Pancreas: The pancreas is predominantly obscured. Right kidney: Normal. No mass. No hydronephrosis. Left kidney: Left kidney is poorly visualized. A left renal cyst is probably present. Spleen: Normal. No splenomegaly. Aorta: Normal. No aneurysm. Inferior vena cava: Normal. Other findings: Limited study due to patient condition. US/US abdomen complete* [id number] IMPRESSION: 1. No acute findings. 2. Gallbladder polyp. Borderline gallbladder wall thickening.
[2025-03-13 06:05] LABS: Lipase 32 U/L (13-60)
--- NOTE | 2025-03-13 06:52 | P.PN_ITS ---
Subjective 2 Subjective: 84-year-old male with a wet so unding cough has been diuresing well with Tellez in place but complains of feeling like he needs to pee and dry mouth. Patient is on high flow but breathes through his mouth. He is able to speak clearly but nurse noted that he coughs and chokes with p.o. intake. Additionally he vomited and was pocketing vomit in his mouth that she suctioned out earlier. Patient is accompanied by his daughter Talita who is a retired RN though worked, outpatient infusion GI Lab and some in the ER Patient had fluid retention in February 10, 2025 and was increased on his diuretics to 40 mg from 20 mg for a week and diuresed copiously and breathing improved. He presented today with shortness of breath but denies abdominal pain. He has had high gag and nausea vomiting sensitivity lifelong but liver enzymes elevated. He denies abdominal pain. Patient has lost 30 pounds in 2 years was typically a good eater but now states the food does not taste good Vitals/I&O/Wt Last Vital Signs Temp 98.8 F 03/13/25 04:00 Pulse 94 03/13/25 04:51 Resp 24 H 03/13/25 04:51 BP 102/49 03/13/25 04:00 Pulse Ox 92 03/13/25 04:54 O2 Del Method High Flow Nasal Cannula 03/13/25 04:54 O2 Flow Rate 50 03/13/25 04:54 FiO2 50 03/13/25 04:54 03/12/25 03/12/25 03/13/25 14:59 22:59 06:59 Intake Total 6.167 / 6.167 310.333 / 316.500 Balance 6.167 / 6.167 310.333 / 316.500 Weight last 48 hrs Weight 79.6 kg Weight 78.426 kg Physical Exam 2 Narrative: General Well-developed tall male tachypneic. CV irregular tachycardic rhythm Lungs crackles heard both mid to lower lung cantu right worse than left Abdomen positive bowel tones soft nontender no rebound. Calves no tenderness there is 1+ edema Skin warm and dry Urinary Catheter Management: Tellez: Cath Placed During This Visit: yes Urinary Catheter Date of Insertion: 03/12/25 Urinary Catheter Time of Insertion: 21:40 Data 03/13/25 02:04 03/13/25 02:04 Micro: Microbiology 03/12/25 19:57 Blood Culture - Preliminary Blood SPECIMEN COLLECTED 03/12/25 19:57 Blood Culture - Preliminary Blood SPECIMEN COLLECTED A&P Assessment and plan 1. Acute hypoxemic respiratory failure: Chest x-ray shows fluid in the fissure and small pleural effusions, bilaterally increased pulmonary vasculature but hypoxemia potentially outside of what it would be expected nevertheless. 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 Patient is not a good candidate for BiPAP at the moment due to concerns of aspiration. Renal function is okay will proceed with CT scan of the chest with contrast to look for pulmonary embolism and pneumonia. Will have speech therapy see him regarding possible aspiration Viral respiratory panel was negative 2. Atrial fibrillation with rapid ventricular response: Rate is controlled with diltiazem drip. Patient remains hypoxemic. Creatinine is 1.1 3. Thrombocytopenia: Platelets at 68. Was normal 01/26/2021 at 370 and then low on 11/20/2023 at 148 also had 30 pound weight loss from baseline 90 kg 2021 of chest Patient and daughter Talita were counseled and want to hold off on Eliquis at this time. States dose was decreased and subsequently held due to thrombocytopenia 4. S/P AVR (aortic valve replacement): Bioprosthetic valve 5. S/P CABG (coronary artery bypass graft): History of bypass surgery and aortic valve replacement 2016. Talita reports the patient had 2 open heart surgeries 6. Coronary artery disease: As above 7. BPH (benign prostatic hyperplasia): Tellez has been placed and needs put out light yellow urine. Urine was not infected 8. Elevated LFTs: Patient with nausea vomiting and gallbladder intact with elevated LFTs will check lipase and abdominal ultrasound PDMP PDMP Reviewed: Not Reviewed Attestations 2 Medical Necessity Statement*: Patient remains hospitalized for acute hypoxemic respiratory failure requiring high flow oxygen is expected to require greater than 2 midnight Coding Level of Care Code 56579 Diagnoses Acute hypoxemic respiratory failure J96.01 Atrial fibrillation with rapid ventricular response I48.91 Thrombocytopenia D69.6 S/P AVR (aortic valve replacement) Z95.2 S/P CABG (coronary artery bypass graft) Z95.1 Coronary artery disease I25.10 BPH (benign prostatic hyperplasia) N40.0 Elevated LFTs R79.89 Time Spent (min) 35
[2025-03-13] MEDS: metoprolol succinate ER (24 HR) 25 mg Tablet PO (06:55)
--- NOTE | 2025-03-13 07:00 | ECG_ITS ---
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 Measurements Intervals [place] Rate: 108 P: 0 AR: 0 QRS: 9 QRSD: 102 T: 168 QT: 374 QTc: 503 Interpretive Statements ATRIAL FIBRILLATION WITH RAPID VENTRICULAR RESPONSE ST DEVIATION AND MODERATE T-WAVE ABNORMALITY, CONSIDER ANTEROLATERAL ISCHEMIA [-0.1+ mV T-WAVE IN V3-V6] Compared to ECG 03/12/2025 23:33:31 Possible ischemia now present Ventricular premature complex(es) no longer present Aberrant conduction of supraventricular beat(s) no longer present Intraventricular conduction delay no longer present T-wave abnormality still present Electronically Signed On 03-17-2025 18:23:28 [employer] by Israel King M.D. [email or web address]
--- NOTE | 2025-03-13 07:07 | CTR_ITS ---
PROCEDURE INFORMATION: Exam: CTA Chest With Contrast Exam date and time: 03/13/2025 8:49 AM Age: 84 years old Clinical indication: Shortness of breath; Additional info: Hypoxemia, hypotension and crackles at the lungs TECHNIQUE: Imaging protocol: Computed tomographic angiography of the chest with contrast. Exam focused on the arteries. 3D rendering (Not supervised by radiologist): MIP and/or 3D reconstructed images were created by the technologist. Radiation optimization: All CT scans at this facility use at least one of these dose optimization techniques: automated exposure control; mA and/or kV adjustment per patient size (includes targeted exams where dose is matched to clinical indication); or iterative reconstruction. Contrast material: 880; Contrast volume: 81 ml; Contrast route: INTRAVENOUS (IV); COMPARISON: CT angio chest PE protcl [id number] 01/25/2021 10:49 AM RADIATION DOSE METRICS: Total DLP (mGy-cm): 391.18 FINDINGS: Pulmonary arteries: No evidence of pulmonary embolus. Aorta: Unremarkable. No aortic aneurysm. No aortic dissection. Lungs: Extensive dependent atelectasis or consolidation in each lower lobe. The left lower lobe is only slightly improved when compared to the prior study which demonstrated an extensive pneumonia. Pleural spaces: Small bilateral pleural effusions. Heart: Unremarkable. No cardiomegaly. No pericardial effusion. Coronary arteries: Coronary artery calcifications. Lymph nodes: Moderate right hilar and mild/moderate central adenopathy slightly more prominent than before. The findings could be reactive or neoplastic. Follow-up chest CT in 3 months recommended since the findings have increased Bones/joints: Unremarkable. No acute fracture. Soft tissues: Unremarkable. CT/CT angio chest PE protcl [id number] IMPRESSION: 1. Increasing moderate central and hilar adenopathy. This could be either reactive or neoplastic. Follow-up chest CT in 3 months recommended. 2. Extensive infiltrates and effusions.
[2025-03-13] MEDS: iohexol 350 mg/mL 500 mL Btl (per mL) IV (08:55)
--- NOTE | 2025-03-13 09:13 | PC.NURSE ---
2358- Patient arrived from ER on cardizem gtt. When rolling patient to get extra linens out patient began throwing up. Patient already received zofran around 2129 in ER. Requesting additional nausea medications. Dr. Quintanilla to place orders. Also notified Dr. Quintanilla that when patient starts emesis episode.he holds onto it and nurse has to encourage patient to expell it.Primary nurse also attempted to suction out mouth but patient is coughing frequently. Expressed concerns of aspirate. Patient is also not sipping from straw and when patient does get water it rolls down chin or gets spit out. Per Dr. Quintanilla order speech consult. Patient constently requesting water so nurse offered ice chips at this time until speech can evaluate patient. Educated both patient and daughter that patient seems to be coughing on fluids which can indicate aspiration. Will obtain speech eval to diagnose. 41- Patient has 101.2 fever. Unsure if patient can stay awake or swallow tylenol. Notified Dr. Quintanilla and received orders for rectal tylenol. 518- Patient on cardizem gtt for HR control. HR is in 100-110 but BP is 90/57, cardizem at 2.5. Clarifying if MD would like to hold cardizem or do intervention. Received orders for 30 mg cardizem PO to keep HR below 80. Double checked with MD if okay to give PO cardizem with low BP. Received orders to give metoprolol and continue cardizem gtt. 629- Patient stating I carson't breath . Patient is 93% on hi flow 50L/50% fio2. Lung sounds are crackly. Patient daughter states He is just congested . Notified Dr. Quintanilla and MD to come to bedside. 911- Asked Dr. Thrasher if IVF should be continued. Per MD hold.
--- NOTE | 2025-03-13 11:22 | P.MISC_ITS ---
Miscellaneous Note Note: Patient admitted this morning. Noted to be in A-fib. BP soft. Discontinued diltiazem started on amiodarone. Reports shortness of breath and nasal congestion. Flonase ordered. Cardiology consulted. Will get an echocardiogram. Family reports patient has low platelets and did not want anti coagulation. We did discuss risks including stroke with A-fib. Patient will be moved to ICU for monitoring blood pressure closer amiodarone. Continue antibiotics for pneumonia
--- NOTE | 2025-03-13 14:25 | PC.NURSE ---
recieved this am from [facility] , to monitor for hypotension monitor with heart rate controlled and on ammio gtt at this time. had mod size bm on bedpan at this time family at bedside aware of status
--- NOTE | 2025-03-13 14:36 | PM.CONSULT ---
Providers/Reason For Consult Consulting Physician/Specialty*: Zhen Irving MD/cardiology Reason for Consult*: Atrial fibrillation with rapid ventricle Respiratory failure Acute decompensated systolic on chronic heart failure Ischemic cardiomyopathy Status post AVR Attending Physician: Laura Thrasher MD Primary Care Provider: Kyle Mendoza MD History of Present Illness History of Present Illness Magen Boo is a 84 year old male past medical history significant for hypertension hyperlipidemia history of CABG atrial fibrillation congestive heart failure LV dysfunction history of aortic valve replacement frail with struggling with worsening of shortness of breath PND orthopnea, he admits to feeling cold shivering and bringing up some green sputum however he was noted to have a fast pulse he was not able to breathe therefore came to ER noted to be in A-fib with RVR started on amiodarone which slowed him down, he was admitted with possible respiratory tract infection/COPD exacerbation/atrial fibrillation and congestive heart failure exacerbation. Twelve-lead EKG showed atrial fibrillation otherwise no significant ST changes. Review of Systems Narrative: General No fevers chills Cardiovascular no chest pain positive for palpitations Respiratory positive for shortness of breath some yellow phlegm positive for dyspnea on exertion GI positive for nausea vomiting this morning no dysuria hematuria Neuro no seizures or strokes he has generalized weakness in the legs All/Imm: Denies: acute wheezing Medications/Allergies Home Medications ?Medication ?Instructions ?Recorded ?Confirmed ?Last Taken ?Type acetaminophen 650 mg 650 mg PO Q12H 03/20/23 03/13/25 03/12/25 History tablet,extended release (Tylenol 8 Hour) lidocaine 5 % topical patch 1 patch topical DAILY 07/29/24 03/13/25 Unknown History pantoprazole 40 mg tablet,delayed 40 mg PO DAILY 07/29/24 03/13/25 03/08/25 History release apixaban 2.5 mg tablet 2.5 mg PO BID #180 tabs 03/09/25 03/13/25 03/08/25 Rx Held on 03/09/25. Instructions: thrombocytopenia carvedilol 3.125 mg tablet 3.125 mg PO BID #60 tabs 03/09/25 03/13/25 03/12/25 Rx furosemide 20 mg tablet (Lasix) 20 mg PO PRN 03/09/25 03/13/25 03/11/25 History lisinopril 2.5 mg tablet 2.5 mg PO DAILY #60 tabs 03/09/25 03/13/25 03/12/25 Rx spironolactone 25 mg tablet 12.5 mg PO DAILY 03/09/25 03/13/25 03/12/25 History cholecalciferol (vitamin D3) 125 125 mcg PO DAILY 03/13/25 03/13/25 03/12/25 History mcg (5,000 unit) tablet (Vitamin D3) Allergies Allergy/AdvReac Type Severity Reaction Status Date / Time No Known Allergies Allergy Verified 03/12/25 19:52 Current Medications Generic Name Dose Route Start Last Admin Trade Name Freq PRN Reason Stop Dose Admin Acetaminophen 650 mg 03/13/25 00:53 03/13/25 01:29 Acetaminophen 650 Mg Supp GA 650 mg Q4H PRN Administration MILD PAIN OR INCREASE TEMP Apixaban 2.5 mg 03/13/25 05:00 03/13/25 06:57 Apixaban 2.5 Mg Tablet PO Not Given BID DIANA Docusate Sodium 100 mg 03/13/25 05:00 03/13/25 07:07 Docusate Sodium 100 Mg Capsule PO Not Given BID DIANA Fluoxetine HCl 10 mg 03/13/25 05:00 03/13/25 06:58 Fluoxetine 10 Mg Capsule PO Not Given DAILY DIANA Furosemide 20 mg 03/12/25 23:45 03/13/25 00:44 Furosemide 10 Mg/Ml Sdv 2ml IVP 20 mg On Hold: 03/13/25 04:59 Q12H DIANA Administration DILTIAZEM HCL/D5W 125 mg in 125 mls @ 0 mls/hr 03/12/25 20:00 03/13/25 12:30 Cardizem IV Infused .Q0M DIANA Titration Protocol Per Protocol Piperacillin Sod/Tazobactam 50 mls @ 12.5 mls/hr 03/13/25 01:00 03/13/25 13:38 Sod 3.375 gm/ Sodium Chloride IV Infused Q8H DIANA Infusion Potassium Cl/Dextrose/Lact Ringer's 1,000 mls @ 50 mls/hr 03/13/25 05:45 03/13/25 09:13 Dextrose 5%-Lr + Kcl 20 IV Not Given .Q20H DIANA Levalbuterol HCl 0.63 mg 03/13/25 08:34 03/13/25 09:05 Levalbuterol 0.63 Mg/3 Ml Neb INHALATION 0.63 mg Q4H.RESPIRATORY PRN Administration SHORTNESS OF BREATH Lidocaine 1 patch 03/13/25 05:00 03/13/25 07:52 Lidocaine 5% Patch TOPICAL Not Given DAILY DIANA Lisinopril 2.5 mg 03/13/25 05:00 03/13/25 06:57 Lisinopril 2.5 Mg Tablet PO Not Given DAILY DIANA Metoprolol Succinate 25 mg 03/13/25 05:30 03/13/25 06:55 Metoprolol Succinate Er (24 Hr) 25 Mg Tablet PO 25 mg DAILY DIANA Administration Midodrine 10 mg 03/13/25 08:37 03/13/25 13:51 Midodrine 5 Mg Tablet PO 10 mg TID DIANA Administration Pantoprazole Sodium 40 mg 03/13/25 05:00 03/13/25 06:[address] 40 Mg Tablet PO Not Given DAILY DIANA Prochlorperazine Edisylate 5 mg 03/13/25 00:00 03/13/25 01:43 Prochlorperazine 10 Mg/2 Ml Inj IVP 5 mg Q4H PRN Administration NAUSEA Spironolactone 12.5 mg 03/13/25 05:00 03/13/25 06:58 Spironolactone 25 Mg Tablet PO 12.5 mg DAILY DIANA Administration PFSH Acute PFSH: Medical History (Updated 03/13/25 @ 07:06 by Cameron Quintanilla MD) Anticoagulation adequate Atrial fibrillation Coronary artery disease Palpitations BPH (benign prostatic hyperplasia) Chronic neck pain Chronic shortness of breath ASHD (arteriosclerotic heart disease) Myocardial infarction Dyslipidemia H/O Caro's palsy Surgical History S/P hernia repair S/P appendectomy S/P CABG (coronary artery bypass graft) S/P PTCA (percutaneous transluminal coronary angioplasty) S/P AVR (aortic valve replacement) Bioprosthetic open aortic valve replacement Family History Father CAD (coronary artery disease) Brother CAD (coronary artery disease) Social History (Updated 03/12/25 @ 23:37 by Cameron Quintanilla MD) Smoking and tobacco/nicotine status: never used tobacco/nicotine Alcohol intake: never Substance/Drug Use: never Additional social history: I discussed CODE STATUS with patient and his daughter Litzy today and he requests DNR on 03/12/2025 with Cameron Quintanilla MD Household members: spouse Marital status: Dietary Habits: Current diet type/program: regular Caffeine: Yes Caffeine intake frequency: coffee Vitals/I&O/Wt Last Vital Signs Temp 98.9 F 03/13/25 07:44 Pulse 81 03/13/25 13:30 Resp 23 H 03/13/25 13:30 BP 93/55 03/13/25 13:30 Pulse Ox 91 03/13/25 13:30 O2 Del Method Heated High Flow 03/13/25 09:05 O2 Flow Rate 50 03/13/25 11:38 FiO2 50 03/13/25 11:38 03/12/25 03/13/25 03/13/25 22:59 06:59 14:59 Intake Total 6.167 / 6.167 310.333 / 316.500 320 / 320 Output Total 1300 / 1300 Balance 6.167 / 6.167 310.333 / 316.500 -980 / -980 Weight last 48 hrs Weight 175 lb 7.807 oz Weight 172 lb 14.4 oz Physical Exam Const: OTHER: GENERAL: Patient is alert, awake and oriented x3. Mildly distressed HEART: Irregularly S1 and S2. No murmur, rub or gallop. LUNGS: Inspiratory basal crackles bilaterally. CENTRAL NERVOUS SYSTEM: Grossly nonfocal. EXTREMITIES: Lower extremities with out edema bilaterally. Urinary Catheter Management: Tellez: Cath Placed During This Visit: yes Urinary Catheter Date of Insertion: 03/12/25 Urinary Catheter Time of Insertion: 21:40 Data 03/13/25 02:04 03/13/25 02:04 Micro: Microbiology 03/12/25 19:57 Blood Culture - Preliminary Blood SPECIMEN COLLECTED 03/12/25 19:57 Blood Culture - Preliminary Blood SPECIMEN COLLECTED A&P Assessment and plan 1. Atrial fibrillation with rapid ventricular response: 2. Acute hypoxemic respiratory failure: 3. Coronary artery disease: 4. S/P CABG (coronary artery bypass graft): 5. S/P AVR (aortic valve replacement): Plan: Continue IV antibiotic Continue IV amiodarone Will start patient on IV Lasix Continue monitoring LFT if increases may have to stop Amio Once respiratory infection/COPD exacerbation improves heart rate will improve PDMP PDMP Reviewed: Not Reviewed Consult Attestations Medical Necessity Statement: Patient require continuation hospitalization for above defined care Coding Level of Care Code Acute Code for Chg Fwd Diagnoses Atrial fibrillation with rapid ventricular response I48.91 Acute hypoxemic respiratory failure J96.01 Coronary artery disease I25.10 S/P CABG (coronary artery bypass graft) Z95.1 S/P AVR (aortic valve replacement) Z95.2
[2025-03-13] MEDS: AMIODARONE HCL/D5W 900 MG/500 ML BAG 16.67 MG IV (16:08)
[2025-03-13] MEDS: FUROsemide 10 mg/mL SDV 4mL 40 MG IVP (16:23)
[2025-03-13] MEDS: APIXABAN 2.5 MG TABLET PO (16:56)
[2025-03-13] MEDS: fluticasone nasal spray 16gm Btl 1 SPRAY NASAL (16:56)
[2025-03-13] MEDS: dextrose 5%-ns + KCl 20 20 MEQ/1,000 ML BAG 50 MEQ IV (22:58)
[2025-03-14] VITALS (102 sets, daily range): BP systolic 96–141; BP diastolic 49–89; PULSE 69–100; RESP 10–28; TEMP 36.6–36.8; O2SAT 91–98
[2025-03-14] MEDS: piperacillin-tazobactam 3.375 GM in sodium chloride 0.9% (plus) 50 ML IV ×3 (00:47→16:48)
--- NOTE | 2025-03-14 01:56 | PC.NURSE ---
Pt had several loose, foul smelling, mucous filled stools. Contacted Dr. Quintanilla, new order for C. Diff PCR received.
[2025-03-14 02:42] LABS: C.Diff PCR (Lab) NEGATIVE (Negative)
[2025-03-14 04:29] LABS: Anion Gap 12.4 (5-19); Blood Urea Nitrogen 36 mg/dL (8-23); Calcium 8.6 mg/dL (8.5-10.5); Carbon Dioxide 24 mmol/L (22-29); Chloride 99 mmol/L (98-107); Glucose 148 mg/dL (65-115); Osmolality Calculated 285 mOsm/kg (285-295); Potassium 3.4 mmol/L (3.5-5.1); Sodium 132 mmol/L (136-145)
[2025-03-14] MEDS: APIXABAN 2.5 MG TABLET PO ×2 (06:04→16:49)
[2025-03-14] MEDS: fluticasone nasal spray 16gm Btl 1 SPRAY NASAL ×2 (06:07→17:11)
[2025-03-14] MEDS: efferdent effervescent 1 EACH DENTAL (07:35)
[2025-03-14] MEDS: metoprolol succinate ER (24 HR) 25 mg Tablet PO (07:42)
[2025-03-14] MEDS: FUROsemide 10 mg/mL SDV 4mL 40 MG IVP ×2 (09:44→21:46)
[2025-03-14] MEDS: ondansetron 2 mg/ML SDV 2 mL 4 MG IVP (11:13)
--- NOTE | 2025-03-14 11:47 | P.PN_ITS ---
Subjective 2 Subjective: 84-year-old male with history of chronic A-fib previously on apixaban presented with shortness of breath. Diagnosed with pleural effusion concern for possible pneumonia. He was moved to the ICU due to hypotension. Currently heart rate is controlled blood pressure stable. He does feel that his breathing is slightly better. Afebrile. Vitals/I&O/Wt Last Vital Signs Temp 98.2 F 03/14/25 07:15 Pulse 100 03/14/25 11:05 Resp 18 03/14/25 11:05 BP 123/54 03/14/25 10:15 Pulse Ox 95 03/14/25 11:05 O2 Del Method Heated High Flow 03/14/25 07:49 O2 Flow Rate 45 03/14/25 11:05 FiO2 45 03/14/25 11:05 03/13/25 03/14/25 03/14/25 22:59 06:59 14:59 Intake Total 710 / 1030 290 / 1320 793.118 / 793.118 Output Total 700 / 2000 75 / 75 Balance 710 / -270 -410 / -680 718.118 / 718.118 Weight last 48 hrs Weight 79 kg Weight 79.6 kg Weight 78.426 kg Physical Exam 2 Narrative: General Well-developed tall male tachypneic. CV irregular tachycardic rhythm Lungs crackles bilateral Abdomen positive bowel tones soft nontender no rebound. Calves no tenderness there is no edema Skin warm and dry Urinary Catheter Management: Tellez: Cath Placed During This Visit: yes Reason for Continuing Indwelling Catheter: Accurate Measurement of Urinary Output in Critically Ill Patients Urinary Catheter Date of Insertion: 03/12/25 Urinary Catheter Time of Insertion: 21:40 Data 03/13/25 02:04 03/14/25 03:35 Micro: Microbiology 03/12/25 19:57 Blood Culture - Preliminary Blood NEGATIVE TO DATE 03/12/25 19:57 Blood Culture - Preliminary Blood NEGATIVE TO DATE A&P Assessment and plan 1. Acute hypoxemic respiratory failure: Chest x-ray shows fluid in the fissure and small pleural effusions, bilaterally increased pulmonary vasculature but hypoxemia potentially outside of what it would be expected nevertheless. 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 Patient is not a good candidate for BiPAP at the moment due to concerns of aspiration. Continue antibiotics, diuresis appreciate cardiology recommendations no chest pain. Viral respiratory panel was negative 2. Atrial fibrillation with rapid ventricular response: On amiodarone drip. Will transition to oral if okay with cardiology 3. Thrombocytopenia: Chronically low. 4. S/P AVR (aortic valve replacement): Bioprosthetic valve 5. S/P CABG (coronary artery bypass graft): History of bypass surgery and aortic valve replacement 2016. 6. Coronary artery disease: As above 7. BPH (benign prostatic hyperplasia): Tellez has been placed and needs put out light yellow urine. Urine was not infected 8. Elevated LFTs: Monitor Gallbladder ultrasound completed borderline gallbladder wall thickening PDMP PDMP Reviewed: Not Reviewed Attestations 2 Medical Necessity Statement*: Antibiotics diuresis Coding Level of Care Code Acute Code for Chg Fwd Diagnoses Acute hypoxemic respiratory failure J96.01 Atrial fibrillation with rapid ventricular response I48.91 Thrombocytopenia D69.6 S/P AVR (aortic valve replacement) Z95.2 S/P CABG (coronary artery bypass graft) Z95.1 Coronary artery disease I25.10 BPH (benign prostatic hyperplasia) N40.0 Elevated LFTs R79.89
--- NOTE | 2025-03-14 13:22 | P.PN_ITS ---
<Statement entered by Zhen Irving MD - 03/14/25 19:06> Patient was evaluated and cared for in conjunction with an advanced practice practitioner. I personally examined the patient and reviewed the chart and all pertinent data including imaging, telemetry, and laboratory results. I discussed the patient in detail with the advanced practice practitioner. Please see their note for complete H&P testing result and agreed upon plan of care for the patient. Subjective 2 Subjective: Patient doing okay today. Heart rates are controlled. Vitals are stable. Currently on high flow nasal cannula. Echo showed EF is 50%. Patient had moderate mitral valve stenosis. Aortic valve was shown to have no paravalvular leak. Fluid balance is positive. Vitals/I&O/Wt Last Vital Signs Temp 98.2 F 03/14/25 07:15 Pulse 78 03/14/25 13:21 Resp 16 03/14/25 13:14 BP 123/54 03/14/25 10:15 Pulse Ox 95 03/14/25 13:14 O2 Del Method Heated High Flow 03/14/25 13:14 O2 Flow Rate 40 03/14/25 13:14 FiO2 40 03/14/25 13:14 03/13/25 03/14/25 03/14/25 22:59 06:59 14:59 Intake Total 710 / 1030 290 / 1320 793.118 / 793.118 Output Total 700 / 2000 75 / 75 Balance 710 / -270 -410 / -680 718.118 / 718.118 Weight last 48 hrs Weight 174 lb 2.643 oz Weight 175 lb 7.807 oz Weight 172 lb 14.4 oz Physical Exam 2 Narrative: General: No apparent distress Respiratory: Normal respiratory effort, fine crackles bilateral lower lobes, no use of accessory muscles Cardio: No JVD, regular rate, regular rhythm, S1 S2 normal, no murmurs, peripheral pulses 2+ radial palpated bilaterally GI: Normal to inspection, nondistended Extremities: Full ROM, no cyanosis or edema Neuro: Alert and oriented x4, no focal motor deficits Psych: Affect normal, denies suicidal ideation, mental status grossly normal Skin: No rashes or lesions noted, no wounds Urinary Catheter Management: Tellez: Cath Placed During This Visit: yes Reason for Continuing Indwelling Catheter: Accurate Measurement of Urinary Output in Critically Ill Patients Urinary Catheter Date of Insertion: 03/12/25 Urinary Catheter Time of Insertion: 21:40 Data 03/13/25 02:04 03/14/25 03:35 Micro: Microbiology 03/12/25 19:57 Blood Culture - Preliminary Blood NEGATIVE TO DATE 03/12/25 19:57 Blood Culture - Preliminary Blood NEGATIVE TO DATE A&P Assessment and plan 1. Atrial fibrillation with rapid ventricular response: 2. Acute hypoxemic respiratory failure: 3. Coronary artery disease: 4. S/P CABG (coronary artery bypass graft): 5. S/P AVR (aortic valve replacement): Plan: Continue IV antibiotic per hospitalist team. Will transition IV amio to 400 mg BID PO. D/C amiodarone drip after 4 hours. Increase lasix to 40 mg BID. Patient's potassium is being repleted orally with 40 meq. May need CMP in the AM to evaluate LFT while on amio. Continue Eliquis 2.5 BID for stroke prevention. At this time, rates are stable. Continue metoprolol 25 daily. PDMP PDMP Reviewed: Not Reviewed Attestations 2 Medical Necessity Statement*: Deferred to primary Coding Level of Care Code Acute Code for [facility] Fwd Diagnoses Atrial fibrillation with rapid ventricular response I48.91 Acute hypoxemic respiratory failure J96.01 Coronary artery disease I25.10 S/P CABG (coronary artery bypass graft) Z95.1 S/P AVR (aortic valve replacement) Z95.2
--- NOTE | 2025-03-14 18:18 | PC.NURSE ---
Shift SUmmary: Up to a chair for about 3 hours today. Remains afib, but controlled. rate usually between 70-85. transitioned form IV to oral amiodarone. Is alert. Oriented to person, place, time, and situation. There may be some underlying confusion, but hard to say for sure. Sometimes there is a strange flow of conversation. Started at 50L/50% HHF, reduced to 40L and 40% oral Intake:780 urine Output: 925
[2025-03-14] MEDS: dextrose 5%-ns + KCl 20 20 MEQ/1,000 ML BAG 50 MEQ IV (18:30)
[2025-03-15] VITALS (44 sets, daily range): BP systolic 109–155; BP diastolic 52–85; PULSE 71–96; RESP 11–30; TEMP 36.6–37.1; O2SAT 92–98
[2025-03-15] MEDS: piperacillin-tazobactam 3.375 GM in sodium chloride 0.9% (plus) 50 ML IV ×3 (01:06→17:00)
[2025-03-15 03:17] LABS: Hematocrit 38.2 % (37-53); Hemoglobin 11.70 g/dL (11.27-16.99); Mean Corpuscular HGB Conc 30.6 g/dL (30-55); Mean Corpuscular Hemoglobin 26.6 pg (27-33); Mean Corpuscular Volume 86.8 fl (82-101); Nucleated Red Blood Cells % 0 %; Platelet Count 63 10^3/cmm (157-399); Red Blood Count 4.40 10^6/uL (3.85-5.65); White Blood Count 6.79 10^3/uL (3.29-11.43)
[2025-03-15 03:54] LABS: Alanine Aminotransferase 69 U/L (0-41); Albumin Level 2.7 g/dL (3.5-5.2); Alkaline Phosphatase 226 U/L (40-130); Anion Gap 13.6 (5-19); Aspartate Amino Transferase 105 U/L (0-40); Blood Urea Nitrogen 30 mg/dL (8-23); Calcium 8.8 mg/dL (8.5-10.5); Carbon Dioxide 22 mmol/L (22-29); Chloride 101 mmol/L (98-107); Globulin 3.4 g/dL (1.3-4.6); Glucose 126 mg/dL (65-115); Osmolality Calculated 284 mOsm/kg (285-295); Potassium 3.6 mmol/L (3.5-5.1); Sodium 133 mmol/L (136-145); Total Protein 6.1 g/dL (6.6-8.7)
[2025-03-15] MEDS: APIXABAN 2.5 MG TABLET PO ×2 (05:14→16:59)
[2025-03-15] MEDS: metoprolol succinate ER (24 HR) 25 mg Tablet PO (05:14)
[2025-03-15] MEDS: fluticasone nasal spray 16gm Btl 1 SPRAY NASAL ×2 (05:20→17:06)
[2025-03-15] MEDS: FUROsemide 10 mg/mL SDV 4mL 40 MG IVP ×2 (08:43→20:40)
--- NOTE | 2025-03-15 09:13 | XR_ITS ---
WS: [id number] XR chest 1V portable [id number] REASON FOR EXAM: sob FINDINGS: Cardiomegaly with previous aortocoronary artery bypass surgery and aortic valve replacement. Compared to the examination of 03/12/2025, coarse reticular interstitial and groundglass opacities persist in the lower lower lobes without significant interval change. Right pleural effusion without interval change. No new findings. XR/XR chest 1V portable [id number] IMPRESSION: Stable abnormal chest.
--- NOTE | 2025-03-15 13:13 | P.PN_ITS ---
Subjective 2 Subjective: feeling better better air movement denies cp having some loose stools Vitals/I&O/Wt Last Vital Signs Temp 97.8 F 03/15/25 07:41 Pulse 72 03/15/25 12:00 Resp 22 H 03/15/25 12:00 BP 113/56 03/15/25 11:00 Pulse Ox 95 03/15/25 12:00 O2 Del Method Heated High Flow 03/15/25 08:22 O2 Flow Rate 40 03/15/25 11:33 FiO2 40 03/15/25 11:33 03/14/25 03/15/25 03/15/25 22:59 06:59 14:59 Intake Total 1566.667 / 2409.785 410 / 2819.785 250 / 250 Output Total 1925 / 2600 600 / 3200 Balance -358.333 / -190.215 -190 / -380.215 250 / 250 Weight last 48 hrs Weight 78.245 kg Weight 79 kg Physical Exam 2 Narrative: General Well-developed tall male tachypneic. CV irregular tachycardic rhythm Lungs crackles few Abdomen positive bowel tones soft nontender no rebound. Calves no tenderness there is no edema Skin warm and dry Urinary Catheter Management: Tellez: Cath Placed During This Visit: yes Reason for Continuing Indwelling Catheter: Accurate Measurement of Urinary Output in Critically Ill Patients Urinary Catheter Date of Insertion: 03/12/25 Urinary Catheter Time of Insertion: 21:40 Data 03/15/25 02:42 03/15/25 02:42 A&P Assessment and plan 1. Acute hypoxemic respiratory failure: Chest x-ray shows fluid in the fissure and small pleural effusions, bilaterally increased pulmonary vasculature but hypoxemia potentially outside of what it would be expected nevertheless. 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 Patient is not a good candidate for BiPAP at the moment due to concerns of aspiration. Continue antibiotics, diuresis appreciate cardiology recommendations no chest pain. Viral respiratory panel was negative 2. Atrial fibrillation with rapid ventricular response: On amiodarone oral rate controlled 3. Thrombocytopenia: Chronically low. 4. S/P AVR (aortic valve replacement): Bioprosthetic valve 5. S/P CABG (coronary artery bypass graft): History of bypass surgery and aortic valve replacement 2017. 6. Coronary artery disease: As above 7. BPH (benign prostatic hyperplasia): Tellez has been placed and needs put out light yellow urine. Urine was not infected 8. Elevated LFTs: Monitor Gallbladder ultrasound completed borderline gallbladder wall thickening PDMP PDMP Reviewed: Not Reviewed Attestations 2 Medical Necessity Statement*: diuresis, lab monitoring Coding Level of Care Code Acute Code for Chg Fwd Diagnoses Acute hypoxemic respiratory failure J96.01 Atrial fibrillation with rapid ventricular response I48.91 Thrombocytopenia D69.6 S/P AVR (aortic valve replacement) Z95.2 S/P CABG (coronary artery bypass graft) Z95.1 Coronary artery disease I25.10 BPH (benign prostatic hyperplasia) N40.0 Elevated LFTs R79.89
--- NOTE | 2025-03-15 14:12 | P.PN_ITS ---
<Statement entered by Zhen Irving MD - 03/15/25 16:24> Patient was evaluated and cared for in conjunction with an advanced practice practitioner. I personally examined the patient and reviewed the chart and all pertinent data including imaging, telemetry, and laboratory results. I discussed the patient in detail with the advanced practice practitioner. Please see their note for complete H&P testing result and agreed upon plan of care for the patient. Subjective 2 Subjective: Patient is doing well today. Sitting up in his chair. Slowly improing. Continues to diurese well. Vitals/I&O/Wt Last Vital Signs Temp 97.8 F 03/15/25 07:41 Pulse 72 03/15/25 12:00 Resp 22 H 03/15/25 12:00 BP 113/56 03/15/25 11:00 Pulse Ox 95 03/15/25 12:00 O2 Del Method Heated High Flow 03/15/25 08:22 O2 Flow Rate 40 03/15/25 11:33 FiO2 40 03/15/25 11:33 03/14/25 03/15/25 03/15/25 22:59 06:59 14:59 Intake Total 1566.667 / 2409.785 410 / 2819.785 250 / 250 Output Total 1925 / 2600 600 / 3200 Balance -358.333 / -190.215 -190 / -380.215 250 / 250 Weight last 48 hrs Weight 172 lb 8 oz Weight 174 lb 2.643 oz Physical Exam 2 Narrative: General: No apparent distress Respiratory: Normal respiratory effort, fine crackles bilateral lower lobes, no use of accessory muscles Cardio: No JVD, regular rate, regular rhythm, S1 S2 normal, no murmurs, peripheral pulses 2+ radial palpated bilaterally GI: Normal to inspection, nondistended Extremities: Full ROM, no cyanosis or edema Neuro: Alert and oriented x4, no focal motor deficits Psych: Affect normal, denies suicidal ideation, mental status grossly normal Skin: No rashes or lesions noted, no wounds Urinary Catheter Management: Tellez: Cath Placed During This Visit: yes Reason for Continuing Indwelling Catheter: Accurate Measurement of Urinary Output in Critically Ill Patients Urinary Catheter Date of Insertion: 03/12/25 Urinary Catheter Time of Insertion: 21:40 Data 03/15/25 02:42 03/15/25 02:42 A&P Assessment and plan 1. Atrial fibrillation with rapid ventricular response: 2. Acute hypoxemic respiratory failure: 3. Coronary artery disease: 4. S/P CABG (coronary artery bypass graft): 5. S/P AVR (aortic valve replacement): Plan: Continue IV antibiotic per hospitalist team. Will continue 400 mg BID PO. Continue lasix to 40 mg BID. Patient is slowly improving with diuresis. Recommend CMP in the AM to evaluate LFT while on amio. Slightly elevated. Will continue to monitor. Continue Eliquis 2.5 BID for stroke prevention. At this time, rates are stable. Continue metoprolol 25 daily. PDMP PDMP Reviewed: Not Reviewed Attestations 2 Medical Necessity Statement*: Deferred to primary. Coding Level of Care Code Acute Code for [facility] Diagnoses Atrial fibrillation with rapid ventricular response I48.91 Acute hypoxemic respiratory failure J96.01 Coronary artery disease I25.10 S/P CABG (coronary artery bypass graft) Z95.1 S/P AVR (aortic valve replacement) Z95.2
[2025-03-15] MEDS: dextrose 5%-ns + KCl 20 20 MEQ/1,000 ML BAG 50 MEQ IV (17:57)
[2025-03-15] MEDS: MELATONIN 3 MG TABLET PO (20:40)
[2025-03-15] MEDS: ondansetron 2 mg/ML SDV 2 mL 4 MG IVP (21:47)
[2025-03-15] MEDS: oxyCODONE 5 mg IR Tab/Cap PO (21:48)
[2025-03-16] VITALS (26 sets, daily range): BP systolic 95–138; BP diastolic 44–67; PULSE 66–83; RESP 17–23; TEMP 36.6–36.7; O2SAT 91–99
[2025-03-16] MEDS: piperacillin-tazobactam 3.375 GM in sodium chloride 0.9% (plus) 50 ML IV ×3 (00:29→17:11)
[2025-03-16] MEDS: APIXABAN 2.5 MG TABLET PO ×2 (05:52→17:11)
[2025-03-16] MEDS: metoprolol succinate ER (24 HR) 25 mg Tablet PO (05:56)
[2025-03-16] MEDS: fluticasone nasal spray 16gm Btl 1 SPRAY NASAL (05:56)
--- NOTE | 2025-03-16 08:58 | PC.NURSE ---
Family informed this nurse patient's prozac was stopped by pcp and requested it be stopped in hospital. dr. Thrasher approved
[2025-03-16] MEDS: FUROsemide 10 mg/mL SDV 4mL 40 MG IVP ×2 (09:00→21:19)
[2025-03-16 11:38] LABS: Hematocrit 40.2 % (37-53); Hemoglobin 12.20 g/dL (11.27-16.99); Mean Corpuscular HGB Conc 30.3 g/dL (30-55); Mean Corpuscular Hemoglobin 26.1 pg (27-33); Mean Corpuscular Volume 85.9 fl (82-101); Nucleated Red Blood Cells % 0 %; Platelet Count 64 10^3/cmm (157-399); Red Blood Count 4.68 10^6/uL (3.85-5.65); White Blood Count 5.00 10^3/uL (3.29-11.43)
[2025-03-16 11:50] LABS: Alanine Aminotransferase 62 U/L (0-41); Albumin Level 2.8 g/dL (3.5-5.2); Alkaline Phosphatase 226 U/L (40-130); Anion Gap 10.7 (5-19); Aspartate Amino Transferase 81 U/L (0-40); Blood Urea Nitrogen 21 mg/dL (8-23); Calcium 8.9 mg/dL (8.5-10.5); Carbon Dioxide 26 mmol/L (22-29); Chloride 99 mmol/L (98-107); Creatinine Clr Calc Pharmacy 57.7500; Globulin 3.8 g/dL (1.3-4.6); Glucose 132 mg/dL (65-115); Osmolality Calculated 279 mOsm/kg (285-295); Potassium 3.7 mmol/L (3.5-5.1); Sodium 132 mmol/L (136-145); Total Protein 6.6 g/dL (6.6-8.7)
--- NOTE | 2025-03-16 12:47 | P.PN_ITS ---
Subjective 2 Subjective: feeling better weaning O2 family at bedside Vitals/I&O/Wt Last Vital Signs Temp 98.1 F 03/16/25 03:00 Pulse 73 03/16/25 09:00 Resp 20 H 03/16/25 08:00 BP 108/51 03/16/25 09:00 Pulse Ox 95 03/16/25 09:00 O2 Del Method Heated High Flow 03/16/25 07:20 O2 Flow Rate 40 03/16/25 07:30 FiO2 40 03/16/25 07:30 03/15/25 03/16/25 03/16/25 22:59 06:59 14:59 Intake Total 290 / 1590 410 / 2000 200 / 200 Output Total 1700 / 1700 2300 / 4000 Balance -1410 / -110 -1890 / -2000 200 / 200 Weight last 48 hrs Weight 77 kg Weight 78.245 kg Physical Exam 2 Narrative: General Well-developed tall male tachypneic. CV irregular tachycardic rhythm Lungs good air entry Abdomen positive bowel tones soft nontender no rebound. Calves no tenderness there is no edema Skin warm and dry Urinary Catheter Management: Tellez: Cath Placed During This Visit: yes Reason for Continuing Indwelling Catheter: Accurate Measurement of Urinary Output in Critically Ill Patients Urinary Catheter Date of Insertion: 03/12/25 Urinary Catheter Time of Insertion: 21:40 Data 03/16/25 11:14 03/16/25 11:14 A&P Assessment and plan 1. Acute hypoxemic respiratory failure: Chest x-ray shows fluid in the fissure and small pleural effusions, bilaterally increased pulmonary vasculature but hypoxemia potentially outside of what it would be expected nevertheless. 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 Patient is not a good candidate for BiPAP at the moment due to concerns of aspiration. Continue antibiotics, diuresis appreciate cardiology recommendations no chest pain. Viral respiratory panel was negative 2. Atrial fibrillation with rapid ventricular response: On amiodarone oral rate controlled 3. Thrombocytopenia: Chronically low. 4. S/P AVR (aortic valve replacement): Bioprosthetic valve 5. S/P CABG (coronary artery bypass graft): History of bypass surgery and aortic valve replacement 2017. 6. Coronary artery disease: As above 7. BPH (benign prostatic hyperplasia): Tellez has been placed and needs put out light yellow urine. Urine was not infected 8. Elevated LFTs: Monitor Gallbladder ultrasound completed borderline gallbladder wall thickening PDMP PDMP Reviewed: Not Reviewed Attestations 2 Medical Necessity Statement*: wean O2, diuresis Coding Level of Care Code Acute Code for Chg Fwd Diagnoses Acute hypoxemic respiratory failure J96.01 Atrial fibrillation with rapid ventricular response I48.91 Thrombocytopenia D69.6 S/P AVR (aortic valve replacement) Z95.2 S/P CABG (coronary artery bypass graft) Z95.1 Coronary artery disease I25.10 BPH (benign prostatic hyperplasia) N40.0 Elevated LFTs R79.89
[2025-03-16] MEDS: blistex lip oint 7 gm Tube 1 APPLIC TOPICAL (13:11)
--- NOTE | 2025-03-16 13:16 | P.PN_ITS ---
<Statement entered by Zhen Irving MD - 03/16/25 18:15> Patient was evaluated and cared for in conjunction with an advanced practice practitioner. I personally examined the patient and reviewed the chart and all pertinent data including imaging, telemetry, and laboratory results. I discussed the patient in detail with the advanced practice practitioner. Please see their note for complete H&P testing result and agreed upon plan of care for the patient. Subjective 2 Subjective: Patient still short of breath but mildly improved. He was -2 to 5-hour over 24 hours. Platelet count still low at 64. Renal function is stable. Creatinine is at 1. He is still requiring heated high flow nasal cannula. Vitals/I&O/Wt Last Vital Signs Temp 98.1 F 03/16/25 03:00 Pulse 73 03/16/25 09:00 Resp 20 H 03/16/25 08:00 BP 108/51 03/16/25 09:00 Pulse Ox 95 03/16/25 09:00 O2 Del Method Heated High Flow 03/16/25 07:20 O2 Flow Rate 40 03/16/25 07:30 FiO2 40 03/16/25 07:30 03/15/25 03/16/25 03/16/25 22:59 06:59 14:59 Intake Total 290 / 1590 410 / 2000 200 / 200 Output Total 1700 / 1700 2300 / 4000 Balance -1410 / -110 -1890 / -2000 200 / 200 Weight last 48 hrs Weight 169 lb 12.095 oz Weight 172 lb 8 oz Physical Exam 2 Narrative: General: No apparent distress Respiratory: Normal respiratory effort, fine crackles bilateral lower lobes, no use of accessory muscles Cardio: No JVD, regular rate, regular rhythm, S1 S2 normal, no murmurs, peripheral pulses 2+ radial palpated bilaterally GI: Normal to inspection, nondistended Extremities: Full ROM, no cyanosis or edema Neuro: Alert and oriented x4, no focal motor deficits Psych: Affect normal, denies suicidal ideation, mental status grossly normal Skin: No rashes or lesions noted, no wounds Urinary Catheter Management: Tellez: Cath Placed During This Visit: yes Reason for Continuing Indwelling Catheter: Accurate Measurement of Urinary Output in Critically Ill Patients Urinary Catheter Date of Insertion: 03/12/25 Urinary Catheter Time of Insertion: 21:40 Data 03/16/25 11:14 03/16/25 11:14 A&P Assessment and plan 1. Atrial fibrillation with rapid ventricular response: 2. Acute hypoxemic respiratory failure: 3. Coronary artery disease: 4. S/P CABG (coronary artery bypass graft): 5. S/P AVR (aortic valve replacement): Plan: Will continue 400 mg BID PO. Continue lasix to 40 mg BID. Patient is slowly improving with diuresis. -2250 over 24 hours. Recommend CMP in the AM to evaluate LFT while on amio. AST 81 ALT 62 which is stable and improved. Will continue to monitor. Continue Eliquis 2.5 BID for stroke prevention. At this time, rates are stable. Continue metoprolol 25 daily. PDMP PDMP Reviewed: Not Reviewed Attestations 2 Medical Necessity Statement*: Deferred to primary. Coding Level of Care Code Acute Code for [facility] Fwd Diagnoses Atrial fibrillation with rapid ventricular response I48.91 Acute hypoxemic respiratory failure J96.01 Coronary artery disease I25.10 S/P CABG (coronary artery bypass graft) Z95.1 S/P AVR (aortic valve replacement) Z95.2
[2025-03-16] MEDS: dextrose 5%-ns + KCl 20 20 MEQ/1,000 ML BAG 50 MEQ IV (20:11)
[2025-03-16] MEDS: MELATONIN 3 MG TABLET PO (21:20)
--- NOTE | 2025-03-16 21:57 | PC.NURSE ---
DaughterTalita notified that patient is being transferred to CSU room 101.
--- NOTE | 2025-03-16 22:16 | PC.NURSE ---
Report called to ZOEY Waite CSU. She had no questions.
[2025-03-17] VITALS (10 sets, daily range): BP systolic 101–121; BP diastolic 49–81; PULSE 69–86; RESP 18–93; TEMP 36.3–36.8; O2SAT 24–94
[2025-03-17] MEDS: piperacillin-tazobactam 3.375 GM in sodium chloride 0.9% (plus) 50 ML IV ×3 (01:32→16:36)
[2025-03-17] MEDS: metoprolol succinate ER (24 HR) 25 mg Tablet PO (05:19)
[2025-03-17] MEDS: fluticasone nasal spray 16gm Btl 1 SPRAY NASAL (05:19)
[2025-03-17] MEDS: APIXABAN 2.5 MG TABLET PO ×2 (05:19→16:36)
[2025-03-17 08:46] LABS: Hematocrit 39.7 % (37-53); Hemoglobin 12.10 g/dL (11.27-16.99); Mean Corpuscular HGB Conc 30.5 g/dL (30-55); Mean Corpuscular Hemoglobin 25.9 pg (27-33); Mean Corpuscular Volume 85.0 fl (82-101); Nucleated Red Blood Cells % 0 %; Platelet Count 60 10^3/cmm (157-399); Red Blood Count 4.67 10^6/uL (3.85-5.65); White Blood Count 5.06 10^3/uL (3.29-11.43)
[2025-03-17] MEDS: FUROsemide 10 mg/mL SDV 4mL 40 MG IVP (08:58)
[2025-03-17 09:14] LABS: Alanine Aminotransferase 48 U/L (0-41); Albumin Level 2.7 g/dL (3.5-5.2); Alkaline Phosphatase 218 U/L (40-130); Anion Gap 10.7 (5-19); Aspartate Amino Transferase 62 U/L (0-40); Blood Urea Nitrogen 20 mg/dL (8-23); Calcium 8.8 mg/dL (8.5-10.5); Carbon Dioxide 27 mmol/L (22-29); Chloride 99 mmol/L (98-107); Globulin 3.6 g/dL (1.3-4.6); Glucose 120 mg/dL (65-115); Osmolality Calculated 280 mOsm/kg (285-295); Potassium 3.7 mmol/L (3.5-5.1); Sodium 133 mmol/L (136-145); Total Protein 6.3 g/dL (6.6-8.7)
--- NOTE | 2025-03-17 09:33 | FL_ITS ---
FL barium swallow modifd [id number] REASON FOR EXAM: Oropharyngeal dysphagia FLUOROSCOPY TIME: 3min [id number] # OF SPOT FILMS: None TECHNIQUE: Examination was supervised by the speech therapy department. Patient was examined in the sitting upright lateral projection. The swallowing of varying consistencies of barium was monitored fluoroscopically and video recorded. FINDINGS: There was laryngeal vestibule penetration and deon aspiration with varying viscosity liquids. No impedance to the passage of the barium tablet through the thoracic esophagus into the stomach. IMPRESSION: A detailed report of the swallowing will be rendered by the speech therapy department. Aspiration as above. MTDD
--- NOTE | 2025-03-17 14:28 | P.PN_ITS ---
Documented by User: Sharon Bhatti NP 03/17/25 14:35 Subjective 2 Subjective: Patient is stable. He has diuresed well. Rates controlled. Requiring oxygen via nasal cannula. Otherwise no major complaints. Vitals/I&O/Wt Last Vital Signs Temp 97.3 F L 03/17/25 07:20 Pulse 78 03/17/25 11:03 Resp 93 H 03/17/25 11:03 BP 118/81 03/17/25 13:30 Pulse Ox 24 L 03/17/25 11:03 O2 Del Method Nasal Cannula 03/17/25 11:03 O2 Flow Rate 3 03/17/25 08:50 FiO2 40 03/16/25 07:30 03/16/25 03/17/25 03/17/25 22:59 06:59 14:59 Intake Total 1350 / 1850 170 / 2020 230 / 230 Output Total 1100 / 1100 1000 / 2100 Balance 250 / 750 -830 / -80 230 / 230 Weight last 48 hrs Weight 165 lb 2.02 oz Weight 169 lb 12.095 oz Physical Exam 2 Narrative: General: No apparent distress Respiratory: Normal respiratory effort, fine crackles bilateral lower lobes, no use of accessory muscles Cardio: No JVD, regular rate, regular rhythm, S1 S2 normal, no murmurs, peripheral pulses 2+ radial palpated bilaterally GI: Normal to inspection, nondistended Extremities: Full ROM, no cyanosis or edema Neuro: Alert and oriented x4, no focal motor deficits Psych: Affect normal, denies suicidal ideation, mental status grossly normal Skin: No rashes or lesions noted, no wounds Urinary Catheter Management: Tellez: Cath Placed During This Visit: yes Reason for Continuing Indwelling Catheter: Accurate Measurement of Urinary Output in Critically Ill Patients Urinary Catheter Date of Insertion: 03/12/25 Urinary Catheter Time of Insertion: 21:40 Data 03/18/25 03:01 03/18/25 03:01 A&P Assessment and plan 1. Atrial fibrillation with rapid ventricular response: 2. Acute hypoxemic respiratory failure: 3. Coronary artery disease: 4. S/P CABG (coronary artery bypass graft): 5. S/P AVR (aortic valve replacement): 6. Mitral valve stenosis: Plan: Will continue 400 mg BID PO. Continue lasix to 40 mg BID. On discharge recommend lasix 40 PO in the AM and 20 PO in the PM. Patient came in with mixed picture of acute respiratory failure/pneumonia/heart failure exacerbation. He has diuresed well. He is euvolemic. He has improved from a cardiac standpoint as much as possible as we have maximized therapy. He does have severe mitral valve stenosis. We have discussed with the family referring for possible mitral valve angioplasty. The family would like to think about this. Will follow up in the clinic to discuss. When ok with the hospitalist team, ok to discharge from our standpoint. Recommend continue metoprolol, amiodarone taper, lasix PO 40 in the am and 20 mg in the PM, potassium supplement, spironolactone, lisinopril, Eliquis 2.5 BID. PDMP PDMP Reviewed: Not Reviewed Attestations 2 Medical Necessity Statement*: Deferred to primary. Coding Level of Care Code Acute Code for [employer] Fwd Diagnoses Atrial fibrillation with rapid ventricular response I48.91 Acute hypoxemic respiratory failure J96.01 Coronary artery disease I25.10 S/P CABG (coronary artery bypass graft) Z95.1 S/P AVR (aortic valve replacement) Z95.2 Mitral valve stenosis I05.0 Documented by User: Zhen Irving MD 03/18/25 16:04 Physical Exam 2 Narrative: General: No apparent distress Respiratory: Normal respiratory effort, fine crackles bilateral lower lobes, no use of accessory muscles Cardio: No JVD, regular rate, regular rhythm, S1 S2 normal, diastolic 2/6 murmur GI: Normal to inspection, nondistended Extremities: Full ROM, no cyanosis or edema Neuro: Alert and oriented x4, no focal motor deficits Psych: Affect normal, denies suicidal ideation, mental status grossly normal Skin: No rashes or lesions noted, no wounds Urinary Catheter Management: Tellez: Cath Placed During This Visit: yes Data 03/18/25 03:01 03/18/25 03:01 A&P Assessment and plan 1. Atrial fibrillation with rapid ventricular response: 2. Acute hypoxemic respiratory failure: 3. Coronary artery disease: 4. S/P CABG (coronary artery bypass graft): 5. S/P AVR (aortic valve replacement): 6. Mitral valve stenosis: PDMP PDMP Reviewed: Not Reviewed Coding Level of Care Code Acute Code for [facility] Fwd Diagnoses Atrial fibrillation with rapid ventricular response I48.91 Acute hypoxemic respiratory failure J96.01 Coronary artery disease I25.10 S/P CABG (coronary artery bypass graft) Z95.1 S/P AVR (aortic valve replacement) Z95.2 Mitral valve stenosis I05.0
[2025-03-17] MEDS: dextrose 5%-ns + KCl 20 20 MEQ/1,000 ML BAG 50 MEQ IV (16:37)
--- NOTE | 2025-03-17 17:57 | P.PN_ITS ---
Subjective 2 Subjective: He is feeling little bit better. He has been getting dyspneic quite significantly with exertion. However, per discussion with his he has had longstanding issues with dyspnea and dyspnea with exertion. He denies any chest pain or pressure. He has been having some mild cough although possibly not more than usual. Not productive. Vitals/I&O/Wt Last Vital Signs Temp 97.3 F L 03/17/25 07:20 Pulse 80 03/17/25 15:15 Resp 21 H 03/17/25 15:15 BP 121/59 03/17/25 15:15 Pulse Ox 92 03/17/25 15:15 O2 Del Method Nasal Cannula 03/17/25 15:15 O2 Flow Rate 3 03/17/25 08:50 FiO2 40 03/16/25 07:30 03/17/25 03/17/25 03/17/25 06:59 14:59 22:59 Intake Total 170 / 2020 230 / 230 1000 / 1230 Output Total 1000 / 2100 Balance -830 / -80 230 / 230 1000 / 1230 Weight last 48 hrs Weight 74.9 kg Weight 77 kg Physical Exam 2 Narrative: Accompanied by his . Const: COMMON NORMALS: patient oriented x3 and alert GENERAL APPEARANCE: c ooperative ORIENTATION/CONSCIOUSNESS: Yes awake HENMT: COMMON NORMALS: oropharynx normal Neck/C-Spine: COMMON NORMALS: no JVD Resp: COMMON NORMALS: normal respiratory effort and clear to auscultation bilaterally AUSCULTATION: clear to auscultation bilaterally Cardio: COMMON NORMALS: no JVD, regular rhythm, S1 normal heart sound present, S2 normal heart sound present and No murmurs present (Cardio) RHYTHM: regular rhythm HEART SOUNDS: S1 normal heart sound present and S2 normal heart sound present GI: COMMON NORMALS: Normal to inspection, nondistended, normoactive bowel sounds present, Soft to palpation and non-tender PALPATION: Yes Soft to palpation Extremity: COMMON NORMALS: no joint enlargement and no pedal edema Neuro: COMMON NORMALS: patient oriented x3 and moves all extremities S ENSORIUM/ORIENTATION: Yes alert Skin: COMMON NORMALS: no rashes or lesions noted GENERAL SKIN EXAM: no rashes or lesions noted Urinary Catheter Management: Tellez: Cath Placed During This Visit: yes Reason for Continuing Indwelling Catheter: Accurate Measurement of Urinary Output in Critically Ill Patients Urinary Catheter Date of Insertion: 03/12/25 Urinary Catheter Time of Insertion: 21:40 Data 03/17/25 07:31 03/17/25 07:31 A&P Assessment and plan 1. Acute hypoxemic respiratory failure: Continuing to require 3 L of oxygen this morning. No chest pain or pressure. Minimal cough. Reviewed CTA, without PE. Multifocal infiltrate and effusions. Without signs of sepsis. Afebrile, normal WBC. Requested assessment with MBS, is found to have difficulty with aspiration, aspiration with thin liquids, and with thickened liquids residual with both mild and moderately thickened per discussion with ST with some penetration. Mildly thick and may be more palatable to him. Maintain aspiration precautions. Consider dilation procedure. Additionally with moderate to severe mitral stenosis, discussed with cardiology, at risk of pulmonary edema particular with atrial fibrillation. Hold off further diuresis at this time as he does appear more euvolemic now. Consideration of follow-up for referral for dilation procedure discussed by cardiology with patient and family and he and family will consider this. Continue oxygen support. Will reassess oxygenation overnight. Wean down oxygen as tolerating. Monitor for aspiration pneumonia. Empirically on antibiotic. Monitor for scope C. difficile, ELPIDIO, SJS. Reassess chemistry. Repeat blood counts. Discussed with nursing, nurse outreach case manager. 2. Atrial fibrillation with rapid ventricular response: On amiodarone oral rate controlled Monitor on telemetry 3. Thrombocytopenia: Chronically low. 4. S/P AVR (aortic valve replacement): Bioprosthetic valve 5. S/P CABG (coronary artery bypass graft): History of bypass surgery and aortic valve replacement 2017. 6. Coronary artery disease: As above 7. BPH (benign prostatic hyperplasia): Tellez has been placed and needs put out light yellow urine. Urine was not infected 8. Elevated LFTs: Monitor Gallbladder ultrasound completed borderline gallbladder wall thickening PDMP PDMP Reviewed: Not Reviewed Attestations 2 Medical Necessity Statement*: Continue admission for reassessment of hypoxic respiratory failure, new oxygen requirement with moderate to severe mitral valve stenosis, pulmonary edema in the setting of atrial fibrillation, as well as aspiration pneumonitis, possible aspiration pneumonia. and High MDM includes amount and/or complexity of data reviewed/ordered [ resulted lab(s)/test(s), ordered lab(s)/test(s) and other healthcare professional discussion] and described risk of complication, morbidity or mortality of management as documented Diagnoses Acute hypoxemic respiratory failure J96.01 Atrial fibrillation with rapid ventricular response I48.91 Thrombocytopenia D69.6 S/P AVR (aortic valve replacement) Z95.2 S/P CABG (coronary artery bypass graft) Z95.1 Coronary artery disease I25.10 BPH (benign prostatic hyperplasia) N40.0 Elevated LFTs R79.89
[2025-03-17] MEDS: MELATONIN 3 MG TABLET PO (20:04)
[2025-03-18] VITALS: BP 124/60; PULSE 83; RESP 21; O2SAT 91
[2025-03-18] MEDS: piperacillin-tazobactam 3.375 GM in sodium chloride 0.9% (plus) 50 ML IV ×2 (00:58→08:27)
[2025-03-18 03:58] LABS: Hematocrit 41.9 % (37-53); Hemoglobin 12.90 g/dL (11.27-16.99); Mean Corpuscular HGB Conc 30.8 g/dL (30-55); Mean Corpuscular Hemoglobin 26.5 pg (27-33); Mean Corpuscular Volume 86.0 fl (82-101); Nucleated Red Blood Cells % 0 %; Platelet Count 67 10^3/cmm (157-399); Red Blood Count 4.87 10^6/uL (3.85-5.65); White Blood Count 6.33 10^3/uL (3.29-11.43)
[2025-03-18 04:00] VITALS: BP 125/69; PULSE 90; RESP 25; TEMP 36.7; O2SAT 95
[2025-03-18 04:25] LABS: Alanine Aminotransferase 44 U/L (0-41); Albumin Level 2.8 g/dL (3.5-5.2); Alkaline Phosphatase 244 U/L (40-130); Anion Gap 10.5 (5-19); Aspartate Amino Transferase 55 U/L (0-40); Blood Urea Nitrogen 19 mg/dL (8-23); Calcium 8.9 mg/dL (8.5-10.5); Carbon Dioxide 29 mmol/L (22-29); Chloride 98 mmol/L (98-107); Globulin 3.8 g/dL (1.3-4.6); Glucose 157 mg/dL (65-115); Osmolality Calculated 284 mOsm/kg (285-295); Potassium 3.5 mmol/L (3.5-5.1); Sodium 134 mmol/L (136-145); Total Protein 6.6 g/dL (6.6-8.7)
[2025-03-18 04:27] LABS: Magnesium 1.7 mg/dL (1.7-2.3)
[2025-03-18] MEDS: APIXABAN 2.5 MG TABLET PO (04:54)
[2025-03-18] MEDS: metoprolol succinate ER (24 HR) 25 mg Tablet PO (04:54)
[2025-03-18 07:49] VITALS: BP 134/65; PULSE 93; RESP 27; TEMP 36.9; O2SAT 95
--- NOTE | 2025-03-18 08:30 | PM.DCS ---
Discharge Providers Date of Admission: 03/12/25 21:57 Date of Discharge: March 18, 2025 Attending Provider at Admission: Cameron Quintanilla MD Attending Provider at Discharge: Luis E Smith Primary Care Provider: Kyle Mendoza MD Diagnoses at Discharge Discharge Diagnosis 1. Acute hypoxemic respiratory failure: 2. Atrial fibrillation with rapid ventricular response: 3. Thrombocytopenia: 4. S/P AVR (aortic valve replacement): 5. S/P CABG (coronary artery bypass graft): 6. BPH (benign prostatic hyperplasia): 7. Elevated LFTs: Reason for Visit Reason for Visit: High HR N/V Chills Can't Catch breath Brief History: Magen Boo is a 84 year old male with chronic atrial fibrillation previously on apixaban recently stopped due to low platelet. He is and lives with his Emma. He is accompanied currently by his daughter Litzy. 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 Patient has been increasingly weak and dyspneic on exertion for the last 1 year. Since January he has required a lift chair to get him up on his feet. He still gets in his commode and goes to [email or web address] in the shop but his ambulation is slowed. Patient complains that his breathing is bad or he cannot breathe. He denies chest pain nausea vomiting. Daughter Litzy states that he vomited earlier. Patient sees Dr. Tabares but also saw Dinah Yepez March 09, 2025. LVEF on December 2023 revealed 35% LVEF and patient underwent Lexiscan stress test which showed moderate ischemia in the LAD territory he was treated with medical management due to lack of chest pain patient was treated with Entresto but had diarrhea so that medication was stopped. Lisinopril was started and carvedilol was uptitrated and echo in 2024 showed EF was up to 45 to 50% patient had four-way bypass and up prosthetic pig valve replacement 2016. Recent chest x-ray shows pulmonary vascular congestion in February and this was seen again today on 03/12/2025 with a right pleural effusion small possibly loculated. Patient has peripheral vascular disease in her right foot ulcer followed with Dr. Briggs. Patient is intended to have an angiogram with Dr. Tabares for possible stent. Patient has had 30 pound weight loss, low platelets and meds changed to include carvedilol down to 3.125 mg twice a day from 6.25 and apixaban decreased to 2.5 mg twice a day lisinopril down to 2.5 mg daily from 5 mg. Spironolactone started at 12.5 mg daily Patient vomited so started on Compazine in addition to Zofran. He is holding vomit in his mouth which was suctioned by the nurse. Due to his hypoxemia and right lower lobe infiltrate I started him on Zosyn pharmacy to dose Hospital Course Hospital Course Received treatment for atrial fibrillation with rapid worsening response initially with Cardizem drip subsequently s amiodarone, beta-thomas switched to metoprolol. Heart rates now remain well-controlled. Continue to taper down amiodarone, while on Amio continue follow-up for potential adverse effects monitoring his vision, thyroid, lung, liver function. With acute hypoxemic respiratory failure was imaged with CT angiogram which showed no PE, increasing moderate central and hilar adenopathy with recommended to repeat CT in 3 months. Noted extensive infiltrates and effusions. Echocardiogram was obtained and he was found to have ejection fraction 50% bioprosthetic aortic valve mild AVS. However was found to have severely thickened mitral valve with mitral valve mean gradient 7.6 mmHg suggestive of moderate mitral valve stenosis. Consideration of valve dilation procedure was discussed by cardiology with patient and family and they will be giving it a consideration and revisit on follow-up. He also underwent modified barium swallow study due to suspected aspiration and found to be aspirating with thin liquids, with mildly and moderately thick liquids had some penetration, although also with residual, also at risk of aspiration. Discussed with him different options, will settle on mildly thickened liquids for now with aspiration precautions with pharyngeal dysphagia. Would benefit from dilation procedure as discussed with him, with referral for further assessment by ENT. Home oxygen study is obtained. With mild transaminitis gallbladder ultrasound obtained, with an dental finding of gallbladder polyp. Borderline gallbladder wall thickening. Please follow-up liver parameters. Physical Exam Const: COMMON NORMALS: patient oriented x3 and alert GENERAL APPEARANCE: cooperative ORIENTATION/CONSCIOUSNESS: Yes awake HENMT: COMMON NORMALS: oropharynx normal Neck/C-Spine: COMMON NORMALS: no JVD Resp: COMMON NORMALS: normal respiratory effort and clear to auscultation bilaterally AUSCULTATION: clear to auscultation bilaterally Cardio: COMMON NORMALS: no JVD, regular rhythm, S1 normal heart sound present, S2 normal heart sound present and No murmurs present (Cardio) RHYTHM: regular rhythm HEART SOUNDS: S1 normal heart sound present and S2 normal heart sound present GI: COMMON NORMALS: Normal to inspection, nondistended, normoactive bowel sounds present, Soft to palpation and non-tender PALPATION: Yes Soft to palpation Extremity: COMMON NORMALS: no joint enlargement and no pedal edema Neuro: COMMON NORMALS: patient oriented x3 and moves all extremities SENSORIUM/ORIENTATION: Yes alert Skin: COMMON NORMALS: no rashes or lesions noted GENERAL SKIN EXAM: no rashes or lesions noted Urinary Catheter Management: Tellez: Cath Placed During This Visit: yes Reason for Continuing Indwelling Catheter: Accurate Measurement of Urinary Output in Critically Ill Patients Urinary Catheter Date of Insertion: 03/12/25 Urinary Catheter Time of Insertion: 21:40 Discharge Data Studies Completed and Pending Completed Studies During Hospitalization Category Date Time Status CTA chest [CT angio chest PE protcl [id number]] Routine Cat Scan 03/13/25 07:07 Completed CXRP [XR chest 1V portable [id number]] Routine Exams 03/15/25 09:13 Completed XR chest 1V portable [id number] Stat Exams 03/12/25 19:58 Completed CV. echo complete* [id number] Routine Ultrasound 03/13/25 05:42 Completed US abdomen complete* [id number] Routine Ultrasound 03/13/25 05:42 Completed Pending at discharge Category Date Time Status Modified barium swallow [FL barium swallow modifd [id number] Exams 03/17/25 12:20 Taken ] Routine CBC Auto Diff [Complete Blood Count w/Auto] AM LABS Lab 03/19/25 04:00 Ordered CMP [Comprehensive Metabolic Panel] AM LABS Lab 03/19/25 04:00 Ordered Radiology Impressions Abdomen Ultrasound 03/13/25 05:42 IMPRESSION: 1. No acute findings. 2. Gallbladder polyp. Borderline gallbladder wall thickening. Chest CTA 03/13/25 07:07 IMPRESSION: 1. Increasing moderate central and hilar adenopathy. This could be either reactive or neoplastic. Follow-up chest CT in 3 months recommended. 2. Extensive infiltrates and effusions. Chest X-Ray 03/15/25 09:13 IMPRESSION: Stable abnormal chest. Laboratory Results WBC 6.33 10^3/uL (3.29-11.43) 03/18/25 03:01 RBC 4.87 10^6/uL (3.85-5.65) 03/18/25 03:01 Hgb 12.90 g/dL (11.27-16.99) 03/18/25 03:01 Hct 41.9 % (37-53) 03/18/25 03:01 MCV 86.0 fl (82-101) 03/18/25 03:01 MCH 26.5 pg (27-33) L 03/18/25 03:01 MCHC 30.8 g/dL (30-55) 03/18/25 03:01 RDW 16.5 % (12.1-15.1) H 03/18/25 03:01 Plt Count 67 10^3/cmm (157-399) L 03/18/25 03:01 MPV 12.7 fL (7.4-10.4) H 03/18/25 03:01 Neut % (Auto) 72.5 % 03/18/25 03:01 Lymph % (Auto) 15.5 % 03/18/25 03:01 Blount % (Auto) 9.5 % 03/18/25 03:01 Eos % (Auto) 0.9 % 03/18/25 03:01 Baso % (Auto) 0.8 % 03/18/25 03:01 Neut # (Auto) 4.59 10^3/uL (1.8-7.7) 03/18/25 03:01 Lymph # (Auto) 1.0 10^3/uL (0.8-4.8) 03/18/25 03:01 Blount # (Auto) 0.6 10^3/uL (0.2-0.9) 03/18/25 03:01 Eos # (Auto) 0.1 10^3/uL (0.0-0.8) 03/18/25 03:01 Baso # (Auto) 0.1 10^3/uL (0.0-0.1) 03/18/25 03:01 Nucleated RBC % (auto) 0 % 03/18/25 03:01 Nucleated RBCs # 0.0 /100WBC 03/18/25 03:01 PT 15.10 SECONDS (12.1-14.9) H 03/12/25 19:57 INR 1.11 (0.8-1.2) 03/12/25 19:57 APTT 44.4 SECONDS (23.9-36.7) H 03/12/25 19:57 Specimen Type Arterial 03/12/25 20:03 Sample Site Radial, left 03/12/25 20:03 ABG pH 7.43 (7.35-7.45) 03/12/25 20:03 ABG pCO2 33.2 mmHg (35-45) L 03/12/25 20:03 ABG pO2 60.8 mmHg (80.0-100.0) L 03/12/25 20:03 ABG PO2/FiO2 Ratio 168 03/12/25 20:03 ABG HCO3 22.1 mmol/L (22-26) 03/12/25 20:03 ABG Base Excess -1.5 mmol/L (-2.0-2.0) 03/12/25 20:03 Robert Test Pos 03/12/25 20:03 Hematocrit 41.5 % (42-52) L 03/12/25 20:03 O2 Delivery Device Nc 03/12/25 20:03 O2 Liters/Min 4.0 % 03/12/25 20:03 FiO2 36.0 % 03/12/25 20:03 Microstrategy Reports Developer ID [email or web address] 03/12/25 20:03 Sodium 134 mmol/L (136-145) L 03/18/25 03:01 Potassium 3.5 mmol/L (3.5-5.1) 03/18/25 03:01 Chloride 98 mmol/L (98-107) 03/18/25 03:01 Carbon Dioxide 29 mmol/L (22-29) 03/18/25 03:01 Anion Gap 10.5 (5-19) 03/18/25 03:01 BUN 19 mg/dL (8-23) 03/18/25 03:01 Creatinine 1.1 mg/dL (0.7-1.2) 03/18/25 03:01 GFR Calculation Not Reportable 03/18/25 03:01 Glucose 157 mg/dL (65-115) H 03/18/25 03:01 Calculated Osmolality 284 mOsm/kg (285-295) L 03/18/25 03:01 Calcium 8.9 mg/dL (8.5-10.5) 03/18/25 03:01 Phosphorus 3.6 mg/dL (2.5-4.5) 03/12/25 19:57 Magnesium 1.7 mg/dL (1.7-2.3) 03/18/25 03:01 Total Bilirubin 1.1 mg/dL (0.15-1.2) 03/18/25 03:01 AST 55 U/L (0-40) H 03/18/25 03:01 ALT 44 U/L (0-41) H 03/18/25 03:01 Alkaline Phosphatase 244 U/L (40-130) H 03/18/25 03:01 Troponin T Baseline 42 ng/L (0-15) H 03/12/25 19:57 Troponin T 120 Minute 112.4 ng/L (0-15) H 03/12/25 21:47 Delta Troponin T 70.4 ABS# (0-10) H* 03/12/25 21:47 Troponin T Hi Sens 6Hr 308.2 ng/L (0-15) H 03/13/25 02:04 Troponin T Hi Sens 6Hr Delta 266.2 ng/L (0-12) H* 03/13/25 02:04 NT-Pro-B Natriuret Pep 4471 pg/mL (0-450) H 03/12/25 19:57 Total Protein 6.6 g/dL (6.6-8.7) 03/18/25 03:01 Albumin 2.8 g/dL (3.5-5.2) L 03/18/25 03:01 Globulin 3.8 g/dL (1.3-4.6) 03/18/25 03:01 Lipase 32 U/L (13-60) 03/13/25 02:04 TSH 4.90 uIU/mL (0.27-4.20) H 03/12/25 19:57 Urine Color Dark yellow (Yellow) A 03/12/25 20:15 Urine Appearance Clear (CLEAR) 03/12/25 20:15 Urine pH 5.5 (5-7) 03/12/25 20:15 Ur Specific [place] 1.019 (1.005-1.030) 03/12/25 20:15 Urine Protein 1+ (Negative) A 03/12/25 20:15 Urine Glucose (UA) Negative (Normal) 03/12/25 20:15 Urine Ketones Negative (Negative) 03/12/25 20:15 Urine Blood Negative (Negative) 03/12/25 20:15 Urine Nitrate Negative (Negative) 03/12/25 20:15 Urine Bilirubin Negative (Negative) 03/12/25 20:15 Urine Urobilinogen 1.0 mg/dL (Negative) 03/12/25 20:15 Ur Leukocyte Esterase Negative (Negative) 03/12/25 20:15 Urine RBC 0-2 /hpf (0-2) 03/12/25 20:15 Urine WBC 0-5 /hpf (0-5) 03/12/25 20:15 Ur Squamous Epith Cells 0-5 /hpf (0-5) 03/12/25 20:15 Amorphous Sediment Not Reportable 03/12/25 20:15 Urine Bacteria None seen /hpf (NONE) 03/12/25 20:15 Hyaline Casts 4.95 /lpf 03/12/25 20:15 Adenovirus (PCR) Not detected (NOT DETECT) 03/12/25 20:16 C. pneumoniae DNA (PCR) Not detected (NOT DETECT) 03/12/25 20:16 C. difficile (PCR) Negative (Negative) 03/14/25 01:40 Coronavirus 229E (PCR) Not detected (NOT DETECT) 03/12/25 20:16 Human Metapneumovir PCR Not detected (NOT DETECT) 03/12/25 20:16 Influenza A (H1) PCR Not detected (NOT DETECT) 03/12/25 20:16 Influ A (H1/09) PCR Not detected (NOT DETECT) 03/12/25 20:16 Influenza A (H3) PCR Not detected (NOT DETECT) 03/12/25 20:16 Influenza Type A (PCR) Not detected (NOT DETECT) 03/12/25 20:16 Influenza Type B (PCR) Not detected (NOT DETECT) 03/12/25 20:16 M. pneumoniae (PCR) Not detected (NOT DETECT) 03/12/25 20:16 Parainfluenza 1 (PCR) Not detected (NOT DETECT) 03/12/25 20:16 Parainfluenza 2 (PCR) Not detected (NOT DETECT) 03/12/25 20:16 Parainfluenza 3 (PCR) Not detected (NOT DETECT) 03/12/25 20:16 Parainfluenza 4 (PCR) Not detected (NOT DETECT) 03/12/25 20:16 RSV Type A (PCR) Not detected (NOT DETECT) 03/12/25 20:16 RSV Type B (PCR) Not detected (NOT DETECT) 03/12/25 20:16 Entero/Rhino (PCR) Not detected (NOT DETECT) 03/12/25 20:16 SARS-CoV-2 (PCR) Not detected (NOT DETECT) 03/12/25 20:16 Vitals Last Vital Signs Temp 98.4 F 03/18/25 07:49 Pulse 93 03/18/25 07:49 Resp 27 H 03/18/25 07:49 BP 134/65 03/18/25 07:49 Pulse Ox 95 03/18/25 07:49 O2 Del Method Nasal Cannula 03/18/25 07:49 O2 Flow Rate 3 03/17/25 08:50 FiO2 40 03/16/25 07:30 Discharge Plan Discharge Patient Disposition: Home Condition: Serious Prescriptions: New metoprolol succinate 25 mg Tablet Extended Release 24 Hr 25 mg PO DAILY Qty: 90 0RF midodrine 5 mg Tablet 5 mg PO TID Qty: 90 0RF amiodarone 200 mg tablet See Rx Instructions .ROUTE .COMPLEX Qty: 90 0RF Rx Instructions: 400mg BID for 3 days, then 200mg BID cefdinir 300 mg capsule 300 mg PO BID 5 Days Qty: 10 0RF Continued acetaminophen [Tylenol 8 Hour] 650 mg tablet extended release 650 mg PO Q12H pantoprazole 40 mg tablet,delayed release (DR/EC) 40 mg PO DAILY Rx Instructions: dr stopped friday03/09/25 lidocaine 5 % adhesive patch,medicated 1 patch topical DAILY Rx Instructions: leave on most painful area for up to 12 hrs furosemide [Lasix] 20 mg tablet 20 mg PO PRN apixaban 2.5 mg tablet 2.5 mg PO BID Qty: 180 3RF Rx Instructions: put on hold Friday03/09/25 lisinopril 2.5 mg tablet 2.5 mg PO DAILY Qty: 60 3RF spironolactone 25 mg tablet 12.5 mg PO DAILY cholecalciferol (vitamin D3) [Vitamin D3] 125 mcg (5,000 unit) Tablet 125 mcg PO DAILY Discontinued carvedilol 3.125 mg tablet 3.125 mg PO BID Qty: 60 3RF Rx Instructions: must administer with a meal/food Discharge Order = DC NOW: Discharge Order (Routine); Ordered 03/18/25 Ordered By: Luis E Smith Referrals: Sharon Bhatti NP [Nurse Practitioner, Cardiology] - 1 week Referral Note: Boogie Hernandez MD [Physician, Ear, Nose, Throat] Referral Note: Dilation procedure for pharyngeal dysphagia Kyle Mendoza MD [Primary Care Provider, [facility]] - 03/24/25 9:30 am Discharge Diet: As Directed Discharge Activity: Increase activity as tolerated and Oxygen as instructed Patient Instructions: Metoprolol (By mouth), Amiodarone (By mouth), Midodrine (By mouth), Cefdinir (By mouth), A-fib (Atrial Fibrillation) (GEN), Mitral Stenosis (GEN), Aspiration Precautions (GEN), Patient Portal & Vincent Instructions Activity Restrictions/Additional Instructions: Due to recurrent aspiration continue dysphagia diet with mildly thickened, minced and moist solids. Maintain strict aspiration precautions. Follow-up with ear nose throat doctor regarding pharyngeal dysphagia for consideration of dilation procedure. Follow-up with your primary provider to arrange for repeat CT chest in 3 months due to increasing moderate central adenopathy. Follow-up with cardiology to further discuss mitral valve stenosis which is contributing to Giurgius of breath and low oxygen, with consideration of arrangement of valve dilation procedure. For atrial fibrillation continue metoprolol and amiodarone. Continue amiodarone 400 twice daily for 3 days, then switch to 200 mg twice daily and continue follow-up with cardiology to de-escalate the medication. Continue follow-up with your primary doctor regarding potential adverse effects of amiodarone, monitoring your eyes, thyroid, lungs, liver for potential adverse effects. Monitor your blood pressure 3 times daily, if your blood pressure starts getting high, rising above 150/90 persistently, discontinue midodrine. Otherwise follow-up with your primary doctor to consider when midodrine may be de-escalated. Rise slowly from laying to sitting and sitting to standing. Seek medical attention in case of any worsening or new concerning symptoms. Discharge Attestations Time Spent in Discharge Care*: greater than 30 min Status at Discharge: Cognitive status at discharge: cognitively intact, Behavioral status at discharge: cooperative, Quality Metrics Clinical Quality Measures [ No reported AMI, CVA or VTE this stay] Coding Level of Care Code 04431 Total time (in minutes) for Discharge: 55 Diagnoses Acute hypoxemic respiratory failure J96.01 Atrial fibrillation with rapid ventricular response I48.91 Thrombocytopenia D69.6 S/P AVR (aortic valve replacement) Z95.2 S/P CABG (coronary artery bypass graft) Z95.1 Coronary artery disease I25.10 BPH (benign prostatic hyperplasia) N40.0 Elevated LFTs R79.89
[2025-03-18 09:08] VITALS: PULSE 81; RESP 18; O2SAT 96
[2025-03-18 09:09] VITALS: O2SAT 83; O2SAT 94
--- NOTE | 2025-03-18 12:04 | PC.NURSE ---
Patient discharged to home. Instruction provided to daughter, spouse and patient regarding follow up needs, new medications. Family requesting home health with PT. Informed Elodia, case mgmt. Dr Smith aware. Family requested [facility]. Referral has been sent. Daughter and spouse verbalized complete understanding. Patient has home O2 at bedside. Patient taken by wheelchair to private vehicle with family at side.
[2025-03-18 12:11] VITALS: BP 134/65; PULSE 88; RESP 26; O2SAT 95
--- NOTE | 2025-03-18 14:17 | P.PN_ITS ---
<Statement entered by Zhen Irving MD - 03/18/25 16:11> Patient was evaluated and cared for in conjunction with an advanced practice practitioner. I have not personally examined the patient and reviewed the chart and all pertinent data including imaging, telemetry, and laboratory results. I discussed the patient in detail with the advanced practice practitioner. Please see their note for complete H&P testing result and agreed upon plan of care for the patient. Subjective 2 Subjective: Patient seen today. He is euvolemic at this time and ready to go home. Vitals/I&O/Wt Last Vital Signs Temp 98.4 F 03/18/25 07:49 Pulse 88 03/18/25 12:11 Resp 26 H 03/18/25 12:11 BP 134/65 03/18/25 12:11 Pulse Ox 95 03/18/25 12:11 O2 Del Method Nasal Cannula 03/18/25 09:08 O2 Flow Rate 4 03/18/25 09:09 FiO2 40 03/16/25 07:30 03/17/25 03/18/25 03/18/25 22:59 06:59 14:59 Intake Total 1050 / 1280 290 / 1570 1471.667 / 1471.667 Output Total 800 / 800 450 / 1250 300 / 300 Balance 250 / 480 -160 / 320 1171.667 / 1171.667 Weight last 48 hrs Weight 165 lb 4.8 oz Weight 165 lb 2.02 oz Physical Exam 2 Narrative: General: No apparent distress Respiratory: Normal respiratory effort, fine crackles bilateral lower lobes, no use of accessory muscles Cardio: No JVD, regular rate, regular rhythm, S1 S2 normal, no murmurs, peripheral pulses 2+ radial palpated bilaterally GI: Normal to inspection, nondistended Extremities: Full ROM, no cyanosis or edema Neuro: Alert and oriented x4, no focal motor deficits Psych: Affect normal, denies suicidal ideation, mental status grossly normal Skin: No rashes or lesions noted, no wounds Urinary Catheter Management: Tellez: Cath Placed During This Visit: yes, but has since been removed by the nurse Reason for Continuing Indwelling Catheter: Acute Urinary Retention or Obstruction Urinary Catheter Date of Insertion: 03/12/25 Urinary Catheter Time of Insertion: 21:40 Date Urinary Catheter Removed: 03/18/25 Time Urinary Catheter Discontinued: 08:45 Data 03/18/25 03:01 03/18/25 03:01 Micro: Microbiology 03/12/25 19:57 Blood Culture - Final Blood NO GROWTH AFTER 5 DAYS 03/12/25 19:57 Blood Culture - Final Blood NO GROWTH AFTER 5 DAYS A&P Assessment and plan 1. Atrial fibrillation with rapid ventricular response: 2. Acute hypoxemic respiratory failure: 3. Coronary artery disease: 4. S/P CABG (coronary artery bypass graft): 5. S/P AVR (aortic valve replacement): Plan: Will continue 400 mg BID PO. Continue lasix to 40 mg BID. On discharge recommend lasix 40 PO in the AM and 20 PO in the PM. Patient came in with mixed picture of acute respiratory failure/pneumonia/heart failure exacerbation. He has diuresed well. He is euvolemic. He has improved from a cardiac standpoint as much as possible as we have maximized therapy. He does have severe mitral valve stenosis. We have discussed with the family referring for possible mitral valve angioplasty. The family would like to think about this. Will follow up in the clinic to discuss. When ok with the hospitalist team, ok to discharge from our standpoint. Recommend continue metoprolol, amiodarone taper, lasix PO 40 in the am and 20 mg in the PM, potassium supplement, spironolactone, lisinopril, Eliquis 2.5 BID. PDMP PDMP Reviewed: Not Reviewed Attestations 2 Medical Necessity Statement*: May go home from cardiology perspective Coding Level of Care Code Acute Code for [facility] Fw Diagnoses Atrial fibrillation with rapid ventricular response I48.91 Acute hypoxemic respiratory failure J96.01 Coronary artery disease I25.10 S/P CABG (coronary artery bypass graft) Z95.1 S/P AVR (aortic valve replacement) Z95.2
== END 2025-03-18 11:55 | disposition home or self-care (01) | DRG 177 ==
LOC: ER 22:06 → CSU 22:32 → ICU 03-13 11:37 → CSU 03-16 22:48
PROVIDERS: Internal Medicine; Nurse Practitioner Family; Admitting Provider Internal Medicine; Emergency Provider Emergency Medicine; PCP Family Medicine; Visit Provider Internal Medicine
DX: J69.0 Pneumonitis due to inhalation of food and vomit (principal); I50.23 Acute on chronic systolic (congestive) heart failure; J96.01 Acute respiratory failure with hypoxia; I48.20 Chronic atrial fibrillation, unspecified; J90 Pleural effusion, not elsewhere classified; J44.1 Chronic obstructive pulmonary disease with (acute) exacerbation; J44.0 Chronic obstructive pulmonary disease with (acute) lower respiratory infection; J18.9 Pneumonia, unspecified organism; D69.6 Thrombocytopenia, unspecified; Z79.01 Long term (current) use of anticoagulants; Z95.2 Presence of prosthetic heart valve; Z95.1 Presence of aortocoronary bypass graft; N40.0 Benign prostatic hyperplasia without lower urinary tract symptoms; I73.9 Peripheral vascular disease, unspecified; L97.519 Non-pressure chronic ulcer of other part of right foot with unspecified severity; R74.01 Elevation of levels of liver transaminase levels; K82.4 Cholesterolosis of gallbladder; Z90.49 Acquired absence of other specified parts of digestive tract; Z99.81 Dependence on supplemental oxygen; I25.10 Atherosclerotic heart disease of native coronary artery without angina pectoris; I11.0 Hypertensive heart disease with heart failure; I95.9 Hypotension, unspecified; I05.0 Rheumatic mitral stenosis
CPT/HCPCS: 36415; 36600; 51702; 71045; 71275; 74230; 76700; 80048; 80053; 81001; 82803; 83690; 83735; 83880; 84100; 84443; 84484; 85025; 85610; 85730; 87040; 87486; 87493; 87581; 87633; 92523; 92526; 92610; 92611; 93005; 93306; 94640; 94664; 94760; 96365; 96375; 97110; 97116; 97162; 97530; 99285; J0282; J0283; J0456; J0696; J0780; J1938; J2405; J2543; J3490; J7050; J7614; J9999; Q0144

== ENCOUNTER 2025-03-28 21:39 | Emergency (ER) | payer MEDICARE, SELFPAY ==
--- OUTSIDE RECORDS SUMMARY | 2025-03-28 21:42 | XMS_ITS | Continuity of Care Document ---
Author Organization NOEL Garcia [facility] [place], LCoraLDuran, [facility] ([facility]) Address [address] [place] [address] Assessment Encounter Date Assessment Date Assessment LastModified by Organization Details LastModified Time 02/17/2025 02/17/2025 f/u with cardiology as scheduled we discussed risk of not doing CTA chest low sodium diet monitor bp weight and HR daily call if any variations as discussed. they continue to decline the cta knowing risks of not doing the cta. they ask for a repeat d-dimer on 03/21 [email or web address] Not available 02/17/2025 12:50:58 Plan of Treatment Reminders Order Date Submit Date Provider Last Modified By Organization Details Last Modified Time Details Appointments INTERMEDIATE VISIT 2024 08:20A Constantin MENDOZA PA-C Not available Not available Not available RECHECK 15 2025 08:30A M Kyle Mendoza MD Not available Not available Not available Lab None recorded. Referral None recorded. Procedures None recorded. Surgeries None recorded. Imaging None recorded. Medication Orders spironola ctone 25 mg tablet 2024 025 [email or web address] [facility], [address] [place] [address], [address], 03/23/2025 15:20:10 furosemid e 20 mg tablet 2024 025 DIAMANTE [facility] [place], [facility] [place], [address], 02/17/2025 14:44:58 Patient TargetsNo targets recorded. Patient InstructionsNo instructions recorded. Reason for Referral None Reported. Results Created Date Observation Date Name Description Value Unit Range Abnormal Flag Note LastModifiedBy Organization Detail LastModifiedTime 02/11/2002/10/2025 CBC WBC 3.8 x10 4.5-10 .5 low Not Available [facility] [address], [place], [address], 02/10/2025 14:12:53 02/11/2002/10/2025 CBC RBC 4.74 x10 4.30-5 .90 Not Available [facility] [address] [place] [address] [facility], [place], [address], 02/10/2025 14:12:53 02/11/2002/10/2025 CBC HGB 13.3 g/dL 13.5-1 8.0 low Not Available [facility] [address] [place] [facility], [place], [address], 02/10/2025 14:12:53 02/11/20 25 02/10/2025 CBC HCT 42.0 % 35.0-6 0.0 Not Available [facility] [address] [place] [address] [facility], [place], [address], 02/10/2025 14:12:53 02/11/2002/10/2025 CBC MCV 88.6 fL 80.0-9 9.9 Not Available [facility] [address] [place] [address] [facility], [place], [address], 02/10/2025 14:12:53 02/11/2002/10/2025 CBC MCH 28.0 pg 27.0-3 2.0 Not Available [facility] [address] [place] [address] [facility], [place], [address], 02/10/2025 14:12:53 02/11/20 25 02/10/2025 CBC MCHC 31.6 g/dL 32.0-3 6.0 low Not Available [facility] [address] [facility], [place], [address], 02/10/2025 14:12:53 02/11/2002/10/2025 CBC RDW 14.9 % 11.5-1 4.5 high Not Available [facility] [address] [facility] 1, [place], [address], 02/10/2025 14:12:53 02/11/2002/10/2025 CBC plt 92.5 x10 150.0- 451.0 low Not Available [facility] [address] [facility] 1, [place], [address], 02/10/2025 14:12:53 02/11/2002/10/2025 CBC lymphocytes % 27.6 % 20.0-5 0.0 Not Available [facility] [address] [facility] 1, [place], [address], 02/10/2025 14:12:53 02/11/2002/10/2025 CBC granulcytes % 51.6 % 30.0-7 0.0 Not Available [facility] [address] [facility] 1, [place], [address], 02/10/2025 14:12:53 02/11/2002/10/2025 CBC monocytes % 17.4 % 2.0-16 .0 high Not Available [facility] [address] [facility] 1, [place], [address], 02/10/2025 14:12:53 02/11/2002/10/2025 CBC granulcytes# 1.9 x10 Not Radha ilable [facility] [address] [address], [place], [address], 02/10/2025 14:12:53 02/11/20 25 02/10/2025 CBC lymphocytes # 1.0 x10 Not Available [facility] [address] [place] [address] [facility] 1, [place], [address], 02/10/2025 14:12:53 02/11/20 25 02/10/2025 CBC monocytes # 0.7 x10 Not Avai lable [facility] [address] [place] [address] [facility], [place], [address], 02/10/2025 14:12:53 02/11/20 25 02/10/2025 TSH TSH 2.56 uIU/m L 0.49-3 .82 Not Available [facility] [address] [place] [address] [facility], [place], [address], 02/10/2025 14:48:01 02/11/20 25 02/10/2025 URINA LYSIS WITH MICRO color YELLOW Not Available [facility] [address] [place] [address] [facility], [place], [address], 02/10/2025 14:50:23 02/11/20 25 02/10/2025 URINA LYSIS WITH MICRO clarity CLEAR Not Available [facility] [address] [place] [address] [facility], [place], [address], 02/10/2025 14:50:23 02/11/20 25 02/10/2025 URINA LYSIS WITH MICRO glu NEGATI VE Not Available [facility] [address] [place] [address] [facility], [place], [address], 02/10/2025 14:50:23 02/11/20 25 02/10/2025 URINA LYSIS WITH MICRO bili 1+ high Not Available [facility] [address] [place] [address] [facility], [place], [address], 02/10/2025 14:50:23 02/11/20 25 02/10/2025 URINA LYSIS WITH MICRO ket NEGATI VE Not Available [facility] [address], [place], [address], 02/10/2025 14:50:23 02/11/20 25 02/10/2025 URINA LYSIS WITH MICRO S.g 1.020 1.005- 1.025 Not Available [facility] [address] [facility] 1, [place], [address], 02/10/2025 14:50:23 02/11/20 25 02/10/2025 URINA LYSIS WITH MICRO pH 6.0 5.0-7. 0 Not Available [facility] [address] [facility] 1, [place], [address], 02/10/2025 14:50:23 02/11/20 25 02/10/2025 URINA LYSIS WITH MICRO pro 1+ high Not Available [facility] [address] [facility], [place], [address], 02/10/2025 14:50:23 02/11/20 25 02/10/2025 URINA LYSIS WITH MICRO uro 1.0 E.U./D L Not Available [facility] [address] [facility] 1, [place], [address], 02/10/2025 14:50:23 02/11/20 25 02/10/2025 URINA LYSIS WITH MICRO nit NEGATI VE Not Available [facility] [address], [place], [address], 02/10/2025 14:50:23 02/11/20 25 02/10/2025 URINA LYSIS WITH MICRO blo NEGATI VE Not Available [facility] [address], [place], [address], 02/10/2025 14:50:23 02/11/20 25 02/10/2025 URINA LYSIS WITH MICRO rodolfo NEGATI VE Not Available [facility] [address] [facility] 1, [place], [address], 02/10/2025 14:50:23 02/11/20 25 02/10/2025 URINA LYSIS WITH MICRO WBC 2-3 Not Available [facility] [address] [facility] 1, [place], [address], 02/10/2025 14:50:23 02/11/20 25 02/10/2025 URINA LYSIS WITH MICRO RBC NEGATI VE Not Available [facility] [address] [facility] 1, [place], [address], 02/10/2025 14:50:23 02/11/20 25 02/10/2025 URINA LYSIS WITH MICRO epi cells 1-2 Not Available [facility] [address] [facility] 1, [place], [address], 02/10/2025 14:50:23 02/11/20 25 02/10/2025 URINA LYSIS WITH MICRO bacteria NEGATI VE Not Available [facility] [address] [facility] 1, [place], [address], 02/10/2025 14:50:23 02/11/20 25 02/10/2025 URINA LYSIS WITH MICRO other NG Not Available [facility] [address] [facility] 1, [place], [address], 02/10/2025 14:50:23 02/11/20 25 02/10/2025 CMP (MALE ) glucose 108.0 mg/dL 60.0-9 9.0 high Not Available [facility] [address] [facility] 1, [place], [address], 02/10/2025 15:08:59 02/11/20 25 02/10/2025 CMP (MALE ) BUN (blood urea nitrogen) 19.0 mg/dL 10.0-2 6.0 Not Available [facility] [address] [facility] [facility], [place], [address], 02/10/2025 15:08:59 02/11/20 25 02/10/2025 CMP (MALE ) creatinine (serum) 0.8 mg/dL 0.4-1. 5 Not Available [facility] [address] [facility], [place], [address], 02/10/2025 15:08:59 02/11/20 25 02/10/2025 CMP (MALE ) BUN/creatini ne ratio 23.75 ratio Not Available [facility] [address] [facility], [place], [address], 02/10/2025 15:08:59 02/11/20 25 02/10/2025 CMP (MALE ) eGFR calculated 97.4 Not Available [facility] [address] [facility] [address] [address], [place], [address], 02/10/2025 15:08:59 02/11/20 25 02/10/2025 CMP (MALE ) total protein 7.5 g/dL 6.0-8. 5 Not Available [facility] [address] [address], [place], [address], 02/10/2025 15:08:59 02/11/20 25 02/10/2025 CMP (MALE ) total bilirubin 1.2 mg/dL 0.2-1. 3 Not Available [facility] [address] [facility] [address] [address], [place], [address], 02/10/2025 15:08:59 02/11/20 25 02/10/2025 CMP (MALE ) albumin 3.5 g/dL 3.5-5. 5 Not Available [facility] [address] [facility] [address] [address], [place], [address], 02/10/2025 15:08:59 02/11/20 25 02/10/2025 CMP (MALE ) globulin 4.0 calc Not Available [facility] [address] [address], [place], [address], 02/10/2025 15:08:59 02/11/20 25 02/10/2025 CMP (MALE ) AST (SGOT) 64.0 U/L 0.0-46 .0 high Not Available [facility] [address] [address], [place], [address], 02/10/2025 15:08:59 02/11/20 25 02/10/2025 CMP (MALE ) altv (SGPT) 48.0 U/L 13.0-6 9.0 normal Not Available [facility] [address] [address], [place], [address], 02/10/2025 15:08:59 02/11/20 25 02/10/2025 CMP (MALE ) A/G ratio 0.9 ratio Not Available [facility] [address] [address], [place], [address], 02/10/2025 15:08:59 02/11/20 25 02/10/2025 CMP (MALE ) ALP phos 316.0 U/L 30.0-1 40.0 abnormal Not Available [facility] [address] [address], [place], [address], 02/10/2025 15:08:59 02/11/20 25 02/10/2025 CMP (MALE ) calcium 9.0 mg/dL 8.4-10 .5 Not Available [facility] [address] [address], [place], [address], 02/10/2025 15:08:59 02/11/20 25 02/10/2025 CMP (MALE ) sodium 137.0 mmol/ L 136.0- 145.0 Not Available [facility] [address] [facility] 1, [place], [address], 02/10/2025 15:08:59 02/11/20 25 02/10/2025 CMP (MALE ) potassium 4.3 mmol/ L 3.5-5. 1 Not Available [facility] [address] [facility] 1, [place], [address], 02/10/2025 15:08:59 02/11/20 25 02/10/2025 CMP (MALE ) chloride 103.0 mmol/ L 98.0-1 10.0 normal Not Available [facility] [address] [facility] 1, [place], [address], 02/10/2025 15:08:59 02/11/20 25 02/10/2025 CMP (MALE ) C02 26.0 mmol/ L 22.0-3 1.0 Not Available [facility] [address] [facility] 1, [place], [address], 02/10/2025 15:08:59 02/11/20 25 02/10/2025 CMP (MALE ) anion gap 8.0 calc Not Available [facility] [address] [facility] 1, [place], [address], 02/10/2025 15:08:59 02/11/20 25 02/10/2025 CMP (MALE ) osmolality 285.7 calc Not Available [facility] [address] [facility] 1, [place], [address], 02/10/2025 15:08:59 02/11/20 25 02/11/2025 MAGNE SIUM magnesium 2.0 mg/dL 1.5-2. 5 normal Not Available [facility] [address] , [place], [address], 02/11/2025 21:08:48 02/11/20 25 02/11/2025 D-DIM ER, QUANT ITATI VE D-dimer, quantitative 1.20 mcg/m L_feu <0.50 high [place] alex D-dim er level s are assoc [...] FEU. For addit ional infor onesimo clements refer to http: //[facility] jian suarez.Andres stDia gnost ics.c om/fa q/FAQ 149 (This link is being provi ded for infor parvez nal/e ducat ional purpo ses only. ) Not Available [facility] [address] [place], [address], 02/11/2025 21:08:48 02/11/20 25 02/11/2025 B TYPE NATRI URETI C PEPTI DE (BNP) B type natriuretic peptide (BNP) 311 pg/mL <100 high BNP level s incre ase with age in the gener al popul ation with the highe st value s seen in indiv idual s great er than 75 years of age. Refer ence: J. Am. Rihcy. Cardi ol. 2002; 40:97 6-982 . Not Available [facility] [address] [place], [address], 02/11/2025 21:08:48 02/11/20 25 02/11/2025 CULTU RE, URINE , ROUTI NE culture, urine, routine SEE NOTE CULTU RE, URINE , ROUTI NE Micro Numbe r: [id number] Test Statu s: Final Speci men [...] Tube, is recom loan d. Not Available [facility] [address] [place], [address], 02/11/2025 21:08:49 02/11/20 25 02/16/2025 GGT GGT 238 U/L 3-70 high Not Available [facility] [address] [place], [address], 02/16/2025 02:20:34 02/11/20 25 02/10/2025 XR, chest , 2 view No observ ation record ed. [facility] ([facility]) [address] [place], [address], 02/10/2025 14:04:54 02/13/20 25 02/10/2025 XR, chest , 2 view No observ ation record ed. [facility] ([facility]) [address] [place], [address], 02/14/2025 08:15:52 02/16/20 25 02/15/2025 US, abdom en, limit ed No observ ation record ed. [facility] [address] [place], [address], 02/15/2025 09:43:49 Result Notes None recorded. 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 It is almost impercept ible. I will send over some erythromy ezekiel ointment and have him follow up with Dr Mendoza as needed for persisten t pain or irritatio n. He verbalize s sanjuana ding.; Recorded 3 8:19AM by Erin Sanabria LPN, Office Visit; Promoted; acuity set as *; Not Available [facility] 3 03:07:56 Anxiety disorder 030496876 Active 2022 ERIN garcia, [facility] 4 09:21:19 Depressiv e disorder 04399968 Active 2022 ERIN garcia, [facility] 5 09:02:08 Diverticu litis of colon 582746780 Active 2022 Diverticu litis Of Colon; 3 8:19AM by Erin Sanabria LPN, Office Visit; Promoted; acuity set as *; Not Available [facility] 3 03:07:57 Conductio n disorder of the heart 58016303 Active 2022 Cardiac Dysrhythm ia ERIN garcia, [facility] 4 09:23:30 Cervical radiculop athy 44944117 Active 2022 CERVICAL RADICULOP ATHY; Recorded 3 8:19AM by Erin Sanabria LPN, Office Visit; Promoted; acuity set as *; Not Available [facility] 3 03:07:57 Private referral to cardiolog ist Active [address] Louisa garcia, [facility] 4 09:22:13 Coronary atheroscl erosis 494765288 Active 2023 ERIN garcia, [facility] 4 09:22:43 Myocardia l infarctio n 72019969 Active 2023 non-ST elevation NE ERIN SANABRIA null, [facility] 4 09:23:12 Atrial fibrillat ion 16427465 Active 2023 JULIANNE MOOREH ALBIN null, [facility] 4 14:10:30 Thrombocy topenic disorder 439590473 Active 2023 Kyle Mendoza MD [address] [place] [address], [address] , [facility] 5 10:15:01 Hyperlipi demia 61991690 Active [address] [facility], [facility] 4 13:51:27 Muscle weakness 40686579 Active [address] [facility], [facility] 5 11:54:44 Loss of appetite 17470657 Active [address] [facility], [facility] 5 15:58:15 Alkaline phosphata se above reference range 260810790 Active [address] [facility], [facility] 5 16:04:03 Decrease in appetite 40223634 Active 2024 Carol Davis [facility] 5 10:47:27 Nicotine dependenc e 29179758 Active [address] [facility], [facility] 5 09:01:55 Platelet morpholog y - finding 482583382 Active 2024 Kyle Mendoza MD [address] [place] [address], [address] , [facility] 5 10:15:11 Chronic neck pain 16621646712 07 Active 2024 Kyle Mendoza MD [address] [place] [address], [address] , [facility] 5 10:23:31 Right pleural effusion Active 2024 Kyle Mendoza MD [address] [place] [address], [address] , [facility] 5 13:53:32 Liver function test above reference range 588691881 Active 2024 Carol garcia, [facility] 5 08:39:42 D-dimer above reference range 533709802 Active 2024 ERIN garcia, [facility] 5 10:01:09 Acute on chronic systolic heart failure 486598181 Active 2024 Kyle Mendoza MD [address] [place] [address], [address] , [facility] 5 12:47:16 Acute right-masha ed heart failure 162045147 Active 2024 Kyle Mendoza MD [address] [place] [address], [address] , [facility] 5 12:47:17 Mitral valve stenosis 18795448 Active 2024 Kyle Mendoza MD [address] [place] [address] , [facility] 5 15:36:38 Acute on chronic combined systolic and diastolic heart failure 09349785027 9103 Active 2024 Kyle Mendoza MD [address] [place] [address], [address] , [facility] 5 15:36:39 Pharyngea l dysphagia 15717434950 105 Active 2024 Kyle Mendoza MD [address] [place] [address], [address] , [facility] 15:36:41 Drug therapy finding 134561212 Active 2024 Kyle Mendoza MD [address] [place] [address], [address] , [facility] 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 15:37:26 Chronic atrial fibrillat ion 733345044 Active 2024 DEZ HAEFFLEONIDAS null, [facility] 5 14:19:07 COVID-19 755505392 Active 2024 DEZ HAEFFNER null, [facility] 5 14:19:16 Aortic valve stenosis 69388827 Active 2024 DEZ HAEFFNER null, [facility] 5 14:19:50 Chronic systolic heart failure 552795741 Active 2024 DEZ HAEFFNER null, [facility] 5 14:20:48 Platelet count below reference range 498209118 Active 2024 DEZ GRIFFINLEONIDAS [facility] 5 14:21:32 Problem Notes None recorded. Procedures Surgical History Date Name Laterality Status Provider Name and Address Organization Details Recorded Time 10/22/19 17 replacement of aortic valve completed ERIN SANABRIA [facility] 03/11/2024 09:28:37 Cabg vein five completed ERIN [facility] 03/11/2024 09:27:35 cardiovascular stress testing completed JULIANNE TALAMANTES [facility] 03/11/2024 14:11:05 Imaging Results None recorded. Procedure Notes None recorded. Medical Equipment None Reported. Allergies Allergen ID Allergen Name Allergen Category Reaction Reaction Severity Criticality Documentation Date Start Date Code Code System Note Provider Name and Address Organization Details Recorded Time 83155 Cymbalta medicatio n other Not available Not available 11/02/2022 85025 4 RxNorm ERIN SANABRIA [facility] 5 15:06:44 12895 Lexapro medicatio n other Not available Not available 11/02/2022 86487 1 RxNorm ERIN SANABRIA [facility] 5 15:06:52 Medications Name Sig Start Date Stop Date Status Note LastModified by Organization Details LastModified Time pindolol 10 mg tablet TAKE 2 TABLETS BY MOUTH EVERY MORNING and ONE EVERY EVENING 03/11 completed Not Available Not Available Not Available furosemid e 40 mg tablet TAKE 1 TABLET BY MOUTH EVERY DAY 03/23 completed Not Available Not Available Not Available carvedilo l 6.25 mg tablet TAKE 1 TABLET BY MOUTH TWICE DAILY MUST ADMINIST ER WITH A MEAL/AVELINO D 03/23 completed Not Available Not Available Not Available doxycycli ne hyclate 100 mg capsule [...] completed Not Available Not Available Not Available amiodaron e 200 mg tablet Take 1 tablet twice a day by oral route. active Not Available Not Available No t Available fluoroura cil 5 % topical cream apply thin layer TO bilatera l ears and behind ears, cheeks and nose TWICE DAILY FOR TWO weeks active Not Available Not Available No t Available fluoxetin e 10 mg tablet TAKE 1 TABLET BY MOUTH EVERY DAY 2024 active Not Available Not Available Not Avai lable midodrine 5 mg tablet TAKE 1 TABLET BY MOUTH THREE TIMES DAILY active Currentl y taking bid at morning and lunch Not Available Not Available Not Available tramadol 50 mg tablet every 4 hours as needed for moderate to severe pain 03/11 completed Recorded 06/07/19 23 8:19AM by Erin Sanabria LPN, Office Visit; Refill Quantity : 0; Not Available Not Available Not Available spironola ctone 25 mg tablet TAKE 1/2 TABLET BY MOUTH EVERY DAY active Not Available Not Available No t Available carvedilo l 3.125 mg tablet TAKE 1 TABLET BY MOUTH TWICE DAILY WITH MEAL/AVELINO D 03/23 completed Not Available Not Available Not Available [...] TAKE 1 TABLET BY MOUTH EVERY DAY 03/23 completed Not Available Not Available Not Available mupirocin 2 % topical ointment three times daily 03/11 completed Recorded 06/07/19 8:38AM by Kyle Mendoza MD, Office Visit; Refill Quantity : 0; Not Available Not Available Not Available furosemid e 20 mg tablet TAKE 1 TABLET BY MOUTH EVERY DAY active Not Available Not Available No t Available metoprolo l succinate ER 25 mg tablet,ex tended release 24 hr TAKE 1 TABLET BY MOUTH DAILY active Not Available Not Available No t Available cefdinir 300 mg capsule take 1 capsule BY MOUTH TWICE DAILY FOR 5 DAYS 03/23 completed Not Available Not Available Not Available lisinopri l 2.5 mg tablet TAKE 1 TABLET BY MOUTH [...] TAKE 1 TABLET BY MOUTH TWICE DAILY 03/23 completed Not Available Not Available Not Available Eliquis 2.5 mg tablet TAKE 1 TABLET BY MOUTH TWICE DAILY active Not Available Not Available No t Available Eliquis two times daily 03/11 completed 436; Recorded 11/06/19 22 9:35AM by Carol Glez RN (Authori pedrod [...] Organization Details Last Updated DateTime 180.34 cm 24.1 kg/m2 05745.4 8 g 97.6 [degF] 96 % 89 /min 124/62 mm[Hg] ERIN SANABRIA [facility] 12:00:48 Social History Question Answer Notes LastModified by [email or web address] ion Details LastModified Time Tobacco Smoking Status Never Smoker Chews [facility] 03/11/2024 14:09:15 What Is Your Level Of Caffeine Consumption? Moderate [email or web address] Information not available 12/01/2024 What Was The Date Of Your Most Recent Tobacco Screening? 12/20/2024 [email or web address] Information not available 12/20/2024 Sex: Unknown Functional Status Question Answer Note LastModified by Organizat ion Details LastModified Time Do you use any illicit or recreational drugs? No [email or web address] Information not available 12/01/2024 Do you or have you ever used any other forms of tobacco or nicotine? Yes [email or web address] Information not available 12/20/2024 What is your level of alcohol consumption? None Information not available 12/01/2024 Do you or have you ever used smokeless tobacco? Currently chews tobacco [email or web address] Information not available 12/20/2024 Mental Status None recorded. Family History Relationship Description Onset Age of this Age Resolved Age Notes LastModified by Organization Details LastModified Time Brother Coronary atherosclero sis [email or web address] Not available 03/11 09:25:54 Daughter Coronary atherosclero sis [email or web address] Not available 03/11 09:25:54 Daughter Diabetes mellitus [email or web address] Not available 03/11 09:26:17 Sister Coronary atherosclero sis Not available 03/11 09:25:54 Paternal Grandmother Diabetes mellitus [email or web address] Not available 03/11 09:26:29 Medical History No medical history recorded. Immunizations Vaccine Type Date Status Note Provider Nam e and Address Organization Details Recorded Time Influenza, split virus, trivalent, preservative 0 completed Not Available [facility] 02:51:54 pneumococcal polysaccharide PPV23 0 completed Not Available [facility] 11/02/2022 02:51:54 COVID-19, mRNA, LNP-S, PF, 100 mcg/0.5mL dose or 50 mcg/0.25mL dose 1 completed ERIN garcia [facility] 02/10/2025 12:39:38 COVID-19, mRNA, LNP-S, PF, 100 mcg/0.5mL dose or 50 mcg/0.25mL dose 1 completed ERIN garcia [facility] 02/10/2025 12:39:39 pneumococcal, unspecified formulation 0 completed Not Available [facility] 03/28/2025 12:38:26 Past Encounters Encounter ID Performer Location Encounter Start Date Encounter Closed Date Diagnosis/Indication Diagnosis SNOMED-CT Code Diagnosis ICD10 Code Diagnosis IMO Codes Diagnosis Note [id number] Kyle Mendoza MD [facility] ([facility]) [address] [place] [id number] 02/10/2025 12:29:45 02/11/2025 10:34:27 Dyspnea on exertion 94477995 R06.09 633727 Fever 738298114 R50.9 331385 Chronic at rial fibrillation 415406959 I48.20 632777 Atrial fib rillation with rapid ventricular response 2921421317 73733 I48.91 [id number] please go directly to the ER if chest pain, breathing worsens, heart rate increases at all or feeling worse in any way. the wish to not right now and we will try a diuiretec but if worwening they agree to go. Right pleu ral effusion [id number] J90 041740 Acute on c hronic systolic heart failure 291479233 I50.23 097542 [id number] Kyle Mendoza MD [facility] ([facility]) [address] [place] [address] 02/17/2025 11:20:33 02/21/2025 14:52:20 Acute right-sided heart failure 830563434 I50.813 2314109506 6 lb diuresis. his daughter would very much like him to be on 20 mg of lasix will attempt hat dose and ask them to monitor closely for increased water weight. Acute on c hronic systolic heart failure 789636398 I50.23 568233 Right pleu ral effusion 3289690115 J90 [id number] Health Concerns Section Related Observation LastModified by Organization Detai ls LastModified Time None Recorded Concern Status LastModified by Organization Details LastModified Time None Recorded Payers Encounter Date Sequence Insurance Name Policy Number Policy Montes De Oca Covered Member ID Montes De Oca Member ID Guarantor Name 02/17/2025 1 MEDICARE [place]: [employer] W Ema [id number] [place] [employer] Notes Date Note Type Note Provider [...] here to discuss results. Kyle Mendoza MD [address] [place] [address], [phone], [place] [facility] 02/17/2025 12:54:13
--- OUTSIDE RECORDS SUMMARY | 2025-03-28 21:42 | XMS_ITS | Data Portability ---
Author Organization NOEL Jona [facility] Address [address] [facility] [address] [place] [address] Assessment Encounter Date Assessment Date Assessment LastModified by Organization Details LastModified Time 02/17/2025 02/17/2025 f/u with cardiology as scheduled we discussed risk of not doing CTA chest low sodium diet monitor bp weight and HR daily call if any variations as discussed. they continue to decline the cta knowing risks of not doing the cta. they ask for a repeat d-dimer on 03/21 [id number] Not available 02/17/2025 12:50:58 Plan of Treatment Reminders Order Date Submit Date Provider Last Modified By Organization Details Last Modified Time Details Appointments LONGTERM VISIT 2024 08:20A Constantin MENDOZA PA-C Not available Not available Not available RECHECK 15 2025 08:30A Constantin Mendoza MD Not available Not available Not available Lab thyrotr opin, QN, serum or plasma 2024 025 [facility], [address] [facility], [place], [address], 02/10/2025 14:48:02 urinaly sis, complet e 2024 025 [facility], [address] [facility], [address], [place], [address], 02/10/2025 14:50:23 culture , urine 2024 025 [employer] [facility], [address] [facility] [address], [address], [place], [address], 02/11/2025 21:08:49 magnesi um, serum or plasma 2024 025 [place], [address] [facility], [place], [address], 02/11/2025 21:08:48 pro BNP (pro B-type natriur etic peptide ), serum or plasma 2024 025 [facility], [address] [facility] [address], [address], [place], [address], 02/11/2025 21:08:48 D-dimer , quant, plasma 2024 025 [facility], [address] [place] [address], [address], [place], [address], 02/11/2025 21:08:48 CBC 2024 025 [facility], [address] [facility], [facility] [place], [address], 02/10/2025 14:12:53 CMP, serum or plasma 2024 025 [facility], [address] [facility], [address], [address], 02/10/2025 15:08:59 Referral None recorde d. Procedures None recorde d. Surgeries None recorde d. Imaging XR, chest, 2 view 2024 [facility] ([facility]), [address] [place], [address], 02/11/2025 10:34:27 Medication Orders spirono lactone 25 mg tablet [address], [address] [place], [address], 03/23/2025 15:20:10 furosem paul 20 mg tablet 2024 025 [facility], [facility] [place], [address], 02/17/2025 14:44:58 furosem paul 40 mg tablet 2024 025 [facility], [facility] [place], [address], 03/24/2025 09:03:01 Patient TargetsNo targets recorded. Patient InstructionsNo instructions recorded. Reason for Referral Physical Therapist Referral for Generalized muscle weakness in home therapy Referring Physician: Kyle Mendoza, Family Medicine, Encounter Date: 03/23/2025 Results Created Date Observation Date Name Description Value Unit Range Abnormal Flag Note LastModifiedBy Organization Detail LastModifiedTime 02/11/2002/10/2025 CBC WBC 3.8 x10 4.5-10 .5 low Not Available [facility] [address] [facility] [address], [place], [address], 02/10/2025 14:12:53 02/11/2002/10/2025 CBC RBC 4.74 x10 4.30-5 .90 Not Available [facility] [address] [facility] [address], [place], [address], 02/10/2025 14:12:53 02/11/20 25 02/10/2025 CBC HGB 13.3 g/dL 13.5-1 8.0 low Not Available [facility] [address] [facility] [address], [place], [address], 02/10/2025 14:12:53 02/11/20 25 02/10/2025 CBC HCT 42.0 % 35.0-6 0.0 Not Available [facility] [address] [facility] [address], [place], [address], 02/10/2025 14:12:53 02/11/20 25 02/10/2025 CBC MCV 88.6 fL 80.0-9 9.9 Not Available [facility] [address] [facility] 1, [place], [address], 02/10/2025 14:12:53 02/11/20 25 02/10/2025 CBC MCH 28.0 pg 27.0-3 2.0 Not Available [facility] [address] [facility] 1, [place], [address], 02/10/2025 14:12:53 02/11/20 25 02/10/2025 CBC MCHC 31.6 g/dL 32.0-3 6.0 low Not Available [facility] [address] [facility] 1, [place], [address], 02/10/2025 14:12:53 02/11/20 25 02/10/2025 CBC RDW 14.9 % 11.5-1 4.5 high Not Available [facility] [address] [facility] 1, [place], [address], 02/10/2025 14:12:53 02/11/20 25 02/10/2025 CBC plt 92.5 x10 150.0- 451.0 low Not Available [facility] [address] [facility] 1, [place], [address], 02/10/2025 14:12:53 02/11/20 25 02/10/2025 CBC lymphocytes % 27.6 % 20.0-5 0.0 Not Available [facility] [address] [facility] 1, [place], [address], 02/10/2025 14:12:53 02/11/20 25 02/10/2025 CBC granulcytes % 51.6 % 30.0-7 0.0 Not Available [facility] [address] [facility] 1, [place], [address], 02/10/2025 14:12:53 02/11/2002/10/2025 CBC monocytes % 17.4 % 2.0-16 .0 high Not Available [facility] [address] [facility] 1, [place], [address], 02/10/2025 14:12:53 02/11/20 25 02/10/2025 CBC granulcytes# 1.9 x10 Not Radha ilable [facility] [address] [facility] 1, [place], [address], 02/10/2025 14:12:53 02/11/20 25 02/10/2025 CBC lymphocytes # 1.0 x10 Not Available [facility] [address] [address], [place], [address], 02/10/2025 14:12:53 02/11/20 25 02/10/2025 CBC monocytes # 0.7 x10 Not Avai lable [facility] [address] [facility] 1, [place], [address], 02/10/2025 14:12:53 02/11/20 25 02/10/2025 TSH TSH 2.56 uIU/m L 0.49-3 .82 Not Available [facility] [address] [facility] 1, [place], [address], 02/10/2025 14:48:01 02/11/2002/10/2025 URINA LYSIS WITH MICRO color YELLOW Not Available [facility] [address] [facility] 1, [place], [address], 02/10/2025 14:50:23 02/11/20 25 02/10/2025 URINA LYSIS WITH MICRO clarity CLEAR Not Available [facility] [address] [facility] [address], [place], [address], 02/10/2025 14:50:23 02/11/20 25 02/10/2025 URINA LYSIS WITH MICRO glu NEGATI VE Not Available [facility] [address], [place], [address], 02/10/2025 14:50:23 02/11/20 25 02/10/2025 URINA LYSIS WITH MICRO bili 1+ high Not Available [facility] [address], [place], [address], 02/10/2025 14:50:23 02/11/20 25 02/10/2025 URINA LYSIS WITH MICRO ket NEGATI VE Not Available [facility] [address] [facility], [place], [address], 02/10/2025 14:50:23 02/11/20 25 02/10/2025 URINA LYSIS WITH MICRO S.g 1.020 1.005- 1.025 Not Available [facility] [address], [place], [address], 02/10/2025 14:50:23 02/11/20 25 02/10/2025 URINA LYSIS WITH MICRO pH 6.0 5.0-7. 0 Not Available [facility] [address] [facility] 1, [place], [address], 02/10/2025 14:50:23 02/11/20 25 02/10/2025 URINA LYSIS WITH MICRO pro 1+ high Not Available [facility] [address], [place], [address], 02/10/2025 14:50:23 02/11/20 25 02/10/2025 URINA LYSIS WITH MICRO uro 1.0 E.U./D L Not Available [facility] [address], [place], [address], 02/10/2025 14:50:23 02/11/20 25 02/10/2025 URINA LYSIS WITH MICRO nit NEGATI VE Not Available [facility] [address], [place], [address], 02/10/2025 14:50:23 02/11/20 25 02/10/2025 URINA LYSIS WITH MICRO blo NEGATI VE Not Available [facility] [address], [place], [address], 02/10/2025 14:50:23 02/11/20 25 02/10/2025 URINA LYSIS WITH MICRO rodolfo NEGATI VE Not Available [facility] [address], [place], [address], 02/10/2025 14:50:23 02/11/20 25 02/10/2025 URINA LYSIS WITH MICRO WBC 2-3 Not Available [facility] [address], [place], [address], 02/10/2025 14:50:23 02/11/20 25 02/10/2025 URINA LYSIS WITH MICRO RBC NEGATI VE Not Available [facility] [address], [place], [address], 02/10/2025 14:50:23 02/11/20 25 02/10/2025 URINA LYSIS WITH MICRO epi cells 1-2 Not Available [facility] [address], [place], [address], 02/10/2025 14:50:23 02/11/20 25 02/10/2025 URINA LYSIS WITH MICRO bacteria NEGATI VE Not Available [facility] [address], [place], [address], 02/10/2025 14:50:23 02/11/20 25 02/10/2025 URINA LYSIS WITH MICRO other NG Not Available [facility] [address] [facility], [place], [address], 02/10/2025 14:50:23 02/11/20 25 02/10/2025 CMP (MALE ) glucose 108.0 mg/dL 60.0-9 9.0 high Not Available [facility] [address] [address], [place], [address], 02/10/2025 15:08:59 02/11/20 25 02/10/2025 CMP (MALE ) BUN (blood urea nitrogen) 19.0 mg/dL 10.0-2 6.0 Not Available [facility] [address] [address], [place], [address], 02/10/2025 15:08:59 02/11/20 25 02/10/2025 CMP (MALE ) creatinine (serum) 0.8 mg/dL 0.4-1. 5 Not Available [facility] [address] [facility] [address] [address], [place], [address], 02/10/2025 15:08:59 02/11/20 25 02/10/2025 CMP (MALE ) BUN/creatini ne ratio 23.75 ratio Not Available [facility] [address] [facility] [address] [address], [place], [address], 02/10/2025 15:08:59 02/11/20 25 02/10/2025 CMP (MALE ) eGFR calculated 97.4 Not Available [facility] [address] [facility] [address] [address], [place], [address], 02/10/2025 15:08:59 02/11/20 25 02/10/2025 CMP (MALE ) total protein 7.5 g/dL 6.0-8. 5 Not Available [facility] [address] [facility] [address], [place], [address], 02/10/2025 15:08:59 02/11/20 25 02/10/2025 CMP (MALE ) total bilirubin 1.2 mg/dL 0.2-1. 3 Not Available [facility] [address] [facility] [address], [place], [address], 02/10/2025 15:08:59 02/11/20 25 02/10/2025 CMP (MALE ) albumin 3.5 g/dL 3.5-5. 5 Not Available [facility] [address] [address], [place], [address], 02/10/2025 15:08:59 02/11/20 25 02/10/2025 CMP (MALE ) globulin 4.0 calc Not Available [facility] [address] [address], [place], [address], 02/10/2025 15:08:59 02/11/20 25 02/10/2025 CMP (MALE ) AST (SGOT) 64.0 U/L 0.0-46 .0 high Not Available [facility] [address] [address], [place], [address], 02/10/2025 15:08:59 02/11/20 25 02/10/2025 CMP (MALE ) altv (SGPT) 48.0 U/L 13.0-6 9.0 normal Not Available [facility] [address] [address], [place], [address], 02/10/2025 15:08:59 02/11/20 25 02/10/2025 CMP (MALE ) A/G ratio 0.9 ratio Not Available [facility] [address] [address], [place], [address], 02/10/2025 15:08:59 02/11/20 25 02/10/2025 CMP (MALE ) ALP phos 316.0 U/L 30.0-1 40.0 abnormal Not Available [facility] [address] [facility] [address], [place], [address], 02/10/2025 15:08:59 02/11/20 25 02/10/2025 CMP (MALE ) calcium 9.0 mg/dL 8.4-10 .5 Not Available [facility] [address] [facility] [address], [place], [address], 02/10/2025 15:08:59 02/11/20 25 02/10/2025 CMP (MALE ) sodium 137.0 mmol/ L 136.0- 145.0 Not Available [facility] [address] [address], [place], [address], 02/10/2025 15:08:59 02/11/20 25 02/10/2025 CMP (MALE ) potassium 4.3 mmol/ L 3.5-5. 1 Not Available [facility] [address] [facility] [address], [place], [address], 02/10/2025 15:08:59 02/11/20 25 02/10/2025 CMP (MALE ) chloride 103.0 mmol/ L 98.0-1 10.0 normal Not Available [facility] [address] [address], [place], [address], 02/10/2025 15:08:59 02/11/20 25 02/10/2025 CMP (MALE ) C02 26.0 mmol/ L 22.0-3 1.0 Not Available [facility] [address] [facility] [address], [place], [address], 02/10/2025 15:08:59 02/11/20 25 02/10/2025 CMP (MALE ) anion gap 8.0 calc Not Available [facility] [address], [place], [address], 02/10/2025 15:08:59 02/11/20 25 02/10/2025 CMP (MALE ) osmolality 285.7 calc Not Available [facility] [address] [facility] [address], [place], [address], 02/10/2025 15:08:59 02/11/20 25 02/11/2025 MAGNE SIUM magnesium 2.0 mg/dL 1.5-2. 5 normal Not Available [facility] [address] [place], [address], 02/11/2025 21:08:48 02/11/20 25 02/11/2025 D-DIM ER, QUANT ITATI VE D-dimer, quantitative 1.20 mcg/m L_feu <0.50 high Alanson alex D-dim er level s are assoc [...] value s incre ase with age, the Ameri can Colle ge of Physi cians recom [...] infor onesimo clements e refer to http: //christiano suarez.Que stDia gnost ics.c om/fa q/FAQ 149 (This link is being provi ded for infor matio nal/e ducat ional purpo ses only. ) Not Available [facility] [address] [address] [place], [address], 02/11/2025 21:08:48 02/11/20 25 02/11/2025 B TYPE [...] ol. 2002; 40:97 6-982 . Not Available [facility] [address] [address] [place], [address], 02/11/2025 21:08:48 02/11/20 25 02/11/2025 CULTU RE, URINE , ROUTI NE culture, urine, routine SEE NOTE CULTU RE, URINE , ROUTI NE Micro Numbe r: [id number] Test Statu s: Final Speci men [...] Tube, is recom loan d. Not Available [facility] [address] [address] [place], [address], 02/11/2025 21:08:49 02/11/20 25 02/16/2025 GGT GGT 238 U/L 3-70 high Not Available [facility] [address] [address] [place], [address], 02/16/2025 02:20:34 03/23/20 25 03/23/2025 CMP (MALE ) glucose 110.0 mg/dL 60.0 - 99.0 high Not Available [facility] [address] [facility] 1, [place], [address], 03/23/2025 17:14:33 03/23/20 25 03/23/2025 CMP (MALE ) BUN (blood urea nitrogen) 23.0 mg/dL 10.0 - 26.0 Not Available [facility] [address] [facility] 1, [place], [address], 03/23/2025 17:14:33 03/23/20 25 03/23/2025 CMP (MALE ) creatinine (serum) 0.9 mg/dL 0.4 - 1.5 Not Available [facility] [address] [facility] 1, [place], [address], 03/23/2025 17:14:33 03/23/20 25 03/23/2025 CMP (MALE ) BUN/creatini ne ratio 25.56 ratio Not Available [facility] [address] [facility] 1, [place], [address], 03/23/2025 17:14:33 03/23/20 25 03/23/2025 CMP (MALE ) total protein 7.7 g/dL 6.0 - 8.5 Not Available [place] [facility] [address] [facility] [address], [place], [address], 03/23/2025 17:14:33 03/23/20 25 03/23/2025 CMP (MALE ) total bilirubin 1.4 mg/dL 0.2 - 1.3 high Not Available [facility] [address] [facility] 1, [place], [address], 03/23/2025 17:14:33 03/23/20 25 03/23/2025 CMP (MALE ) albumin 3.5 g/dL 3.5 - 5.5 Not Available [facility] [address] [facility], [place], [address], 03/23/2025 17:14:33 03/23/20 25 03/23/2025 CMP (MALE ) globulin 4.2 calc Not Available [facility] [address] [facility] 1, [place], [address], 03/23/2025 17:14:33 03/23/20 25 03/23/2025 CMP (MALE ) AST (SGOT) 57.0 U/L 0.0 - 46.0 high Not Available [facility] [address] [facility] 1, [place], [address], 03/23/2025 17:14:33 03/23/20 25 03/23/2025 CMP (MALE ) altv (SGPT) 37.0 U/L 13.0 - 69.0 Not Available [facility] [address] [facility] 1, [place], [address], 03/23/2025 17:14:33 03/23/20 25 03/23/2025 CMP (MALE ) A/G ratio 0.8 ratio Not Available [facility] [address] [facility] 1, [place], [address], 03/23/2025 17:14:33 03/23/20 25 03/23/2025 CMP (MALE ) ALP phos 261.0 U/L 30.0 - 140.0 high Not Available [facility] [address] [facility] 1, [place], [address], 03/23/2025 17:14:33 03/23/20 25 03/23/2025 CMP (MALE ) calcium 9.6 mg/dL 8.4 - 10.5 Not Available [facility] [address] [facility] 1, [place], [address], 03/23/2025 17:14:33 03/23/20 25 03/23/2025 CMP (MALE ) sodium 133.0 mmol/ L 136.0 - 145.0 low Not Available [facility] [address], [place], [address], 03/23/2025 17:14:33 03/23/20 25 03/23/2025 CMP (MALE ) potassium 4.3 mmol/ L 3.5 - 5.1 Not Available [facility] [address], [place], [address], 03/23/2025 17:14:33 03/23/20 25 03/23/2025 CMP (MALE ) chloride 98.0 mmol/ L 98.0 - 110.0 Not Available [facility] [address], [place], [address], 03/23/2025 17:14:33 03/23/20 25 03/23/2025 CMP (MALE ) C02 29.0 mmol/ L 22.0 - 31.0 Not Available [facility] [address], [place], [address], 03/23/2025 17:14:33 03/23/20 25 03/23/2025 CMP (MALE ) anion gap 6.0 calc Not Available [facility] [address], [place], [address], 03/23/2025 17:14:33 03/23/20 25 03/23/2025 CMP (MALE ) osmolality 279.2 calc Not Available [facility] [address], [place], [address], 03/23/2025 17:14:33 03/23/20 25 03/23/2025 CMP (MALE ) eGFR calculated 103.1 Not Available [facility] [address], [place], [address], 03/23/2025 17:14:33 03/23/20 25 03/23/2025 CBC WBC 6.1 x10 4.5 - 10.5 Not Available [facility] [address], [place], [address], 03/23/2025 17:15:43 03/23/20 25 03/23/2025 CBC RBC 5.21 x10 4.30 - 5.90 Not Available [facility] [address], [place], [address], 03/23/2025 17:15:43 03/23/20 25 03/23/2025 CBC HGB 14.0 g/dL 13.5 - 18.0 Not Available [facility] [address] [facility] 1, [place], [address], 03/23/2025 17:15:43 03/23/20 25 03/23/2025 CBC HCT 44.8 % 35.0 - 60.0 Not Available [facility] [address] [facility] 1, [place], [address], 03/23/2025 17:15:43 03/23/20 25 03/23/2025 CBC MCV 86.0 fL 80.0 - 99.9 Not Available [facility] [address] [facility] 1, [place], [address], 03/23/2025 17:15:43 03/23/20 25 03/23/2025 CBC MCH 26.9 pg 27.0 - 32.0 low Not Available [facility] [address] [facility] 1, [place], [address], 03/23/2025 17:15:43 03/23/20 25 03/23/2025 CBC MCHC 31.3 g/dL 32.0 - 36.0 low Not Available [facility] [address] [facility] 1, [place], [address], 03/23/2025 17:15:43 03/23/20 25 03/23/2025 CBC RDW 16.7 % 11.5 - 14.5 high Not Available [facility] [address] [facility] 1, [place], [address], 03/23/2025 17:15:43 03/23/20 25 03/23/2025 CBC plt 74.6 x10 150.0 - 451.0 low Not Available [facility] [address] [facility] [facility] 1, [place], [address], 03/23/2025 17:15:43 03/23/20 25 03/23/2025 CBC lymphocytes % 17.6 % 20.0 - 50.0 low Not Available [facility] [address] [facility] 1, [place], [address], 03/23/2025 17:15:43 03/23/20 25 03/23/2025 CBC granulcytes % 72.5 % 30.0 - 70.0 high Not Available [facility] [address] [facility] 1, [place], [address], 03/23/2025 17:15:43 03/23/20 25 03/23/2025 CBC monocytes % 8.8 % 2.0 - 16.0 Not Available [facility] [address] [facility] 1, [place], [address], 03/23/2025 17:15:43 03/23/20 25 03/23/2025 CBC granulcytes# 4.4 x10 Not Radha ilable [facility] [address] [facility] 1, [place], [address], 03/23/2025 17:15:43 03/23/20 25 03/23/2025 CBC lymphocytes # 1.1 x10 Not Available [facility] [address] [facility] [address], [place], [address], 03/23/2025 17:15:43 03/23/20 25 03/23/2025 CBC monocytes # 0.5 x10 Not Avai lable [facility] [address] [facility] [address], [place], [address], 03/23/2025 17:15:43 03/23/20 25 03/23/2025 TSH TSH 3.19 uIU/m L 0.49 - 3.82 Not Available [facility] [address] [facility] [address], [place], [address], 03/23/2025 17:21:22 03/23/20 25 03/24/2025 FOLAT E, SERUM folate, serum 9.7 NG/mL normal Refer ence Range Low: <3.4 Borde rline : 3.4-5 .4 Apurva l: >5.4 Not Available [facility] [address] [place], [address], 03/24/2025 03:03:30 03/23/20 25 03/24/2025 T4, FREE T4, free 1.4 NG/dL 0.8-1. 8 normal Not Available [facility] [address] [place], [address], 03/24/2025 03:03:30 03/23/20 25 03/24/2025 VITAM IN B12 vitamin B12 1653 pg/mL 200-11 00 high Not Available [facility] [address] [place], [address], 03/24/2025 03:03:30 01/07/20 25 01/04/2025 US, abdom en, limit ed No observ ation record ed. [facility] [address] [facility], [place], [address], 01/07/2025 09:27:39 02/11/20 25 02/10/2025 XR, chest , 2 view No observ ation record ed. [facility] ([facility]) [address] [place], [address], 02/10/2025 14:04:54 02/13/20 25 02/10/2025 XR, chest , 2 view No observ ation record ed. [facility] ([facility]) [address] [place], [address], 02/14/2025 08:15:52 02/16/20 25 02/15/2025 US, abdom en, limit ed No observ ation record ed. [facility] [address] [place], [address], 02/15/2025 09:43:49 Result Notes None recorded. Problems Name Problem SNOMED Code Status Onset Date Resolution Date Notes Provider Name and Address Organization Details Recorded Time Disorder of cornea 51081928 Active 2022 CORNEAL IRRITATIO N, LEFT; Impressio [...] Promoted; acuity set as *; Not Available [facility] 3 03:07:56 Anxiety disorder 250317480 Active 2022 ERIN garcia, [facility] 4 09:21:19 Depressiv e disorder 03654706 Active 2022 ERIN garcia [facility] 5 09:02:08 Diverticu litis of colon [id number] Active 2022 Diverticu litis Of Colon; 3 8:19AM by Erin Sanabria LPN, Office Visit; Promoted; acuity set as *; Not Available [facility] 3 03:07:57 Conductio n disorder of the heart 99261424 Active 2022 Cardiac Dysrhythm ia ERIN garcia, [facility] 4 09:23:30 Cervical radiculop athy 04045701 Active 2022 CERVICAL RADICULOP ATHY; Recorded 3 8:19AM by Erin Sanabria LPN, Office Visit; Promoted; acuity set as *; Not Available [facility] 3 03:07:57 Private referral to cardiolog ist Active [address] Louisa SANABRIA null, [facility] 4 09:22:13 Coronary atheroscl erosis 671219639 Active 2023 ERIN garcia, [facility] 4 09:22:43 Myocardia l infarctio n 46538554 Active 2023 non-ST elevation ID ERIN garcia, [facility] 4 09:23:12 Atrial fibrillat ion 60283185 Active 2023 JULIANNE TALAMANTES null, [facility] 4 14:10:30 Thrombocy topenic disorder 287483788 Active 2023 Kyle Mendoza MD [address] [place] [address], [phone] , [facility] 5 10:15:01 Hyperlipi demia 19998164 Active 2023 Carol garcia, [facility] 4 13:51:27 Muscle weakness 01707546 Active 2024 Carol garcia, [facility] 5 11:54:44 Loss of appetite 02636060 Active 2024 Carol Epsteinobloch null, [facility] 5 15:58:15 Alkaline phosphata se above reference range 490003435 Active 2024 ERIN SANABRIA null, [facility] 5 16:04:03 Decrease in appetite 85136414 Active 2024 Carol Susan null, [facility] 5 10:47:27 Nicotine dependenc e 15919286 Active 2024 ERIN SANABRIA [facility], [facility] 5 09:01:55 Platelet morpholog y - finding 786411952 Active 2024 Kyle Mendoza MD [address] [place] [address], [phone] , [facility] 5 10:15:11 Chronic neck pain 48794815297 07 Active 2024 Kyle Mendoza MD [address] [place] [address], [phone] , [facility] 5 10:23:31 Right pleural effusion Active 2024 Kyle Mendoza MD [address] [place] [address], [phone] , [facility] 5 13:53:32 Liver function test above reference range 325701824 Active 2024 Carol Davis null, [facility] 5 08:39:42 D-dimer above reference range 790117599 Active 2024 ERIN garcia, [facility] 10:01:09 Acute on chronic systolic heart failure 478767495 Active 2024 Kyle Mendoza MD [address] [place] [address], [phone] , [facility] 12:47:16 Acute right-masha ed heart failure 161433950 Active 2024 Kyle Mendoza MD [address] [place] [address], [phone] , [facility] 12:47:17 Mitral valve stenosis 22822472 Active 2024 Kyle Mendoza MD [address] [place] [address], [address] , [facility] 15:36:38 Acute on chronic combined systolic and diastolic heart failure 49031230243 9103 Active 2024 Kyle Mendoza MD [address] [place] [address], [phone] , [facility] 15:36:39 Pharyngea l dysphagia 32090816098 105 Active 2024 Kyle Mendoza MD [address] [place] [address], [phone] , [facility] 15:36:41 Drug therapy finding 633186168 Active 2024 Kyle Mendoza MD [address] [place] [address], [phone] , [facility] 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 12/17/202 5 15:37:26 Chronic atrial fibrillat ion 683393233 Active 2024 DEZ BAKERLEONIDAS garcia, [facility] 5 14:19:07 COVID-19 833351264 Active 2024 DEZ OLIVIALEONIDAS [facility], [facility] 5 14:19:16 Aortic valve stenosis 87181394 Active 2024 [facility], [facility] 5 14:19:50 Chronic systolic heart failure 189765211 Active 2024 DEZ [facility], [facility] 5 14:20:48 Platelet count below reference range 739600356 Active 2024 DEZ OLIVIALEONIDAS [facility] 5 14:21:32 Problem Notes None recorded. Procedures Surgical History Date Name Laterality Status Provider Name and Address Organization Details Recorded Time 10/22/19 17 replacement of aortic valve completed ERIN SANABRIA [facility] 03/11/2024 09:28:37 Cabg vein five completed ERIN SANABRIA [facility] 03/11/2024 09:27:35 cardiovascular stress testing completed JULIANNE TALAMANTES [facility] 03/11/2024 14:11:05 Imaging Results None recorded. Procedure Notes None recorded. Medical Equipment None Reported. Allergies Allergen ID Allergen Name Allergen Category Reaction Reaction Severity Criticality Documentation Date Start Date Code Code System Note Provider Name and Address Organization Details Recorded Time 49892 Cymbalta medicatio n other Not available Not available 11/02/2022 17564 4 [facility] 5 15:06:44 63024 Lexapro medicatio n other Not available Not available 11/02/2022 92951 1 RxNorm ERIN SANABRIA [facility], [facility].. 15:06:52 Medications Name Sig Start Date Stop [...] e daily 03/11 completed 436; Recorded 04/08/19 23 1:26PM by Erin Sanabria LPN (Authori juan through [...] Updated DateTime 5 180.34 cm 25 kg/m2 25280.0 3 g 97.6 [degF] 122 /min 98 % 152/68 mm[Hg] ERIN SANABRIA [facility] 5 12:39:26 Date Recorded Body height Body mass index (BMI) Body weight Body temperature Oxygen saturation Heart rate Systolic And Diastolic Provider Name and Address Organization Details Last Updated DateTime 5 180.34 cm 24.1 kg/m2 99314.4 8 g 97.6 [degF] 96 % 89 /min 124/62 mm[Hg] ERIN SANABRIA [facility] 5 12:00:48 Date Recorded Body height Body temperature Oxygen saturation Heart rate Systolic And Diastolic Provider Name and Address Organization Details Last Updated DateTime 5 180.34 cm 97.5 [degF] 95 % 84 /min 155/68 mm[Hg] ERIN SANABRIA [facility] 5 15:16:57 Date Recorded Body height Body mass index (BMI) Body weight Oxygen saturation Heart rate Respiratory rate Body temperature Systolic And Diastolic Provider Name and Address Organization Details Last Updated DateTime 180.34 cm 22.2 kg/m2 97783.1 9 g 96 % 75 /min 16 /min 98.7 [degF] 110/60 mm[Hg] DEZ SOLITARIONAVID [facility] 5 14:15:50 Social History Question Answer Notes LastModified by Selerityizat ion Details LastModified Time Tobacco Smoking Status Never Smoker Chews [facility] 03/11/2024 14:09:15 What Is Your Level Of Caffeine Consumption? Moderate [email or web address] Information not available 12/01/2024 What Was The Date Of Your Most Recent Tobacco Screening? 12/20/2024 [email or web address] Information not available 12/20/2024 Sex: Unknown Functional Status Question Answer Note LastModified by Organizat ion Details LastModified Time Do you use any illicit or recreational drugs? No [email or web address] Information not available 12/01/2024 Do you or have you ever used any other forms of tobacco or nicotine? Yes [email or web address] Information not available 12/20/2024 What is your level of alcohol consumption? None [email or web address] Information not available 12/01/2024 Do you or have you ever used smokeless tobacco? Currently chews tobacco Information not available 12/20/2024 Mental Status None recorded. Family History Relationship Description Onset Age of this Age Resolved Age Notes LastModified by Organization Details LastModified Time Brother Coronary atherosclero sis [email or web address] Not available 03/11 09:25:54 Daughter Coronary atherosclero sis [email or web address] Not available 03/11 09:25:54 Daughter Diabetes mellitus [email or web address] Not available 03/11 09:26:17 Sister Coronary atherosclero sis [email or web address] Not available 03/11 09:25:54 Paternal Grandmother Diabetes mellitus [email or web address] Not available 03/11 09:26:29 Medical History No medical history recorded. Immunizations Vaccine Type Date Status Note Provider Nam e and Address Organization Details Recorded Time Influenza, split virus, trivalent, preservative 0 completed Not Available [facility] 11/02/2022 02:51:54 pneumococcal polysaccharide PPV23 0 completed Not Available [facility] 11/02/2022 02:51:54 COVID-19, mRNA, LNP-S, PF, 100 mcg/0.5mL dose or 50 mcg/0.25mL dose 1 completed ERIN garcia [facility] 02/10/2025 12:39:38 COVID-19, mRNA, LNP-S, PF, 100 mcg/0.5mL dose or 50 mcg/0.25mL dose 1 completed ERIN garcia [facility] 02/10/2025 12:39:39 pneumococcal, unspecified formulation 0 completed Not Available [facility] 03/28/2025 12:38:26 Past Encounters Encounter ID Performer Location Encounter Start Date Encounter Closed Date Diagnosis/Indication Diagnosis SNOMED-CT Code Diagnosis ICD10 Code Diagnosis IMO Codes Diagnosis Note [id number] Kyle Mendoza MD [facility] ([facility]) [address] [place] [phone] 03/11/2024 13:57:10 03/12/2024 10:06:10 Active or passive immunization 921138193 Z23 Adult [facility] th examination 672220473 Z00.00 Depressive disorder 3548 9007 F32.A Nicotine dependence 5629 4008 F17.200 Atrial fibrillation 4943 6004 I48.91 Cardiovasc ular stress test abnormal 489142212 R94.39 i will call his cardiologi st and discuss the findings. he was waiting to see his cardiologi st and is not scheduled for 3 more weeks. Coronary atherosclerosis 770244771 I25.119 Abnormal weight loss 267 179328 R63.4 [id number] Kyle Mendoza MD [facility] ([facility]) [address] [place] [id number] 04/22/2024 11:10:28 04/22/2024 13:24:48 Chronic neck pain 7737165589 107 M54.2 Muscle weakness 26572550 M62.81 COVID-19 100680397 U07.1 [id number] Kyle Mendoza MD [facility] ([facility]) [address] [place] [id number] 12/01/2024 09:23:42 12/01/2024 11:21:11 Coronary atherosclerosis 575016330 I25.119 Atrial fibrillation 4943 6004 I48.91 Thrombocyt openic disorder 458315176 D69.6 Polyneuropathy 51888595 G62.89 61506867 Abnormal weight loss 267 162980 R63.4 111551 check bp at home if staying under 100 hold lisinopril Decrease in appetite 643 91033 R63.0 061577 [id number] Kyle Mendoza MD [facility] ([facility]) [address] [place] [address] 12/20/2024 09:46:38 12/20/2024 13:39:21 Nicotine dependence 34945716 F17.806 1538625 Depressive disorder 3548 9007 F32.A 20632 Thrombocyt openic disorder 337536625 D69.6 70503 peripheral smear showed large and/or giant cells. this is mild and will need to be followed. it is in the setting of recent poor nutrition. electropho resis is neg. cbc is otherwise normal as are b-12 and folic acid. normal globulin. normal alk phos isoenzymes . Platelet m orphology - finding 900687594 D69.1 53266116 Gamma-glut amyl transferase above reference range 020623509 R74.8 49181690 Chronic neck pain 985239 6056 107 M54.2 G89.29 897989 [id number] Kyle Mendoza MD [facility] ([facility]) [address] [place] [id number] 5 01/04/2025 09:33:34 01/05/2025 16:41:22 [id number] Kyle Mendoza MD [facility] ([facility]) [address] [place] [id number] 5 02/10/2025 12:29:45 02/11/2025 10:34:27 Dyspnea on exertion 44423488 R06.09 674040 Fever 744702291 R50.9 348588 Chronic at rial fibrillation 803244074 I48.20 771424 Atrial fib rillation with rapid ventricular response 2464426437 17192 I48.91 [id number] please go directly to the ER if chest pain, breathing worsens, heart rate increases at all or feeling worse in any way. the wish to not right now and we will try a diuiretec but if worwening they agree to go. Right pleu ral effusion 3042229269 J90 940350 Acute on c hronic systolic heart failure 096313065 I50.23 964235 [id number] Kyle Mendoza MD [facility] ([facility]) [address] [place] [id number] 02/17/2025 11:20:33 02/21/2025 14:52:20 Acute right-sided heart failure 487554820 I50.813 0120324615 6 lb diuresis. his daughter would very much like him to be on 20 mg of lasix will attempt hat dose and ask them to monitor closely for increased water weight. Acute on c hronic systolic heart failure 613301816 I50.23 679212 Right pleu ral effusion 1981074052 J90 [id number] Kyle Mendoza MD [facility] ([facility]) [address] [place] [id number] 03/23/2025 15:00:10 03/24/2025 10:21:39 Thrombocytopenic disorder 800621714 D69.6 6579664 peripheral smear showed large and/or giant cells. this is mild and will need to be followed. it is in the setting of recent poor nutrition. electropho resis is neg. cbc is otherwise normal as are b-12 and folic acid. normal globulin. normal alk phos isoenzymes . 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 He requires the head of the bed to be elevated more than 30 degrees d/t CHF as well as aspiration . He also has edema of the legs which requires elevation of his feet. Mitral valve stenosis 79 489531 I05.0 2728122 Liver func tion tests outside reference range 938477341 R79.89 1188167 Drug therapy finding 309 013049 Z79.899 31952124 Hilar lymphadenopathy 87 549577 R59.0 177950 Chronic at rial fibrillation 525183843 I48.20 735924 Generalize d muscle weakness 2583135017 M62.81 [id number] Magen is home bound and debilitate d f from his medical illness and weak. he needs in home therapy in order to regain his strength and function. Health Concerns Section Related Observation LastModified by Organization Detai ls LastModified Time None Recorded Concern Status LastModified by Organization Details LastModified Time None Recorded Advance Directives Directive None Recorded Payers Insurance Date Sequence Insurance Name Policy Number Policy Montes De Oca Covered Member ID Montes De Oca Member ID Guarantor Name 03/23/2025 2 [employer] (MEDICARE SUPPLEMENT) [place] Ema [id number] Magen Ema 03/23/2025 1 [place] Magen W Ema [id number] [place] Ema 03/23/2025 [place] - [place] A - [facility] (MEDICARE) [place] Ema [id number] [place] Ema 03/23/2025 2 [employer] (MEDICARE SUPPLEMENT) [place] Ema [id number] [place] Ema Notes Date Note Type Note Provider Name and Address Organization Details Recorded Time 5 text/htm l DyspneaReported by PatientHPIFor quality, patient reportscan't catch [...] orthopnea for 2 nights. Kyle Mendoza MD [address] [place], [address], [facility] 02/10/2025 14:03:20 5 text/htm l Care Management - Congestive Heart Failure (CHF)Reported [...] here to discuss results. Kyle Mendoza MD [address] [place] [address], [phone], [facility] 02/17/2025 12:54:13 5 text/htm l Atrial FibrillationReported by PatientHPIFor associated symptoms, patient reportsshortness of breathandexertional dyspneabut reportsno chest discomfortandno awareness of palpitation. For duration, patient reportshas noted for years. For alleviating factors, patient reportsmedication.daughter is concerned because she is concerned why he is getting vasoconstrictors and pressors at the same time. Pt's daughter states that he isn't eating. Nothing tastes good per pt. He can't eat more than 3 bites of food at a time before he feels sick to his stomach. He was dx with pneumonia and was prescribed cefdinir to take at home which he just completed yesterday. Daughter has been listening to his lungs and says that he sounds much better than when in the hospital.ROS as noted in the [facility] hospital f/u: Not Available Not Available Not Available 5 text/htm l Atrial FibrillationReported by PatientHPIFor quality, patient reportspressure,squeezing, andpounding. For pain location, patient reportschest. For severity, patient reportsmoderate. For onset/timing, patient reportsmultiple times per day. For alleviating factors, patient reportsmedication. Not Available Not Available Not Available
--- OUTSIDE RECORDS SUMMARY | 2025-03-28 21:42 | XMS_ITS | Continuity of Care Document ---
Author Organization NOEL Garcia [facility] [place], [place], [facility] ([facility]) Address [address] [place] [address] Assessment No assessment recorded. Plan of Treatment Reminders Order Date Submit Date Provider Last Modified By Organization Details Last Modified Time Details Appointments [facility] VISIT 2024 08:20A M RERE EDDY PA-C Not available Not available Not available RECHECK 15 2025 08:30A M Kyle Eddy MD Not available Not available Not available [...] limit ed No observ ation record ed. [facility], [place] [address] [place], [address], 01/07/2025 09:27:39 02/11/20 25 02/10/2025 XR, chest , 2 view No observ ation record ed. [facility] ([facility]) [address] [place], [address], 02/10/2025 14:04:54 02/13/20 25 02/10/2025 XR, chest , 2 view No observ ation record ed. [facility] ([facility]) [address] [place], [address], 02/14/2025 08:15:52 02/16/20 25 02/15/2025 US, abdom en, limit ed No observ ation record ed. [facility] [place] [address] [place], [address], 02/15/2025 09:43:49 Result Notes None recorded. 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 It is almost impercept ible. I will send over some erythromy ezekiel ointment and have him follow up with Dr Eddy as needed for persisten t pain or irritatio n. He verbalize s sanjuana logan.; Recorded 3 8:19AM by Erin Sanabria LPN, Office Visit; Promoted; acuity set as *; Not Available [facility] 3 03:07:56 Anxiety disorder 866479872 Active 2022 ERIN garcia [facility] 4 09:21:19 Depressiv e disorder 36712341 Active 2022 ERIN garcia [facility] 5 09:02:08 Diverticu litis of colon 873221435 Active 2022 Diverticu litis Of Colon; 3 8:19AM by Erin Sanabria LPN, Office Visit; Promoted; acuity set as *; Not Available [facility] 3 03:07:57 Conductio n disorder of the heart 08869581 Active 2022 Cardiac Dysrhythm ia ERIN garcia [facility] 4 09:23:30 Cervical radiculop athy 08471038 Active 2022 CERVICAL RADICULOP ATHY; Recorded 3 8:19AM by Erin Sanabria LPN, Office Visit; Promoted; acuity set as *; Not Available [facility] 3 03:07:57 Private referral to cardiolog ist Active [address] Louisa garcia, [facility] 4 09:22:13 Coronary atheroscl erosis 128889349 Active 2023 ERIN garcia, [facility] 4 09:22:43 Myocardia l infarctio n 56859168 Active 2023 non-ST elevation PR ERIN garcia, [facility] 4 09:23:12 Atrial fibrillat ion 15366921 Active 2023 JULIANNE TALAMANTES [facility], [facility] 4 14:10:30 Thrombocy topenic disorder 537797285 Active 2023 Kyle Eddy MD [address] [place] [address], [address] , [facility] 5 10:15:01 Hyperlipi demia 10031164 Active 2023 Carol garcia, [facility] 4 13:51:27 Muscle weakness 45384142 Active 2024 Carol garcia, [facility] 5 11:54:44 Loss of appetite 63181388 Active 2024 Carol garcia, [facility] 5 15:58:15 Alkaline phosphata se above reference range 096438280 Active 2024 ERIN garcia, [facility] 5 16:04:03 Decrease in appetite 35893797 Active 2024 Carol garcia, [facility] 5 10:47:27 Nicotine dependenc e 40898575 Active 2024 ERIN garcia, [facility] 5 09:01:55 Platelet morpholog y - finding 487229367 Active 2024 Kyle Eddy MD [address] [place] [address], [address] , [facility] 5 10:15:11 Chronic neck pain 38733622858 07 Active 2024 Kyle Eddy MD [address] [place] [address], [address] , [facility] 5 10:23:31 Right pleural effusion Active 2024 Kyle Eddy MD [address] [place] [address], [address] , [facility] 5 13:53:32 Liver function test above reference range 507191753 Active 2024 Carol garcia [facility] 5 08:39:42 D-dimer above reference range 786960421 Active 2024 ERIN garcia, [facility] 5 10:01:09 Acute on chronic systolic heart failure 508670851 Active 2024 Kyle Eddy MD [address] [place] [address], [address] , [facility] 5 12:47:16 Acute right-masha ed heart failure 455136631 Active 2024 Kyle Eddy MD [address] [place] [address], [address] , [facility] 5 12:47:17 Mitral valve stenosis 10277226 Active 2024 Kyle Eddy MD [address] [place] [address], [address] , [facility] 5 15:36:38 Acute on chronic combined systolic and diastolic heart failure 83448856118 9103 Active 2024 Kyle Eddy MD [address] [place] [address], [address] , [facility] 15:36:39 Pharyngea l dysphagia 57829534968 105 Active 2024 Kyle Eddy MD [address] [place] [address], [address] , [facility] 15:36:41 Drug therapy finding 199003334 Active 2024 Kyle Eddy MD [address] [place] [address], [address] , [facility] 15:37:24 Hilar lymphaden opathy 35293432 Active 2024 Kyle Eddy MD [address] [place] [address], [address] , [facility] 15:37:26 Chronic atrial fibrillat ion 421677227 Active 2024 DEZ garcia [facility] 5 14:19:07 COVID-19 539308723 Active 2024 DEZ garcia [facility] 5 14:19:16 Aortic valve stenosis 47254068 Active 2024 DEZ ALTAFCARLOSLEONIDAS [facility] 5 14:19:50 Chronic systolic heart failure 507608157 [facility] 5 14:20:48 Platelet count below reference range 964394758 Active 2024 [facility] 5 14:21:32 Problem Notes None recorded. Procedures Surgical History Date Name Laterality Status Provider Name and Address Organization Details Recorded Time 10/22/19 17 replacement of aortic valve completed ERIN SANABRIA [facility] 03/11/2024 09:28:37 Cabg vein five completed [facility] 03/11/2024 09:27:35 cardiovascular stress testing completed JULIANNE TALAMANTES [facility] 03/11/2024 14:11:05 Imaging Results None recorded. Procedure Notes None recorded. Medical Equipment None Reported. Allergies Allergen ID Allergen Name Allergen Category Reaction Reaction Severity Criticality Documentation Date Start Date Code Code System Note Provider Name and Address Organization Details Recorded Time 05355 Cymbalta medicatio n other Not available Not available 11/02/2022 69942 4 RxNorm ERIN ELLY [facility] 5 15:06:44 68206 Lexapro medicatio n other Not available Not available 11/02/2022 00319 1 RxNorm ERIN SANABRIA [facility] 5 15:06:52 Medications Name Sig [...] 03/11 completed Recorded 06/07/19 8:38AM by Kyle Eddy MD, Office Visit; Refill Quantity : 0; [...] Erin Sanabria LPN (Authori zed through Kyle Eddy MD), Refill Request; Refill Quantity : 30; Tablet; Not Available Not Available Not Available pindolol two times daily 07/13 completed 436; Recorded 04/29/19 10:57AM by Erin Sanabria LPN (Authori zed through Kyle Eddy MD), Refill Request; Refill Quantity : 540; [...] 22 9:35AM by Carol Glez RN (Authori juan through Kyle Eddy MD), Office Visit; Refill Quantity : 0; Not Available Not Available Not Available Entresto 24 mg-26 mg tablet TAKE 1 TABLET BY MOUTH TWICE DAILY 03/11 completed Not Available Not Available Not Available Vitals None Recorded Social History Question Answer Notes LastModified by Organizat ion Details LastModified Time Tobacco Smoking Status Never Smoker Chews JULIANNE AISSATOU TALAMANTES [facility] 03/11/2024 14:09:15 What Is Your Level Of Caffeine Consumption? Moderate [email or web address] Information not available 12/01/2024 What Was The Date Of Your Most Recent Tobacco Screening? 12/20/2024 [email or web address] Information not available 12/20/2024 Sex: Unknown Functional Status Question Answer Note LastModified by Organizat ion Details LastModified Time Do you use any illicit or recreational drugs? No [email or web address] Information not available 12/01/2024 Do you or have you ever used any other forms of tobacco or nicotine? Yes [email or web address] Information not available 12/20/2024 What is your level of alcohol consumption? None [email or web address] Information not available 12/01/2024 Do you or have you ever used smokeless tobacco? Currently chews tobacco [email or web address] Information not available 12/20/2024 Mental Status None recorded. Family History Relationship Description Onset Age of this Age Resolved Age Notes LastModified by Organization Details LastModified Time Brother Coronary atherosclero sis [email or web address] Not available 03/11 09:25:54 Daughter Coronary atherosclero sis [email or web address] Not available 03/11 09:25:54 Daughter Diabetes mellitus [email or web address] Not available 03/11 09:26:17 Sister Coronary atherosclero sis [email or web address] Not available 03/11 09:25:54 Paternal Grandmother Diabetes mellitus [email or web address] Not available 03/11 09:26:29 Medical History No medical history recorded. Immunizations Vaccine Type Date Status Note Provider Nam e and Address Organization Details Recorded Time Influenza, split virus, trivalent, preservative 0 completed Not Available [facility] 11/02/2022 02:51:54 pneumococcal polysaccharide PPV23 0 completed Not Available [facility] 11/02/2022 02:51:54 COVID-19, mRNA, LNP-S, PF, 100 mcg/0.5mL dose or 50 mcg/0.25mL dose 1 completed ERIN garcia [facility] 02/10/2025 12:39:38 COVID-19, mRNA, LNP-S, PF, 100 mcg/0.5mL dose or 50 mcg/0.25mL dose 1 completed ERIN garcia [facility] 02/10/2025 12:39:39 pneumococcal, unspecified formulation 0 completed Not Available [facility] 03/28/2025 12:38:26 Past Encounters Encounter ID Performer Location Encounter Start Date Encounter Closed Date Diagnosis/Indication Diagnosis SNOMED-CT Code Diagnosis ICD10 Code Diagnosis IMO Codes Diagnosis Note [id number] Kyle Eddy MD [facility] ([facility]) [address] [place] [address] 12/20/2024 09:46:38 12/20/2024 13:39:21 Nicotine dependence 60942734 F17.076 0439050 Depressive disorder 3548 9007 F32.A 52983 Thrombocyt openic disorder 921224796 D69.6 73913 peripheral smear showed large and/or giant cells. this is mild and will need to be followed. it is in the setting of recent poor nutrition. electropho resis is neg. cbc is otherwise normal as are b-12 and folic acid. normal globulin. normal alk phos isoenzymes . Platelet m orphology - finding 080511399 D69.1 82219334 Gamma-glut amyl transferase above reference range 974815145 R74.8 84529447 Chronic neck pain 633295 6331 107 M54.2 G89.29 924799 [id number] Kyle Eddy MD [facility] ([facility]) [address] [place] [address] 01/04/2025 09:33:34 01/05/2025 16:41:22 Health Concerns Section Related Observation LastModified by Organization Detai ls LastModified Time None Recorded Concern Status LastModified by Organization Details LastModified Time None Recorded Payers Encounter Date Sequence Insurance Name Policy Number Policy Montes De Oca Covered Member ID Montes De Oca Member ID Guarantor Name 01/04/2025 1 [place]ARE [place]: KATELIN Boo [id number] Magen Boo
--- OUTSIDE RECORDS SUMMARY | 2025-03-28 21:42 | XMS_ITS | Encounter Summary ---
Author Organization [facility] Address [address] [place] [address] Care Team Providers Care Route Driver Name Role Phone Fernando Gaines MD Primary Care Provider Reason for Referral * Radiology Services (Routine) - Closed Specialty Diagnoses / Procedures Referred By Contac t Referred To Contact Diagnoses Pleural effusion, right Procedures US CHEST US ASPIRATION PLEURA RIGHT Chuy Ron MD Referral ID Status Reason Start Date Expiration Date Visits Re quested Visits Authorized [id number] Closed 04/02/2018 05/03/2019 1 1 AND BEVERAGE INTERN Encounter Details Date Type Department Care Team (Latest Contact Info) Description 04/02/2018 Ancillary Orders [facility] Pulmonology [address] [place] [address] Chuy Ron MD NO ADDRESS ON FILE [...] on file Legal Sex Male 6:37 AM 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 Not on file Not on file Not on file documented as of this encounter Plan of Treatment Not on file documented as of this encounter Results * US CHEST (04/02/2018 2:07 PM FOOD AND BEVERAGE INTERN) Anatomical Region Laterality Modality Chest Ultrasound 04/02/2018 2:07 PM FOOD AND BEVERAGE INTERN Impressions 04/02/2018 2:57 PM FOOD AND BEVERAGE INTERN IMPRESSION: No significant pleural fluid. Narrative 04/02/2018 2:57 PM FOOD AND BEVERAGE INTERN US CHEST Reason For Exam: See Diagnosis. [...] effusion documented in this encounter Care Teams Route Driver Relationship Specialty Start Date End Date Fernando Gaines MD [address] [phone] PCP - General Family Practice 08/02/13 09/16/19 documented as of this encounter
--- OUTSIDE RECORDS SUMMARY | 2025-03-28 21:43 | XMS_ITS | Encounter Summary ---
Author Organization [facility] Address [address] [place] [address] Care Team Providers Care Fisher Pot Name Role Phone Fernando Gaines MD Primary Care Provider [phone] Encounter Details Date Type Department Care Team (Latest Contact Info) Description 02/08/2002 Outpatient [facility] [place] [address] [place] [phone] Estrada Mas MD NO ADDRESS ON FILE COUGH (Primary Dx) Social History Tobacco Use Types Packs/Day Years Used Date Smoking Tobacco: Never Assessed Sex and Gender Information Value Date Recorded Sex Assigned at Not on file 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
--- OUTSIDE RECORDS SUMMARY | 2025-03-28 21:43 | XMS_ITS | Clinical Summary ---
Author Organization [facility] Address [address] [place] [address] Care Team Providers Care Psychologist Name Role Phone Unavailable Primary Care Provider Unavailabl e Allergies No known active allergies Medications gabapentin (NEURONTIN) 100 mg capsule TAKE ONE CAPSULE BY MOUTH TWICE DAILY 60 Capsule 5 12/09/2017 Active simvastatin (ZOCOR) 40 mg tablet Take 40 mg by mouth every other day. 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 Not on file Not on file Not on file Last Filed Vital Signs Vital Sign Reading Time Taken Comments Blood Pressure 148/74 02/26/2019 10:27 AM LIGHT TECHNICIAN Pulse 59 02/26/2019 10:27 AM LIGHT TECHNICIAN Temperature 36.9 C (98.5 F) 01/12/2019 8:01 AM CDT Respiratory Rate 16 01/12/2019 8:01 AM CDT Oxygen Saturation 95% 01/12/2019 8:01 AM CDT Inhaled Oxygen Concentration - - Weight 86.2 kg (190 lb) 02/26/2019 10:27 AM LIGHT TECHNICIAN Height 188 cm (6' 2 ) 02/26/2019 10:27 AM LIGHT TECHNICIAN Body Mass Index 24.39 02/26/2019 10:27 AM LIGHT TECHNICIAN Plan of Treatment Health Maintenance Due Date Last Done Comments DTAP/TDAP/TD VACCINES (1 - Tdap) 1957 ZOSTER VACCINE (1 of 2) 1988 PNEUMOCOCCAL VACCINE 50+ YEA RS (2 of 2 - PCV) 03/04/2007 03/04/2006 RSV VACCINE (60+ or ) (1 - 1-dose 75+ series) 2013 INFLUENZA VACCINE (#1) 2024 03/04/2006, 2003 Medical Devices Implanted Type Area Customer Service Representative Device Identifier Shelf Expiration Date Model / Serial / Lot Cage [place]-C [id number] - [id number] Implanted:Qty: 1 on 02/03/2017 by Jagdeep Peña MD at [facility] Cage N/A: Neck ARNOL- SPINE 02/03/2018 [id number] / / LOAD # [id number] Description:PER INVOICE Hemostatic Surgifoam 1gm 1977 [id number] Implanted:10/2018 by Jagdeep Peña MD at [facility] (Quantity not on file) Hemostatic N/A: Neck J&J- ETHICON INC 10/01/20201977 / / [id number] Hemostatic Surgifoam Sz12-7 1971 [id number] Implanted:10/2018 by Jagdeep Peña MD at [facility] (Quantity not on file) Hemostatic N/A: Neck J&J- ETHICON ENDO-SURGERY INC 11/17/20221971 / / [id number] Putty Bio Dbm 1ml [id number] - [id number] Implanted:Qty: 1 on 02/03/2017 by Jagdeep Peña MD at [facility] Putty N/A: Neck ARNOL- HOWMEDICA INT INC 05/29/2017 [id number] / / [id number] Screw Avs Sd 3.5x10mm [id number] - [id number] Implanted:Qty: 1 on 02/03/2017 by Jagdeep Peña MD at [facility] Screw N/A: Neck ARNOL- SPINE [id number] / / LOAD # [id number] Description:PER INVOICE Screw Avs Sd 3.5x10mm [id number] - [id number] Implanted:Qty: 1 on 02/03/2017 by Jagdeep Peña MD at [facility] Screw N/A: Neck ARNOL- SPINE [id number] / / LOAD # [id number] Description:PER INVOICE Screw Spn Multi Fernando 3.5x14mm 7683950 - [id number] Implanted:Qty: 1 on 01/11/2019 by Jagdeep Peña MD at [facility] Screw N/A: Neck MEDTRONIC- SOFAMOR DANEK 02/05/2020 [id number] / / LOAD [id number] Screw Spn Multi Fernando 3.5x14mm 3652929 - [id number] Implanted:Qty: 1 on 01/11/2019 by Jagdeep Peña MD at [facility] Screw N/A: Neck MEDTRONIC- SOFAMOR DANEK 02/05/2020 [id number] / / LOAD [id number] Screw Set Std Psn 3904040 - [id number] Implanted:Qty: 1 on 01/11/2019 by Jagdeep Peña MD at [facility] Screw N/A: Neck MED[employer]- SOFAMOR DANEK 02/05/2020 [id number] / / LOAD [id number] Screw Set Std Psn 8834390 - [id number] Implanted:Qty: 1 on 01/11/2019 by Jagdeep Peña MD at [facility] Screw N/A: Neck MEDTRON[employer]- SOFAMOR DANEK 02/05/2020 [id number] / / LOAD [id number] Screw Set Std Psn 6285695 - [id number] Implanted:Qty: 1 on 01/11/2019 by Jagdeep Peña MD at [facility] Screw N/A: Neck [employer]TR[employer]- SOFAMOR DANEK 02/05/2020 [id number] / / LOAD [id number] Screw Set Std Psn 4898612 - [id number] Implanted:Qty: 1 on 01/11/2019 by Jagdeep Peña MD at [facility] Screw N/A: Neck [employer]TR[employer]- SOFAMOR DANEK 02/05/2020 [id number] / / LOAD [id number] Screw Spn Multi Fernando 3.5x14mm [id number] - [id number] Implanted:Qty: 1 on 01/11/2019 by Jagdeep Peña MD at [facility] Screw N/A: Neck [employer]- SOFAMOR DANEK 02/05/2020 [id number] / / LOAD [id number] Screw Spn Multi Fernando 3.5x14mm 0583067 - [id number] Implanted:Qty: 1 on 01/11/2019 by Jagdeep Peña MD at [facility] Screw N/A: Neck [employer]TR[employer]- SOFAMOR DANEK 02/05/2020 [id number] / / LOAD [id number] Screw Spn Multi Fernando 3.5x14mm 8839238 - [id number] Implanted:Qty: 1 on 01/11/2019 by Jagdeep Peña MD at [facility] Screw N/A: Neck MEDTRON[employer]- SOFAMOR DANEK 02/05/2020 [id number] / / LOAD [id number] Screw Spn Multi Fernando 3.5x14mm [id number] - [id number] Implanted:Qty: 1 on 01/11/2019 by Jagdeep Peña MD at [facility] Screw N/A: Neck MEDTR[employer]- SOFAMOR DANEK 02/05/2020 [id number] / / LOAD [id number] Screw Spn Multi Fernando 3.5x14mm 6990520 - [id number] Implanted:Qty: 1 on 01/11/2019 by Jagdeep Peña MD at [facility] Screw N/A: Neck MEDTRON[employer]- SOFAMOR DANEK 02/05/2020 [id number] / / LOAD [id number] Screw Spn Multi Fernando 3.5x14mm [id number] - [id number] Implanted:Qty: 1 on 01/11/2019 by Jagdeep Peña MD at [facility] Screw N/A: Neck MEDTRONIC- SOFAMOR DANEK 02/05/2020 [id number] / / LOAD [id number] Derrek Spn Precut 3.5x25mm Implanted:Qty: 1 on 01/11/2019 by Jagdeep Peña MD at [facility] N/A: Neck MEDTRONIC- SOFAMOR DANEK 02/05/2020 [id number] / / LOAD [id number] Derrek Spn Precut 3.5x25mm Implanted:Qty: 1 on 01/11/2019 by Jagdeep Peña MD at [facility] N/A: Neck MEDTR[employer]- SOFAMOR DANEK 02/05/2020 [id number] / / LOAD [id number] Grft Bone Paste 5cc Implanted:Qty: 1 on 01/11/2019 by Jagdeep Peña MD at [facility] N/A: Neck MEDTRONIC- SOFAMOR DANEK 08/25/2020 [id number] / / [id number] [place] [id number] MEDICARE PART A AND B [facility] [address] [place] [address] RX [employer] RX Member Subscriber Plan / Payer (Ef fective 2006-Present) Name:Magen Boo Relation to Subscriber:Self Name:Magen Boo Payer ID:Not on file Group ID:[id number] Type:RX Medicare Part D Address: [address] Advance Directives For more information, please contact: [phone] * Full Code (Latest Code Status on File) Date Activated Date Inactivated Comments 01/11/2019 3:31 PM 01/12/2019 5:33 PM * Full Code Date Activated Date Inactivated Comments 01/11/2019 9:54 AM 01/11/2019 3:30 PM * Full Code Date Activated Date Inactivated Comments 02/03/2017 4:02 PM 02/04/2017 12:36 PM
--- OUTSIDE RECORDS SUMMARY | 2025-03-28 21:43 | XMS_ITS | Encounter Summary ---
Author Organization [facility] Address [address] [place] [address] Care Team Providers Care Astrophysics Teacher Name Role Phone Fernando Gaines MD Primary Care Provider [phone] Encounter Details Date Type Department Care Team (Latest Contact Info) Description 10/14/2005 Outpatient [facility] [place] [address] [place] [phone] Estrada Mas MD NO ADDRESS ON FILE Unspecified Chest Pain (Primary Dx); Other Malaise and Fatigue; Unspecified Hypothyroidism Social History Tobacco Use Types Packs/Day Years Used Date Smoking Tobacco: Never Assessed Sex and Gender Information Value Date Recorded Sex Assigned at Not on file 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
--- OUTSIDE RECORDS SUMMARY | 2025-03-28 21:43 | XMS_ITS | Encounter Summary ---
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
--- OUTSIDE RECORDS SUMMARY | 2025-03-28 21:43 | XMS_ITS | Encounter Summary ---
Author Organization [facility] Address [address] [place] [address] Care Team Providers Care Carriage Feeder Name Role Phone Fernando Gaines MD Primary Care Provider [phone] Encounter Details Date Type Department Care Team (Latest Contact Info) Description 02/08/2004 Outpatient [facility] [place] [address] [place] [address] Estrada Mas MD NO ADDRESS ON FILE HYPERLIPIDEMIA NEC/NOS (Primary Dx); Vaccine for influenza Social History Tobacco Use Types Packs/Day Years Used Date Smoking Tobacco: Never Assessed Sex and Gender Information Value Date Recorded Sex Assigned at Not on file Legal Sex Male 6:37 AM LOT BOSS Gender Identity Not on file Sexual Orientation Not on file documented as of this encounter Plan of Treatment Not on file documented as of this encounter Visit Diagnoses Diagnosis Other and unspecified hyperlipidemia- Primary Vaccine for influenza Need for prophylactic vaccination and inoculation against influenza documented in this encounter Care Teams Carriage Feeder Relationship Specialty Start Date End Date Fernando Gaines MD [address] [place] [address] PCP - General Family Practice 08/02/13 09/16/19 documented as of this encounter
--- OUTSIDE RECORDS SUMMARY | 2025-03-28 21:43 | XMS_ITS | Encounter Summary ---
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 PTT 30.7 21.5 - 34.4 Secs [...] ORDERABLES Final Re sult Performing Organization Address [facility] Phone Number INTERFACE SYSTEM Refer to clinic/hospital department * CARDIAC ENZYMES (10/25/2005 12:50 AM CDT) Pathologist [facility] CKMB 1.7 0.0 - 5.0 ng/mL INTERFACE SYSTEM TROPONIN I <0.1 0.0 - 1.5 ng/mL INTERFACE SYSTEM 10/25/2005 12:5 0 AM CDT Cdoey Jasso MD CHEMISTRY ORDERABLES Final Res ult Performing Organization Address [facility] de Phone Number INTERFACE SYSTEM Refer to clinic/hospital department * TSH (10/25/2005 12:50 AM CDT) Pathologist [facility] TSH 5.175 0.350 - 5.500 uIU/ml INTERFACE SYSTEM Comment: As of 04 at 3:00 p.m. [facility] has changed the methodology for TSH, and with this change the reference range has changed from 0.49-4.67 to 0.35-5.5 uIU/ml. 10/25/2005 12:5 0 AM CDT Codey Jasso MD CHEMISTRY ORDERABLES Final Res ult Performing Organization Address [facility] de Phone Number INTERFACE SYSTEM Refer to clinic/hospital department * MAGNESIUM LEVEL (10/25/2005 12:50 AM CDT) MAGNESIUM 2.2 1.7 - 2.4 mg/dL INTERFACE SYSTEM Comment: As of 05 the [facility] has changed testing methods. The new reference range is 1.7-2.4 The old referance range was 1.6-2.3 10/25/2005 12:5 0 AM CDT Codey Jasso MD CHEMISTRY ORDERABLES Final Res ult Performing Organization Address [facility] de Phone Number INTERFACE SYSTEM [...] INTERFACE SYSTEM Comment: As of 05 the [facility] has changed testing methods. The new reference range is 25-100 The old referance range was 38-126 AST 27 8 - 33 U/L INTERFACE SYSTEM Comment: As of 05 the [facility] has changed testing methods. The new reference range is 8-33 The old referance range was Males 17-59 Females 14-36 ALT 30 4 - 36 IU/L INTERFACE SYSTEM Comment: As of 05 the [facility] has changed testing methods. The new reference range is 4-36 The old referance range was Males 21-72 Females 9-52 BILIRUBIN TOTAL 0.4 0.3 - 1.2 mg/dL INTERFACE SYSTEM Comment: As of 05 the [facility] has changed testing methods. The new [...] Primary documented in this encounter Care Teams Dental Mold Maker Relationship Specialty Start Date End Date Fernando Gaines MD [address] [address] PCP - General Family Practice 08/02/13 09/16/19 documented as of this encounter
--- OUTSIDE RECORDS SUMMARY | 2025-03-28 21:43 | XMS_ITS | Encounter Summary ---
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 Gender Identity Not on file Sexual Orientation [...] (ABNORMAL) POC GLUCOSE (07/24/2004 10:38 AM CDT) [facility] Signature GLUCOSE POC 183(H) 60 - 100 mg/dL INTERFACE SYSTEM 07/24/2004 10:3 8 AM CDT us Codey Britt MD POINT OF CARE TESTING Final Resu lt Performing Organization Address [facility] de Phone Number INTERFACE SYSTEM Refer to [...] ORDERABLES Final Resul t Performing Organization Address [facility] Phone Number INTERFACE SYSTEM Refer to clinic/hospital department * HEMOGLOBIN A1C (07/23/2004 4:39 PM CDT) HEMOGLOBIN A1C 5.8 4.0 - 6.0 %A1C INTERFACE SYSTEM 07/23/2004 4:39 PM CDT us Codey Britt MD CHEMISTRY ORDERABLES Final Resul t Performing Organization Address [facility] de Phone Number INTERFACE SYSTEM Refer to clinic/hospital department * (ABNORMAL) POC GLUCOSE (07/23/2004 5:37 AM CDT) GLUCOSE POC 119(H) 60 - 100 mg/dL INTERFACE SYSTEM 07/23/2004 5:37 AM CDT us Codey Britt MD POINT OF CARE TESTING Final Resu lt Performing Organization Address [facility]/ZIP Co de Phone Number INTERFACE SYSTEM Refer [...] ORDERABLES Final Resul t Performing Organization Address [facility] Phone Number INTERFACE SYSTEM Refer to clinic/hospital department * (ABNORMAL) POC GLUCOSE (07/22/2004 8:45 PM CDT) GLUCOSE POC 183(H) 60 - 100 mg/dL INTERFACE SYSTEM 07/22/2004 8:45 PM CDT us Codey Britt MD POINT OF CARE TESTING Final Resu lt Performing Organization Address [facility] Phone Number INTERFACE SYSTEM Refer to clinic/hospital department * (ABNORMAL) POC GLUCOSE (07/22/2004 5:30 PM CDT) GLUCOSE POC 170(H) 60 - 100 mg/dL INTERFACE SYSTEM 07/22/2004 5:30 PM CDT us Codey Britt MD POINT OF CARE TESTING Final Resu lt Performing Organization Address [facility] Phone Number INTERFACE SYSTEM Refer to clinic/hospital department * (ABNORMAL) POC GLUCOSE (07/22/2004 12:43 PM CDT) GLUCOSE POC 143(H) 60 - 100 mg/dL INTERFACE SYSTEM 07/22/2004 12:4 3 PM CDT us Codey Britt MD POINT OF CARE TESTING Final Resu Performing Organization Address [facility] Phone Number INTERFACE SYSTEM Refer to clinic/hospital department * (ABNORMAL) POC GLUCOSE (07/22/2004 5:41 AM CDT) GLUCOSE POC 259(H) 60 - 100 mg/dL INTERFACE SYSTEM 07/22/2004 5:41 AM CDT us Codey Britt MD POINT OF CARE TESTING Final Resu Performing Organization Address [facility] Phone Number INTERFACE SYSTEM Refer to clinic/hospital department * (ABNORMAL) POC GLUCOSE (07/22/2004 5:34 AM CDT) GLUCOSE POC 123(H) 60 - 100 mg/dL INTERFACE SYSTEM 07/22/2004 5:34 AM CDT us Codey Britt MD POINT OF CARE TESTING Final Resu Performing Organization Address [facility] Phone Number INTERFACE SYSTEM Refer to clinic/hospital [...] ORDERABLES Final Resul t Performing Organization Address [facility] de Phone Number INTERFACE SYSTEM Refer to clinic/hospital department * (ABNORMAL) POC GLUCOSE (07/21/2004 9:04 PM CDT) GLUCOSE POC 181(H) 60 - 100 mg/dL INTERFACE SYSTEM 07/21/2004 9:04 PM CDT us Codey Britt MD POINT OF CARE TESTING Final Resu lt Performing Organization Address [facility] de Phone Number INTERFACE SYSTEM Refer to clinic/hospital department * (ABNORMAL) POC GLUCOSE (07/21/2004 4:41 PM CDT) GLUCOSE POC 158(H) 60 - 100 mg/dL INTERFACE SYSTEM 07/21/2004 4:41 PM CDT us Codey Britt MD POINT OF CARE TESTING Final Resu lt Performing Organization Address [facility] Phone Number INTERFACE SYSTEM Refer to clinic/hospital department * (ABNORMAL) POC GLUCOSE (07/21/2004 12:30 PM CDT) GLUCOSE POC 184(H) 60 - 100 mg/dL INTERFACE SYSTEM 07/21/2004 12:3 0 PM CDT us Codey Britt MD POINT OF CARE TESTING Final Resu lt Performing Organization Address [facility] de Phone Number INTERFACE SYSTEM Refer to clinic/hospital department * (ABNORMAL) POC GLUCOSE (07/21/2004 5:43 AM CDT) GLUCOSE POC 184(H) 60 - 100 mg/dL INTERFACE SYSTEM 07/21/2004 5:43 AM CDT us Codey Britt MD POINT OF CARE TESTING Final Resu lt Performing Organization Address [facility] de Phone Number INTERFACE SYSTEM Refer to [...] ORDERABLES Final Resul t Performing Organization Address [facility] Phone Number INTERFACE SYSTEM Refer to clinic/hospital department * (ABNORMAL) POC GLUCOSE (07/20/2004 9:46 PM CDT) GLUCOSE POC 206(H) 60 - 100 mg/dL INTERFACE SYSTEM 07/20/2004 9:46 PM CDT us Codey Britt MD POINT OF CARE TESTING Final Resu lt Performing Organization Address [facility] Phone Number INTERFACE SYSTEM Refer to clinic/hospital department * (ABNORMAL) POC GLUCOSE (07/20/2004 6:11 PM CDT) GLUCOSE POC 182(H) 60 - 100 mg/dL INTERFACE SYSTEM 07/20/2004 6:11 PM CDT us Codey Britt MD POINT OF CARE TESTING Final Resu lt Performing Organization Address [facility] Phone Number INTERFACE SYSTEM Refer to clinic/hospital department * (ABNORMAL) POC GLUCOSE (07/20/2004 12:13 PM CDT) GLUCOSE POC 160(H) 60 - 100 mg/dL INTERFACE SYSTEM 07/20/2004 12:1 3 PM CDT us Codey Britt MD POINT OF CARE TESTING Final Resu lt Performing Organization Address [facility] de Phone Number INTERFACE SYSTEM Refer to clinic/hospital department * (ABNORMAL) POC GLUCOSE (07/20/2004 6:26 AM CDT) GLUCOSE POC 114(H) 60 - 100 mg/dL INTERFACE SYSTEM 07/20/2004 6:26 AM CDT us Codey Britt MD POINT OF CARE TESTING Final Resu lt Performing Organization Address [facility] Phone Number INTERFACE SYSTEM Refer to clinic/hospital department * POC GLUCOSE (07/20/2004 4:10 AM CDT) GLUCOSE POC 98 60 - 100 mg/dL INTERFACE SYSTEM 07/20/2004 4:10 AM CDT us Codey Britt MD POINT OF CARE TESTING Final Resu lt Performing Organization Address [facility] Phone Number INTERFACE SYSTEM Refer [...] ORDERABLES Final Resu lt Performing Organization Address [facility] Phone Number INTERFACE SYSTEM Refer to clinic/hospital [...] ORDERABLES Final Resul t Performing Organization Address [facility] Phone Number INTERFACE SYSTEM Refer to clinic/hospital department * POC GLUCOSE (07/20/2004 3:05 AM CDT) GLUCOSE POC 91 60 - 100 mg/dL INTERFACE SYSTEM 07/20/2004 3:05 AM CDT us Codey Britt MD POINT OF CARE TESTING Final Resu lt Performing Organization Address [facility]/ZIP Co de Phone Number INTERFACE SYSTEM Refer to clinic/hospital department * POC GLUCOSE (07/20/2004 2:02 AM CDT) GLUCOSE POC 93 60 - 100 mg/dL INTERFACE SYSTEM 07/20/2004 2:02 AM CDT Result Rene Britt MD POINT OF CARE TESTING Final Resu lt Performing Organization Address [facility] Phone Number INTERFACE SYSTEM Refer to clinic/hospital department * POC GLUCOSE (07/20/2004 12:58 AM CDT) GLUCOSE POC 95 60 - 100 mg/dL INTERFACE SYSTEM 07/20/2004 12:5 8 AM CDT Result Rene Britt MD POINT OF CARE TESTING Final Resu lt Performing Organization Address [facility] Phone Number INTERFACE SYSTEM Refer to clinic/hospital department * (ABNORMAL) POC GLUCOSE (07/20/2004 12:13 AM CDT) GLUCOSE POC 103(H) 60 - 100 mg/dL INTERFACE SYSTEM 07/20/2004 12:1 3 AM CDT Result Rene Britt MD POINT OF CARE TESTING Final Resu lt Performing Organization Address [facility] Phone Number INTERFACE SYSTEM Refer to clinic/hospital department * (ABNORMAL) POC GLUCOSE (07/19/2004 11:03 PM CDT) GLUCOSE POC 122(H) 60 - 100 mg/dL INTERFACE SYSTEM 07/19/2004 11:0 3 PM CDT Result Rene Britt MD POINT OF CARE TESTING Final Resu lt Performing Organization Address [facility] Phone Number INTERFACE SYSTEM Refer to clinic/hospital department * (ABNORMAL) POC GLUCOSE (07/19/2004 10:11 PM CDT) GLUCOSE POC 140(H) 60 - 100 mg/dL INTERFACE SYSTEM 07/19/2004 10:1 1 PM CDT us Codey Britt MD POINT OF CARE TESTING Final Resu lt Performing Organization Address [facility] de Phone Number INTERFACE SYSTEM Refer to clinic/hospital department * (ABNORMAL) POC GLUCOSE (07/19/2004 9:17 PM CDT) GLUCOSE POC 160(H) 60 - 100 mg/dL INTERFACE SYSTEM 07/19/2004 9:17 PM CDT us Codey Britt MD POINT OF CARE TESTING Final Resu lt Performing Organization Address [facility] de Phone Number INTERFACE SYSTEM Refer to clinic/hospital department * (ABNORMAL) POC GLUCOSE (07/19/2004 7:58 PM CDT) GLUCOSE POC 128(H) 60 - 100 mg/dL INTERFACE SYSTEM 07/19/2004 7:58 PM CDT us Codey Britt MD POINT OF CARE TESTING Final Resu lt Performing Organization Address [facility] de Phone Number INTERFACE SYSTEM Refer to clinic/hospital department * POC GLUCOSE (07/19/2004 6:50 PM CDT) GLUCOSE POC 91 60 - 100 mg/dL INTERFACE SYSTEM 07/19/2004 6:50 PM CDT us Codey Britt MD POINT OF CARE TESTING Final Resu lt Performing Organization Address [facility] Co de Phone Number INTERFACE SYSTEM Refer to clinic/hospital department * POC GLUCOSE (07/19/2004 6:35 PM CDT) GLUCOSE POC 62 60 - 100 mg/dL INTERFACE SYSTEM 07/19/2004 6:35 PM CDT us Codey Britt MD POINT OF CARE TESTING Final Resu lt Performing Organization Address [facility] Co de Phone Number INTERFACE SYSTEM Refer to clinic/hospital department * (ABNORMAL) POC GLUCOSE (07/19/2004 4:58 PM CDT) GLUCOSE POC 131(H) 60 - 100 mg/dL INTERFACE SYSTEM 07/19/2004 4:58 PM CDT us Codey Britt MD POINT OF CARE TESTING Final Resu lt Performing Organization Address [facility] de Phone Number INTERFACE SYSTEM Refer to clinic/hospital department * (ABNORMAL) POC GLUCOSE (07/19/2004 4:05 PM CDT) GLUCOSE POC 143(H) 60 - 100 mg/dL INTERFACE SYSTEM 07/19/2004 4:05 PM CDT us Codey Britt MD POINT OF CARE TESTING Final Resu lt Performing Organization Address [facility] Phone Number INTERFACE SYSTEM Refer to clinic/hospital department * (ABNORMAL) POC GLUCOSE (07/19/2004 2:53 PM CDT) GLUCOSE POC 160(H) 60 - 100 mg/dL INTERFACE SYSTEM 07/19/2004 2:53 PM CDT us Codey Britt MD POINT OF CARE TESTING Final Resu lt Performing Organization Address [facility] de Phone Number INTERFACE SYSTEM Refer to [...] TESTING COM Final Result Performing Organization Address [facility] de Phone Number INTERFACE SYSTEM Refer to [...] Goal INR 3.0; range 2.5 - 3.5 POST-OK Goal INR 2.5; range 2.0 - 3.0 [...] ORDERABLES Final Resu lt Performing Organization Address [facility]/State/ZIP Co de Phone Number INTERFACE SYSTEM Refer [...] TESTING COM Final Result Performing Organization Address [facility] Co de Phone Number INTERFACE SYSTEM Refer to clinic/hospital department * (ABNORMAL) POC GLUCOSE (07/19/2004 1:03 PM CDT) GLUCOSE POC 127(H) 60 - 100 mg/dL INTERFACE SYSTEM 07/19/2004 1:03 PM CDT us Codey Britt MD POINT OF CARE TESTING Final Resu lt INTERFACE SYSTEM Refer to clinic/hospital department documented in this encounter Visit Diagnoses Diagnosis Coronary atherosclerosis of zuni coronary artery- Primary documented in this encounter Care Teams Broaching Machine Operator Relationship Specialty Start Date End Date Fernando Gaines MD [address] [facility] [address] [place] [address] PCP - General Family Practice 4/28/14 6/11/20 documented as of this encounter
--- OUTSIDE RECORDS SUMMARY | 2025-03-28 21:43 | XMS_ITS | Encounter Summary ---
Author Organization [facility] Address [address] [place] [address] Care Team Providers Care Riverboat Captain Name Role Phone Fernando Gaines MD Primary Care Provider [phone] Encounter Details Date Type Department Care Team (Latest Contact Info) Description 10/14/2005 Outpatient Historical [facility] [address] [place] [address] Codey Jasso MD NO ADDRESS ON FILE Other Specified Cardiac Dysrhythmias (Primary Dx) Social History Tobacco Use Types Packs/Day Years Used Date Smoking Tobacco: Never Assessed Sex and Gender Information Value Date Recorded Sex Assigned at Not on file 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
--- OUTSIDE RECORDS SUMMARY | 2025-03-28 21:43 | XMS_ITS | Encounter Summary ---
Author Organization [facility] Address [address] [place] [address] Care Team Providers Care Soap Mixer Name Role Phone Fernando Gaines MD Primary Care Provider [phone] Encounter Details Date Type Department Care Team (Latest Contact Info) Description 01/28/2006 Outpatient [facility] [place] [address] [place] [address] Estrada Mas MD NO ADDRESS ON FILE Dysthymic Disorder (Primary Dx) Social History Tobacco Use Types Packs/Day Years Used Date Smoking Tobacco: Never Assessed Sex and Gender Information Value Date Recorded Sex Assigned at Not on file 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
--- OUTSIDE RECORDS SUMMARY | 2025-03-28 21:43 | XMS_ITS | Encounter Summary ---
Author Organization [facility] Address [address] [place] [address] Care Team Providers Care Bank Manager Name Role Phone Fernando Gaines MD Primary Care Provider [phone] Encounter Details Date Type Department Care Team (Late st Contact Info) Description 04/30/2007 Outpatient [facility] [address] [place] [address] Joel Colvin MD NO ADDRESS ON FILE Social History Tobacco Use Types Packs/Day Years Used Date Smoking Tobacco: Never Assessed Sex and Gender Information Value Date Recorded Sex Assigned at Not on file 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 WORKER SUPERVISOR documented in this encounter Plan of Treatment Not on file documented as of this encounter Visit Diagnoses Not on filedocumented in this encounter Care Teams Bank Manager Relationship Specialty Start Date End Date Fernando Gaines MD [address] [phone] PCP - General Family Practice 08/02/13 09/16/19 documented as of this encounter
--- OUTSIDE RECORDS SUMMARY | 2025-03-28 21:43 | XMS_ITS | Encounter Summary ---
Author Organization [facility] Address [address] [place] [address] Care Team Providers Care Watermaster Name Role Phone Fernando Gaines MD Primary Care Provider Encounter Details Date Type Department Care Team (Latest Contact Info) Description 12/28/2001 Outpatient Historical [facility] Podiatry-[place] [facility] [place] [address] [place] [address] Aureliano Peters, DPM NO ADDRESS ON FILE OTHER HAMMER TOE (Primary Dx); ENTHESOPATHY, SITE NOS Social History Tobacco Use Types Packs/Day Years Used Date Smoking Tobacco: Never Assessed Sex and Gender Information Value Date Recorded Sex Assigned at Not on file 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
--- OUTSIDE RECORDS SUMMARY | 2025-03-28 21:43 | XMS_ITS | Encounter Summary ---
Author Organization [facility] Address [address] [place] [address] Care Team Providers Care Varnish Mixer Name Role Phone Fernando aGines MD Primary Care Provider [phone] Encounter Details Date Type Department Care Team (Latest Contact Info) Description 12/12/2005 Outpatient Historical [facility] Cardiology- [place] [address] [place] [phone] Codey Jasso MD NO ADDRESS ON FILE Paroxysmal Supraventricular Tachycardia (Primary Dx) Social History Tobacco Use Types Packs/Day Years Used Date Smoking Tobacco: Never Assessed Sex and Gender Information Value Date Recorded Sex Assigned at Not on file 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
--- OUTSIDE RECORDS SUMMARY | 2025-03-28 21:43 | XMS_ITS | Patient Health Record ---
Author Organization [facility] Address [address] [place] [address] Care Team Providers Care Fleshing Machine Operator Name Role Phone Kyle Mendoza MD Primary Care Provider Jayna Maki [phone] Allergies No Known Allergies Reason For Referral [...] Problem COPD - Chronic obstructive pulmonary disease (34368911) COPD (chronic obstructive pulmonary disease) (J44.9) Active confirmed Problem Urinary hesitancy (3886217) Urinary hesitancy (R39.11) Active confirmed Problem Tomography - chest abnormal (674818137) Abnormal CT of the chest (R93.89) Active confirmed Plan Of Treatment Pending Test Test Name Order Date CT Chest w/o Contrast diagnostic-[id number] 1 05/05/2021 Insurance Providers Payer Name Payer Address Payer Phone Subscriber Number Group Number Insured Name Patient Relationship to Insured Coverage Start Date Coverage End Date [place] [address] [place] [phone] [id number] Magen Boo Self - patient is the insured [facility] Medicare Supplement [address] [place] [phone] [id number] Magen Boo Self - patient is the [...]
--- OUTSIDE RECORDS SUMMARY | 2025-03-28 21:43 | XMS_ITS | Encounter Summary ---
Author Organization [facility] Address [address] [place] [address] Care Team Providers Care Automatic Pinsetter Adjuster Name Role Phone Fernando Gaines MD Primary Care Provider [phone] Encounter Details Date Type Department Care Team (Latest Contact Info) Description 07/18/2004 Outpatient Historical [facility] PreAdmission [id number] [place] [address] Codey Britt MD NO ADDRESS ON FILE PREOP CARDIOVASC EXAM (Primary Dx) Social History Tobacco Use Types Packs/Day Years Used Date Smoking Tobacco: Never Assessed Sex and Gender Information Value Date Recorded Sex Assigned at Not on file 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
--- OUTSIDE RECORDS SUMMARY | 2025-03-28 21:43 | XMS_ITS | Encounter Summary ---
Author Organization [facility] Address [address] [place] [address] Care Team Providers Care Candy Mixer Name Role Phone Fernando Gaines MD Primary Care Provider [phone] Encounter Details Date Type Department Care Team (Latest Contact Info) Description 07/15/2006 Outpatient [facility] [place] [address] [place] [address] Estrada Mas MD NO ADDRESS ON FILE Dysthymic Disorder (Primary Dx); Other and Unspecified Hyperlipidemia; Unspecified Essential Hypertension; Paroxysmal Supraventricular Tachycardia Social History Tobacco Use Types Packs/Day Years Used Date Smoking Tobacco: Never Assessed Sex and Gender Information Value Date Recorded Sex Assigned at Not on file 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
--- OUTSIDE RECORDS SUMMARY | 2025-03-28 21:43 | XMS_ITS | Encounter Summary ---
Author Organization [facility] Address [address] [place] [address] Care Team Providers Care Cnc Laser Operator Name Role Phone Fernando Gaines MD Primary Care Provider [phone] Encounter Details Date Type Department Care Team (Latest Contact Info) Description 10/14/2005 Outpatient Historical [facility] Cardiology- [place] [address] [place] [address] Codey Jasso MD NO ADDRESS ON FILE Unspecified Chest Pain (Primary Dx); Palpitations; Cor Athrscl-Uns Vessel; Pure Hypercholesterolem Social History Tobacco Use Types Packs/Day Years Used Date Smoking Tobacco: Never Assessed Sex and Gender Information Value Date Recorded Sex Assigned at Not on file 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
--- OUTSIDE RECORDS SUMMARY | 2025-03-28 21:43 | XMS_ITS | Encounter Summary ---
Author Organization [facility] Address [address] [place] [address] Care Team Providers Care Timber Appraiser Name Role Phone Fernando Gaines MD Primary Care Provider [phone] Encounter Details Date Type Department Care Team (Latest Contact Info) Description 06/22/2003 Outpatient [facility] [place] [address] [place] [address] Estrada Mas MD NO ADDRESS ON FILE Lateral epicondylitis (Primary Dx) Social History Tobacco Use Types Packs/Day Years Used Date Smoking Tobacco: Never Assessed Sex and Gender Information Value Date Recorded Sex Assigned at Not on file 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
--- OUTSIDE RECORDS SUMMARY | 2025-03-28 21:43 | XMS_ITS | Encounter Summary ---
Author Organization [facility] Address [address] [place] [address] Care Team Providers Care Elevator Pilot Name Role Phone Fernando Gaines MD Primary Care Provider [phone] Encounter Details Date Type Department Care Team (Latest Contact Info) Description 08/23/2004 Outpatient Historical [facility] Cardiac Thoracic Vascular Surg [place] [address] [place] [address] Codey Britt MD NO ADDRESS ON FILE CORON ATHEROSCL [place] CORON VESSEL (Primary Dx) Social History Tobacco Use Types Packs/Day Years Used Date Smoking Tobacco: Never Assessed Sex and Gender Information Value Date Recorded Sex Assigned at Not on file Legal Sex Male 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
--- OUTSIDE RECORDS SUMMARY | 2025-03-28 21:43 | XMS_ITS | Encounter Summary ---
Author Organization [facility] Address [address] [place] [address] Care Team Providers Care Integrated Campaign Manager Name Role Phone Fernando Gaines MD Primary Care Provider [phone] Encounter Details Date Type Department Care Team (Latest Contact Info) Description 11/16/2001 Outpatient [facility] Podiatry[facility] [place] [address] [facility] [address] [place] [address] Aureliano Peters, DPM NO ADDRESS ON FILE DERMATOPHYTOSIS OF FOOT (Primary Dx); ACHILLES TENDINITIS; OTHER HAMMER TOE; Pain in limb Social History Tobacco Use Types Packs/Day Years Used Date Smoking Tobacco: Never Assessed Sex and Gender Information Value Date Recorded Sex Assigned at Not on file Legal Sex Male 6:37 AM WELDING SETTER Gender Identity Not on file Sexual Orientation Not on file documented as of this encounter Plan of Treatment Not on file documented as of this encounter Visit Diagnoses Diagnosis Dermatophytosis of foot- Primary Achilles bursitis or tendinitis Other hammer toe (acquired) Pain in limb Pain in soft tissues of limb documented in this encounter Care Teams Integrated Campaign Manager Relationship Specialty Start Date End Date Fernando Gaines MD [address] [place] [address] PCP - General Family Practice 08/02/13 09/16/19 documented as of this encounter
--- OUTSIDE RECORDS SUMMARY | 2025-03-28 21:43 | XMS_ITS | Encounter Summary ---
Author Organization [facility] Address [address] [place] [address] Care Team Providers Care Granite Installer Name Role Phone Fernando Gaines MD Primary Care Provider [phone] Encounter Details Date Type Department Care Team (Latest Contact Info) Description 10/19/1997 Outpatient [facility] [place] [address] [place] [address] Estrada Mas MD NO ADDRESS ON FILE Synovitis and tenosynovitis, unspecified (Primary Dx) Social History Tobacco Use Types Packs/Day Years Used Date Smoking Tobacco: Never Assessed Sex and Gender Information Value Date Recorded Sex Assigned at Not on file Legal Sex Male 6:37 AM INSPECTOR WATCH 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
--- OUTSIDE RECORDS SUMMARY | 2025-03-28 21:43 | XMS_ITS | Encounter Summary ---
Author Organization [facility] Address [address] [place] [address] Care Team Providers Care Professor Of Floriculture Name Role Phone Fernando Gaines MD Primary Care Provider [phone] Encounter Details Date Type Department Care Team (Latest Contact Info) Description 09/20/2004 Outpatient Historical [facility] Cardiology- [place] [address] [place] [address] Codey Jasso MD NO ADDRESS ON FILE CORON ATHEROSCL [place] CORON VESSEL (Primary Dx); Pure hypercholesterolem Social History Tobacco Use Types Packs/Day Years Used Date Smoking Tobacco: Never Assessed Sex and Gender Information Value Date Recorded Sex Assigned at Not on file Legal Sex Male 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
--- OUTSIDE RECORDS SUMMARY | 2025-03-28 21:43 | XMS_ITS | Encounter Summary ---
Author Organization [facility] Address [address] [place] [address] Care Team Providers Care Naval Inspector Name Role Phone Fernando Gaines MD Primary Care Provider Encounter Details Date Type Department Care Team (Latest Contact Info) Description 10/18/2005 Outpatient Historical [facility] Cardiology [facility] [address] [place] [address] Codey Jasso MD NO ADDRESS ON FILE Coronary Atherosclerosis of [place] Graft of Transplanted Heart (Primary Dx); Unspecified Chest Pain; Coronary Atherosclerosis of [place] Coronary Artery Social History Tobacco Use Types Packs/Day Years Used Date Smoking Tobacco: Never Assessed Sex and Gender Information Value Date Recorded Sex Assigned at Not on file Legal Sex Male 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 [place] during the stress, 33 mCi of Tc-99m [...] per minute, along with low-level treadmill exercise. [place] during the stress, 33 mCiof Tc- 99m [...] Primary Chest pain, unspecified Coronary atherosclerosis of [place] coronary artery documented in this encounter Care Teams Naval Inspector Relationship Specialty Start Date End Date Fernando Gaines MD [address] [phone] PCP - General Family Practice 08/02/13 09/16/19 documented as of this encounter
--- OUTSIDE RECORDS SUMMARY | 2025-03-28 21:43 | XMS_ITS | Encounter Summary ---
Author Organization [facility] Address [address] [place] [address] Care Team Providers Care Central Office Worker Name Role Phone Fernando Gaines MD Primary Care Provider [phone] Encounter Details Date Type Department Care Team (Latest Contact Info) Description 08/07/1999 Outpatient [facility] [place] [address] [place] [address] Estrada Mas MD NO ADDRESS ON FILE Other specified diseases due to viruses (Primary Dx) Social History Tobacco Use Types Packs/Day Years Used Date Smoking Tobacco: Never Assessed Sex and Gender Information Value Date Recorded Sex Assigned at Not on file Legal Sex Male 6:37 AM 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
--- OUTSIDE RECORDS SUMMARY | 2025-03-28 21:43 | XMS_ITS | Encounter Summary ---
Author Organization [facility] Address [address] [place] [address] Care Team Providers Care Aircraft Delivery Checker Name Role Phone Fernando Gaines MD Primary Care Provider [phone] Reason for Referral * Outpatient Services (Routine) - Closed Specialty Diagnoses / Procedures Referred By Contac t Referred To Contact Diagnoses Brachial neuritis or radiculitis NOS Procedures XR FLUORO NEEDLE GUIDANCE Rohan Thomson MD Phone: tel: fax: Referral ID Status Reason Start Date Expiration Date Visits Re quested Visits Authorized [id number] Closed 04/27/2014 05/28/2015 1 1 AL MERCHANDISER Encounter Details Date Type Department Care Team (Late st Contact Info) Description 04/27/2014 Ancillary Orders [facility] Pain Management Procedures [place] [address] [place] [address] [place] 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 Not on file Not on file Not on file documented as of this encounter Plan of Treatment Not on file documented as of this encounter Results * XR FLUORO NEEDLE GUIDANCE (04/27/2014 1:26 PM FLORAL MERCHANDISER) Narrative James Montaño, RT - 04/27/2014 1:26 PM FLORAL MERCHANDISER Order information only. Exam was auto-finalized. Rohan Thomson MD DIAGNOSTIC IMAGING ORDERABLES Final Result documented in this encounter Visit Diagnoses Diagnosis Brachial neuritis or radiculitis NOS- Primary Brachial neuritis or radiculitis nos Brachial neuritis or radiculitis NOS Brachial neuritis or radiculitis nos documented in this encounter Care Teams Aircraft Delivery Checker Relationship Specialty Start Date End Date Fernando Gaines MD [address] [address] PCP - General Family Practice 08/02/13 09/16/19 documented as of this encounter
--- OUTSIDE RECORDS SUMMARY | 2025-03-28 21:43 | XMS_ITS | Encounter Summary ---
Author Organization [facility] Address [address] [place] [address] Care Team Providers Care Health Equipment Servicer Name Role Phone Fernando Gaines MD Primary Care Provider [phone] Encounter Details Date Type Department Care Team (Latest Contact Info) Description 07/04/2004 Outpatient [facility] Cardio Pulmonary Rehab [address] [place] [address] Codey Jasso MD NO ADDRESS ON FILE CORON ATHEROSCL [place] CORON VESSEL (Primary Dx) Social History Tobacco Use Types Packs/Day Years Used Date Smoking Tobacco: Never Assessed Sex and Gender Information Value Date Recorded Sex Assigned at Not on file Legal Sex Male 6:37 AM MARKET RESEARCH EXECUTIVE Gender Identity Not on file Sexual Orientation Not on file documented as of this encounter Plan of Treatment Not on file documented as of this encounter Procedures Procedure Name Priority Date/Time Associated Diagnosis Comments CBC WITHOUT DIFFERENTIAL Routine 07/04/2004 9:44 AM MARKET RESEARCH EXECUTIVE BASIC METABOLIC PANEL Routine 07/04/2004 9:44 AM MARKET RESEARCH EXECUTIVE PT AND APTT Routine 07/04/2004 9:43 AM MARKET RESEARCH EXECUTIVE documented in this encounter Results * (ABNORMAL) CBC WITHOUT DIFFERENTIAL (07/04/2004 9:44 AM MARKET RESEARCH EXECUTIVE) WBC 6.4 4.8 - 10.8 K/ul INTERFACE [...] 0.2 K/ul INTERFACE SYSTEM 07/04/2004 9:44 AM MARKET RESEARCH EXECUTIVE us Codey Jasso MD HEMATOLOGY ORDERABLES Final Re sult INTERFACE SYSTEM Refer to clinic/hospital department * BASIC METABOLIC PANEL (07/04/2004 9:44 AM MARKET RESEARCH EXECUTIVE) GLUCOSE 100 70 - 110 mg/dL INTERFACE [...] 10.5 mg/dL INTERFACE SYSTEM 07/04/2004 9:44 AM MARKET RESEARCH EXECUTIVE Codey Jasso MD CHEMISTRY ORDERABLES Final Res ult Performing Organization Address [facility] Phone Number INTERFACE SYSTEM Refer to clinic/hospital department * PT AND APTT (07/04/2004 9:43 AM MARKET RESEARCH EXECUTIVE) PROTIME 14.2 12.4 - 14.9 Secs INTERFACE SYSTEM Comment: As of 03 note change in normal range. INR 1.0 INTERFACE SYSTEM Comment: Expected Values for INR: DVT/PE Goal INR 2.5; range 2.0 - 3.0 Valve Replacement Tissue Goal INR 2.5; range 2.0 - 3.0 Mechanical Goal INR 3.0; range 2.5 - 3.5 POST-KS Goal INR 2.5; range 2.0 - 3.0 or Goal 3.0; range 2.5 - 3.5 Atrial Fibrillation Goal INR 2.5; range 2.0 - 3.0 Ischemic Stroke Goal INR 2.5; range 2.0 - 3.0 For additional information see Guidelines for Anticoagulation available from the pharmacy [facility] PTT 31.0 24.3 - 37.5 Secs INTERFACE SYSTEM Comment:Therapeutic Range: 07/04/2004 9:43 AM MARKET RESEARCH EXECUTIVE Codey Jasso MD HEMATOLOGY ORDERABLES Final Re sult Performing Organization Address [facility] Phone Number INTERFACE SYSTEM Refer to clinic/hospital department documented in this encounter Visit Diagnoses Diagnosis Coronary atherosclerosis of [place] coronary artery- Primary documented in this encounter Care Teams Health Equipment Servicer Relationship Specialty Start Date End Date Fernando Gaines MD [address] [address] PCP - General Family Practice 08/02/13 09/16/19 documented as of this encounter
--- OUTSIDE RECORDS SUMMARY | 2025-03-28 21:43 | XMS_ITS | Encounter Summary ---
Author Organization [facility] Address [address] [place] [address] Care Team Providers Care Weigh Machine Operator Name Role Phone Fernando Gaines MD Primary Care Provider [phone] Encounter Details Date Type Department Care Team (Latest Contact Info) Description 03/04/[address] [facility] [address] [place] [phone] Estrada Mas MD NO ADDRESS ON FILE Dysthymic Disorder (Primary Dx); Vaccin Strep Pneumoniae; Vaccine for influenza Social History Tobacco Use Types Packs/Day Years Used Date Smoking Tobacco: Never Assessed Sex and Gender Information Value Date Recorded Sex Assigned at Not on file Legal Sex Male 6:37 AM MOLD SHAKER Gender Identity Not on file Sexual Orientation [...] influenza documented in this encounter Care Teams Weigh Machine Operator Relationship Specialty Start Date End Date Fernando Gaines MD [address] [place] [phone] PCP - General Family Practice 08/02/13 09/16/19 documented as of this encounter
--- OUTSIDE RECORDS SUMMARY | 2025-03-28 21:43 | XMS_ITS | Encounter Summary ---
Author Organization [facility] Address [address] [place] [address] Care Team Providers Care It Architecture Consultant Name Role Phone Fernando Gaines MD Primary Care Provider [phone] Encounter Details Date Type Department Care Team (Latest Contact Info) Description 06/20/2004 Outpatient Historical [facility] Cardiology- [place] [address] [place] [address] Codey Jasso MD NO ADDRESS ON FILE Aortic valve disorder (Primary Dx); RESPIRATORY ABNORM NEC; UNDIAGNOSED CARDIAC MURMURS Social History Tobacco Use Types Packs/Day Years Used Date Smoking Tobacco: Never Assessed Sex and Gender Information Value Date Recorded Sex Assigned at Not on file Legal Sex Male 6:37 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
--- OUTSIDE RECORDS SUMMARY | 2025-03-28 21:43 | XMS_ITS | Encounter Summary ---
Author Organization [facility] Address [address] [place] [address] Care Team Providers Care Supply Aide Name Role Phone Fernando Gaines MD Primary Care Provider [phone] Encounter Details Date Type Department Care Team (Latest Contact Info) Description 02/08/2002 Outpatient Historical [facility] [address] [place] [address] Estrada Mas MD NO ADDRESS ON FILE COUGH (Primary Dx) Social History Tobacco Use Types Packs/Day Years Used Date Smoking Tobacco: Never Assessed Sex and Gender Information Value Date Recorded Sex Assigned at Not on file Legal Sex Male 6:37 AM MOLD YARD SUPERVISOR Gender Identity Not on file Sexual Orientation Not on file documented as of this encounter Plan of Treatment Not on file documented as of this encounter Visit Diagnoses Diagnosis Cough- Primary documented in this encounter Care Teams Supply Aide Relationship Specialty Start Date End Date Fernando Gaines MD [address] [place] [address] PCP - General Family Practice 08/02/13 09/16/19 documented as of this encounter
--- OUTSIDE RECORDS SUMMARY | 2025-03-28 21:43 | XMS_ITS | Encounter Summary ---
Author Organization [facility] Address [address] [place] [address] Care Team Providers Care Guest Services Attendant Name Role Phone Fernando Gaines MD Primary Care Provider [phone] Encounter Details Date Type Department Care Team (Latest Contact Info) Description 05/28/2000 Outpatient [facility] [address] [place] [address] Estrada Mas MD NO ADDRESS ON FILE Routine medical exam (Primary Dx) Social History Tobacco Use Types Packs/Day Years Used Date Smoking Tobacco: Never Assessed Sex and Gender Information Value Date Recorded Sex Assigned at Not on file Legal Sex Male 6:37 AM TEACHER 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
--- OUTSIDE RECORDS SUMMARY | 2025-03-28 21:43 | XMS_ITS | Encounter Summary ---
Author Organization [facility] Address [address] [place] [address] Care Team Providers Care Pacs Specialist Name Role Phone Fernando Gaines MD Primary Care Provider [phone] Encounter Details Date Type Department Care Team (Latest Contact Info) Description 07/12/2004 Outpatient Historical [facility] Cardiac Thoracic Vascular S[facility] [place] [address] [place] [address] Deshawn Head MD NO ADDRESS ON FILE CORON ATHEROSCL [place] CORON VESSEL (Primary Dx) Social History Tobacco Use Types Packs/Day Years Used Date Smoking Tobacco: Never Assessed Sex and Gender Information Value Date Recorded Sex Assigned at Not on file Legal Sex Male 6:37 AM GYROSCOPIC INSTRUMENT TESTER Gender Identity Not on file Sexual Orientation Not on file documented as of this encounter Plan of Treatment Not on file documented as of this encounter Visit Diagnoses Diagnosis Coronary atherosclerosis of [place] coronary artery- Primary documented in this encounter Care Teams Pacs Specialist Relationship Specialty Start Date End Date Fernando Gaines MD [address] [place] [address] PCP - General Family Practice 08/02/13 09/16/19 documented as of this encounter
--- OUTSIDE RECORDS SUMMARY | 2025-03-28 21:43 | XMS_ITS | Encounter Summary ---
Author Organization [facility] Address [address] [place] [address] Care Team Providers Care Service Unit Operator Oil Well Name Role Phone Fernando Gaines MD Primary Care Provider [phone] Encounter Details Date Type Department Care Team (Latest Contact Info) Description 08/09/2005 Outpatient [facility] [place] [address] [place] [address] Estrada Mas MD NO ADDRESS [...] on file Legal Sex Male 6:37 AM FIELD PIPELINES SUPERVISOR Gender Identity Not on file Sexual Orientation Not on file documented as of this encounter Plan of Treatment Not on file documented as of this encounter Visit Diagnoses Diagnosis Coronary atherosclerosis of unspecified type of vessel, [place] or graft- Primary Other and unspecified hyperlipidemia Disorders of bursae and tendons in shoulder region, unspecified Unspecified disorder of skin and subcutaneous tissue documented in this encounter Care Teams Service Unit Operator Oil Well Relationship Specialty Start Date End Date Fernando Gaines MD [address] [place] [address] PCP - General Family Practice 08/02/13 09/16/19 documented as of this encounter
--- OUTSIDE RECORDS SUMMARY | 2025-03-28 21:44 | XMS_ITS | Clinical Summary ---
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 Gender Identity Not on file Sexual Orientation Not on file Last Filed Vital Signs Vital Sign Reading Time Taken Comments Blood Pressure 148/74 02/26/2019 10:27 AM PICKING SUPERVISOR Pulse 59 02/26/2019 10:27 AM PICKING SUPERVISOR Temperature 36.9 C (98.5 F) 01/12/2019 8:01 AM CDT Respiratory Rate 16 01/12/2019 8:01 AM CDT Oxygen Saturation - - Inhaled Oxygen Concentration - - Weight 86.2 kg (190 lb) 02/26/2019 10:27 AM PICKING SUPERVISOR Height 188 cm (6' 2 ) 02/26/2019 10:27 AM PICKING SUPERVISOR Body Mass Index 24.39 02/26/2019 10:27 AM PICKING SUPERVISOR Plan of Treatment Health Maintenance Due Date Last Done Comments DTAP/TDAP/TD VACCINES (1 - Tdap) 1957 ZOSTER VACCINE (1 of 2) 1988 PNEUMOCOCCAL VACCINE 50+ YEA RS (2 of 2 - PCV) 03/04/2007 03/04/2006 RSV VACCINE (60+ or ) (1 - 1-dose 75+ series) 2013 INFLUENZA VACCINE (#1) 2024 03/04/2006, 2003 Medical Devices Implanted Type Area Driving [employer] Instructor Device Identifier Shelf Expiration Date Model / Serial / Lot Cage [place]-C [id number] - [id number] Implanted:Qty: 1 on 02/03/2017 by Jagdeep Peña MD Cage N/A: Neck ARNOL- SPINE 02/03/2018 [id number] / / LOAD # [id number] Description:PER INVOICE Hemostatic Surgifoam 1gm [id number] Implanted:10/2018 by Jagdeep Peña MD (Quantity not on file) Hemostatic N/A: Neck J&J- [employer] INC 10/01/20201977 / [id number] Hemostatic Surgifoam Sz12-7 1971 [id number] Implanted:10/2018 by Jagdeep Peña MD (Quantity not on file) Hemostatic N/A: Neck J&J- ETH[employer]ON ENDO-SURGERY INC 11/17/20221971 / [id number] Putty Bio Dbm 1ml [id number] - [id number] Implanted:Qty: 1 on 02/03/2017 by Jagdeep Peña MD Putty N/A: Neck ARNOL- HOWMEDICA INT INC 05/29/2017 [id number] / / [id number] Screw Avs Sd 3.5x10mm [id number] - [id number] Implanted:Qty: 1 on 02/03/2017 by Jagdeep Peña MD Screw N/A: Neck ARNOL- SPINE [id number] / / LOAD # [id number] Description:PER INVOICE Screw Avs Sd 3.5x10mm [id number] - [id number] Implanted:Qty: 1 on 02/03/2017 by Jagdeep Peña MD Screw N/A: Neck ARNOL- SPINE [id number] / / LOAD # [id number] Description:PER INVOICE Screw Spn Multi Fernando 3.5x14mm 9351106 - [id number] Implanted:Qty: 1 on 01/11/2019 by Jagdeep Peña MD Screw N/A: Neck MEDTRONIC- SOFAMOR DANEK 02/05/2020 [id number] / / LOAD [id number] Screw Spn Multi Fernando 3.5x14mm [id number] - [id number] Implanted:Qty: 1 on 01/11/2019 by Jagdeep Peña MD Screw N/A: Neck [employer]- SOFAMOR DANEK 02/05/2020 [id number] / / LOAD [id number] Screw Spn Multi Fernanod 3.5x14mm [id number] - [id number] Implanted:Qty: 1 on 01/11/2019 by Jagdeep Peña MD Screw N/A: Neck [employer]- SOFAMOR DANEK 02/05/2020 [id number] / / LOAD [id number] Screw Spn Multi Fernando 3.5x14mm [id number] - [id number] Implanted:Qty: 1 on 01/11/2019 by Jagdeep Peña MD Screw N/A: Neck [employer]TR[employer]- SOFAMOR DANEK 02/05/2020 [id number] / / LOAD [id number] Screw Spn Multi Fernando 3.5x14mm 8779238 - [id number] Implanted:Qty: 1 on 01/11/2019 by Jagdeep Peña MD Screw N/A: Neck [employer]- SOFAMOR DANEK 02/05/2020 [id number] / / LOAD [id number] Screw Spn Multi Fernando 3.5x14mm 6178990 - [id number] Implanted:Qty: 1 on 01/11/2019 by Jagdeep Peña MD Screw N/A: Neck [employer]TR[employer]- SOFAMOR DANEK 02/05/2020 [id number] / / LOAD [id number] Screw Spn Multi Fernando 3.5x14mm 4709982 - [id number] Implanted:Qty: 1 on 01/11/2019 by Jagdeep Peña MD Screw N/A: Neck [employer]TR[employer]- SOFAMOR DANEK 02/05/2020 [id number] / / LOAD [id number] Screw Set Std Psn 4746846 - [id number] Implanted:Qty: 1 on 01/11/2019 by Jagdeep Peña MD Screw N/A: Neck [employer]TR[employer]- SOFAMOR DANEK 02/05/2020 [id number] / / LOAD [id number] Screw Set Std Psn 9120511 - [id number] Implanted:Qty: 1 on 01/11/2019 by Jagdeep Peña MD Screw N/A: Neck [employer]TRON[employer]- SOFAMOR DANEK 02/05/2020 [id number] / / LOAD [id number] Screw Set Std Psn 0351498 - [id number] Implanted:Qty: 1 on 01/11/2019 by Jagdeep Peña MD Screw N/A: Neck [employer]TRON[employer]- SOFAMOR DANEK 02/05/2020 [id number] / / LOAD [id number] Screw Set Std Psn 2849162 - [id number] Implanted:Qty: 1 on 01/11/2019 by Jagdeep Peña MD Screw N/A: Neck MEDTRON[employer]- SOFAMOR DANEK 02/05/2020 [id number] / / LOAD [id number] Screw Spn Multi Fernando 3.5x14mm 7485318 - [id number] Implanted:Qty: 1 on 01/11/2019 by Jagdeep Peañ MD Screw N/A: Neck [employer]TR[employer]- SOFAMOR DANEK 02/05/2020 [id number] / / LOAD [id number] Grft Bone Paste 5cc Implanted:Qty: 1 on 01/11/2019 by Jagdeep Peña MD N/A: Neck [employer]TRON[employer]- SOFAMOR DANEK 08/25/2020 [id number] / / [id number] Derrek Spn Precut 3.5x25mm Implanted:Qty: 1 on 01/11/2019 by Jagdeep Peña MD N/A: Neck [employer]- SOFAMOR DANEK 02/05/2020 [id number] / / LOAD [id number] Derrek Spn Precut 3.5x25mm Implanted:Qty: 1 on 01/11/2019 by Jagdeep Peña MD N/A: Neck [employer]- SOFAMOR DANEK 02/05/2020 [id number] / / LOAD [id number] Insurance * Guarantor: ANTHONY BOO Account Type Relation to Patient Date of Phone Billing Address Personal/Family [address] [place] [address] RX [employer] RX Member Subscriber Plan / Payer (Ef fective 2006-Present) Name:Anthony Boo Relation to Subscriber:Self Name:Anthony Boo Payer ID:Not on file Group ID:[id number] Type:RX Medicare Part D Address: [address]
--- OUTSIDE RECORDS SUMMARY | 2025-03-28 21:44 | XMS_ITS | Encounter Summary ---
Author Organization [facility] Address [address] [place] [address] Care Team Providers Care Lift Truck Mechanic Name Role Phone Fernando Gaines MD Primary Care Provider [phone] Encounter Details Date Type Department Care Team (Latest Contact Info) Description 07/15/2006 Outpatient Historical [facility] Cardiology- [place] [address] [place] [address] Codey Jasso MD NO ADDRESS ON FILE Paroxysmal Supraventricular Tachycardia (Primary Dx); Cor Athrscl-Uns Vessel Social History Tobacco Use Types Packs/Day Years Used Date Smoking Tobacco: Never Assessed Sex and Gender Information Value Date Recorded Sex Assigned at Not on file 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
--- OUTSIDE RECORDS SUMMARY | 2025-03-28 21:44 | XMS_ITS | Encounter Summary ---
Author Organization [facility] Address [address] [place] [address] Care Team Providers Care Inside Sales Assistant Name Role Phone Fernando Gaines MD Primary Care Provider [phone] Encounter Details Date Type Department Care Team (Latest Contact Info) Description 11/05/2006 Outpatient [facility] [place] [address] [place] [address] Estrada Mas MD NO ADDRESS ON FILE Diarrhea (Primary Dx) Social History Tobacco Use Types Packs/Day Years Used Date Smoking Tobacco: Never Assessed Sex and Gender Information Value Date Recorded Sex Assigned at Not on file 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
--- OUTSIDE RECORDS SUMMARY | 2025-03-28 21:44 | XMS_ITS | Continuity of Care Document ---
Author Organization NOEL Patrick [facility], LAnthony, [facility] ([facility]) Address [address] [place] [address] Assessment No assessment recorded. Plan of Treatment Reminders Order Date Submit Date Provider Last Modified By Organization Details Last Modified Time Details Appointments RETIREMENT VISIT 2024 08:20A M RERE MENDOZA PA-C Not available Not available Not available RECHECK 15 2025 08:30A Constantin Mendoza MD Not available Not available Not available Lab thyrotr opin, QN, serum or plasma 2024 025 [facility], [address] [facility], [facility] 1, [place], [address], 02/10/2025 14:48:02 urinaly sis, complet e 2024 025 [facility], [address] [facility], [facility] 1, [place], [address], 02/10/2025 14:50:23 culture , urine 2024 025 [facility], [address] [facility] [address], [place], [address], 02/11/2025 21:08:49 magnesi um, serum or plasma 2024 025 [facility], [address] , [place], [address], 02/11/2025 21:08:48 pro BNP (pro B-type natriur etic peptide ), serum or plasma 2024 025 [facility], [address] [place] [address], [facility] [address], [place], [address], 02/11/2025 21:08:48 D-dimer , quant, plasma 2024 025 [facility], [address] [place] [address] [address], [address], [place], [address], 02/11/2025 21:08:48 CBC 2024 025 [facility], [address], [address], 02/10/2025 14:12:53 CMP, serum or plasma 2024 025 [facility], [address], [address], 02/10/2025 15:08:59 Referral None recorde d. Procedures None recorde d. Surgeries None recorde d. Imaging XR, chest, 2 view [address] ([facility]), [address] [place], [address], 02/11/2025 10:34:27 Medication Orders furosem paul 40 mg tablet 2024 025 [facility] [place], [address] [place], [address], 03/24/2025 09:03:01 Patient TargetsNo targets recorded. Patient InstructionsNo instructions recorded. Reason for Referral None Reported. Results Created Date Observation Date Name Description Value Unit Range Abnormal Flag Note LastModifiedBy Organization Detail LastModifiedTime 02/11/20 25 02/10/2025 CBC WBC 3.8 x10 4.5-10 .5 low Not Available [facility] [address] [facility] 1, [place], [address], 02/10/2025 14:12:53 02/11/2002/10/2025 CBC RBC 4.74 x10 4.30-5 .90 Not Available [facility] [address] [facility] 1, [place], [address], 02/10/2025 14:12:53 02/11/2002/10/2025 CBC HGB 13.3 g/dL 13.5-1 8.0 low Not Available [facility] [address] [facility] 1, [place], [address], 02/10/2025 14:12:53 02/11/2002/10/2025 CBC HCT 42.0 % 35.0-6 0.0 Not Available [facility] [address] [facility] 1, [place], [address], 02/10/2025 14:12:53 02/11/2002/10/2025 CBC MCV 88.6 fL 80.0-9 9.9 Not Available [facility] [address] [facility] 1, [place], [address], 02/10/2025 14:12:53 02/11/2002/10/2025 CBC MCH 28.0 pg 27.0-3 2.0 Not Available [facility] [address] [facility] 1, [place], [address], 02/10/2025 14:12:53 02/11/2002/10/2025 CBC MCHC 31.6 g/dL 32.0-3 6.0 low Not Available [facility] [address] [facility] [facility] 1, [place], [address], 02/10/2025 14:12:53 02/11/20 25 02/10/2025 CBC RDW 14.9 % 11.5-1 4.5 high Not Available [facility] [address] [facility] 1, [place], [address], 02/10/2025 14:12:53 02/11/20 25 02/10/2025 CBC plt 92.5 x10 150.0- 451.0 low Not Available [facility] [address] [place] [address] [facility] 1, [place], [address], 02/10/2025 14:12:53 02/11/20 25 02/10/2025 CBC lymphocytes % 27.6 % 20.0-5 0.0 Not Available [facility] [address] [facility], [place], [address], 02/10/2025 14:12:53 02/11/20 25 02/10/2025 CBC granulcytes % 51.6 % 30.0-7 0.0 Not Available [facility] [address] [place] [address] [facility] 1, [place], [address], 02/10/2025 14:12:53 02/11/2002/10/2025 CBC monocytes % 17.4 % 2.0-16 .0 high Not Available [facility] [address] [place] [facility], [place], [address], 02/10/2025 14:12:53 02/11/20 25 02/10/2025 CBC granulcytes# 1.9 x10 Not Radha ilable [facility] [address] [place] [address] [facility], [place], [address], 02/10/2025 14:12:53 02/11/20 25 02/10/2025 CBC lymphocytes # 1.0 x10 Not Available [facility] [address] [place] [address] [facility], [place], [address], 02/10/2025 14:12:53 02/11/20 25 02/10/2025 CBC monocytes # 0.7 x10 Not Avai lable [facility] [address] [facility] [address], [place], [address], 02/10/2025 14:12:53 02/11/20 25 02/10/2025 TSH TSH 2.56 uIU/m L 0.49-3 .82 Not Available [facility] [address] [facility] [address], [place], [address], 02/10/2025 14:48:01 02/11/20 25 02/10/2025 URINA LYSIS WITH MICRO color YELLOW Not Available [facility] [address] [facility] [address], [place], [address], 02/10/2025 14:50:23 02/11/20 25 02/10/2025 URINA LYSIS WITH MICRO clarity CLEAR Not Available [facility] [address] [place] [address], [place], [address], 02/10/2025 14:50:23 02/11/20 25 02/10/2025 URINA LYSIS WITH MICRO glu NEGATI VE Not Available [facility] [address] [facility] 1, [place], [address], 02/10/2025 14:50:23 02/11/20 25 02/10/2025 URINA LYSIS WITH MICRO bili 1+ high Not Available [facility] [address] [facility] [address], [place], [address], 02/10/2025 14:50:23 02/11/20 25 02/10/2025 URINA LYSIS WITH MICRO ket NEGATI VE Not Available [facility] [address] [facility] [address], [place], [address], 02/10/2025 14:50:23 02/11/20 25 02/10/2025 URINA LYSIS WITH MICRO S.g 1.020 1.005- 1.025 Not Available [facility] [address] [place] [address], [place], [address], 02/10/2025 14:50:23 02/11/20 25 02/10/2025 URINA LYSIS WITH MICRO pH 6.0 5.0-7. 0 Not Available [facility] [address] [place] [address], [place], [address], 02/10/2025 14:50:23 02/11/20 25 02/10/2025 URINA LYSIS WITH MICRO pro 1+ high Not Available [facility] [address] [place] [address], [place], [address], 02/10/2025 14:50:23 02/11/20 25 02/10/2025 URINA LYSIS WITH MICRO uro 1.0 E.U./D L Not Available [facility] [address] [place] [address], [place], [address], 02/10/2025 14:50:23 02/11/20 25 02/10/2025 URINA LYSIS WITH MICRO nit NEGATI VE Not Available [facility] [address] [place] [address], [place], [address], 02/10/2025 14:50:23 02/11/20 25 02/10/2025 URINA LYSIS WITH MICRO blo NEGATI VE Not Available [facility] [address] [place] [address], [place], [address], 02/10/2025 14:50:23 02/11/20 25 02/10/2025 URINA LYSIS WITH MICRO rodolfo NEGATI VE Not Available [facility] [address] [place] [address], [place], [address], 02/10/2025 14:50:23 02/11/20 25 02/10/2025 URINA LYSIS WITH MICRO WBC 2-3 Not Available [facility] [address] [facility] 1, [place], [address], 02/10/2025 14:50:23 02/11/20 25 02/10/2025 URINA LYSIS WITH MICRO RBC NEGATI VE Not Available [facility] [address] [place] [address] [facility] 1, [place], [address], 02/10/2025 14:50:23 02/11/20 25 02/10/2025 URINA LYSIS WITH MICRO epi cells 1-2 Not Available [facility] [address] [place] [facility], [place], [address], 02/10/2025 14:50:23 02/11/20 25 02/10/2025 URINA LYSIS WITH MICRO bacteria NEGATI VE Not Available [facility] [address] [place] [facility], [place], [address], 02/10/2025 14:50:23 02/11/20 25 02/10/2025 URINA LYSIS WITH MICRO other NG Not Available [facility] [address] [facility] 1, [place], [address], 02/10/2025 14:50:23 02/11/20 25 02/10/2025 CMP (MALE ) glucose 108.0 mg/dL 60.0-9 9.0 high Not Available [facility] [address] [place] [address] [facility] 1, [place], [address], 02/10/2025 15:08:59 02/11/20 25 02/10/2025 CMP (MALE ) BUN (blood urea nitrogen) 19.0 mg/dL 10.0-2 6.0 Not Available [facility] [address] [place] [facility], [place], [address], 02/10/2025 15:08:59 02/11/20 25 02/10/2025 CMP (MALE ) creatinine (serum) 0.8 mg/dL 0.4-1. 5 Not Available [facility] [address] [facility], [place], [address], 02/10/2025 15:08:59 02/11/20 25 02/10/2025 CMP (MALE ) BUN/creatini ne ratio 23.75 ratio Not Available [facility] [address] [place] [facility], [place], [address], 02/10/2025 15:08:59 02/11/20 25 02/10/2025 CMP (MALE ) eGFR calculated 97.4 Not Available [facility] [address] [facility] 1, [place], [address], 02/10/2025 15:08:59 02/11/20 25 02/10/2025 CMP (MALE ) total protein 7.5 g/dL 6.0-8. 5 Not Available [facility] [address] [facility] 1, [place], [address], 02/10/2025 15:08:59 02/11/20 25 02/10/2025 CMP (MALE ) total bilirubin 1.2 mg/dL 0.2-1. 3 Not Available [facility] [address] [facility] 1, [place], [address], 02/10/2025 15:08:59 02/11/20 25 02/10/2025 CMP (MALE ) albumin 3.5 g/dL 3.5-5. 5 Not Available [facility] [address] [facility] 1, [place], [address], 02/10/2025 15:08:59 02/11/20 25 02/10/2025 CMP (MALE ) globulin 4.0 calc Not Available [facility] [address] [facility] 1, [place], [address], 02/10/2025 15:08:59 02/11/20 25 02/10/2025 CMP (MALE ) AST (SGOT) 64.0 U/L 0.0-46 .0 high Not Available [facility] [address] [place] [facility], [place], [address], 02/10/2025 15:08:59 02/11/20 25 02/10/2025 CMP (MALE ) altv (SGPT) 48.0 U/L 13.0-6 9.0 normal Not Available [facility] [address] [facility] 1, [place], [address], 02/10/2025 15:08:59 02/11/20 25 02/10/2025 CMP (MALE ) A/G ratio 0.9 ratio Not Available [facility] [address] [facility] 1, [place], [address], 02/10/2025 15:08:59 02/11/20 25 02/10/2025 CMP (MALE ) ALP phos 316.0 U/L 30.0-1 40.0 abnormal Not Available [facility] [address] [facility] 1, [place], [address], 02/10/2025 15:08:59 02/11/2002/10/2025 CMP (MALE ) calcium 9.0 mg/dL 8.4-10 .5 Not Available [facility] [address] [facility] 1, [place], [address], 02/10/2025 15:08:59 02/11/2002/10/2025 CMP (MALE ) sodium 137.0 mmol/ L 136.0- 145.0 Not Available [facility] [address] [facility] 1, [place], [address], 02/10/2025 15:08:59 02/11/2002/10/2025 CMP (MALE ) potassium 4.3 mmol/ L 3.5-5. 1 Not Available [facility] [address] [facility] 1, [place], [address], 02/10/2025 15:08:59 02/11/20 25 02/10/2025 CMP (MALE ) chloride 103.0 mmol/ L 98.0-1 10.0 normal Not Available [facility] [address] [facility] 1, [place], [address], 02/10/2025 15:08:59 02/11/20 25 02/10/2025 CMP (MALE ) C02 26.0 mmol/ L 22.0-3 1.0 Not Available [facility] [address] [facility] 1, [place], [address], 02/10/2025 15:08:59 02/11/20 25 02/10/2025 CMP (MALE ) anion gap 8.0 calc Not Available [facility] [address] [address], [place], [address], 02/10/2025 15:08:59 02/11/20 25 02/10/2025 CMP (MALE ) osmolality 285.7 calc Not Available [facility] [address] [address], [place], [address], 02/10/2025 15:08:59 02/11/2002/11/2025 MAGNE SIUM magnesium 2.0 mg/dL 1.5-2. 5 normal Not Available [employer] [facility] [address] , [place], [address], 02/11/2025 21:08:48 02/11/2002/11/2025 D-DIM ER, QUANT ITATI VE D-dimer, quantitative 1.20 mcg/m L_feu <0.50 high [employer] alex D-dim er level s are assoc [...] 0.01 mcg/m L FEU. For addit ional kyer onesimo clements refer to http: //[facility] jian suarez.Que stDia gnost ics.c om/fa q/FAQ 149 (This link is being provi ded for infor parvez nal/e ducat ional purpo ses only. ) Not Available [employer] [facility] [address] [place], [address], 02/11/2025 21:08:48 02/11/20 25 02/11/2025 B TYPE [...] ol. 2002; 40:97 6-982 . Not Available [employer] [facility] [address] [place], [address], 02/11/2025 21:08:48 02/11/20 25 02/11/2025 CULTU RE, URINE , ROUTI NE culture, urine, routine SEE NOTE CULTU RE, URINE , ROUTI NE Micro Numbe r: [id number] Test Statu s: Final Speci men [...] Tube, is recom loan d. Not Available [facility] [address] [place], [address], 02/11/2025 21:08:49 02/11/20 25 02/16/2025 GGT GGT 238 U/L 3-70 high Not Available [facility] [address] [place], [address], 02/16/2025 02:20:34 02/11/20 25 02/10/2025 XR, chest , 2 view No observ ation record ed. [facility] ([facility]) [address] [place], [address], 02/10/2025 14:04:54 02/13/20 25 02/10/2025 XR, chest , 2 view No observ ation record ed. [facility] ([facility]) [address] [place], [address], 02/14/2025 08:15:52 02/16/2002/15/2025 US, abdom en, limit ed No observ ation record ed. [facility] [address] [place], [address], 02/15/2025 09:43:49 Result Notes None recorded. 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 It is almost impercept ible. I will send over some erythromy zeekiel ointment and have him follow up with Dr Mendoza as needed for persisten t pain or irritatio n. He verbalize s martínmiky ding.; Recorded 3 8:19AM by Erin Sanabria LPN, Office Visit; Promoted; acuity set as *; Not Available [facility] 3 03:07:56 Anxiety disorder 732254149 Active 2022 ERIN garcia, [facility] 4 09:21:19 Depressiv e disorder 22856069 Active 2022 ERIN garcia, [facility] 5 09:02:08 Diverticu litis of colon 121105812 Active 2022 Diverticu litis Of Colon; 3 8:19AM by Erin Sanabria LPN, Office Visit; Promoted; acuity set as *; Not Available [facility] 3 03:07:57 Conductio n disorder of the heart 27382972 Active 2022 Cardiac Dysrhythm ia ERIN garcia, [facility] 4 09:23:30 Cervical radiculop athy 95122744 Active 2022 CERVICAL RADICULOP ATHY; Recorded 3 8:19AM by Erin Sanabria LPN, Office Visit; Promoted; acuity set as *; Not Available [facility] 3 03:07:57 Private referral to cardiolog ist Active [address] Louisa garcia, [facility] 4 09:22:13 Coronary atheroscl erosis 563288401 Active 2023 ERIN garcia, [facility] 4 09:22:43 Myocardia l infarctio n 89016558 Active 2023 non-ST elevation SD ERIN SANABRIA null, [facility] 4 09:23:12 Atrial fibrillat ion 78832637 Active 2023 JULIANNE MOOREH ALBIN null, [facility] 4 14:10:30 Thrombocy topenic disorder 498137752 Active 2023 Kyle Mendoza MD [address] [place] [address], [address] , [facility] 5 10:15:01 Hyperlipi demia 49513661 Active 2023 Carol Davis null, [facility] 4 13:51:27 Muscle weakness 94796064 Active 2024 Carol Davis null, [facility] 5 11:54:44 Loss of appetite 48621926 Active 2024 Carol Davis null, [facility] 5 15:58:15 Alkaline phosphata se above reference range 508078190 Active 2024 ERIN SANABRIA null, [facility] 5 16:04:03 Decrease in appetite 75973812 Active 2024 Carol Davis null, [facility] 5 10:47:27 Nicotine dependenc e 19355156 Active 2024 ERIN SANABRIA null, [facility] 5 09:01:55 Platelet morpholog y - finding 232349201 Active 2024 Kyle Mendoza MD [address] [place] [address], [address] , [facility] 10:15:11 Chronic neck pain 09821699900 07 Active 2024 Kyle Mendoza MD [address] [place] [address], [address] , [facility] 10:23:31 Right pleural effusion Active 2024 Kyle Mendoza MD [address] [place] [address], [address] , [facility] 13:53:32 Liver function test above reference range 175673921 Active 2024 Carol garcia, [facility] 08:39:42 D-dimer above reference range 524052497 Active 2024 ERIN garcia, [facility] 10:01:09 Acute on chronic systolic heart failure 502315592 Active 2024 Kyle Mendoza MD [address] [place] [address], [address] , [facility] 12:47:16 Acute right-masha ed heart failure 715558965 Active 2024 Kyle Mendoza MD [address] [place] [address], [address] , [facility] 12:47:17 Mitral valve stenosis 73349419 Active 2024 Kyle Mendoza MD [address] [place], [place] [id number] , [facility] 15:36:38 Acute on chronic combined systolic and diastolic heart failure 90229234347 9103 Active 2024 Kyle Mendoza MD [address] [place] [address], [address] [place] [address] , [facility] 5 15:36:39 Pharyngea l dysphagia 35550644828 105 Active 2024 Kyle Mendoza MD [address] [place] [address], [address] , [facility] 15:36:41 Drug therapy finding 743836258 Active 2024 Kyle Mendoza MD [address] [place] [address], [address] , [facility] 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 15:37:26 Chronic atrial fibrillat ion 242418781 Active 2024 DEZ HAEFFNER null, [facility] 14:19:07 COVID-19 820707603 Active 2024 DEZ HAEFFNER null, [facility] 14:19:16 Aortic valve stenosis 16345856 Active 2024 DEZ HAEFFNER null, [facility] 5 14:19:50 Chronic systolic heart failure 009278495 Active 2024 DEZ HAEFFNER null, [facility] 14:20:48 Platelet count below reference range 188299196 Active 2024 DEZ HAEFFNER null, [facility] 14:21:32 Problem Notes None recorded. Procedures Surgical History Date Name Laterality Status Provider Name and Address Organization Details Recorded Time 10/22/19 replacement of aortic valve completed ERIN SANABRIA [facility] 03/11/2024 09:28:37 Cabg vein five completed ERIN SANABRIA [facility] 03/11/2024 09:27:35 cardiovascular stress testing completed JULIANNE MOOREH TALAMANTES [facility] 03/11/2024 14:11:05 Imaging Results None recorded. Procedure Notes None recorded. Medical Equipment None Reported. Allergies Allergen ID Allergen Name Allergen Category Reaction Reaction Severity Criticality Documentation Date Start Date Code Code System Note Provider Name and Address Organization Details Recorded Time 88991 Cymbalta medicatio n other Not available Not available 11/02/2022 25476 4 [facility] 5 15:06:44 26311 Lexapro medicatio n other Not available Not available 11/02/2022 92165 1 [facility] 5 15:06:52 Medications Name Sig Start [...] Last Updated DateTime 180.34 cm 25 kg/m2 31047.0 3 g 97.6 [degF] 122 /min 98 % 152/68 mm[Hg] ERIN SANABRIA [facility] 12:39:26 Social History Question Answer Notes LastModified by [employer] Details LastModified Time Tobacco Smoking Status Never Smoker Chews JULIANNE AISSATOU ALBIN garcia [facility] 03/11/2024 14:09:15 What Is Your Level Of Caffeine Consumption? Moderate Information not available 12/01/2024 What Was The Date Of Your Most Recent Tobacco Screening? 12/20/2024 [email or web address] Information not available 12/20/2024 Sex: Unknown Functional Status Question Answer Note LastModified by [employer] Details LastModified Time Do you use any illicit or recreational drugs? No [email or web address] Information not available 12/01/2024 Do you or have you ever used any other forms of tobacco or nicotine? Yes [email or web address] Information not available 12/20/2024 What is your level of alcohol consumption? None [email or web address] Information not available 12/01/2024 Do you or have you ever used smokeless tobacco? Currently chews tobacco Information not available 12/20/2024 Mental Status None recorded. Family History Relationship Description Onset Age of this Age Resolved Age Notes LastModified by Organization Details LastModified Time Brother Coronary atherosclero sis [email or web address] Not available 03/11 09:25:54 Daughter Coronary atherosclero sis [email or web address] Not available 03/11 09:25:54 Daughter Diabetes mellitus [email or web address] Not available 03/11 09:26:17 Sister Coronary atherosclero sis [email or web address] Not available 03/11 09:25:54 Paternal Grandmother Diabetes mellitus [email or web address] Not available 03/11 09:26:29 Medical History No medical history recorded. Immunizations Vaccine Type Date Status Note Provider Nam e and Address Organization Details Recorded Time Influenza, split virus, trivalent, preservative 0 completed Not Available [employer] 11/02/2022 02:51:54 pneumococcal polysaccharide PPV23 0 completed Not Available [facility] 11/02/2022 02:51:54 COVID-19, mRNA, LNP-S, PF, 100 mcg/0.5mL dose or 50 mcg/0.25mL dose 1 completed ERIN garcia, [facility] 02/10/2025 12:39:38 COVID-19, mRNA, LNP-S, PF, 100 mcg/0.5mL dose or 50 mcg/0.25mL dose 1 completed ERIN garcia, [facility] 02/10/2025 12:39:39 pneumococcal, unspecified formulation 0 completed Not Available [facility] 03/28/2025 12:38:26 Past Encounters Encounter ID Performer Location Encounter Start Date Encounter Closed Date Diagnosis/Indication Diagnosis SNOMED-CT Code Diagnosis ICD10 Code Diagnosis IMO Codes Diagnosis Note [id number] Kyle Mendoza MD [facility] ([facility] [address] [place] [address] 02/10/2025 12:29:45 02/11/2025 10:34:27 Dyspnea on exertion 68999040 R06.09 728671 Fever 673667244 R50.9 396492 Chronic at rial fibrillation 311318571 I48.20 483942 Atrial fib rillation with rapid ventricular response 4652220347 06756 I48.91 [id number] please go directly to the ER if chest pain, breathing worsens, heart rate increases at all or feeling worse in any way. the wish to not right now and we will try a diuiretec but if worwening they agree to go. Right pleu ral effusion [id number] Acute on c hronic systolic heart failure [id number] I50.23 [id number] Health Concerns Section Related Observation LastModified by Organization Lina ls LastModified Time None Recorded Concern Status LastModified by Organization Details LastModified Time None Recorded Payers Encounter Date Sequence Insurance Name Policy Number Policy Montes De Oca Covered Member ID Montes De Oca Member ID Guarantor Name 02/10/2025 1 [place]: KATELIN Boo [id number] [place] [employer] Notes Date Note Type Note Provider [...] orthopnea for 2 nights. Kyle Mendoza MD [address] [place] [address], [id number], [facility]/10/2025 14:03:20
--- OUTSIDE RECORDS SUMMARY | 2025-03-28 21:44 | XMS_ITS | Encounter Summary ---
Author Organization [facility] Address [address] [place] [address] Care Team Providers Care Supervisor Finishing Room Name Role Phone Fernando Gaines MD Primary Care Provider [phone] Encounter Details Date Type Department Care Team (Latest Contact Info) Description 11/18/2006 Outpatient [facility] Gastroenterology[address] [place] [address] Joel Colvin MD NO ADDRESS ON FILE Diarrhea (Primary Dx); Other Symptoms Involving Digestive System; Abdominal Pain, Unspecified Site Social History Tobacco Use Types Packs/Day Years Used Date Smoking Tobacco: Never Assessed Sex and Gender Information Value Date Recorded Sex Assigned at Not on file 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
--- OUTSIDE RECORDS SUMMARY | 2025-03-28 21:44 | XMS_ITS | Encounter Summary ---
Author Organization [facility] Address [address] [place] [address] Care Team Providers Care Application Software Developer Name Role Phone Fernando Gaines MD Primary Care Provider [phone] Encounter Details Date Type Department Care Team (Latest Contact Info) Description 12/31/2006 Outpatient [facility] Gastroenterology[address] [place] [address] Joel Colvin MD NO ADDRESS ON FILE Regional Enteritis of Unspecified Site (CMS/HCC) (Primary Dx) Social History Tobacco Use Types Packs/Day Years Used Date Smoking Tobacco: Never Assessed Sex and Gender Information Value Date Recorded Sex Assigned at Not on file 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
--- OUTSIDE RECORDS SUMMARY | 2025-03-28 21:44 | XMS_ITS | Encounter Summary ---
Author Organization [facility] Address [address] [place] [address] Care Team Providers Care Care Navigator Name Role Phone Fernando Gaines MD Primary Care Provider [phone] Encounter Details Date Type Department Care Team (Latest Contact Info) Description 11/18/2006 Outpatient Historical [facility] Endoscopy [place] [address] [facility] [address] [place] [address] Joel Colvin MD NO ADDRESS ON FILE Abdominal Pain, Other Specified Site (Primary Dx) Social History Tobacco Use Types Packs/Day Years Used Date Smoking Tobacco: Never Assessed Sex and Gender Information Value Date Recorded Sex Assigned at Not on file 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
[2025-03-28 21:47] VITALS: BP 68/39; PULSE 135; RESP 24; TEMP 37.8; O2SAT 86; BMI 23.0
[2025-03-28 21:55] VITALS: BP 160/119; PULSE 99; RESP 30; O2SAT 92
--- NOTE | 2025-03-28 22:00 | PC.NURSE ---
Code Blue 2147 - Pt intubated 15 mg Etomidate 100 mg Succ 0.2 Epi 2149 - Pt lost pulse, CPR started 2150 - pulse check, no pulse 2151 - 1 mg Epi pulse check / + pulse / HR 133 2152 - 150 mg Amiodarone administered POC - 51 2154 - lost pulse / CPR started D50 administered 2156 - pulse check / + pulse / lost pulse 2158 - 1 mg Epi 2158 - TOD called
--- NOTE | 2025-03-28 22:05 | W.ED.AMS ---
HPI - Altered Mental Status General: Chief Complaint: Altered Mental Status Stated Complaint: RESP DISTRESS Time Seen by Provider: 03/28/25 22:03 History of Present Illness: 84-year-old male patient [facility]. He was evidently found to be blue and not respond by the jail staff. Time of onset is unknown. 1 staff member reported that he had last been assessed sometime around 445. Another staff member said it was 8:45 PM. He is known to have COVID-19. He has been febrile. Related Data Home Medications ?Medication ?Instructions ?Recorded ?Confirmed acetaminophen 650 mg 650 mg PO Q12H 03/20/23 03/13/25 tablet,extended release (Tylenol 8 Hour) lidocaine 5 % topical patch 1 patch topical DAILY 07/29/24 03/13/25 pantoprazole 40 mg tablet,delayed 40 mg PO DAILY 07/29/24 03/13/25 release furosemide 20 mg tablet (Lasix) 20 mg PO PRN 03/09/25 03/13/25 spironolactone 25 mg tablet 12.5 mg PO DAILY 03/09/25 03/13/25 cholecalciferol (vitamin D3) 125 125 mcg PO DAILY 03/13/25 03/13/25 mcg (5,000 unit) tablet (Vitamin D3) Previous Rx's ?Medication ?Instructions ?Recorded apixaban 2.5 mg tablet 2.5 mg PO BID #180 tabs 03/09/25 lisinopril 2.5 mg tablet 2.5 mg PO DAILY #60 tabs 03/09/25 amiodarone 200 mg tablet See Rx Instructions .Route 03/18/25 .COMPLEX #90 tabs metoprolol succinate 25 mg 25 mg PO DAILY #90 tabs 03/18/25 tablet,extended release 24 hr midodrine 5 mg tablet 5 mg PO TID #90 tabs 03/18/25 Allergies Allergy/AdvReac Type Severity Reaction Status Date / Time No Known Allergies Allergy Verified 03/12/25 19:52 [facility] ED PFSH: Medical History (Updated 03/28/25 @ 22:32 by Rohan Florence DO) Mitral valve stenosis Anticoagulation adequate Atrial fibrillation Coronary artery disease Palpitations BPH (benign prostatic hyperplasia) Chronic neck pain Chronic shortness of breath ASHD (arteriosclerotic heart disease) Myocardial infarction Dyslipidemia H/O Caro's palsy Surgical History S/P hernia repair S/P appendectomy S/P CABG (coronary artery bypass graft) S/P PTCA (percutaneous transluminal coronary angioplasty) S/P AVR (aortic valve replacement) Bioprosthetic open aortic valve replacement Family History Father CAD (coronary artery disease) Brother CAD (coronary artery disease) Social History (Updated 03/12/25 @ 23:37 by Cameron Quintanilla MD) Smoking and tobacco/nicotine status: never used tobacco/nicotine Alcohol intake: never Substance/Drug Use: never Additional social history: I discussed CODE STATUS with patient and his daughter Litzy today and he requests DNR on 03/12/2025 with Cameron Quintanilla MD Household members: spouse Marital status: 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 Physical Exam Const: EXAM LIMITATIONS: altered mental status GENERAL APPEARANCE: ill appearing and frail appearing ORIENTATION/CONSCIOUSNESS: Yes Other orientation findings (unresponsive) HENMT: COMMON NORMALS: atraumatic HEAD & SCALP: atraumatic; no contusion FACE & SINUS: face symmetric NOSE: Normal nares present MOUTH: tongue normal and moist mucous membranes abnormal Details: parched THROAT: posterior oropharynx normal Chest: CHEST: Yes Symmetrical chest wall rise (on bag valve ventilation ) Resp: EFFORT & INSPECTION: Yes decreased respiratory effort AUSCULTATION: diminished lung sounds Cardio: RATE: tachycardic (initially) GI: INSPECTION: No abdominal distension Neuro: JENNIFER COMA SCALE: document GCS findings Jennifer coma scale eye opening: None Jennifer coma scale verbal response: Sounds Kopperl coma scale motor response: None Kopperl coma scale total score: 4 Procedures Intubation Time out performed: No sedative: Etomidate Mg Given: 15 paralytic: Succinylcholine Mg Given: 100 Laryngoscope: fiber optic video scope (4 blade) ET Tube Size: 8 ET Tube Uncuffed: No Tube Secured Depth (cm): 23 Tube Secured Location: lips Tube Placement Confirmation: visualized tube passing through cords, equal breath sounds bilaterally and confirmation by capnometry Patient Tolerated Procedure: well and no complications Intubation Complications: none Course Vital Signs: Vital signs: Vital Signs Temperature 100.1 F H 03/28/25 21:47 Pulse Rate 0 L 03/28/25 22:10 Respiratory Rate 0 L 03/28/25 22:10 Blood Pressure 0/0 03/28/25 22:10 Pulse Oximetry 0 L 03/28/25 22:10 Oxygen Delivery Me thod Ambu-Bag 03/28/25 21:55 Oxygen Flow Rate 15 03/28/25 21:47 MDM - Altered Mental Status Medical Decision Making Patient presents obtunded, nonresponsive. GCS of 4, only making sounds. He is being ventilated with [id number] and 15 L of oxygen. He had a pulse on arrival. EKG showed a wide bundle branch block, likely meeting Sgarbossa's criteria for STEMI. We were unable to get an accurate pulse oximetry on the patient due to peripheral vasoconstriction. His blood pressure initially was 60/30. He was given 0.2 mg of push dose epinephrine, with increased blood pressure. He was intubated without complication. However, EKG continued to widen on the monitor, and we lost pulses. At first pulse check, patient was in asystole. He was given 1 mg of epinephrine. Ventilation continued via bag valve through the ET tube. Asystole continued through around 2 with another milligram of epinephrine given. There was a rhythm change at that point, and pulses were regained. Rhythm appeared to be ventricular, with a wide-complex, at heart rate was fast. With pulses being generated at this point, 150 mg of amiodarone was given. Blood sugar was checked, was 51. An amp of D50 was pushed. Pulses were lost again, shortly thereafter, with chest compressions starting again. At this point, I talked to the family, who stated that they wanted no more intervention. We stopped compressions at this point. Time of was marked 2157 No radiology studies performed this visit Critical Care Time Critical Care Time: Critical Care Time: Yes Total Critical Care Time: 39 Attestation: This case had a high probability of a clinically significant, sudden, or life threatening deterioration of this patient's condition which required my full and direct attention, intervention and personal management. Time is independent of any procedures performed. Discharge Plan Discharge Patient Disposition: Clinical Impression: COVID-19, Acute hypoxic respiratory failure Coding Level of Care Code ED Records Management Engineer for Mariza Amanda
[2025-03-28 22:10] VITALS: BP 0/0; PULSE 0; RESP 0; O2SAT 0
--- NOTE | 2025-03-28 22:23 | PC.NURSE ---
MING @ [address] [employer] [employer] [place] notified, body released to home @ 2206 [place] notified of pt expiration
--- NOTE | 2025-03-28 22:52 | PC.NURSE ---
MTS & Saving Site: Released @ 3995
--- NOTE | 2025-03-28 23:05 | PC.NURSE ---
Body released to [facility] @ [phone]
== END 2025-03-28 23:23 | disposition expired ==
PROVIDERS: Emergency Provider Emergency Medicine; PCP Family Medicine
DX: U07.1 COVID-19 (principal); J96.01 Acute respiratory failure with hypoxia; I25.10 Atherosclerotic heart disease of native coronary artery without angina pectoris; E78.5 Hyperlipidemia, unspecified; Z95.1 Presence of aortocoronary bypass graft
CPT/HCPCS: 31500; 99291